=== PATIENT | female | born 1940 | race Caucasian/White ===

== ENCOUNTER → 2017-08-06 11:53 | Outpatient (CLI) | payer MEDICARE, SELFPAY ==
[2017-08-06 14:28] LABS: Anion Gap 7 (5-15); BUN 13 mg/dL (7-18); BUN/Creat Ratio 15.3 RATIO (10-20); Calcium,Total 9.4 mg/dL (8.5-10.1); Chloride 105 mmol/L (98-107); Creatinine, Serum 0.85 mg/dL (0.55-1.02); EST Glomerular Filtration Rate 69 mL/min (>60); Est Glom Filt Rate - Afr Amer 84 mL/min (>60); Glucose 119 mg/dL (74-106); Potassium 3.9 mmol/L (3.5-5.1); Sodium Level 137 mmol/L (136-145)
== END ==
PROVIDERS: Family Provider Family Medicine; PCP Family Medicine; Visit Provider Family Medicine
DX: E11.9 Type 2 diabetes mellitus without complications (principal)
CPT/HCPCS: 36415; 80048

== ENCOUNTER → 2018-01-27 14:46 | Outpatient (CLI) | payer MEDICARE, SELFPAY ==
--- NOTE | 2018-01-27 14:49 | BI_ITS ---
MAMMOGRAPHY - BILATERAL SCREENING REASON FOR EXAM: Female, 77 years old. Routine annual screening examination. PERTINENT HISTORY: Non-contributory. TECHNIQUE: Digital bilateral breast anju (3D mammographic acquisition) in the CC and MLO projections. 2-D mediolateral oblique (MLO) and craniocaudad (CC) views of both breasts were obtained. CAD: Full Field Digital Mammography with Computer Added Detection was performed. COMPARISON: Comparison is made with prior examination dated January 02, 2017 and May 29, 2015. FINDINGS: Breast Composition: There are scattered areas of fibroglandular density. There are no dominant masses or suspicious calcifications. Stable appearance of the rounded dense calcific nodules seen in both breasts worse along the inferior medial anterior portion of the left breast. No other significant abnormalities are identified. There has been no significant change since the prior study. BI/SCREENING MAMM (CAD), BILAT IMPRESSION: Stable bilateral screening mammogram. Yearly follow-up mammogram recommended. (A) ASSESSMENT CATEGORY: BIRADS Category 2: Benign. A letter regarding these results will be sent to the patient by the facility within 30 days. Approximately 10% of breast cancers are not detected by mammography. A normal mammogram should not delay biopsy of a clinically suspicious abnormality. [id number] Electronically Signed: Andry Matos MD at 15:50 EST Tel [phone], Service support ,
== END ==
PROVIDERS: Family Provider Family Medicine; PCP Family Medicine; Visit Provider Family Medicine
DX: Z12.31 Encounter for screening mammogram for malignant neoplasm of breast (principal)
CPT/HCPCS: 77063; 77067

== ENCOUNTER → 2018-05-08 11:06 | Outpatient (CLI) | payer MEDICARE, SELFPAY ==
[2017-07-09 13:06] VITALS: BMI 37.2
[2018-05-08 13:48] LABS: Anion Gap 9 (5-15); BUN 14 mg/dL (7-18); BUN/Creat Ratio 16.4 RATIO (10-20); Calcium,Total 9.4 mg/dL (8.5-10.1); Chloride 107 mmol/L (98-107); Cholesterol 241 mg/dL (200); Creatinine, Serum 0.86 mg/dL (0.55-1.02); EST Glomerular Filtration Rate 69 mL/min (>60); Est Glom Filt Rate - Afr Amer 83 mL/min (>60); Glucose 169 mg/dL (74-106); High Density Lipoprotein 53 mg/dL; Sodium Level 142 mmol/L (136-145); Triglycerides 181 mg/dL; Very Low Density Lipoprotein 36 mg/dL (5-40)
== END ==
PROVIDERS: Family Provider Family Medicine; PCP Family Medicine; Referring Provider Family Medicine; Visit Provider Family Medicine
DX: I10 Essential (primary) hypertension (principal)
CPT/HCPCS: 36415; 80048; 80061

== ENCOUNTER → 2018-10-22 | Outpatient (CLI) | payer MEDICARE, SELFPAY ==
[2018-07-22 15:29] VITALS: BMI 36.2
[2018-10-22 12:42] LABS: AST(SGOT) 15 U/L (15-37); Alanine Aminotransfer ALT/SGPT 23 U/L (13-56); Albumin, Serum 3.7 g/dL (3.2-5.0); Alkaline Phosphatase 108 U/L (45-117); Bilirubin, Direct 0.06 mg/dL (0.00-0.30); Cholesterol 251 mg/dL (200); Globulin 4.2 g/dL (2.2-4.2); High Density Lipoprotein 56 mg/dL; Protein, Total 7.9 g/dL (6.4-8.2); Triglycerides 210 mg/dL; Very Low Density Lipoprotein 42 mg/dL (5-40)
== END | disposition home or self-care (01) ==
LOC: MTLAB 09:49
PROVIDERS: Family Provider Family Medicine; PCP Family Medicine; Referring Provider Internal Medicine Cardiovascular Disease; Visit Provider Internal Medicine Cardiovascular Disease
DX: E78.00 Pure hypercholesterolemia, unspecified (principal)
CPT/HCPCS: 36415; 80061; 80076

== ENCOUNTER → 2018-11-25 12:21 | Outpatient (CLI) | payer MEDICARE, SELFPAY ==
[2018-07-22 15:29] VITALS: BMI 36.2
== END ==
PROVIDERS: Family Provider Family Medicine; PCP Family Medicine; Referring Provider Nurse Practitioner Family; Visit Provider Nurse Practitioner Family
DX: R30.0 Dysuria (principal)
CPT/HCPCS: 87077; 87086; 87088; 87186

== ENCOUNTER → 2019-01-15 14:32 | Outpatient (CLI) | payer MEDICARE, SELFPAY ==
[2019-01-08 15:28] VITALS: BMI 37.4
--- NOTE | 2019-01-15 14:34 | RAD_ITS ---
STUDY: X-RAY - CERVICAL SPINE REASON FOR EXAM: Female, 78 years old. Neck pain. TECHNIQUE: 5 view(s) of the cervical spine were obtained. COMPARISON: None FINDINGS: There are degenerative changes of the anterior atlantoaxial articulation. Normal odontoid process. Normal cervical lordosis. There is multi-level endplate spondylosis. There is diffuse osteopenia. There is mild, multi-level degenerative disc disease with multilevel disc space narrowing. There is multilevel bilateral apophyseal hypertrophy, more severe on the left compared to the right. The soft tissue structures are unremarkable. There is no demonstrated fracture of the cervical spine. RAD/Cerv Spine 4 or 5 Views IMPRESSION: Multilevel spondylosis/degenerative disease with no acute fracture or subluxation. Electronically Signed: Kelsi Davila MD at 7:10 EST , Service support ,
== END ==
PROVIDERS: Family Provider Family Medicine; PCP Family Medicine; Referring Provider Family Medicine; Visit Provider Family Medicine
DX: M54.2 Cervicalgia (principal)
CPT/HCPCS: 72050

== ENCOUNTER 2019-03-12 18:43 | Inpatient (IN) | payer MEDICARE, SELFPAY ==
[2019-01-08 15:28] VITALS: BMI 37.4
[2019-03-12] VITALS (8 sets, daily range): BP systolic 120–176; BP diastolic 62–74; PULSE 55–67; RESP 16–19; TEMP 36.4; O2SAT 95–98; BMI 39.9; BMI 40.0; BMI 37.0; BMI 37.1
--- NOTE | 2019-03-12 19:03 | EKG12_ITS ---
Test Reason : CP Blood Pressure : / mmHG Vent. Rate : 057 BPM Atrial Rate : 057 BPM P-R Int : 154 ms QRS Dur : 088 ms QT Int : 478 ms P-R-T Axes : 058 -38 090 degrees QTc Int : 465 ms Sinus bradycardia with occasional Premature ventricular complexes Possible Left atrial enlargement Left axis deviation Nonspecific ST and T wave abnormality Abnormal ECG Confirmed by JULIEN BRIGGS, GABY ([id number]), assignment editor WARREN CHEN ([id number]) on 03/16/2019 9:07:33 AM Referred By: KIM Confirmed By:GABY VICTORIA MD
--- NOTE | 2019-03-12 19:15 | RAD_ITS ---
STUDY: X-RAY CHEST REASON FOR EXAM: Female, 78 years old. Chest pain TECHNIQUE: Frontal view of the chest COMPARISON: X-ray chest September 02, 2016 FINDINGS: Post-CABG changes are present. The lungs are clear. There are no pleural effusions. There is no pneumothorax. The heart is enlarged. The visualized osseous structures are within normal limits. RAD/Chest 1 View (Portable) IMPRESSION: No acute thoracic pathology. Cardiomegaly. Electronically Signed: Antonio Lugo, at 19:39 EST Tel , Service support ,
[2019-03-12 19:27] LABS: Absolute Lymphocyte Count 1.68 X10^3/uL (0.83-4.51); Absolute Neutrophil Count 5.7 X10^3/uL (2.0-7.7); Basophil# 0.03 X10^3/uL; Basophil% 0.4 % (0-1); Eosinophil# 0.16 X10^3/uL; Hematocrit 48.1 % (37-47); Hemoglobin 15.4 g/dL (12.0-15.0); Lymphocyte # 1.68 X10^3/ul (4.0); Lymphocyte % 20.8 % (19-41); Mean Corpuscular Hgb 28.3 pg (27.0-32.0); Mean Corpuscular Volume 88.3 fL (81-99); Monocyte# 0.46 X10^3/uL; Monocyte% 5.7 % (0-10); NRBC Flagged by Analyzer 0 % (0-5); Neutrophil # 5.68 X10^3/uL (2.7-7.7); Neutrophil % 70.5 % (47-70); Platelet Count 225 K/mm3 (150-450); RBC Distribution Width CV 13.6 % (11.6-14.6); RBC Distribution Width SD 43.9 fl (35.1-43.9); Red Blood Count 5.45 M/mm3 (4.2-5.4); White Blood Count 8.1 K/mm3 (4.4-11.0)
[2019-03-12] MEDS: 0.9% Normal Saline 1,000 ML 150 ML IV (19:28)
[2019-03-12] MEDS: Nitroglycerin Oint 1 INCH PACKET TRANSDERM. (19:28)
[2019-03-12 19:44] LABS: Anion Gap 7 (5-15); BUN 14 mg/dL (7-18); BUN/Creat Ratio 13.6 RATIO (10-20); Calcium,Total 9.7 mg/dL (8.5-10.1); Chloride 106 mmol/L (98-107); Creatinine, Serum 1.03 mg/dL (0.55-1.02); EST Glomerular Filtration Rate 55 mL/min (>60); Est Glom Filt Rate - Afr Amer 67 mL/min (>60); Estimated Creatinine Clearance 35.06 ml/min; Glucose 155 mg/dL (74-106); Potassium 3.9 mmol/L (3.5-5.1); Sodium Level 139 mmol/L (136-145)
--- NOTE | 2019-03-12 19:57 | ED.VISSUMM ---
- ER Visit Summary Date of Service: 03/12/19 Chief Complaint: [Chest pain] History of Present Illness: The patient is a 78 F [presents to the emergency department complaint of chest pain that started around 5:30 PM. Patient describes a tightness and pressure like having an elephant sitting on her chest. Patient states that she just finished eating. Patient took 1 nitroglycerin at home and it did help her pain a little bit. EMS was called and they gave her aspirin and a second nitroglycerin tablet and on arrival to the ER she rates her pain as minimal may be a 1 out of 10. Patient did feel short of breath with it. Patient did get a little bit sweaty and diaphoretic. Patient states that lately she has been having a little more exertional dyspnea. Patient does have history of coronary artery disease with three-vessel CABG in 2012. Patient has history of diabetes, hypertension, high cholesterol. Recent travel or surgery. No fevers or cough.] Physical Examination: [HEENT-PERRLA, EOMI. Cranial nerves II through XII grossly intact. TMs clear. Mucous membranes moist. No adenopathy. Cardiovascular-regular rate and rhythm without murmur or ectopy Lungs-clear to auscultation, chest wall stable without crepitus or subcu emphysema Abdomen-normoactive bowel sounds, soft, nontender, no rebound or rigidity, no peritoneal signs. Extremities-intact ?4, normal range of motion, normal pulses, atraumatic] Test Results: [EKG obtained arrival shows sinus rhythm with a ventricular rate of 57 bpm with occasional PVCs. Patient had some nonspecific ST changes. Compared with prior EKG from 2012 no significant changes noted. CBC with differential obtained showed a white of 8.1, hemoglobin 15, hematocrit 48, platelets 228. Chemistries unremarkable. Troponin was slightly elevated at 0.103. Chest x-ray showed nothing acute.] Emergency Department Course and Treatment: [She had an inch of paste placed to the anterior chest wall. Patient was placed on a monitoring tech.] Treatment Plan: [Patient case will be discussed with hospitalist to admit patient] Disposition: [Admit] Impression: [Chest pain Non-ST elevation NE] This note was generated with [employer] dictation software. It may contain incorrect words, spelling, and punctuation that were not noted in review of the chart prior to signing ED Disposition - Plan for ED Patient: Referrals: Rodríguez Lema MD [Primary Care Provider] -
--- NOTE | 2019-03-12 20:15 | HP.PCM_ITS ---
Problem List (1) Non-STEMI (non-ST elevated myocardial infarction) Status: Acute (2) Chest pain Status: Acute Qualifiers: Ischemic chest pain type: unspecified angina pectoris type (3) Presence of stent in coronary artery Status: Chronic Comment: PTCA/stent of First Obtuse Marginal branch of left Cx; PTCA/stent to SVG to PDA in both proximal & distal segments 11/24/09 (4) Pure hypercholesterolemia Status: Chronic (5) Essential hypertension Status: Chronic (6) Sinus bradycardia Status: Chronic (7) Diabetes mellitus Status: Chronic Qualifiers: Diabetes mellitus type: type 2 Diabetes mellitus detention insulin use: without detention use Diabetes mellitus complication status: with other specified complication Qualified Code(s): E11.69 - Type 2 diabetes mellitus with other specified complication (8) Presence of aortocoronary bypass graft Status: Chronic Comment: Sep 1993, median sternotomy, OHS , constructionof left internal thoracic artery graft to LAD and a segment ov RSV bypass graft to PDCA, redo CABG SVG to PDA, SVG to Diag 1, SVG to OM2 01/02/12 (9) Atherosclerotic heart disease of [place] coronary artery without angina pectoris Status: Chronic Qualifiers: [place] vs. transplanted heart: unspecified whether [place] or transplanted heart Qualified Code(s): I25.10 - Atherosclerotic heart disease of [place] coronary artery without angina pectoris History of Present Illness Date of Admission: 03/12/19 Chief Complaint: Chest pain The patient is a 78 y/o F w/ PMHx: CAD status post CABG x 2 initially 1993 and follow-up CABG x 3 2011 with SVG to diagonal, SVG to OM and SVG to right PDA as well as PCI first obtuse marginal branch left CX, SVG to PDA proximal and distal segments last 2009, Diabetes mellitus type II, HTN, HLD, Hx sinus bradycardia who presents to the [facility] on 03[facility]12[facility]2019 with history of onset chest discomfort following meal at ~5:30 pm, description of an elephant sitting on her chest with dyspnea and diaphoresis noted across the entire chest, promptly taking 2 sublingual nitroglycerin decreasing her pain from an 8 out of 10 to 4 out of 10 in severity and eventually transitioning to 2 out of 10 upon ED presentation. In the ED upon evaluation of patient she notes the chest discomfort previously all across her chest is now primarily in the left chest and shoulder, rated 1 out of 10 and continues to improve. Patient also notes taking a full-strength 324 mg aspirin p.o. x1. Work-up in the ED included T 97.5, heart rate 55, BP 165/69, respiratory rate 16, 96% room air, CBC with WC 8.1, hemoglobin 15.4, platelet 225 without market shift, BMP with BUN/creatinine 14/1.03, glucose 155, troponin 0.103, chest x-ray with no acute cardiopulmonary findings aside cardiomegaly, EKG with sinus rhythm with nonspecific ST-T changes similar to prior. In the ED patient administered lovenox 100 SC x 1, ASA 324 mg ASA, 1 inch NG paste as well as NS. Discussed case upon admission with financial business analyst and decision for Brilinta load in addition to continuation of therapeutic Lovenox as well as aspirin therapy, statin, beta-danny and lisinopril in addition to increasing her nitroglycerin paste to 2 inches every 6 hours. Past Medical History Past Medical History (Chronic Problems): Chronic Problems (Last Reviewed 12/17/18 @ 09:35 by Deepika Fleming) Presence of stent in coronary artery (Chronic ~11/24/09) PTCA/stent of First Obtuse Marginal branch of left Cx; PTCA/stent to SVG to PDA in both proximal & distal segments 11/24/09 Pure hypercholesterolemia (Chronic) Essential hypertension (Chronic) Atrioventricular block (Chronic) Sinus bradycardia (Chronic) Other specified cardiac dysrhythmias (Chronic) Chronic cardiac arrhythmia (Chronic) Undiagnosed cardiac murmurs (Chronic) Nonspecific abnormal unspecified cardiovascular function study (Chronic) Abnormal electrocardiogram (Chronic) Encounter for long-term current use of high risk medication (Chronic) Diabetes mellitus (Chronic) Presence of aortocoronary bypass graft (Chronic ~01/02/12) Sep 1993, median sternotomy, OHS , constructionof left internal thoracic artery graft to LAD and a segment ov RSV bypass graft to PDCA, redo CABG SVG to PDA, SVG to Diag 1, SVG to OM2 01/02/12 Atherosclerotic heart disease of [place] coronary artery without angina pectoris (Chronic) Medical History: Medical History (Last Reviewed 12/17/18 @ 09:35 by Deepika Fleming) Lipoma of back (Acute) D17.1 Presence of stent in coronary artery (Chronic) Onset Date: ~11/24/09 Z95.5 PTCA/stent of First Obtuse Marginal branch of left Cx; PTCA/stent to SVG to PDA in both proximal & distal segments 11/24/09 Pure hypercholesterolemia (Chronic) E78.00 Essential hypertension (Chronic) I10 Atrioventricular block (Chronic) I44.30 Sinus bradycardia (Chronic) R00.1 Diabetes mellitus (Chronic) E11.9 Atherosclerotic heart disease of [place] coronary artery without angina pectoris (Chronic) I25.10 CAD (coronary artery disease) (Inactive) I25.10 11/24/09 PTCA/stent of First Obtuse Marginal branch of left Cx; PTCA/stent to SVG to PDA in both proximal & distal segments; HLD (hyperlipidemia) (Inactive) E78.5 Hypertension (Inactive) I10 Percutaneous transluminal coronary angioplasty (PTCA) within last 14 to 24 months (Inactive) Z98.61 11/24/09 PTCA/stent of First Obtuse Marginal branch of left Cx; PTCA/stent to SVG to PDA in both proximal & distal segments; Allergies clopidogrel [From Plavix] Allergy (Verified 03/12/19 18:48) Rash Sulfa (Sulfonamide Antibiotics) Allergy (Verified 03/12/19 18:48) Rash [id number] Reductase Inhibitor Adverse Reaction (Severe, Verified 03/12/19 18:48) Intolerance, mylagias prasugrel [From Effient] Adverse Reaction (Intermediate, Verified 03/12/19 18:48) Tongue blisters Home Medications: Ambulatory Orders Medication Instructions Recorded Aspirin [Aspirin, Baby] 81 mg PO DAILY@0800 09/02/16 nitroglycerin 0.4 mg sublingual 0.4 mg SUBLINGUAL Q5M PRN #25 tab 07/22/18 tablet amlodipine 10 mg tablet 10 mg PO DAILY tab 12/17/18 Lisinopril 20 mg PO DAILY 03/12/19 Metformin HCl [Metformin HCl ER] 500 mg PO DAILY 03/12/19 Metoprolol Succinate 12.5 mg PO DAILY 03/12/19 Multivitamins,Therapeutic 1 tab PO DAILY 03/12/19 [Multivitamin] Pravastatin Sodium 20 mg PO QODAY 03/12/19 Surgical History: Surgical History (Last Reviewed 12/17/18 @ 09:35 by Deepika Fleming) Presence of aortocoronary bypass graft (Chronic) Onset Date: ~01/02/12 Z95.24 Sep 1993, median sternotomy, OHS , constructionof left internal thoracic artery graft to LAD and a segment ov RSV bypass graft to PDCA, redo CABG SVG to PDA, SVG to Diag 1, SVG to OM2 01/02/12 Presence of coronary angioplasty implant and graft Onset Date: ~11/24/09 Z95.5 11/24/09 PTCA/stent of First Obtuse Marginal branch of left Cx; PTCA/stent to SVG to PDA in both proximal & distal segments; Surgical History: - - 1993 CABG x2, 2012 CABG x3, PCI x3 most recently 2009, tonsillectomy, cholecystectomy, appendectomy, hysterectomy. 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 Lives: Spouse/ Significant Other Smoking Status: Never smoker Tobacco Use: Non-smoker Alcohol: None Drugs: None - *Family History Maternal Family History: Family History (Last Reviewed 12/17/18 @ 09:35 by Deepika Fleming) Father CAD (coronary artery disease) Myocardial infarction Brother Myocardial infarction CAD (coronary artery disease) Brother Myocardial infarction Sister CAD (coronary artery disease) Diabetes Myocardial infarction Mother Cancer History Items: Cancer Paternal Family History: Family History (Last Reviewed 12/17/18 @ 09:35 by Deepika Fleming) Father CAD (coronary artery disease) Myocardial infarction Brother Myocardial infarction CAD (coronary artery disease) Brother Myocardial infarction Sister CAD (coronary artery disease) Diabetes Myocardial infarction Mother Cancer History Items: High Cholesterol, Heart Disease, Hypertension Review of Systems Constitutional: Reports: Malaise, Weakness, Fatigue. Denies: Chills, Fever, Weight Change HEENT: Denies: Head Aches, Sinus Congestion, Sinus Drainage Cardiovascular: Reports: Chest Pain, Chest Pressure, Heaviness. Denies: Light Headedness, Orthopnea, Palpitations, Syncope Respiratory: Reports: Shortness of Breath. Denies: Cough, Shortness of breath at rest, Shortness of breath upon exertion, Sputum production, Wheezing Gastrointestinal: Reports: Nausea. Denies: Abdominal Pain, Vomiting Genitourinary: Denies: Dysuria Musculoskeletal: Reports: Arm Pain, Joint Pain, Shoulder Pain. Denies: Joint Tenderness Skin: Denies: Rash, Wounds Neurological: Denies: Numbness, Tingling, Focal weakness Psychiatric: Denies: Anxiety, Depression, Homicidal Ideations, Suicidal Ideations Hematologic/ Lymphatic: Denies: Easy Bruising, Easy Bleeding VTE Information - Inpt Only VTE Present on Admission: No VTE Mechan Device Prophylaxis: SCD's VTE Pharm Prophylaxis ordered?: Yes Patient Problems: Active and Suspected Problems (Last Reviewed 12/17/18 @ 09:35 by Deepika Fleming) Non-STEMI (non-ST elevated myocardial infarction) (Acute) Chest pain (Acute) Subjective: Seated upright in ED bed, fatigued appearance, notes chest discomfort has decreased and is currently only on the left side, rated 1 out of 10 in severity, continues to improve. Objective: Physical Examination: General: awake, alert, oriented x 3 and cooperative, seated upright in the ED bed, fatigued appearance, notes chest discomfort improving. Skin: normal color, turgor, no icterus, cyanosis. HEENT: AT/NC, EOMI, PERRLA, MMM, no carotid bruits or JVD noted. Lungs: CTA bilaterally, moderate effort, mild decrease BL bases, no rales, ronchi or wheezing. Heart: Mildly bradycardic with regular rhythm; no gallop, rub audible, no reproducible discomfort palpation of left lateral chest. Abdomen: soft, morbidly obese, NTTP, ND, normal BS, no HSM. Extremities: no cyanosis, clubbing, or edema. Neurological: patient awake, alert, oriented x 3; cognitive function intact; pupils equally reactive to light and accomodation; cranial nerves II-XII grossly normal, moving all 4 extremities, no focal deficits, strength moderately globa lly Moni secondary to acute presentation. Psychiatric: affect appears mildly fatigued, no acute evidence of depressive or anxiety feelings. - Physical Exam Vitals/I&O's: Vital Signs Temp Pulse Resp BP Pulse Ox 97.5 F L 64 17 158/72 H 96 03/12/19 18:44 03/12/19 19:47 03/12/19 19:47 03/12/19 19:47 03/12/19 19:47 Oxygen Delivery Method Room Air Weight: 211 lb 10.3 oz Body Mass Index (BMI) 39.9 Laboratory Results 03/12/19 19:17: WBC 8.1, RBC 5.45 H, Hgb 15.4 H, Hct 48.1 H, MCV 88.3, MCH 28.3, MCHC 32.0, RDW Std Deviation 43.9, RDW Coeff of [place] 13.6, Plt Count 225, MPV 10.0, Immature Gran % (Auto) 0.600, Neut % (Auto) 70.5 H, Lymph % (Auto) 20.8, [place] % (Auto) 5.7, Eos % (Auto) 2.0, Baso % (Auto) 0.4, Absolute Neuts (auto) 5.7, Absolute Lymphs (auto) 1.68, Nucleated RBC % 0 03/12/19 19:17: Sodium 139, Potassium 3.9, Chloride 106, Carbon Dioxide 26.0, Anion Gap 7, BUN 14, Creatinine 1.03 H, Estim Creat Clear Calc 35.06, Est GFR (MDRD) Af Amer 67, Est GFR (MDRD) Non-Af 55 L, BUN/Creatinine Ratio 13.6, Glucose 155 H, Calcium 9.7, Troponin I 0.103 H Current Medications Sodium Chloride () 1,000 mls @ 150 mls/hr IV .Q6H40M KIARRA Last Admin: 03/12/19 19:28 Dose: 150 mls/hr Documented by: Assessment/Plan All Active Problems (Last Reviewed 12/17/18 @ 09:35 by Deepika Fleming) Non-STEMI (non-ST elevated myocardial infarction) (Acute) Chest pain (Acute) Lipoma of back (Acute) The patient is a 78 y/o F w/ PMHx: CAD status post CABG and PCI, Diabetes mellitus type II, HTN, HLD, Hx sinus bradycardia who presents to the [facility] on 03/12/2019 with history of onset chest discomfort following meal at ~5:30 pm, description of an elephant sitting on her chest with dyspnea and diaphoresis noted across the entire chest, promptly taking 2 sublingual nitroglycerin decreasing her pain from an 8 out of 10 to 4 out of 10 in severity and eventually transitioning to 2 out of 10 upon ED presentation. 1. Chest Pain w/ Acute NSTEMI: EKG in ED w/ sinus rhythm with nonspecific ST-T wave changes similar to prior, CXR w/ cardiomegaly with no acute cardiopulmonary findings. Trop elevated, 0.103. Will admit to PCU, maintain on a monitored bed, continue serial cardiac enzymes and EKGs. Obtain magnesium level upon admission. We will continue therapeutic lovenox with first dose initiated in the ED upon presentation. Continue medical management w/ asa, BB, lisinopril, statin w/ AM FLP. Cardiology consulted, pending evaluation but discussion with plan for continued NG scheduled, Brilinta load, continue therapeutic Lovenox as well as aspirin with possible cardiac catheterization Friday if remains clinically appropriate otherwise will maintain n.p.o. status following midnight in case catheterization needed in a.m. ECHO requested. ASA, NG, morphine. 2. CAD: s/p CABG x2 initially in 1993 and CABG x 3 05/14/2011 and PCI x3 as noted, follows w/ Dr. Encarnacion. Will continue home regimen asa, statin, BB, lisinopril with noted allergy to Plavix. As noted given Brilinta load with continuation twice daily regimen following. 3. Hypertension: Continue home regimen including metoprolol, lisinopril, Norvasc, PRN hydralazine. 4. Hyperlipidemia: Continue home statin regimen. AM FLP. 5. Diabetes mellitus type II: Hold oral home regimen, ADA diet, accu checks w/ ISS. 6. Morbid Obesity: Weight loss and lifestyle changes encouraged, nutrition consulted. 7. DVT prophylaxis: SCDs, continue therapeutic Lovenox as noted above. 8. CODE status: Patient's daughter is her healthcare power of district attorney and she does have a living will in place. Given current cardiac presentation with an STEMI, discussed CODE status at length including difference between FULL code, DNR-CCA and DNR-CC status. Following discussions about the differences in these status, requested full code status. Advanced Care Planning Face to Face Time: 16 minutes. Code Visit Inpatient E&M: 07222 Init Hosp L3 Procedures: 01653 Advncd Care Plan 30 Min
[2019-03-12] MEDS: Enoxaparin 100 MG/ML Syringe SC (20:25)
--- NOTE | 2019-03-12 23:01 | ECHOD_ITS ---
Reason For Study: Chest Pain Procedure This was a 2D Doppler, Color Flow transthoracic echocardiogram. Exam performed portable in patient room. Left Ventricle Normal left ventricle. Concentric left ventricular hypertrophy. Left ventricular systolic function is normal. The estimated ejection fraction is 55-60 %. Mid-Inferior: Mildly hypokinetic. Right Ventricle Normal right ventricle. Normal systolic function. Atria The left atrium is mildly enlarged. The right atrium is mildly enlarged. Mitral Valve The mitral valve is structurally normal. No prolapse or stenosis seen. Mild (1+) mitral valve insufficiency. Tricuspid Valve Normal tricuspid valve. Trivial tricuspid valve insufficiency. Aortic Valve Normal aortic valve. No aortic valve insufficiency. Pulmonic Valve Normal pulmonic valve. No pulmonic valve insufficiency. MMode/2D Measurements & Calculations LVIDd: 5.8 cm IVSd: 1.1 cm Ao root diam: 3.2 cm LVIDs: 3.5 cm LVPWd: 1.1 cm RVDd: 3.4 cm FS: 39.1 % LAV(MOD-bp): 61.9 ml SV(MOD-sp4): 35.3 ml LVAd ap4: 23.4 cm2 LAV(MOD-bp) Indexed: 32.1 ml/m2 EDV(MOD-sp4): 62.4 ml LAV(MOD-sp2): 57.5 ml EDV(sp4-el): 62.6 ml LAV(MOD-sp4): 66.2 ml LVAs ap4: 14.2 cm2 ESV(MOD-sp4): 27.0 ml ESV(sp4-el): 27.3 ml EF(MOD-sp4): 56.7 % EF(sp4-el): 56.3 % SV(sp4-el): 35.2 ml LA dimension(2D): 5.0 cm LA A4 area: 21.6 cm2 RA A4 area: 14.8 cm2 Doppler Measurements & Calculations MV E max chuy: 71.3 cm/sec Lat Peak E' Chuy: 7.2 cm/sec Med Peak E' Chuy: 4.6 cm/sec MV A max chuy: 79.3 cm/sec E/E' lat: 9.9 E/E' med: 15.6 MV E/A: 0.90 Ao V2 max: 154.0 cm/sec LV V1 max: 96.6 cm/sec PA V2 max: 78.9 cm/sec Ao max P.5 mmHg LV V1 max P.7 mmHg Ao V2 mean: 100.2 cm/sec Ao mean P.5 mmHg Ao V2 VTI: 36.9 cm TR max chuy: 262.5 cm/sec TR max P.6 mmHg Interpretation Summary Technically good quality study Patient is in sinus bradycardia during acquisition of this study. Normal left ventricle. Left ventricular systolic function is normal. The estimated ejection fraction is 55-60 %. The left atrium is mildly enlarged. Mild (1+) mitral valve insufficiency. Trivial tricuspid valve insufficiency. No aortic valve insufficiency. No pulmonic valve insufficiency. . Ordering Physician: Brittney Melendez Referring Physician: Rodríguez Lema Performed By: Allie Vargas, WALKER, RVT
--- NOTE | 2019-03-12 23:01 | EKG12_ITS ---
Test Reason : CP ADMIT Blood Pressure : / mmHG Vent. Rate : 063 BPM Atrial Rate : 052 BPM P-R Int : 150 ms QRS Dur : 098 ms QT Int : 462 ms P-R-T Axes : 039 -22 111 degrees QTc Int : 472 ms Sinus bradycardia with occasional Premature ventricular complexes Otherwise normal ECG Leftward [place] Poor R-wave progression Nonspecific ST/T wave abnormality Confirmed by YAMILA BRIGGS, DENG ([id number]), order editor WARREN CHEN ([id number]) on 03/17/2019 11:11:15 AM Referred By: DR PATEL Confirmed By:DENG DRISCOLL MD
[2019-03-12 23:16] LABS: Magnesium 2.2 mg/dL (1.6-2.6)
[2019-03-12] MEDS: Famotidine 20 MG Tablet PO (23:42)
[2019-03-12] MEDS: 0.9% Normal Saline 1,000 ML 100 ML IV (23:42)
[2019-03-12] MEDS: Nitroglycerin Oint 1 INCH PACKET 2 INCH TRANSDERM. (23:51)
[2019-03-12] MEDS: TICAGRELOR 90 MG TABLET 180 MG PO (23:52)
[2019-03-13] VITALS (14 sets, daily range): BP systolic 106–167; BP diastolic 47–76; PULSE 50–64; RESP 14–20; TEMP 36.6–36.7; O2SAT 95–98
[2019-03-13 00:05] LABS: Bedside Glucose 105 mg/dL (70-110)
[2019-03-13 02:21] LABS: Absolute Lymphocyte Count 2.49 X10^3/uL (0.83-4.51); Absolute Neutrophil Count 5.4 X10^3/uL (2.0-7.7); Basophil# 0.04 X10^3/uL; Basophil% 0.5 % (0-1); Eosinophil# 0.16 X10^3/uL; Eosinophils% 1.8 % (0-5); Hemoglobin 14.9 g/dL (12.0-15.0); Lymphocyte # 2.49 X10^3/ul (4.0); Lymphocyte % 28.8 % (19-41); Mean Corp Hgb Conc 33.1 g/dL (32-36); Mean Corpuscular Volume 87.5 fL (81-99); Mean Platelet Vol. 10.2 fl (6.2-12.0); Monocyte# 0.52 X10^3/uL; NRBC Flagged by Analyzer 0 % (0-5); Neutrophil # 5.41 X10^3/uL (2.7-7.7); Neutrophil % 62.4 % (47-70); Platelet Count 235 K/mm3 (150-450); RBC Distribution Width CV 13.5 % (11.6-14.6); RBC Distribution Width SD 43.5 fl (35.1-43.9); Red Blood Count 5.14 M/mm3 (4.2-5.4); White Blood Count 8.7 K/mm3 (4.4-11.0)
[2019-03-13 02:41] LABS: Prothrombin Time (Protime)PT. 13.3 SECONDS (11.7-14.9)
[2019-03-13 02:53] LABS: Anion Gap 7 (5-15); BUN 13 mg/dL (7-18); BUN/Creat Ratio 15.5 RATIO (10-20); Calcium,Total 9.3 mg/dL (8.5-10.1); Chloride 110 mmol/L (98-107); Cholesterol 273 mg/dL (200); Creatinine, Serum 0.84 mg/dL (0.55-1.02); EST Glomerular Filtration Rate 70 mL/min (>60); Est Glom Filt Rate - Afr Amer 85 mL/min (>60); Estimated Creatinine Clearance 42.99 ml/min; Glucose 114 mg/dL (74-106); High Density Lipoprotein 49 mg/dL; Potassium 3.6 mmol/L (3.5-5.1); Sodium Level 141 mmol/L (136-145); Triglycerides 253 mg/dL; Very Low Density Lipoprotein 51 mg/dL (5-40)
[2019-03-13] MEDS: Nitroglycerin Oint 1 INCH PACKET 2 INCH TRANSDERM. (06:47)
[2019-03-13 07:00] LABS: Bedside Glucose 134 mg/dL (70-110)
[2019-03-13] MEDS: Acetaminophen 325 MG Tablet 650 MG PO (08:18)
[2019-03-13] MEDS: Aspirin 81 MG TAB.CHEW PO (08:19)
[2019-03-13] MEDS: amLODIPine 10 MG Tablet PO (08:19)
--- NOTE | 2019-03-13 10:30 | CON.PCM_ITS ---
Problem List (1) Chest pain Status: Acute Qualifiers: Chest pain type: chest pain due to myocardial ischemia Ischemic chest pain type: unstable angina pectoris Reason for Consult Date of Consultation: 03/13/19 History of Present Illness: T patient is a pleasant 78-year-old man with medical history significant for history of known coronary artery disease status post coronary artery bypass surgery x2 the recent bypass history was done at [facility] in 2011 where she had 2nd CABGx3 with saphenous vein graft to the first diagonal branch and saphenous vein graft to the obtuse marginal branch and a vein graft to the PDA right coronary artery symptoms of chest discomfort shortly after eating chili last evening. She informs me that she took once of the nitroglycerin for symptoms of chest discomfort 8 or 10 in severity. 4 minutes after the pain stated and before taking second nitroglycerin she did inform her to call 911. Patient was given 4 baby aspirin by EMS and additional nitroglycerin sublingual on the way to our hospital. Enroute to our hospital her symptoms of chest discomfort got better to 4 out of 10 in severity and by the time she came to the emergency room she was feeling much better with chest pain 1/10. Patient was seen by hospitalist and was initiated on Nitropaste 2 inches every 6 hours. This caused her symptoms of headache as expected and she informs me that she cannot go to sleep all night and she was insisting initially that she wants to be discharged home as she cannot rest in the hospital. Symptoms of chest pain completely resolved and she was conversing with her son at the bedside she usually follows with Dr. Encarnacion and believes that she did had stress test since 2011 but nothing recently. Past Medical History Allergies/Adverse Reactions: Allergies clopidogrel [From Plavix] Allergy (Verified 03/12/19 18:48) Rash Sulfa (Sulfonamide Antibiotics) Allergy (Verified 03/12/19 18:48) Rash Hewrxjh-Poa-Guw Reductase Inhibitor Adverse Reaction (Severe, Verified 03/12/19 18:48) Intolerance, mylagias prasugrel [From Effient] Adverse Reaction (Intermediate, Verified 03/12/19 18:48) Tongue blisters Home Medications: Ambulatory Orders Medication Instructions Recorded Aspirin [Aspirin, Baby] 81 mg PO DAILY@0800 09/02/16 nitroglycerin 0.4 mg sublingual 0.4 mg SUBLINGUAL Q5M PRN #25 tab 07/22/18 tablet amlodipine 10 mg tablet 10 mg PO DAILY tab 12/17/18 Lisinopril 20 mg PO DAILY 03/12/19 Metformin HCl [Metformin HCl ER] 500 mg PO DAILY 03/12/19 Metoprolol Succinate 12.5 mg PO DAILY 03/12/19 Multivitamins,Therapeutic 1 tab PO DAILY 03/12/19 [Multivitamin] Pravastatin Sodium 20 mg PO QODAY 03/12/19 Past Medical History (Chronic Problems): Chronic Problems (Last Reviewed 12/17/18 @ 09:35 by Deepika Fleming) Presence of stent in coronary artery (Chronic ~11/24/09) PTCA/stent of First Obtuse Marginal branch of left Cx; PTCA/stent to SVG to PDA in both proximal & distal segments 11/24/09 Pure hypercholesterolemia (Chronic) Essential hypertension (Chronic) Atrioventricular block (Chronic) Sinus bradycardia (Chronic) Other specified cardiac dysrhythmias (Chronic) Chronic cardiac arrhythmia (Chronic) Undiagnosed cardiac murmurs (Chronic) Nonspecific abnormal unspecified cardiovascular function study (Chronic) Abnormal electrocardiogram (Chronic) Encounter for long-term current use of high risk medication (Chronic) Diabetes mellitus (Chronic) Presence of aortocoronary bypass graft (Chronic ~01/02/12) Sep 1993, median sternotomy, OHS , constructionof left internal thoracic artery graft to LAD and a segment ov RSV bypass graft to PDCA, redo CABG SVG to PDA, SVG to Diag 1, SVG to OM2 01/02/12 Atherosclerotic heart disease of [place] coronary artery without angina pectoris (Chronic) Surgical History: - - 1993 CABG x2, 2011 CABG x3, PCI x3 most recently 2009, tonsillectomy, cholecystectomy, appendectomy, hysterectomy. Psychiatric History: No pertinent psych hx [employer] History: No pertinent [employer] history - *Family History Maternal Family History: Family History (Last Reviewed 12/17/18 @ 09:35 by Deepika Fleming) Father CAD (coronary artery disease) Myocardial infarction Brother Myocardial infarction CAD (coronary artery disease) Brother Myocardial infarction Sister CAD (coronary artery disease) Diabetes Myocardial infarction Mother Cancer History Items: Cancer Paternal Family History: Family History (Last Reviewed 12/17/18 @ 09:35 by Deepika Fleming) Father CAD (coronary artery disease) Myocardial infarction Brother Myocardial infarction CAD (coronary artery disease) Brother Myocardial infarction Sister CAD (coronary artery disease) Diabetes Myocardial infarction Mother Cancer History Items: High Cholesterol, Heart Disease, Hypertension Lives: Spouse/ Significant Other Smoking Status: Never smoker Tobacco Use: Non-smoker Alcohol: None Drugs: None Review of Systems - Review of Systems General: Denies: Fever, Night Sweats, Fatigue Cardiovascular: Denies: Chest Discomfort, Shortness of Breath, Orthopnea, PND, Peripheral Edema, Palpitations, Lightheadedness, Dizziness, Near Syncope, Syncope Respiratory: Denies: Cough, Sputum Production, Hemoptysis Gastrointestinal: Denies: Hematemesis, Hematochezia, Melena Genitourinary: Denies: Dysuria, Hematuria Skin: Denies: Rash Objective: Vital Signs Temp Pulse Resp BP Pulse Ox 98.1 F 50 L 14 145/64 H 95 03/13/19 08:09 03/13/19 08:09 03/13/19 08:09 03/13/19 08:09 03/13/19 08:35 Oxygen Delivery Method Room Air Weight: 196 lb 6.4 oz Body Mass Index (BMI) 37.0 Intake and Output for Last 24 Hours 03/11/19 03/12/19 03/13/19 23:59 23:59 23:59 Intake Total 330 / 330 998.33 / 998.33 Balance 330 / 330 998.33 / 998.33 General: Awake, Alert, Oriented x 3 HEENT: PERRL, EOMI, Sclera Non Icteric Neck: Supple, Good ROM, No Lymph Node Enlargement Lungs: Clear to auscultation Cardiovascular: Regular Rhythm, Normal S1, Normal S2, No Murmurs, No Rubs, No Gallops Vascular: No Carotid Bruits, Normal Femoral Pulses, Normal Radial Pulses, Normal Dorsalis Pedal Pulse, Normal Posterior Tibial Pulses Abdomen: Bowel Sounds Present, Soft, Non Tender, No HSM, No Organomegaly Extremities: No Cyanosis, No Clubbing, No edema Neurological: No Focal Motor or Sensory Deficit 03/12/19 19:17: WBC 8.1, RBC 5.45 H, Hgb 15.4 H, Hct 48.1 H, MCV 88.3, MCH 28.3, MCHC 32.0, Plt Count 225, MPV 10.0, Immature Gran % (Auto) 0.600, Neut % (Auto) 70.5 H, Lymph % (Auto) 20.8, Crawford % (Auto) 5.7, Eos % (Auto) 2.0, Baso % (Auto) 0.4, Absolute Neuts (auto) 5.7, Nucleated RBC % 0 03/12/19 19:17: Sodium 139, Potassium 3.9, Chloride 106, Carbon Dioxide 26.0, Anion Gap 7, BUN 14, Creatinine 1.03 H, Est GFR (MDRD) Af Amer 67, Est GFR (MDRD) Non-Af 55 L, BUN/Creatinine Ratio 13.6, Glucose 155 H, Calcium 9.7, Troponin I 0.103 H 03/12/19 22:44: Troponin I 0.558 H 03/12/19 22:44: Magnesium 2.2 03/13/19 01:45: Troponin I 0.994 H* 03/13/19 01:45: WBC 8.7, RBC 5.14, Hgb 14.9, Hct 45.0, MCV 87.5, MCH 29.0, MCHC 33.1, Plt Count 235, MPV 10.2, Immature Gran % (Auto) 0.500, Neut % (Auto) 62.4, Lymph % (Auto) 28.8, Crawford % (Auto) 6.0, Eos % (Auto) 1.8, Baso % (Auto) 0.5, Absolute Neuts (auto) 5.4, Nucleated RBC % 0 03/13/19 01:45: Sodium 141, Potassium 3.6, Chloride 110 H, Carbon Dioxide 24.0, Anion Gap 7, BUN 13, Creatinine 0.84, Est GFR (MDRD) Af Amer 85, Est GFR (MDRD) Non-Af 70, BUN/Creatinine Ratio 15.5, Glucose 114 H, Calcium 9.3, Triglycerides 253 H, Cholesterol 273 H, LDL Cholesterol 173 H, VLDL Cholesterol 51 H, HDL Cholesterol 49 03/13/19 01:45: PT 13.3, INR 1.0, APTT 40.0 H Rhythm: EKG: ECHO: Stress Test: Cardiac Cath: PCI: CT Surgery: Holter monitor: EPS: PPM: CXR: Chest CT Scan: Assessment/Plan #1 non-ST elevation myocardial infarction. I do agree with hospital services to continue the patient on low monitor weight Heparin subcutaneously every 12 hours based on her weight at least until Friday evening and will discontinue thereafter. We will keep her n.p.o. post midnight on Friday and consideration for a left heart catheterization possible ad hoc angioplasty to be done on Friday by Dr. Encarnacion. As patient was complaining of severe headaches I would scan his Nitropaste now that she is chest pain-free I would not initiate nitrates in any other form for now. 2. Hypertension currently well controlled 3. Dyslipidemia for which she remains on statin therapy 4. Abnormal EKG showing evidence of sinus bradycardia with occasional PVCs and nonspecific changes involving the anterior precordial leads which are new compared to the old EKG in 2011 sinus bradycardia is possibly secondary to patient being on a small dose of long-acting beta blockers and to some comment of underlying sick sinus syndrome given her advanced age 5. We will continue patient on Brilinta and she did receive a loading dose of Brilinta last evening at 180 mg p.o. in the emergency room and she is allergic to clopidogrel and Prasugrel 6. Diabetes mellitus type 2 be addressed with hospital services 7. Insomnia will give her a small dose of Restoril 15 to 30 mg nightly as needed Discussed with hospitalist services Thank you for asking us to evaluate this pleasant patient
--- NOTE | 2019-03-13 11:02 | PN_ITS ---
<Patricia Ellis - Last Filed: 03/13/19 11:13> Patient Problems: Active and Suspected Problems (Last Reviewed 12/17/18 @ 09:35 by Deepika Fleming) Non-STEMI (non-ST elevated myocardial infarction) (Acute) Chest pain (Acute) Subjective: Patient seen and examined. Denies further chest pain. Initially patient did not want to stay until Friday to have heart cath and requested to leave AGAINST MEDICAL ADVICE however following further discussion with cardiology, patient agreeable to stay over the weekend to have heart cath on Friday. - Physical Exam Vitals/I&O's: Vital Signs Temp Pulse Resp BP Pulse Ox 98.1 F 50 L 14 145/64 H 95 03/13/19 08:09 03/13/19 08:09 03/13/19 08:09 03/13/19 08:09 03/13/19 08:35 Oxygen Delivery Method Room Air Weight: 196 lb 6.4 oz Body Mass Index (BMI) 37.0 Intake and Output for Last 24 Hours 03/11/19 03/12/19 03/13/19 23:59 23:59 23:59 Intake Total 330 / 330 998.33 / 998.33 Balance 330 / 330 998.33 / 998.33 General: Alert, Oriented x3, Cooperative HEENT: Atraumatic, PERRLA, EOMI, Normocephalic Neck: Supple, No JVD, Negative Carotid Bruits Lungs: Clear to auscultation, Normal air movement Cardiovascular: Regular rate, Regular Rhythm, Normal S1, Normal S2, No murmurs Abdomen: Bowel Sounds Present, Soft, Non Tender, Non-Distended Extremities: No clubbing, No cyanosis, No edema, Capillary Refill Less than 3 Seconds Skin: No rashes, No breakdown Musculoskeletal: No Tenderness to Palpation of Joints or Extremities Neurological: Cranial nerves II-XII grossly intact, Neuro grossly intact Psych/Mental Status: Normal Affect, Appropriate Laboratory Results 03/12/19 19:17: WBC 8.1, RBC 5.45 H, Hgb 15.4 H, Hct 48.1 H, MCV 88.3, MCH 28.3, MCHC 32.0, RDW Std Deviation 43.9, RDW Coeff of Amara 13.6, Plt Count 225, MPV 10.0, Immature Gran % (Auto) 0.600, Neut % (Auto) 70.5 H, Lymph % (Auto) 20.8, Long % (Auto) 5.7, Eos % (Auto) 2.0, Baso % (Auto) 0.4, Absolute Neuts (auto) 5.7, Absolute Lymphs (auto) 1.68, Nucleated RBC % 0 03/12/19 19:17: Sodium 139, Potassium 3.9, Chloride 106, Carbon Dioxide 26.0, Anion Gap 7, BUN 14, Creatinine 1.03 H, Estim Creat Clear Calc 35.06, Est GFR (MDRD) Af Amer 67, Est GFR (MDRD) Non-Af 55 L, BUN/Creatinine Ratio 13.6, Glucose 155 H, Calcium 9.7, Troponin I 0.103 H 03/12/19 22:44: Troponin I 0.558 H 03/12/19 22:44: Magnesium 2.2 03/12/19 23:53: POC Glucose 105 03/13/19 01:45: Troponin I 0.994 H* 03/13/19 01:45: WBC 8.7, RBC 5.14, Hgb 14.9, Hct 45.0, MCV 87.5, MCH 29.0, MCHC 33.1, RDW Std Deviation 43.5, RDW Coeff of Amara 13.5, Plt Count 235, MPV 10.2, Immature Gran % (Auto) 0.500, Neut % (Auto) 62.4, Lymph % (Auto) 28.8, Long % (Auto) 6.0, Eos % (Auto) 1.8, Baso % (Auto) 0.5, Absolute Neuts (auto) 5.4, Absolute Lymphs (auto) 2.49, Nucleated RBC % 0 03/13/19 01:45: Sodium 141, Potassium 3.6, Chloride 110 H, Carbon Dioxide 24.0, Anion Gap 7, BUN 13, Creatinine 0.84, Estim Creat Clear Calc 42.99, Est GFR (MDRD) Af Amer 85, Est GFR (MDRD) Non-Af 70, BUN/Creatinine Ratio 15.5, Glucose 114 H, Calcium 9.3, Triglycerides 253 H, Cholesterol 273 H, LDL Cholesterol 173 H, VLDL Cholesterol 51 H, HDL Cholesterol 49 03/13/19 01:45: PT 13.3, INR 1.0, APTT 40.0 H 03/13/19 06:47: POC Glucose 134 H Current Medications Acetaminophen (Tylenol) 650 mg PO Q6H PRN PRN PRN Reason: Pain Score 1-3/Temp > 100.7 F Last Admin: 03/13/19 08:18 Dose: 650 mg Documented by: Al Hydroxide/Mg Hydroxide (Mylanta Ii) 30 ml PO Q6H PRN PRN PRN Reason: Gastric Burning Albuterol Sulfate (Ventolin Aerosols) 2.5 mg INHALATION Q2H PRN PRN PRN Reason: SOB/Wheezing Amlodipine Besylate (Norvasc) 10 mg PO DAILY [facility] Last Admin: 03/13/19 08:19 Dose: 10 mg Documented by: Aspirin (Aspirin, Baby) 81 mg PO DAILY@0800 [facility] Last Admin: 03/13/19 08:19 Dose: 81 mg Documented by: Enoxaparin Sodium (Lovenox) 100 mg 1 mg/kg (100 mg) SC Q12 [facility] Famotidine (Pepcid) 20 mg PO BID [facility] Last Admin: 03/12/19 23:42 Dose: 20 mg Documented by: Glucagon () 1 mg IM .X1 PRN PRN Reason: Hypoglycemia Guaifenesin (Robitussin) 20 ml PO Q4H PRN PRN PRN Reason: COUGH Hydralazine HCl (Apresoline Iv) 10 mg IV Q4H PRN PRN PRN Reason: SBP > 160 Dextrose (Dextrose 10%-Water) 250 mls @ 999 mls/hr IV .Q16M PRN; Protocol PRN Reason: HYPOGLYCEMIA Insulin Human Lispro (Humalog Kwikpen (Bkc)) 0 unit SC ACHS [facility]; Protocol Last Admin: 03/13/19 06:49 Dose: Not Given Documented by: Lisinopril (Zestril) 20 mg PO DAILY [facility] Magnesium Hydroxide (Milk Of Magnesia) 30 ml PO DAILY PRN PRN PRN Reason: Constipation Melatonin (Melatonin) 3 mg PO QHS PRN PRN PRN Reason: INSOMNIA Metoprolol Succinate (Toprol Xl (Beta Edda)) 12.5 mg PO DAILY [facility] Morphine Sulfate () 2 mg IV Q3H PRN PRN PRN Reason: Pain Score 6-10/10 Ondansetron HCl (Zofran) 4 mg IV Q8H PRN PRN PRN Reason: NAUSEA/VOMITING Oxycodone HCl (Oxyir) 5 mg PO Q4H PRN PRN PRN Reason: Pain Score 4-5/10 Pravastatin Sodium (Pravachol) 20 mg PO QODAY@2200 [facility] Prochlorperazine Edisylate (Compazine Iv) 5 mg IV Q4H PRN PRN PRN Reason: Breakthrough Nausea/Vomiting Sodium Chloride () 10 - 40 ml IV UD PRN PRN Reason: SALINE FLUSH Temazepam (Restoril) 15 mg PO QHS [facility] Throat Lozenges (Cepacol Sore Throat Lozenge) 1 lozenge MUCOUS MEM Q2H PRN PRN PRN Reason: Sore Throat/Cough Ticagrelor (Brilinta) 90 mg PO BID [facility] Medical Necessity - Tobacco Use Smoking Status: Never smoker Tobacco Use: Non-smoker Assessment/Plan All Active Problems (Last Reviewed 12/17/18 @ 09:35 by Deepika Fleming) Non-STEMI (non-ST elevated myocardial infarction) (Acute) Chest pain (Acute) Lipoma of back (Acute) 1. NSTEMI-EKG without ST-T changes. Cardiology consulted. Echocardiogram pending. Plan for cath on Friday morning. Continue aspirin, beta-deda, statin, therapeutic Lovenox. 2. CAD status post CABG and PCI- follows with Dr. Encarnacion. 3. Hypertension-continue metoprolol, lisinopril, Norvasc. 4. Hyperlipidemia-lipid panel elevated. Currently taking statin every other da y. Increase statin regimen if patient is able to tolerate. 5. Type 2 diabetes mellitus-hold oral regimen. Accu-Cheks ACHS with SSI. 6. Morbid obesity- encouraged diet and lifestyle modifications. DVT prophylaxis-Lovenox This patient was seen by STANLEY Springer under the supervision of Dr. Hernandez. <Med Hernandez - Last Filed: 03/13/19 13:36> - Physical Exam Vitals/I&O's: Vital Signs Temp Pulse Resp BP Pulse Ox 97.9 F 58 L 15 136/64 H 96 03/13/19 11:18 03/13/19 11:42 03/13/19 11:18 03/13/19 11:23 03/13/19 11:18 Oxygen Delivery Method Room Air Weight: 89.086 kg Body Mass Index (BMI) 37.0 Intake and Output for Last 24 Hours 03/11/19 03/12/19 03/13/19 23:59 23:59 23:59 Intake Total 330 / 330 1718.33 / 1718.33 Balance 330 / 330 1718.33 / 1718.33 Laboratory Results 03/12/19 19:17: WBC 8.1, RBC 5.45 H, Hgb 15.4 H, Hct 48.1 H, MCV 88.3, MCH 28.3, MCHC 32.0, RDW Std Deviation 43.9, RDW Coeff of Amara 13.6, Plt Count 225, MPV 10.0, Immature Gran % (Auto) 0.600, Neut % (Auto) 70.5 H, Lymph % (Auto) 20.8, Long % (Auto) 5.7, Eos % (Auto) 2.0, Baso % (Auto) 0.4, Absolute Neuts (auto) 5.7, Absolute Lymphs (auto) 1.68, Nucleated RBC % 0 03/12/19 19:17: Sodium 139, Potassium 3.9, Chloride 106, Carbon Dioxide 26.0, Anion Gap 7, BUN 14, Creatinine 1.03 H, Estim Creat Clear Calc 35.06, Est GFR (MDRD) Af Amer 67, Est GFR (MDRD) Non-Af 55 L, BUN/Creatinine Ratio 13.6, Glucose 155 H, Calcium 9.7, Troponin I 0.103 H 03/12/19 22:44: Troponin I 0.558 H 03/12/19 22:44: Magnesium 2.2 03/12/19 23:53: POC Glucose 105 03/13/19 01:45: Troponin I 0.994 H* 03/13/19 01:45: WBC 8.7, RBC 5.14, Hgb 14.9, Hct 45.0, MCV 87.5, MCH 29.0, MCHC 33.1, RDW Std Deviation 43.5, RDW Coeff of Amara 13.5, Plt Count 235, MPV 10.2, Immature Gran % (Auto) 0.500, Neut % (Auto) 62.4, Lymph % (Auto) 28.8, Long % (Auto) 6.0, Eos % (Auto) 1.8, Baso % (Auto) 0.5, Absolute Neuts (auto) 5.4, Absolute Lymphs (auto) 2.49, Nucleated RBC % 0 03/13/19 01:45: Sodium 141, Potassium 3.6, Chloride 110 H, Carbon Dioxide 24.0, Anion Gap 7, BUN 13, Creatinine 0.84, Estim Creat Clear Calc 42.99, Est GFR (MDRD) Af Amer 85, Est GFR (MDRD) Non-Af 70, BUN/Creatinine Ratio 15.5, Glucose 114 H, Calcium 9.3, Triglycerides 253 H, Cholesterol 273 H, LDL Cholesterol 173 H, VLDL Cholesterol 51 H, HDL Cholesterol 49 03/13/19 01:45: PT 13.3, INR 1.0, APTT 40.0 H 03/13/19 06:47: POC Glucose 134 H 03/13/19 11:14: POC Glucose 112 H Current Medications Acetaminophen (Tylenol) 650 mg PO Q6H PRN PRN PRN Reason: Pain Score 1-3/Temp > 100.7 F Last Admin: 03/13/19 08:18 Dose: 650 mg Documented by: Al Hydroxide/Mg Hydroxide (Mylanta Ii) 30 ml PO Q6H PRN PRN PRN Reason: Gastric Burning Albuterol Sulfate (Ventolin Aerosols) 2.5 mg INHALATION Q2H PRN PRN PRN Reason: SOB/Wheezing Amlodipine Besylate (Norvasc) 10 mg PO DAILY [facility] Last Admin: 03/13/19 08:19 Dose: 10 mg Documented by: Aspirin (Aspirin, Baby) 81 mg PO DAILY@0800 [facility] Last Admin: 03/13/19 08:19 Dose: 81 mg Documented by: Enoxaparin Sodium (Lovenox) 100 mg 1 mg/kg (100 mg) SC Q12 [facility] Last Admin: 03/13/19 11:26 Dose: 100 mg Documented by: Famotidine (Pepcid) 20 mg PO BID [facility] Last Admin: 03/13/19 11:22 Dose: 20 mg Documented by: Glucagon () 1 mg IM .X1 PRN PRN Reason: Hypoglycemia Guaifenesin (Robitussin) 20 ml PO Q4H PRN PRN PRN Reason: COUGH Hydralazine HCl (Apresoline Iv) 10 mg IV Q4H PRN PRN PRN Reason: SBP > 160 Dextrose (Dextrose 10%-Water) 250 mls @ 999 mls/hr IV .Q16M PRN; Protocol PRN Reason: HYPOGLYCEMIA Insulin Human Lispro (Humalog Kwikpen (Bkc)) 0 unit SC ACHS [facility]; Protocol Last Admin: 03/13/19 11:23 Dose: Not Given Documented by: Lisinopril (Zestril) 20 mg PO DAILY [facility] Last Admin: 03/13/19 11:23 Dose: 20 mg Documented by: Magnesium Hydroxide (Milk Of Magnesia) 30 ml PO DAILY PRN PRN PRN Reason: Constipation Melatonin (Melatonin) 3 mg PO QHS PRN PRN PRN Reason: INSOMNIA Metoprolol Succinate (Toprol Xl (Beta Edda)) 12.5 mg PO DAILY [facility] Last Admin: 03/13/19 11:23 Dose: 12.5 mg Documented by: Morphine Sulfate () 2 mg IV Q3H PRN PRN PRN Reason: Pain Score 6-10/10 Ondansetron HCl (Zofran) 4 mg IV Q8H PRN PRN PRN Reason: NAUSEA/VOMITING Oxycodone HCl (Oxyir) 5 mg PO Q4H PRN PRN PRN Reason: Pain Score 4-5/10 Pravastatin Sodium (Pravachol) 40 mg PO QHS [facility] Prochlorperazine Edisylate (Compazine Iv) 5 mg IV Q4H PRN PRN PRN Reason: Breakthrough Nausea/Vomiting Sodium Chloride () 10 - 40 ml IV UD PRN PRN Reason: SALINE FLUSH Temazepam (Restoril) 15 mg PO QHS [facility] Throat Lozenges (Cepacol Sore Throat Lozenge) 1 lozenge MUCOUS MEM Q2H PRN PRN PRN Reason: Sore Throat/Cough Ticagrelor (Brilinta) 90 mg PO BID [facility] Last Admin: 03/13/19 11:25 Dose: 90 mg Documented by: Assessment/Plan This patient was seen in conjunction with STANLEY Springer . I have independently interviewed and examined the patient and reviewed pertinent historical, laboratory, and other data. Please refer to STANLEY Springer note for details of this patient's presentation, findings, and recommendations. I have reviewed STANLEY Springer note and concur with documented findings. In brief, patient is a 78-year-old with significant past cardiac history including coronary artery disease with subsequent PCI who presented with chest discomfort patient was found to have elevated troponin consistent with acute non-STEMI admitted to a monitored bed for subsequent management Physical Examination: GENERAL: cooperative HEENT: Atraumatic; EYES; Anicteric, Normal Conjunctiva NECK; supple, normal thyroid, RESPIRATORY: Diminished to auscultation CARDIOVASCULAR: Regular S1 S2, GI: soft, normoactive bowel sounds, : No Renal angle tenderness; EXTREMITIES: No edema, no clubbing, MUSCULOSKELETAL: no muscle waisting NEURO: Awake; no lateralizing signs. SKIN: No Rash PSYCH; Flat affect Assessment: 1. Acute non-STEMI 2. Coronary artery disease with previous CABG and subsequent stent 3. Essential potential 4. Obesity with BMI of 37.1 5. Diabetes mellitus type II 6. Dyslipidemia 7. DVT prophylaxis-Lovenox Recommendations: 1. I have discussed the results of my overview and impressions with the patient 2. Options for management were reviewed Code Visit Inpatient E&M: 73205 Subs Hosp L3
[2019-03-13] MEDS: Famotidine 20 MG Tablet PO ×2 (11:22→20:47)
[2019-03-13] MEDS: Metoprolol(XL)Succ 25 MG Tablet 12.5 MG PO (11:23)
[2019-03-13] MEDS: Lisinopril 20 MG Tablet PO (11:23)
[2019-03-13] MEDS: TICAGRELOR 90 MG TABLET PO ×2 (11:25→20:48)
[2019-03-13] MEDS: Enoxaparin 100 MG/ML Syringe SC ×2 (11:26→20:46)
[2019-03-13 11:41] LABS: Bedside Glucose 112 mg/dL (70-110)
--- NOTE | 2019-03-13 15:24 | CM.UR ---
Met face to face with patient. introduced myself and CM role. at bedside. Dr. Encarnacion is her credit administration officer and Dr. Lema is PCP. Lives in a 1 story home with . States independent with all ADLs and drives herself. States daughter Is her HCPOA but she couldn't remember if we had it on file. I looked after meeting with her. We have a living will given to us in 2007 and dated 1991. It has listed first and daughter, Missy Infante as alternate however the living will scanned is not dated, nor is it witnessed by 2 people nor has a notary signed/stamped. States if needs transferred to further cardiac intervention--she prefers to go to [place]. Paul Vaughan RN, CCM.
[2019-03-13 17:25] LABS: Bedside Glucose 142 mg/dL (70-110)
[2019-03-13] MEDS: Temazepam 15 MG Capsule PO (20:55)
[2019-03-13] MEDS: hydrALAZINE 20 MG/ML Vial 10 MG IV (21:09)
[2019-03-13] MEDS: 0.9% Saline Lock 10 ML Syringe IV (21:10)
[2019-03-13 21:11] LABS: Bedside Glucose 132 mg/dL (70-110)
[2019-03-14] VITALS (12 sets, daily range): BP systolic 141–160; BP diastolic 59–76; PULSE 55–83; RESP 16–20; TEMP 36.3–36.7; O2SAT 95–97
[2019-03-14 07:11] LABS: Bedside Glucose 123 mg/dL (70-110)
[2019-03-14] MEDS: TICAGRELOR 90 MG TABLET PO ×2 (08:44→21:45)
[2019-03-14] MEDS: amLODIPine 10 MG Tablet PO (08:44)
[2019-03-14] MEDS: Enoxaparin 100 MG/ML Syringe SC ×2 (08:44→21:46)
[2019-03-14] MEDS: Famotidine 20 MG Tablet PO ×2 (08:44→21:46)
[2019-03-14] MEDS: Aspirin 81 MG TAB.CHEW PO (08:44)
[2019-03-14] MEDS: Metoprolol(XL)Succ 25 MG Tablet 12.5 MG PO (08:45)
[2019-03-14] MEDS: Lisinopril 20 MG Tablet PO (08:45)
--- NOTE | 2019-03-14 09:36 | PCM.PROGNOTE ---
<Patricia Ellis - Last Filed: 03/14/19 09:49> Patient Problems: Active and Suspected Problems (Last Reviewed 12/17/18 @ 09:35 by Deepika Fleming) Non-STEMI (non-ST elevated myocardial infarction) (Acute) Chest pain (Acute) Subjective: Patient seen and examined. Denies chest pain overnight. Plan for cath in a.m. Patient in agreement. - Physical Exam Vitals/I&O's: Vital Signs Temp Pulse Resp BP Pulse Ox 98.0 F 57 L 16 143/70 H 97 03/14/19 08:34 03/14/19 08:45 03/14/19 08:34 03/14/19 08:45 03/14/19 08:34 Oxygen Delivery Method Room Air Weight: 196 lb 6.4 oz Body Mass Index (BMI) 37.0 Intake and Output for Last 24 Hours 03/12/19 03/13/19 03/14/19 23:59 23:59 23:59 Intake Total 330 / 330 1967. / 1967. 100 / 100 Balance 330 / 330 100 / 100 General: Alert, Oriented x3, Cooperative HEENT: Atraumatic, PERRLA, EOMI, Normocephalic Neck: Supple, No JVD, Negative Carotid Bruits Lungs: Clear to auscultation, Normal air movement Cardiovascular: Regular rate, Regular Rhythm, Normal S1, Normal S2, No murmurs Abdomen: Bowel Sounds Present, Soft, Non Tender, Non-Distended Extremities: No clubbing, No cyanosis, No edema, Capillary Refill Less than 3 Seconds Skin: No rashes, No breakdown Musculoskeletal: No Tenderness to Palpation of Joints or Extremities Neurological: Cranial nerves II-XII grossly intact, Neuro grossly intact Psych/Mental Status: Normal Affect, Appropriate Laboratory Results 03/13/19 11:14: POC Glucose 112 H 03/13/19 17:19: POC Glucose 142 H 03/13/19 20:44: POC Glucose 132 H 03/14/19 07:00: POC Glucose 123 H Current Medications Acetaminophen (Tylenol) 650 mg PO Q6H PRN PRN PRN Reason: Pain Score 1-3/Temp > 100.7 F Last Admin: 03/13/19 08:18 Dose: 650 mg Documented by: Al Hydroxide/Mg Hydroxide (Mylanta Ii) 30 ml PO Q6H PRN PRN PRN Reason: Gastric Burning Albuterol Sulfate (Ventolin Aerosols) 2.5 mg INHALATION Q2H PRN PRN PRN Reason: SOB/Wheezing Amlodipine Besylate (Norvasc) 10 mg PO DAILY [facility] Last Admin: 03/14/19 08:44 Dose: 10 mg Documented by: Aspirin (Aspirin, Baby) 81 mg PO DAILY@0800 [facility] Last Admin: 03/14/19 08:44 Dose: 81 mg Documented by: Enoxaparin Sodium (Lovenox) 100 mg 1 mg/kg (100 mg) SC Q12 [facility] Last Admin: 03/14/19 08:44 Dose: 100 mg Documented by: Famotidine (Pepcid) 20 mg PO BID [facility] Last Admin: 03/14/19 08:44 Dose: 20 mg Documented by: Glucagon () 1 mg IM .X1 PRN PRN Reason: Hypoglycemia Guaifenesin (Robitussin) 20 ml PO Q4H PRN PRN PRN Reason: COUGH Hydralazine HCl (Apresoline Iv) 10 mg IV Q4H PRN PRN PRN Reason: SBP > 160 Last Admin: 03/13/19 21:09 Dose: 10 mg Documented by: Dextrose (Dextrose 10%-Water) 250 mls @ 999 mls/hr IV .Q16M PRN; Protocol PRN Reason: HYPOGLYCEMIA Insulin Human Lispro (Humalog Kwikpen (Bkc)) 0 unit SC ACHS [facility]; Protocol Last Admin: 03/14/19 07:27 Dose: Not Given Documented by: Lisinopril (Zestril) 20 mg PO DAILY [facility] Last Admin: 03/14/19 08:45 Dose: 20 mg Documented by: Magnesium Hydroxide (Milk Of Magnesia) 30 ml PO DAILY PRN PRN PRN Reason: Constipation Melatonin (Melatonin) 3 mg PO QHS PRN PRN PRN Reason: INSOMNIA Metoprolol Succinate (Toprol Xl (Beta Edda)) 12.5 mg PO DAILY [facility] Last Admin: 03/14/19 08:45 Dose: 12.5 mg Documented by: Morphine Sulfate () 2 mg IV Q3H PRN PRN PRN Reason: Pain Score 6-10/10 Ondansetron HCl (Zofran) 4 mg IV Q8H PRN PRN PRN Reason: NAUSEA/VOMITING Oxycodone HCl (Oxyir) 5 mg PO Q4H PRN PRN PRN Reason: Pain Score 4-5/10 Pravastatin Sodium (Pravachol) 40 mg PO QHS [facility] Last Admin: 03/13/19 20:58 Dose: Not Given Documented by: Prochlorperazine Edisylate (Compazine Iv) 5 mg IV Q4H PRN PRN PRN Reason: Breakthrough Nausea/Vomiting Sodium Chloride () 10 - 40 ml IV UD PRN PRN Reason: SALINE FLUSH Last Admin: 03/13/19 21:10 Dose: 10 ml Documented by: Temazepam (Restoril) 15 mg PO QHS [facility] Last Admin: 03/13/19 20:55 Dose: 15 mg Documented by: Throat Lozenges (Cepacol Sore Throat Lozenge) 1 lozenge MUCOUS MEM Q2H PRN PRN PRN Reason: Sore Throat/Cough Ticagrelor (Brilinta) 90 mg PO BID [facility] Last Admin: 03/14/19 08:44 Dose: 90 mg Documented by: Medical Necessity - Tobacco Use Smoking Status: Never smoker Tobacco Use: Non-smoker Assessment/Plan All Active Problems (Last Reviewed 12/17/18 @ 09:35 by Deepika Fleming) Non-STEMI (non-ST elevated myocardial infarction) (Acute) Chest pain (Acute) Lipoma of back (Acute) 1. NSTEMI-EKG without ST-T changes. Cardiology consulted. Echocardiogram demonstrates an EF of 55 to 60%, mild mitral valve insufficiency. Plan for cath on Friday morning. Continue aspirin, beta-edda, statin, therapeutic Lovenox. 2. CAD status post CABG and PCI- follows with Dr. Encarnacion. 3. Hypertension-continue metoprolol, lisinopril, Norvasc. 4. Hyperlipidemia-lipid panel elevated. Currently taking statin every other day. Increase statin regimen if patient is able to tolerate. 5. Type 2 diabetes mellitus-hold oral regimen. Accu-Cheks ACHS with SSI. 6. Morbid obesity- encouraged diet and lifestyle modifications. DVT prophylaxis-Lovenox This patient was seen by STANLEY Springer under the supervision of Dr. Hernandez. <Med Hernandez - Last Filed: 03/14/19 09:58> - Physical Exam Vitals/I&O's: Vital Signs Temp Pulse Resp BP Pulse Ox 98.0 F 57 L 16 143/70 H 97 03/14/19 08:34 03/14/19 08:45 03/14/19 08:34 03/14/19 08:45 03/14/19 08:34 Oxygen Delivery Method Room Air Weight: 89.086 kg Body Mass Index (BMI) 37.0 Intake and Output for Last 24 Hours 03/12/19 03/13/19 03/14/19 23:59 23:59 23:59 Intake Total 330 / 330 100 / 100 Balance 330 / 330 100 / 100 Laboratory Results 03/13/19 11:14: POC Glucose 112 H 03/13/19 17:19: POC Glucose 142 H 03/13/19 20:44: POC Glucose 132 H 03/14/19 07:00: POC Glucose 123 H Current Medications Acetaminophen (Tylenol) 650 mg PO Q6H PRN PRN PRN Reason: Pain Score 1-3/Temp > 100.7 F Last Admin: 03/13/19 08:18 Dose: 650 mg Documented by: Al Hydroxide/Mg Hydroxide (Mylanta Ii) 30 ml PO Q6H PRN PRN PRN Reason: Gastric Burning Albuterol Sulfate (Ventolin Aerosols) 2.5 mg INHALATION Q2H PRN PRN PRN Reason: SOB/Wheezing Amlodipine Besylate (Norvasc) 10 mg PO DAILY [facility] Last Admin: 03/14/19 08:44 Dose: 10 mg Documented by: Aspirin (Aspirin, Baby) 81 mg PO DAILY@0800 [facility] Last Admin: 03/14/19 08:44 Dose: 81 mg Documented by: Enoxaparin Sodium (Lovenox) 100 mg 1 mg/kg (100 mg) SC Q12 [facility] Last Admin: 03/14/19 08:44 Dose: 100 mg Documented by: Famotidine (Pepcid) 20 mg PO BID [facility] Last Admin: 03/14/19 08:44 Dose: 20 mg Documented by: Glucagon () 1 mg IM .X1 PRN PRN Reason: Hypoglycemia Guaifenesin (Robitussin) 20 ml PO Q4H PRN PRN PRN Reason: COUGH Hydralazine HCl (Apresoline Iv) 10 mg IV Q4H PRN PRN PRN Reason: SBP > 160 Last Admin: 03/13/19 21:09 Dose: 10 mg Documented by: Dextrose (Dextrose 10%-Water) 250 mls @ 999 mls/hr IV .Q16M PRN; Protocol PRN Reason: HYPOGLYCEMIA Insulin Human Lispro (Humalog Kwikpen (Bkc)) 0 unit SC ACHS [facility]; Protocol Last Admin: 03/14/19 07:27 Dose: Not Given Documented by: Lisinopril (Zestril) 20 mg PO DAILY [facility] Last Admin: 03/14/19 08:45 Dose: 20 mg Documented by: Magnesium Hydroxide (Milk Of Magnesia) 30 ml PO DAILY PRN PRN PRN Reason: Constipation Melatonin (Melatonin) 3 mg PO QHS PRN PRN PRN Reason: INSOMNIA Metoprolol Succinate (Toprol Xl (Beta Edda)) 12.5 mg PO DAILY [facility] Last Admin: 03/14/19 08:45 Dose: 12.5 mg Documented by: Morphine Sulfate () 2 mg IV Q3H PRN PRN PRN Reason: Pain Score 6-10/10 Ondansetron HCl (Zofran) 4 mg IV Q8H PRN PRN PRN Reason: NAUSEA/VOMITING Oxycodone HCl (Oxyir) 5 mg PO Q4H PRN PRN PRN Reason: Pain Score 4-5/10 Pravastatin Sodium (Pravachol) 40 mg PO QHS [facility] Last Admin: 03/13/19 20:58 Dose: Not Given Documented by: Prochlorperazine Edisylate (Compazine Iv) 5 mg IV Q4H PRN PRN PRN Reason: Breakthrough Nausea/Vomiting Sodium Chloride () 10 - 40 ml IV UD PRN PRN Reason: SALINE FLUSH Last Admin: 03/13/19 21:10 Dose: 10 ml Documented by: Temazepam (Restoril) 15 mg PO QHS [facility] Last Admin: 03/13/19 20:55 Dose: 15 mg Documented by: Throat Lozenges (Cepacol Sore Throat Lozenge) 1 lozenge MUCOUS MEM Q2H PRN PRN PRN Reason: Sore Throat/Cough Ticagrelor (Brilinta) 90 mg PO BID [facility] Last Admin: 03/14/19 08:44 Dose: 90 mg Documented by: Assessment/Plan This patient was seen in conjunction with STANLEY Springer . I have independently interviewed and examined the patient and reviewed pertinent historical, laboratory, and other data. Please refer to STANLEY Springer note for details of this patient's presentation, findings, and recommendations. I have reviewed STANLEY Springer note and concur with documented findings. In brief, patient is a 78-year-old with significant past cardiac history including coronary artery disease with subsequent PCI who presented with chest discomfort patient was found to have elevated troponin consistent with acute non-STEMI admitted to a monitored bed for subsequent management ?03/14/2025; patient rescinded her decision to sign out AGAINST MEDICAL ADVICE following discussion with cardiology. Patient will undergo left heart catheterization on 03/15/2019 with intervention if needed Physical Examination: GENERAL: cooperative HEENT: Atraumatic; EYES; Anicteric, Normal Conjunctiva NECK; supple, normal thyroid, RESPIRATORY: Diminished to auscultation CARDIOVASCULAR: Regular S1 S2, GI: soft, normoactive bowel sounds, : No Renal angle tenderness; EXTREMITIES: No edema, no clubbing, MUSCULOSKELETAL: no muscle waisting NEURO: Awake; no lateralizing signs. SKIN: No Rash PSYCH; Flat affect Assessment: 1. Acute non-STEMI 2. Coronary artery disease with previous CABG and subsequent stent 3. Essential potential 4. Obesity with BMI of 37.1 5. Diabetes mellitus type II 6. Dyslipidemia 7. DVT prophylaxis-Lovenox Recommendations: 1. I have discussed the results of my overview and impressions with the patient 2. Options for management were reviewed Code Visit Inpatient E&M: 80026 Subs Hosp L2
[2019-03-14] MEDS: 0.9% Saline Lock 10 ML Syringe IV (11:46)
[2019-03-14 12:10] LABS: Bedside Glucose 154 mg/dL (70-110)
[2019-03-14 16:36] LABS: Bedside Glucose 103 mg/dL (70-110)
[2019-03-14] MEDS: Temazepam 15 MG Capsule PO (21:46)
[2019-03-14 22:20] LABS: Bedside Glucose 139 mg/dL (70-110)
[2019-03-15] VITALS (33 sets, daily range): BP systolic 93–183; BP diastolic 32–98; PULSE 54–74; RESP 12–24; TEMP 36.5–36.8; O2SAT 95–100; BMI 37.0
[2019-03-15 05:34] LABS: Hematocrit 47.8 % (37-47); Hemoglobin 15.5 g/dL (12.0-15.0); Mean Corp Hgb Conc 32.4 g/dL (32-36); Mean Corpuscular Hgb 28.5 pg (27.0-32.0); Mean Platelet Vol. 10.4 fl (6.2-12.0); Platelet Count 230 K/mm3 (150-450); RBC Distribution Width CV 13.7 % (11.6-14.6); RBC Distribution Width SD 43.9 fl (35.1-43.9); Red Blood Count 5.43 M/mm3 (4.2-5.4); White Blood Count 10.7 K/mm3 (4.4-11.0)
[2019-03-15 05:51] LABS: Prothrombin Time (Protime)PT. 13.2 SECONDS (11.7-14.9)
[2019-03-15 05:58] LABS: Anion Gap 7 (5-15); BUN 18 mg/dL (7-18); BUN/Creat Ratio 20.4 RATIO (10-20); Calcium,Total 9.3 mg/dL (8.5-10.1); Chloride 108 mmol/L (98-107); Creatinine, Serum 0.88 mg/dL (0.55-1.02); EST Glomerular Filtration Rate 66 mL/min (>60); Est Glom Filt Rate - Afr Amer 80 mL/min (>60); Estimated Creatinine Clearance 41.04 ml/min; Glucose 135 mg/dL (74-106); Potassium 3.7 mmol/L (3.5-5.1); Sodium Level 138 mmol/L (136-145)
[2019-03-15] MEDS: Lisinopril 20 MG Tablet PO (06:18)
[2019-03-15] MEDS: Metoprolol(XL)Succ 25 MG Tablet 12.5 MG PO (06:18)
[2019-03-15] MEDS: 0.9% Saline Lock 10 ML Syringe IV ×2 (06:18→12:01)
[2019-03-15] MEDS: Aspirin 81 MG TAB.CHEW PO (06:20)
[2019-03-15] MEDS: TICAGRELOR 90 MG TABLET PO ×2 (06:20→21:13)
[2019-03-15] MEDS: amLODIPine 10 MG Tablet PO (06:20)
[2019-03-15] MEDS: Famotidine 20 MG Tablet PO ×2 (06:21→21:13)
[2019-03-15] MEDS: 0.9% Normal Saline 1,000 ML 15 ML IV (06:22)
[2019-03-15 07:05] LABS: Bedside Glucose 143 mg/dL (70-110)
--- NOTE | 2019-03-15 09:39 | CL.D_ITS ---
Patient Name: JOSSE HORN Study Date: 03/15/2019 Performing: Rodríguez Encarnacion MD Ht: 61.02 inches 155 cm : 1940 Wt: 196.21 lbs 89 kg Age: 78 Gender: female BSA: 1.87 PROCEDURE(S) PERFORMED JD67-BZB/COR/LV/CABG ST35-IEP W OR WO PTCA, SINGLE CORONARY ARTERY CLINICAL PROFILE AND INDICATIONS Indications: Worsening Angina, Suspected CAD Heart Failure: None Stress/Imaging Stress/Image Study Performed: No Angina Classification Anginal Classification w/in 2 Weeks: CCS III CAD Presentations: Non-STEMI. CONCLUSIONS Elevated Left Ventricular End Diastolic Pressure Segmented LV systolic dysfunction- Mild LVEF: by LV gram 55 % [place] Multivessel CAD SANTANA to LAD: patent SVG to DX1: patent SVG Y graft from the SVG to DX1 going to OM1: occluded SVG to RPDA: patent RECOMMENDATIONS Risk factor modification Medical therapy Referred for immediate PCI DESCRIPTION OF PROCEDURE The patient arrived to the procedure lab. The risks and benefits of the procedure as well as a full d escription of our services here and current unavailability of surgical backup were fully explained to the patient and/or their significant other prior to the catheterization. The Timeout was completed, verifying the correct patient and procedure. The patient's procedural site was prepped and draped in the usual fashion. Local anesthetic was given subcutaneously to right groin region with Lidocaine 2%. Using a modified Seldinger technique, arterial access was obtained via the right femoral artery, a 4 Fr sheath was inserted Left Coronary Artery selective angiography was performed in multiple views us ing a 4 Fr. JL5 catheter. Right Coronary Artery selective angiography was then performed in multiple views using a 4 Fr. 3DRC catheter. Saphenous Vein graft to the DIAG 1 selective angiography was perfo rmed in multiple views using a 4 Fr. 3DRC catheter. Saphenous Vein graft to the OM 1 selective angiography was performed in multiple views using a 4 Fr. 3DRC catheter. Saphenous Vein gra ft to the RPDA selective angiography was performed in multiple views using a 4 Fr. 3DRC catheter. Lef t internal mammary artery graft to the LAD selective angiography was performed in multiple views usin g a 4 Fr. IM catheter. Left Ventriculography was performed in PERLA projection using a 4 Fr. Pigtail ca theter. LV to AO pullback pressures were then recorded.The arterial sheath was sutured in place and c apped CORONARY ANGIOGRAPHY DOMINANCE: Right Dominant LEFT HEART ASSESSMENT Left Ventricular Ejection Fraction: by LV Gram 55 % Inferior Basal Hypokinesis. Inferior Mid Hypokinesis Elevated Left Ventricular End Diastolic Pressure LVEDP: 17 mmHg LEFT ANTERIOR DESCENDING ARTERY: PROX LAD: is occluded MID LAD: filling from the SANTANA graft with subsequent mild luminal irregularities DIAGONAL 1: Proximal - filling from the SVG graft with subsequent mild luminal irregularities CIRCUMFLEX ARTERY: PROX CIRC: Mild luminal irregularities, Previously placed stent is patent DISTAL CIRC: mild luminal irregularities % Stenosis, 25 - 50 % Stenosis OM 1: Proximal - Previously placed stent is patent, Mid - irregular: 90 % Stenosis RIGHT CORONARY ARTERY: PROX RCA: is occluded RT PDA: Proximal - filling from the SVG graft with subsequent mild luminal irregularities GRAFTS: SANTANA graft to the Mid LAD is patent Saphenous Vein graft to the 1st Diagonal is patent Y graft to the 1st OM is totally occluded Saphenous Vein graft to the RPDA is patent AORTIC ROOT: Angiographically normal COMPLICATIONS No Complications PROCEDURE MEDICATIONS Versed 1 mg IV Oxygen: 2 L/min via nasal cannula Heparin 7000 unit(s) IV 03/15/2019 09:11:16 SUMMARY OF HEMODYNAMIC DATA Time AIR REST ECG 08:17:21 AO 171/74 (110) SA 08:32:09 LV 174/0, 25 08:50:46 LV 180/-12, 17 08:50:53 LV 167/-7, 21 08:51:47 LVp 175/-8, 28 08:51:52 AOp 174/61 (98) 08:51:57 AO 179/65 (96) 08:54:14 AO 166/79 (113) 09:21:21 Signed By Rodríguez Encarnacion MD On 03/15/2019 9:38:33 AM Rodríguez Encarnacion MD
--- NOTE | 2019-03-15 09:47 | NURSING ---
belongings taken to icu report given
--- NOTE | 2019-03-15 10:15 | EKG12_ITS ---
Test Reason : Blood Pressure : / mmHG Vent. Rate : 053 BPM Atrial Rate : 053 BPM P-R Int : 152 ms QRS Dur : 092 ms QT Int : 478 ms P-R-T Axes : 046 -28 189 degrees QTc Int : 448 ms Sinus bradycardia Anterior infarct , age undetermined ST & T wave abnormality, consider inferolateral ischemia Abnormal ECG When compared with ECG of 12-MAR-2019 21:24, MANUAL COMPARISON REQUIRED, DATA IS UNCONFIRMED Confirmed by JULIEN BRIGGS, GABY ([id number]), newspaper photo editor WRAREN CHEN ([id number]) on 03/23/2019 12:26:06 PM Referred By: Confirmed By:GABY VICTORIA MD
--- NOTE | 2019-03-15 10:20 | CASEMGMT ---
RN CM Assessment Presentation: NSTEMI, Intro role of CM and purpose of RN CM assessment to patient and her family in room. Demographics, PCP and Pharmacy verified. Lengthy conversation as pt is very concerned re: medications on discharge. Brilinta savings card given to patient and explained importance of continuous administration of medication as ordered. 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 Pt does say she cannot take Plavix as it gave her sores on her tongue. PCP: Dr. Rodríguez Lema Specialists: Dr. Encarnacion Preferred Pharmacy: [facility] Insurance: [employer] Prescription Benefit: yes LNOK: , Messi Duran Living Arrangements: Lives independently with her . Denies care needs, or use of DME. Transportation: Drives DME: none HHC/SNF: no Referral: no Patient DC goals: Home on dc DC PLAN: Home on discharge. More PATTON RN ACM
--- NOTE | 2019-03-15 10:45 | CL.I_ITS ---
Patient Name: JOSSE HORN Study Date: 03/15/2019 Performing: Tommy Barton MD Ht: 61 inches 155 cm : 1940 Wt: 196.5 lbs 89 kg Age: 78 Gender: female BSA: 1.87 PROCEDURE(S) PERFORMED [id number] W OR WO PTCA, SINGLE CORONARY ARTERY CLINICAL PROFILE AND CO-MORBIDITIES Indications: Worsening Angina, Suspected CAD Heart Failure: None Stress/Imaging Stress/Image Study Performed: No Angina Classification Anginal Classification w/in 2 Weeks: CCS III CAD Presentations: Non-STEMI. CONCLUSIONS Successful PTCA/PACO to mid OM1 RECOMMENDATIONS ASA Marquisefgulshan Linda for at least 12 months Follow up with Dr. Encarnacion DESCRIPTION OF PROCEDURE The patient arrived to the procedure lab. The risks and benefits of the procedure as well as a full d escription of our services here and current unavailability of surgical backup were fully explained to the patient and/or their significant other prior to the catheterization. The Timeout was completed, verifying the correct patient and procedure. The patient's procedural site was prepped and draped in the usual fashion. Local anesthetic was given subcutaneously to right groin region with Lidocaine 2% Using a modified Seldinger technique,arterial access was obtained via the right femoral artery, a 4Fr sheath was inserted Left Coronary Artery selective angiography was performed in multiple views using a 4 Fr. JL5 catheter. Right Coronary Artery selective angiography was then performed in multiple vie ws using a 4 Fr. 3DRC catheter. Saphenous Vein graft to the DIAG 1 selective angiography was performe d in multiple views using a 4 Fr. 3DRC catheter. Saphenous Vein graft to the OM 1 selective angiography was performed in multiple views using a 4 Fr. 3DRC catheter. Saphenous Vein gra ft to the RPDA selective angiography was performed in multiple views using a 4 Fr. 3DRC catheter. Lef t internal mammary artery graft to the LAD selective angiography was performed in multiple views usin g a 4 Fr. IM catheter. Left Ventriculography was performed in PERLA projection using a 4 Fr. Pigtail ca theter. LV to AO pullback pressures were then recorded.The images were reviewed and options discussed . A decision was then made to proceed with an Intervention, IVUS or other adjunct procedure. Arterial sheath was exchanged for a 6 Fr Sheath. XB 3.0 Cordis Guide catheter was inserted and en gaged into the LCA. BMW Guide wire was advanced to the 1st OM. 2.0 x 12 Emerge Balloon catheter was a dvanced across lesion in the first obtuse marginal, mid. Angiogram performed pre balloon dilatation. PTCA balloon inflated at 8 atms for 15 secs. PTCA balloon inflated at 8 atms for 8 secs. PTCA balloon inflated at 10 atms for 11 secs. PTCA balloon inflated at 8 atms for 7 secs. 2.75 x 16 Synergy Drug Eluting stent was advanced across the lesion in the first obtuse marginal, mid. Angiogram performed p ost stent deployment. The arterial sheath was sutured in place and capped INTERVENTION INFORMATION LESION SITE: 1st OM (Mid) Lesion Complexity: High/C, chronic total occlusion: No, lesion at bifurcation: No, thrombus present: No, lesion length: 14 mm, culprit lesion: Yes, Previously treated lesion: No Pre Stenosis: 95 % Pre intervention ADAMS flow: 3 PROCEDURE: Drug Eluting Stent with pre dilatation. Post Stenosis: 0 % Post intervention ADAMS flow: 3 Lesion Devices: Cardinal 6 Fr XB3.0 100cm Guide Catheter Tapia .014 BMW [place] Straight 190cm Bello Sci EMERGE MR 2.00x12 BALLOON Bello Sci Synergy MR PACO 2.75x16 COMPLICATIONS No Complications PROCEDURE MEDICATIONS Versed 1 mg IV Oxygen: 2 L/min via nasal cannula Heparin 7000 unit(s) IV 03/15/2019 09:11:16 SUMMARY OF HEMODYNAMIC DATA Time AIR REST ECG 08:17:21 AO 171/74 (110) SA 08:32:09 LV 174/0, 25 08:50:46 LV 180/-12, 17 08:50:53 LV 167/-7, 21 08:51:47 LVp 175/-8, 28 08:51:52 AOp 174/61 (98) 08:51:57 AO 179/65 (96) 08:54:14 AO 166/79 (113) 09:21:21 Signed By Tommy Barton MD On 03/15/2019 10:44:20 Tommy Barton MD
[2019-03-15] MEDS: oxyCODONE 5 MG Tablet PO (11:07)
[2019-03-15 11:10] LABS: ACT Activated Clotting Time 202 sec (74-137)
--- NOTE | 2019-03-15 11:52 | CRPHASE1 ---
Patient Communication Former Patient:: Phase II PHII Cardiac Rehab Discussed with Patient:: Yes Guide to Cardiac Rehab Given to Patient:: Yes Cardiac Rehab Facility Choice List Given to Patient:: Yes - [facility] Choice Program [facility] CR PHII:: Communication Given to CR, Refer to [facility] Director Supplier Quality:: Jabari Barton PCP:: Martín Medina Sessions:: 36 sessions - 3 days/wk, 12 weeks Risk Factors/Lifestyle Smoking Status: Never smoker Hx Dyslipidemia: Yes Hx Obesity: Yes Height: 1.55 m Weight:: 89 kg BMI: 37.0 Post-Menopausal: Yes ETOH: No Caffeine: Yes Substance Abuse: No Family History: Family History (Last Reviewed 12/17/18 @ 09:35 by Deepika Fleming) Father CAD (coronary artery disease) Myocardial infarction Brother Myocardial infarction CAD (coronary artery disease) Brother Myocardial infarction Sister CAD (coronary artery disease) Diabetes Myocardial infarction Mother Cancer Family History: Cancer, Diabetes, High Cholesterol, Heart Disease, Hypertension Past Cardiac Illness: Coronary Artery Disease, Previous PCI w/Stent, Coronary Artery Bypass Graft - DOUBLE 1994 TRIPLE 2012 STENTS 2009 Laboratory Values: Cardiac Rehab Phase I Labs Triglycerides 253 mg/dL (-199) H 03/13/19 01:45 Cholesterol 273 mg/dL (200) H 03/13/19 01:45 LDL Cholesterol 173 mg/dL (0-130) H 03/13/19 01:45 HDL Cholesterol 49 mg/dL (40-) 03/13/19 01:45 Phase I Education Given On:: Nutrition Issues Affecting Care:: None Knowledge of Condition:: Yes Hospital Course Pain Description: Sharp, Pressure Pain Intensity: 10 Cardiac Cath Date:: 03/15/19 Medical/Surgical History MS:: Yes Angina:: Yes CAD:: Yes CABG: Yes PTCA:: Yes Discharge/Home/Social Eval Discharge Disposition: Home Marital Status: - Cardiac Rehabilitation Info Cardiac Rehabilitation Program Information: Cardiac Rehabilitation is important for patients like you who are recovering from a heart problem. Cardiac rehabilitation programs are recognized as integral to the continued care of the patient with coronary heart disease. The cardiac rehabilitation program is designed to optimize a patient's physical, psychological, and social functioning. Health rn wound care work in cardiac rehabilitation programs and assist you with getting the treatments you need to get stronger and healthier - like exercise, healthy eating habits, and medications. Cardiac rehabilitation has been show to help people with heart problems live longer and have better life enjoyment than people who do not go to cardiac rehabilitation. Please contact the Cardiac Rehabilitation Program at [facility] at in two weeks if you have not heard from them.
--- NOTE | 2019-03-15 11:57 | CRPH1.INSTRU ---
General Education CAD and cardiac anatomy and function:: Patient communicates acknowledgment Explanation of diagnoses and procedures:: Patient communicates acknowledgment Sign/Symptoms of CO:: Patient communicates acknowledgment Antiplatelet therapy: Not instructed Proper use of NTG-SL: Not instructed Emergency procedures and activation of EMS: Patient communicates acknowledgment Compliance of all prescribed medications: Not instructed Smoking Patient Nicotine/Smoking Risk Factors Are:: Non-smoker Dyslipidemia Recommendations Include:: Lipid profile not available Overweight/Obesity Patient Overweight/Obesity Risk Factors Are:: Overweight = 26-29 Overweight/Obesity:: Patient communicates acknowledgment Heart Disease Patient Heart Disease Risk Factors Are:: Family history of heart disease < 65 years old, Previous cardiac event Recommendations Include:: Educated family members of their risk Heart Disease Response Code:: Patient communicates acknowledgment Diabetes Patient Diabetes Risk Factors Are:: No documented hx of diabetes Metabolic Syndrome Patient Metabolic Syndrome Risk Factors Are [3 of 5]:: Waist circumference > 35 [female] or 40 [male], Hypertension Sedentary Sedentary Response Code:: Patient communicates acknowledgment Stress Patient Stress Risk Factors Are:: Patient denies stress as a risk factor
[2019-03-15 12:01] LABS: ACT Activated Clotting Time 169 sec (74-137)
[2019-03-15] MEDS: hydrALAZINE 20 MG/ML Vial 10 MG IV (12:01)
--- NOTE | 2019-03-15 12:12 | PCM.PROGNOTE ---
<Patricia Ellis - Last Filed: 03/15/19 12:17> Patient Problems: Active and Suspected Problems (Last Reviewed 12/17/18 @ 09:35 by Deepika Fleming) Non-STEMI (non-ST elevated myocardial infarction) (Acute) Chest pain (Acute) Subjective: Patient seen and examined. Underwent heart cath this morning with PTCA/PACO to mid OM1. Denies chest pain. Denies current complaints. - Physical Exam Vitals/I&O's: Vital Signs Temp Pulse Resp BP Pulse Ox 98.2 F 64 16 179/65 H 99 03/15/19 10:00 03/15/19 12:01 03/15/19 11:30 03/15/19 12:01 03/15/19 11:30 Oxygen Delivery Method Room Air Weight: 196 lb 3.382 oz Body Mass Index (BMI) 37.0 Intake and Output for Last 24 Hours 03/13/19 03/14/19 03/15/19 23:59 23:59 23:59 Intake Total 2099 100 / 100 Output Total Balance 2095 100 / 100 General: Alert, Oriented x3, Cooperative HEENT: Atraumatic, PERRLA, EOMI, Normocephalic Neck: Supple, No JVD, Negative Carotid Bruits Lungs: Clear to auscultation, Normal air movement Cardiovascular: Regular rate, Regular Rhythm, Normal S1, Normal S2, No murmurs Abdomen: Bowel Sounds Present, Soft, Non Tender, Non-Distended Extremities: No clubbing, No cyanosis, No edema, Capillary Refill Less than 3 Seconds Skin: No rashes, No breakdown Musculoskeletal: No Tenderness to Palpation of Joints or Extremities Neurological: Cranial nerves II-XII grossly intact Psych/Mental Status: Normal Affect, Appropriate Laboratory Results 03/14/19 16:23: POC Glucose 103 03/14/19 21:43: POC Glucose 139 H 03/15/19 04:54: WBC 10.7, RBC 5.43 H, Hgb 15.5 H, Hct 47.8 H, MCV 88.0, MCH 28.5, MCHC 32.4, RDW Std Deviation 43.9, RDW Coeff of Amara 13.7, Plt Count 230, MPV 10.4 03/15/19 04:54: Sodium 138, Potassium 3.7, Chloride 108 H, Carbon Dioxide 23.0, Anion Gap 7, BUN 18, Creatinine 0.88, Estim Creat Clear Calc 41.04, Est GFR (MDRD) Af Amer 80, Est GFR (MDRD) Non-Af 66, BUN/Creatinine Ratio 20.4 H, Glucose 135 H, Calcium 9.3 03/15/19 04:54: PT 13.2, INR 1.0, APTT 39.0 H 03/15/19 06:17: POC Glucose 143 H 03/15/19 10:57: Activated Clotting Time 202 H 03/15/19 11:50: Activated Clotting Time 169 H Current Medications Acetaminophen (Tylenol) 650 mg PO Q6H PRN PRN PRN Reason: Pain Score 1-3/Temp > 100.7 F Last Admin: 03/13/19 08:18 Dose: 650 mg Documented by: Al Hydroxide/Mg Hydroxide (Mylanta Ii) 30 ml PO Q6H PRN PRN PRN Reason: Gastric Burning Albuterol Sulfate (Ventolin Aerosols) 2.5 mg INHALATION Q2H PRN PRN PRN Reason: SOB/Wheezing Amlodipine Besylate (Norvasc) 10 mg PO DAILY [facility] Last Admin: 03/15/19 06:20 Dose: 10 mg Documented by: Aspirin (Aspirin, Baby) 81 mg PO DAILY@0800 [facility] Last Admin: 03/15/19 06:20 Dose: 81 mg Documented by: Atropine Sulfate () 0.5 mg IV UD PRN PRN Reason: HR <50 bpm Famotidine (Pepcid) 20 mg PO BID [facility] Last Admin: 03/15/19 06:21 Dose: 20 mg Documented by: Fluticasone Propionate (Flonase Nasal Mobile) 1 spray NASAL BID [facility] Last Admin: 03/15/19 11:08 Dose: Not Given Documented by: Glucagon () 1 mg IM .X1 PRN PRN Reason: Hypoglycemia Guaifenesin (Robitussin) 20 ml PO Q4H PRN PRN PRN Reason: COUGH Heparin Sodium (Beef Lung) (Heparin 500 Unit/5 Ml (100/Ml)) 500 unit IV UD PRN PRN Reason: HEPARIN FLUSH Hydralazine HCl (Apresoline Iv) 10 mg IV Q4H PRN PRN PRN Reason: SBP > 160 Last Admin: 03/15/19 12:01 Dose: 10 mg Documented by: Dextrose (Dextrose 10%-Water) 250 mls @ 999 mls/hr IV .Q16M PRN; Protocol PRN Reason: HYPOGLYCEMIA Sodium Chloride () 1,000 mls @ 0 mls/hr IV .Q0M [facility] Last Admin: 03/15/19 06:22 Dose: 15 mls/hr Documented by: Insulin Human Lispro (Humalog Kwikpen (Bkc)) 0 unit SC ACHS [facility]; Protocol Last Admin: 03/15/19 11:08 Dose: Not Given Documented by: Labetalol HCl (Trandate) 5 mg IV X1 PRN PRN Reason: SBP > 160 when pulling sheath Stop: 03/17/19 10:19 Lisinopril (Zestril) 20 mg PO DAILY [facility] Last Admin: 03/15/19 06:18 Dose: 20 mg Documented by: Magnesium Hydroxide (Milk Of Magnesia) 30 ml PO DAILY PRN PRN PRN Reason: Constipation Melatonin (Melatonin) 3 mg PO QHS PRN PRN PRN Reason: INSOMNIA Metoprolol Succinate (Toprol Xl (Beta Edda)) 12.5 mg PO DAILY [facility] Last Admin: 03/15/19 06:18 Dose: 12.5 mg Documented by: Morphine Sulfate () 2 mg IV Q3H PRN PRN PRN Reason: Pain Score 6-10/10 Ondansetron HCl (Zofran) 4 mg IV Q8H PRN PRN PRN Reason: NAUSEA/VOMITING Oxycodone HCl (Oxyir) 5 mg PO Q4H PRN PRN PRN Reason: Pain Score 4-5/10 Last Admin: 03/15/19 11:07 Dose: 5 mg Documented by: Pravastatin Sodium (Pravachol) 40 mg PO QHS [facility] Last Admin: 03/14/19 21:46 Dose: Not Given Documented by: Prochlorperazine Edisylate (Compazine Iv) 5 mg IV Q4H PRN PRN PRN Reason: Breakthrough Nausea/Vomiting Sodium Chloride () 10 - 40 ml IV UD PRN PRN Reason: SALINE FLUSH Last Admin: 03/15/19 12:01 Dose: 10 ml Documented by: Sodium Chloride () 500 ml IV BOLUS PRN PRN Reason: VASO-VAGAL PROTOCOL Temazepam (Restoril) 15 mg PO QHS [facility] Last Admin: 03/14/19 21:46 Dose: 15 mg Documented by: Throat Lozenges (Cepacol Sore Throat Lozenge) 1 lozenge MUCOUS MEM Q2H PRN PRN PRN Reason: Sore Throat/Cough Ticagrelor (Brilinta) 90 mg PO BID [facility] Last Admin: 03/15/19 06:20 Dose: 90 mg Documented by: Medical Necessity - Tobacco Use Smoking Status: Never smoker Tobacco Use: Non-smoker Assessment/Plan All Active Problems (Last Reviewed 12/17/18 @ 09:35 by Deepika Fleming) Status post left heart catheterization (LHC) (Resolved ~03/15/19) Non-STEMI (non-ST elevated myocardial infarction) (Acute) Chest pain (Acute) Lipoma of back (Acute) 1. NSTEMI-EKG without ST-T changes. Cardiology consulted. Echocardiogram demonstrates an EF of 55 to 60%, mild mitral valve insufficiency. Patient underwent cardiac catheterization this morning with successful PTCA/PACO to mid OM1. Continue aspirin, Brilinta, metoprolol, lisinopril. 2. CAD status post CABG and PCI- follows with Dr. Encarnacion. Heart cath with PCI as noted above. 3. Hypertension-continue metoprolol, lisinopril, Norvasc. PRN hydralazine for systolic blood pressure greater than 160. 4. Hyperlipidemia-lipid panel elevated. Currently taking statin every other day. Increase statin regimen if patient is able to tolerate. 5. Type 2 diabetes mellitus-hold oral regimen. Accu-Cheks ACHS with SSI. 6. Morbid obesity- encouraged diet and lifestyle modifications. DVT prophylaxis-Lovenox This patient was seen by STANLEY Springer under the supervision of Dr. Perez. <[employer],[place] - Last Filed: 03/15/19 13:36> - Physical Exam Vitals/I&O's: Vital Signs Temp Pulse Resp BP Pulse Ox 98.3 F 61 12 119/51 L 99 03/15/19 12:00 03/15/19 13:00 03/15/19 13:00 03/15/19 13:00 03/15/19 13:00 Oxygen Delivery Method Room Air Weight: 89 kg Body Mass Index (BMI) 37.0 Intake and Output for Last 24 Hours 03/13/19 03/14/19 03/15/19 23:59 23:59 23:59 Intake Total 2099 100 / 100 Output Total 400 / 400 Balance 2095 -300 / -300 Laboratory Results 03/14/19 16:23: POC Glucose 103 03/14/19 21:43: POC Glucose 139 H 03/15/19 04:54: WBC 10.7, RBC 5.43 H, Hgb 15.5 H, Hct 47.8 H, MCV 88.0, MCH 28.5, MCHC 32.4, RDW Std Deviation 43.9, RDW Coeff of Amara 13.7, Plt Count 230, MPV 10.4 03/15/19 04:54: Sodium 138, Potassium 3.7, Chloride 108 H, Carbon Dioxide 23.0, Anion Gap 7, BUN 18, Creatinine 0.88, Estim Creat Clear Calc 41.04, Est GFR (MDRD) Af Amer 80, Est GFR (MDRD) Non-Af 66, BUN/Creatinine Ratio 20.4 H, Glucose 135 H, Calcium 9.3 03/15/19 04:54: PT 13.2, INR 1.0, APTT 39.0 H 03/15/19 06:17: POC Glucose 143 H 03/15/19 10:57: Activated Clotting Time 202 H 03/15/19 11:50: Activated Clotting Time 169 H Current Medications Acetaminophen (Tylenol) 650 mg PO Q6H PRN PRN PRN Reason: Pain Score 1-3/Temp > 100.7 F Last Admin: 03/13/19 08:18 Dose: 650 mg Documented by: Al Hydroxide/Mg Hydroxide (Mylanta Ii) 30 ml PO Q6H PRN PRN PRN Reason: Gastric Burning Albuterol Sulfate (Ventolin Aerosols) 2.5 mg INHALATION Q2H PRN PRN PRN Reason: SOB/Wheezing Amlodipine Besylate (Norvasc) 10 mg PO DAILY [facility] Last Admin: 03/15/19 06:20 Dose: 10 mg Documented by: Aspirin (Aspirin, Baby) 81 mg PO DAILY@0800 [facility] Last Admin: 03/15/19 06:20 Dose: 81 mg Documented by: Atropine Sulfate () 0.5 mg IV UD PRN PRN Reason: HR <50 bpm Famotidine (Pepcid) 20 mg PO BID [facility] Last Admin: 03/15/19 06:21 Dose: 20 mg Documented by: Fluticasone Propionate (Flonase Nasal Mobile) 1 spray NASAL BID [facility] Last Admin: 03/15/19 11:08 Dose: Not Given Documented by: Glucagon () 1 mg IM .X1 PRN PRN Reason: Hypoglycemia Guaifenesin (Robitussin) 20 ml PO Q4H PRN PRN PRN Reason: COUGH Heparin Sodium (Beef Lung) (Heparin 500 Unit/5 Ml (100/Ml)) 500 unit IV UD PRN PRN Reason: HEPARIN FLUSH Hydralazine HCl (Apresoline Iv) 10 mg IV Q4H PRN PRN PRN Reason: SBP > 160 Last Admin: 03/15/19 12:01 Dose: 10 mg Documented by: Dextrose (Dextrose 10%-Water) 250 mls @ 999 mls/hr IV .Q16M PRN; Protocol PRN Reason: HYPOGLYCEMIA Sodium Chloride () 1,000 mls @ 0 mls/hr IV .Q0M [facility] Last Admin: 03/15/19 06:22 Dose: 15 mls/hr Documented by: Insulin Human Lispro (Humalog Kwikpen (Bkc)) 0 unit SC ACHS [facility]; Protocol Last Admin: 03/15/19 11:08 Dose: Not Given Documented by: Labetalol HCl (Trandate) 5 mg IV X1 PRN PRN Reason: SBP > 160 when pulling sheath Stop: 03/17/19 10:19 Lisinopril (Zestril) 20 mg PO DAILY [facility] Last Admin: 03/15/19 06:18 Dose: 20 mg Documented by: Magnesium Hydroxide (Milk Of Magnesia) 30 ml PO DAILY PRN PRN PRN Reason: Constipation Melatonin (Melatonin) 3 mg PO QHS PRN PRN PRN Reason: INSOMNIA Metoprolol Succinate (Toprol Xl (Beta Edda)) 12.5 mg PO DAILY [facility] Last Admin: 03/15/19 06:18 Dose: 12.5 mg Documented by: Morphine Sulfate () 2 mg IV Q3H PRN PRN PRN Reason: Pain Score 6-10/10 Ondansetron HCl (Zofran) 4 mg IV Q8H PRN PRN PRN Reason: NAUSEA/VOMITING Oxycodone HCl (Oxyir) 5 mg PO Q4H PRN PRN PRN Reason: Pain Score 4-5/10 Last Admin: 03/15/19 11:07 Dose: 5 mg Documented by: Pravastatin Sodium (Pravachol) 40 mg PO QHS [facility] Last Admin: 03/14/19 21:46 Dose: Not Given Documented by: Prochlorperazine Edisylate (Compazine Iv) 5 mg IV Q4H PRN PRN PRN Reason: Breakthrough Nausea/Vomiting Sodium Chloride () 10 - 40 ml IV UD PRN PRN Reason: SALINE FLUSH Last Admin: 03/15/19 12:01 Dose: 10 ml Documented by: Sodium Chloride () 500 ml IV BOLUS PRN PRN Reason: VASO-VAGAL PROTOCOL Temazepam (Restoril) 15 mg PO QHS [facility] Last Admin: 03/14/19 21:46 Dose: 15 mg Documented by: Throat Lozenges (Cepacol Sore Throat Lozenge) 1 lozenge MUCOUS MEM Q2H PRN PRN PRN Reason: Sore Throat/Cough Ticagrelor (Brilinta) 90 mg PO BID [facility] Last Admin: 03/15/19 06:20 Dose: 90 mg Documented by: Assessment/Plan This patient was seen in conjunction with Patricia Ellis [employer]. I have independently interviewed and examined the patient and reviewed pertinent historical, laboratory, and other data. Please refer to her note for patient's presentation, findings, and recommendations. Patient was seen and examined. She underwent cardiac cath with successful PTCA/PACO to mid OM1 this morning. She denies chest pain, dizziness or palpitations. No acute events overnight. Vitals were reviewed -BP initially high, better controlled at time of exam. Physical Exam: Gen: Comfortable, not pale, not jaundiced, alert oriented x3 CVS:HS I +II, regular, no murmurs RESP:CTA GI: BS present and normal, nontender, no palpable organs EXT:Right groin - sandbag in place, groin precautions, no edema Labs reviewed: ASSESSMENT: 1. NSTEMI 2. CAD s/p CABG/PCI 3. Hypertension 4. Hyperlipidemia 5. Type 2 DM 6. Morbid Obesity Meds reviewed Plan: Continue on aspirin, Brilinta, pravastatin, metoprolol Follow-up on cardiology recommendations Code Visit Inpatient E&M: 30664 Subs Hosp L2
[2019-03-15 13:21] LABS: ACT Activated Clotting Time 263 sec (74-137)
[2019-03-15] MEDS: Insulin Lispro 100 UNIT/ML INSULN.PEN SC ×2 (16:17→21:15)
[2019-03-15 16:30] LABS: Bedside Glucose 170 mg/dL (70-110)
--- NOTE | 2019-03-15 18:14 | PCM.PN.CARD ---
Subjectve: The patient is awake and alert. She denies any ongoing issues of acute chest discomfort or difficulty breathing. Objective: Vital Signs Temp Pulse Resp BP Pulse Ox 98.0 F 61 24 H 141/47 H 98 03/15/19 16:00 03/15/19 17:00 03/15/19 17:00 03/15/19 17:00 03/15/19 17:00 Oxygen Delivery Method Room Air Weight: 196 lb 3.382 oz Body Mass Index (BMI) 37.0 Intake and Output for Last 24 Hours 03/13/19 03/14/19 03/15/19 23:59 23:59 23:59 Intake Total 2099 / 2099 100 / 100 Output Total 400 / 400 Balance 2095 / 2095 -300 / -300 General: Awake, Alert, Oriented x 3, Cooperative, No Acute Distress HEENT: Atraumatic, Normocephalic, PERRL, EOMI, Sclera Non Icteric Oral: Moist Mucosa Neck: Supple, Good ROM, No JVD Lungs: Clear to auscultation Cardiovascular: Regular Rhythm, Normal S1, Normal S2 Vascular: Normal Femoral Pulses Abdomen: Bowel Sounds Present, Soft, Non Tender Extremities: No edema, - - Right inguinal area: Mild ecchymoses; no hematoma; femoral pulse 2+/4+; no obvious bruits Psych/Mental Status: Appropriate 03/15/19 04:54: WBC 10.7, RBC 5.43 H, Hgb 15.5 H, Hct 47.8 H, MCV 88.0, MCH 28.5, MCHC 32.4, Plt Count 230, MPV 10.4 03/15/19 04:54: Sodium 138, Potassium 3.7, Chloride 108 H, Carbon Dioxide 23.0, Anion Gap 7, BUN 18, Creatinine 0.88, Est GFR (MDRD) Af Amer 80, Est GFR (MDRD) Non-Af 66, BUN/Creatinine Ratio 20.4 H, Glucose 135 H, Calcium 9.3 03/15/19 04:54: PT 13.2, INR 1.0, APTT 39.0 H Rhythm: Sinus rhythm Cardiac Cath: CORONARY ANGIOGRAPHY DOMINANCE: Right Dominant LEFT HEART ASSESSMENT Left Ventricular Ejection Fraction: by LV Gram 55 % Inferior Basal Hypokinesis. Inferior Mid Hypokinesis Elevated Left Ventricular End Diastolic Pressure LVEDP: 17 mmHg LEFT ANTERIOR DESCENDING ARTERY: PROX LAD: is occluded MID LAD: filling from the SANTANA graft with subsequent mild luminal irregularities DIAGONAL 1: Proximal - filling from the SVG graft with subsequent mild luminal irregularities CIRCUMFLEX ARTERY: PROX CIRC: Mild luminal irregularities, Previously placed stent is patent DISTAL CIRC: mild luminal irregularities % Stenosis, 25 - 50 % Stenosis OM 1: Proximal - Previously placed stent is patent, Mid - irregular: 90 % Stenosis RIGHT CORONARY ARTERY: PROX RCA: is occluded RT PDA: Proximal - filling from the SVG graft with subsequent mild luminal irregularities GRAFTS: SANTANA graft to the Mid LAD is patent Saphenous Vein graft to the 1st Diagonal is patent Y graft to the 1st OM is totally occluded Saphenous Vein graft to the RPDA is patent AORTIC ROOT: Angiographically normal PCI: CONCLUSIONS Successful PTCA/PACO to mid OM1 Medical Necessity - Tobacco Use Smoking Status: Never smoker Tobacco Use: Non-smoker Assessment/Plan 1. Non-ST segment elevation [place] The patient has undergone evaluation. She is now status post diagnostic cardiac catheterization. She received PCI to the LCx/OM system. She appears to be recuperating at this time with no acute symptoms. She will continue to be followed. Her medications will be adjusted as needed. 2. CAD status post CABG status post PCI status post repeat CABG now status post additional PCI Again at the present time the patient has had multiple revascularization procedures. At the present time the concern was the culprit vessel is the LCx/OM system. She subsequently received PCI. She appears to be recuperating without any acute adverse events. She will continue medical management and follow-up. 3. Hyperlipidemia She will need to continue medical management. 4. Hypertension Her blood pressure will be followed. Her medications will be adjusted as needed. This note was generated using a voice recognition system and there may be incorrect words, spelling or punctuation that were not noted when reviewing the office note prior to saving.
[2019-03-15] MEDS: Pravastatin 40 MG Tablet PO (21:13)
[2019-03-15] MEDS: Temazepam 15 MG Capsule PO (21:19)
[2019-03-15 21:20] LABS: Bedside Glucose 209 mg/dL (70-110)
[2019-03-16] VITALS (12 sets, daily range): BP systolic 104–177; BP diastolic 35–87; PULSE 52–73; RESP 15–24; TEMP 36.6–37.1; O2SAT 96–99
[2019-03-16] MEDS: 0.9% Saline Lock 10 ML Syringe IV (04:15)
[2019-03-16 04:22] LABS: Hematocrit 42.9 % (37-47); Hemoglobin 14.2 g/dL (12.0-15.0); Mean Corp Hgb Conc 33.1 g/dL (32-36); Mean Corpuscular Hgb 29.1 pg (27.0-32.0); Mean Corpuscular Volume 87.9 fL (81-99); Platelet Count 211 K/mm3 (150-450); RBC Distribution Width CV 13.9 % (11.6-14.6); RBC Distribution Width SD 45.1 fl (35.1-43.9); Red Blood Count 4.88 M/mm3 (4.2-5.4); White Blood Count 10.8 K/mm3 (4.4-11.0)
[2019-03-16 04:43] LABS: ALB/GLOB Ratio 0.8 RATIO (0.9-2.4); AST(SGOT) 73 U/L (15-37); Alanine Aminotransfer ALT/SGPT 83 U/L (13-56); Albumin, Serum 3.1 g/dL (3.2-5.0); Alkaline Phosphatase 121 U/L (45-117); Anion Gap 8 (5-15); BUN 18 mg/dL (7-18); BUN/Creat Ratio 18.7 RATIO (10-20); Calcium,Total 9.4 mg/dL (8.5-10.1); Chloride 106 mmol/L (98-107); Creatinine, Serum 0.96 mg/dL (0.55-1.02); EST Glomerular Filtration Rate 60 mL/min (>60); Est Glom Filt Rate - Afr Amer 72 mL/min (>60); Estimated Creatinine Clearance 37.62 ml/min; Globulin 3.9 g/dL (2.2-4.2); Glucose 149 mg/dL (74-106); Potassium 3.8 mmol/L (3.5-5.1); Sodium Level 138 mmol/L (136-145)
[2019-03-16 06:46] LABS: Bedside Glucose 125 mg/dL (70-110)
--- NOTE | 2019-03-16 08:27 | PCM.DC ---
- Discharge Diagnoses Current Active Problems: Current Active and Chronic Problems (Last Updated 03/15/19 @ 17:08 by Marleni Dsouza) Non-STEMI (non-ST elevated myocardial infarction) (Acute) Chest pain (Acute) Reason(s) for Visit for Discharge Instructions: Chest pain You will use the following diet at home:: Regular Your food should be the consistency of: Regular Your liquids should be the consistency of: Regular/Thin Discharge Activity: Return to Normal Activity Additional Instructions: Continue to follow-up with your primary care doctor and manager supply chain as scheduled within 2 weeks. Take all your medications as prescribed. Follow-up with cardiac rehab as scheduled. Hold on to metformin as you recently had a cardiac cath. You may resume metformin on 03/17/19. Continue to remain active and follow a heart healthy diet Allergies/Adverse Reactions: Allergies clopidogrel [From Plavix] Allergy (Verified 03/12/19 18:48) Rash Sulfa (Sulfonamide Antibiotics) Allergy (Verified 03/12/19 18:48) Rash Ewezgor-Tjo-Yrp Reductase Inhibitor Adverse Reaction (Severe, Verified 03/12/19 18:48) Intolerance, mylagias prasugrel [From Effient] Adverse Reaction (Intermediate, Verified 03/12/19 18:48) Tongue blisters Medications to take at Discharge Aspirin [Aspirin, Baby] 81 mg PO DAILY@0800 09/02/16 nitroglycerin 0.4 mg sublingual tablet 0.4 mg SUBLINGUAL Q5M PRN #25 tab 07/22/18 amlodipine 10 mg tablet 10 mg PO DAILY tab 12/17/18 Lisinopril 20 mg PO DAILY 03/12/19 Metformin HCl [Metformin HCl ER] 500 mg PO DAILY 03/12/19 Metoprolol Succinate 12.5 mg PO DAILY 03/12/19 Multivitamins,Therapeutic [Multivitamin] 1 tab PO DAILY 03/12/19 Famotidine [Pepcid] 20 mg PO BID #60 tab 03/16/19 Pravastatin [Pravachol] 40 mg PO QHS #30 tab 03/16/19 Ticagrelor [Brilinta] 90 mg PO BID #60 tab 03/16/19 The following prescriptions were given: Ticagrelor [Brilinta] 90 mg PO BID #60 tab Transmission Status: Pending to [facility]/pharmacy #[id number] Famotidine [Pepcid] 20 mg PO BID #60 tab Transmission Status: Pending to [facility]/pharmacy #[id number] Pravastatin [Pravachol] 40 mg PO QHS #30 tab Transmission Status: Pending to [facility]/pharmacy #[id number] Orders to be completed after discharge: Phase II, Outpatient Cardiac Rehab Location: None Selected Primary Care Physician: Rodríguez Lema MD [Primary Care Provider] - Please follow up with your Primary Care Physician in: within 1-2 weeks Test Results: Test results from this visit will be discussed in further detail at your follow-up appointment, if applicable. Please Follow Up With: Rodríguez Encarnacion MD When: as scheduled Proposed Discharge Date: 03/16/19
--- NOTE | 2019-03-16 08:58 | PCM.PN.CARD ---
Subjectve: The patient is awake and alert and has no new complaints. She states she is feeling better. Objective: Vital Signs Temp Pulse Resp BP Pulse Ox 98.7 F 52 L 15 132/59 H 96 03/16/19 08:00 03/16/19 08:00 03/16/19 08:00 03/16/19 08:00 03/16/19 08:00 Oxygen Delivery Method Room Air Weight: 196 lb 3.382 oz Body Mass Index (BMI) 37.0 Intake and Output for Last 24 Hours 03/14/19 03/15/19 03/16/19 23:59 23:59 23:59 Intake Total 2099 / 2099 1249.5 / 1249.5 240 / 240 Output Total 1950 / 1949 Balance 2095 / 2095 -700.5 / -700.5 240 / 240 General: Awake, Alert, Oriented x 3, Cooperative, No Acute Distress HEENT: Atraumatic, Normocephalic, PERRL, EOMI, Sclera Non Icteric Oral: Moist Mucosa Neck: Supple, Good ROM, No JVD Lungs: Clear to auscultation Cardiovascular: Regular Rhythm, Normal S1, Normal S2 Vascular: Normal Femoral Pulses Abdomen: Bowel Sounds Present, Soft, Non Tender Extremities: No edema, - - Right inguinal area: + ecchymoses; no hematoma; no bruits; femoral pulse 2/4 Neurological: No Focal Motor or Sensory Deficit Psych/Mental Status: Appropriate Rhythm: sinus rhythm ECG: sinus rhythm; leftward axis; poor R wave progression; T wave abnormality - consider myocardial ischemia Medical Necessity - Tobacco Use Smoking Status: Never smoker Tobacco Use: Non-smoker Assessment/Plan 1. Non-ST segment elevation [place] The patient has undergone evaluation. She is now status post diagnostic cardiac catheterization. She received PCI to the LCx/OM system. She appears to be recuperating at this time with no acute symptoms. She will continue to be followed. Her medications will be adjusted as needed. 2. CAD status post CABG status post PCI status post repeat CABG now status post additional PCI Again at the present time the patient has had multiple revascularization procedures. At the present time the concern was the culprit vessel is the LCx/OM system. She subsequently received PCI. She appears to be recuperating without any acute adverse events. She will continue medical management and follow-up. 3. Hyperlipidemia She will need to continue medical management. 4. Hypertension Her blood pressure will be followed. Her medications will be adjusted as needed. Overall, the patient appears without symptoms. She will continue medical therapy. She will be asked to have outpatient cardiology follow up. This note was generated using a voice recognition system and there may be incorrect words, spelling or punctuation that were not noted when reviewing the office note prior to saving.
[2019-03-16] MEDS: amLODIPine 10 MG Tablet PO (09:26)
[2019-03-16] MEDS: Famotidine 20 MG Tablet PO (09:26)
[2019-03-16] MEDS: Lisinopril 20 MG Tablet PO (09:26)
[2019-03-16] MEDS: Metoprolol(XL)Succ 25 MG Tablet 12.5 MG PO (09:26)
[2019-03-16] MEDS: Aspirin 81 MG TAB.CHEW PO (09:29)
[2019-03-16] MEDS: TICAGRELOR 90 MG TABLET PO (09:29)
--- NOTE | 2019-03-16 09:49 | PCM.DC.SUM ---
<Patricia Ellis - Last Filed: 03/16/19 10:00> Discharge Date and Diagnosis Date of Admission: 03/12/19 Date of Discharge: 03/16/19 - Primary Discharge Diagnosis Active and Suspected Problems (Last Updated 03/15/19 @ 17:08 by Marleni Dsouza) 1. NSTEMI S/P PTCA/PACO to mid OM1 2. CAD status post CABG and PCI 3. Hypertension 4. Hyperlipidemia 5. Type 2 diabetes mellitus 6. Morbid obesity - Secondary Discharge Diagnosis Chronic Problems (Last Updated 03/15/19 @ 17:08 by Marleni Dsouza) Presence of stent in coronary artery (Chronic ~03/15/19) PTCA/stent of First Obtuse Marginal branch of left Cx; PTCA/stent to SVG to PDA in both proximal & distal segments 11/24/09; PCI/PACO to mid OM1 03/15/19 Pure hypercholesterolemia (Chronic) Essential hypertension (Chronic) Atrioventricular block (Chronic) Sinus bradycardia (Chronic) Other specified cardiac dysrhythmias (Chronic) Chronic cardiac arrhythmia (Chronic) Undiagnosed cardiac murmurs (Chronic) Nonspecific abnormal unspecified cardiovascular function study (Chronic) Abnormal electrocardiogram (Chronic) Encounter for long-term current use of high risk medication (Chronic) Diabetes mellitus (Chronic) Presence of aortocoronary bypass graft (Chronic ~01/02/12) Sep 1993, median sternotomy, OHS , constructionof left internal thoracic artery graft to LAD and a segment ov RSV bypass graft to PDCA, redo CABG SVG to PDA, SVG to Diag 1, SVG to OM2 01/02/12 Atherosclerotic heart disease of [place] coronary artery without angina pectoris (Chronic) Hospital Course and Treatment Imaging Results: Diagnostic Data Chest X-Ray 03/12/19 19:15 IMPRESSION: No acute thoracic pathology. Cardiomegaly. Electronically Signed: Antonio Lugo, at 19:39 EST Tel , Service support , Dr. Saravia- Cardiology Operations: None Procedures: 2-D Echocardiogram, Cardiac catheterization Summary of Care Provided: The patient is a 78 year old F admitted 03/12/2019 due to chest pain. 1. NSTEMI-EKG without ST-T changes. Cardiology consulted. Echocardiogram demonstrates an EF of 55 to 60%, mild mitral valve insufficiency. Patient underwent cardiac catheterization 03/15/2019 with successful PTCA/PACO to mid OM1. Continue aspirin, Brilinta, metoprolol, lisinopril. Follow-up with cardiology in 1 to 2 weeks. 2. CAD status post CABG and PCI- follows with Dr. Encarnacion. Heart cath with PCI as noted above. 3. Hypertension-continue metoprolol, lisinopril, Norvasc. 4. Hyperlipidemia-lipid panel elevated. Currently taking statin every other day. Increase statin regimen to 40 mg nightly. Patient currently tolerating well. 5. Type 2 diabetes mellitus-continue home oral regimen. 6. Morbid obesity- encouraged diet and lifestyle modifications. General: Alert, Oriented x3, Cooperative HEENT: Atraumatic, PERRLA, EOMI, Normocephalic Neck: Supple, No JVD, Negative Carotid Bruits Lungs: Clear to auscultation, Normal air movement Cardiovascular: Regular rate, Regular Rhythm, Normal S1, Normal S2, No murmurs Abdomen: Bowel Sounds Present, Soft, Non Tender, Non-Distended Extremities: No clubbing, No cyanosis, No edema, Capillary Refill Less than 3 Seconds Skin: No rashes, No breakdown Musculoskeletal: No Tenderness to Palpation of Joints or Extremities Neurological: Cranial nerves II-XII grossly intact Psych/Mental Status: Normal Affect, Appropriate Patient seen and examined prior to discharge. Physical assessment as noted above. Patient is stable for discharge with follow up recommendations as noted above. This patient was seen by STANLEY Springer under the supervision of Dr. Sterling. - Physical Exam Vitals/I&O's: Vital Signs Temp Pulse Resp BP Pulse Ox 98.7 F 70 15 149/69 H 96 03/16/19 08:00 03/16/19 09:26 03/16/19 08:00 03/16/19 09:26 03/16/19 08:00 Oxygen Delivery Method Room Air Weight: 196 lb 3.382 oz Body Mass Index (BMI) 37.0 Intake and Output for Last 24 Hours 03/14/19 03/15/19 03/16/19 23:59 23:59 23:59 Intake Total 2099 / 2099 1249.5 / 1249.5 240 / 240 Output Total 1950 / 1950 Balance 2095 / 6 -700.5 / -700.5 240 / 240 Laboratory Results 03/15/19 09:29: Activated Clotting Time 263 H 03/15/19 10:57: Activated Clotting Time 202 H 03/15/19 11:50: Activated Clotting Time 169 H 03/15/19 16:16: POC Glucose 170 H 03/15/19 21:15: POC Glucose 209 H 03/16/19 04:10: WBC 10.8, RBC 4.88, Hgb 14.2, Hct 42.9, MCV 87.9, MCH 29.1, MCHC 33.1, RDW Std Deviation 45.1 H, RDW Coeff of Amara 13.9, Plt Count 211, MPV 10.0 03/16/19 04:10: Sodium 138, Potassium 3.8, Chloride 106, Carbon Dioxide 24.0, Anion Gap 8, BUN 18, Creatinine 0.96, Estim Creat Clear Calc 37.62, Est GFR (MDRD) Af Amer 72, Est GFR (MDRD) Non-Af 60, BUN/Creatinine Ratio 18.7, Glucose 149 H, Calcium 9.4, Total Bilirubin 0.60, AST 73 H, ALT 83 H, Alkaline Phosphatase 121 H, Total Protein 7.0, Albumin 3.1 L, Globulin 3.9, Albumin/Globulin Ratio 0.8 L 03/16/19 06:40: POC Glucose 125 H Current Medications Acetaminophen (Tylenol) 650 mg PO Q6H PRN PRN PRN Reason: Pain Score 1-3/Temp > 100.7 F Last Admin: 03/13/19 08:18 Dose: 650 mg Documented by: Al Hydroxide/Mg Hydroxide (Mylanta Ii) 30 ml PO Q6H PRN PRN PRN Reason: Gastric Burning Albuterol Sulfate (Ventolin Aerosols) 2.5 mg INHALATION Q2H PRN PRN PRN Reason: SOB/Wheezing Amlodipine Besylate (Norvasc) 10 mg PO DAILY [facility] Last Admin: 03/16/19 09:26 Dose: 10 mg Documented by: Aspirin (Aspirin, Baby) 81 mg PO DAILY@0800 [facility] Last Admin: 03/16/19 09:29 Dose: 81 mg Documented by: Atropine Sulfate () 0.5 mg IV UD PRN PRN Reason: HR <50 bpm Famotidine (Pepcid) 20 mg PO BID [facility] Last Admin: 03/16/19 09:26 Dose: 20 mg Documented by: Fluticasone Propionate (Flonase Nasal [place]) 1 spray NASAL BID [facility] Last Admin: 03/16/19 09:29 Dose: Not Given Documented by: Glucagon () 1 mg IM .X1 PRN PRN Reason: Hypoglycemia Guaifenesin (Robitussin) 20 ml PO Q4H PRN PRN PRN Reason: COUGH Heparin Sodium (Beef Lung) (Heparin 500 Unit/5 Ml (100/Ml)) 500 unit IV UD PRN PRN Reason: HEPARIN FLUSH Hydralazine HCl (Apresoline Iv) 10 mg IV Q4H PRN PRN PRN Reason: SBP > 160 Last Admin: 03/15/19 12:01 Dose: 10 mg Documented by: Dextrose (Dextrose 10%-Water) 250 mls @ 999 mls/hr IV .Q16M PRN; Protocol PRN Reason: HYPOGLYCEMIA Sodium Chloride () 1,000 mls @ 0 mls/hr IV .Q0M [facility] Last Infusion: 03/15/19 19:00 Dose: 0 mls/hr Documented by: Insulin Human Lispro (Humalog Kwikpen (Bkc)) 0 unit SC ACHS [facility]; Protocol Last Admin: 03/16/19 06:52 Dose: Not Given Documented by: Labetalol HCl (Trandate) 5 mg IV X1 PRN PRN Reason: SBP > 160 when pulling sheath Stop: 03/17/19 10:19 Lisinopril (Zestril) 20 mg PO DAILY [facility] Last Admin: 03/16/19 09:26 Dose: 20 mg Documented by: Magnesium Hydroxide (Milk Of Magnesia) 30 ml PO DAILY PRN PRN PRN Reason: Constipation Melatonin (Melatonin) 3 mg PO QHS PRN PRN PRN Reason: INSOMNIA Metoprolol Succinate (Toprol Xl (Beta Edda)) 12.5 mg PO DAILY [facility] Last Admin: 03/16/19 09:26 Dose: 12.5 mg Documented by: Morphine Sulfate () 2 mg IV Q3H PRN PRN PRN Reason: Pain Score 6-10/10 Ondansetron HCl (Zofran) 4 mg IV Q8H PRN PRN PRN Reason: NAUSEA/VOMITING Oxycodone HCl (Oxyir) 5 mg PO Q4H PRN PRN PRN Reason: Pain Score 4-5/10 Last Admin: 03/15/19 11:07 Dose: 5 mg Documented by: Pravastatin Sodium (Pravachol) 40 mg PO QHS [facility] Last Admin: 03/15/19 21:13 Dose: 40 mg Documented by: Prochlorperazine Edisylate (Compazine Iv) 5 mg IV Q4H PRN PRN PRN Reason: Breakthrough Nausea/Vomiting Sodium Chloride () 10 - 40 ml IV UD PRN PRN Reason: SALINE FLUSH Last Admin: 03/16/19 04:15 Dose: 20 ml Documented by: Sodium Chloride () 500 ml IV BOLUS PRN PRN Reason: VASO-VAGAL PROTOCOL Temazepam (Restoril) 15 mg PO QHS [facility] Last Admin: 03/15/19 21:19 Dose: 15 mg Documented by: Throat Lozenges (Cepacol Sore Throat Lozenge) 1 lozenge MUCOUS MEM Q2H PRN PRN PRN Reason: Sore Throat/Cough Ticagrelor (Brilinta) 90 mg PO BID [facility] Last Admin: 03/16/19 09:29 Dose: 90 mg Documented by: Discharge Diet: Low fat/ Low Cholesterol Discharge Activity: Return to Normal Activity Home Medications: Medications to take at Discharge Aspirin [Aspirin, Baby] 81 mg PO DAILY@0800 09/02/16 nitroglycerin 0.4 mg sublingual tablet 0.4 mg SUBLINGUAL Q5M PRN #25 tab 07/22/18 amlodipine 10 mg tablet 10 mg PO DAILY tab 12/17/18 Lisinopril 20 mg PO DAILY 03/12/19 Metformin HCl [Metformin HCl ER] 500 mg PO DAILY 03/12/19 Metoprolol Succinate 12.5 mg PO DAILY 03/12/19 Multivitamins,Therapeutic [Multivitamin] 1 tab PO DAILY 03/12/19 Famotidine [Pepcid] 20 mg PO BID #60 tab 03/16/19 Pravastatin [Pravachol] 40 mg PO QHS #30 tab 03/16/19 Ticagrelor [Brilinta] 90 mg PO BID #60 tab 03/16/19 Following Prescrptions Were Given to Patient: Ticagrelor [Brilinta] 90 mg PO BID #60 tab Transmission Status: Received by [facility] #[id number] Famotidine [Pepcid] 20 mg PO BID #60 tab Transmission Status: Received by [facility]/pharmacy #[id number] Pravastatin [Pravachol] 40 mg PO QHS #30 tab Transmission Status: Received by [facility]/pharmacy #[id number] Other Amb Orders: Phase II, Outpatient Cardiac Rehab Location: None Selected Primary Care Physician: Rodríguez Lema MD [Primary Care Provider] - Please follow up with your Primary Care Physician in: within 1-2 weeks Please Follow Up With: Rodríguez Encarnacion MD When: as scheduled Disposition: Home Minutes spent on discharge:: 35 Patient Condition:: Stable Medical Necessity - Tobacco Use Smoking Status: Never smoker Tobacco Use: Non-smoker Meaningful Use Info Meaningful Use Diagnoses (Choose all that apply): AMI - AMI/Post PCI/Angioplasty Aspirin given w/in 24hrs of arrival?: Yes ASA at discharge?: Yes Antiplatelet Therapy at Discharge:: Yes Statins at discharge?: Yes Terry/ARB at discharge?: Yes Beta Edda at discharge?: Yes Done w/ Acute [place] measure.: Yes <Mariel Sterling - Last Filed: 03/16/19 16:04> Discharge Date and Diagnosis - Secondary Discharge Diagnosis Chronic Problems (Last Updated 03/15/19 @ 17:08 by Marleni Dsouza) Presence of stent in coronary artery (Chronic ~03/15/19) PTCA/stent of First Obtuse Marginal branch of left Cx; PTCA/stent to SVG to PDA in both proximal & distal segments 11/24/09; PCI/PACO to mid OM1 03/15/19 Pure hypercholesterolemia (Chronic) Essential hypertension (Chronic) Atrioventricular block (Chronic) Sinus bradycardia (Chronic) Other specified cardiac dysrhythmias (Chronic) Chronic cardiac arrhythmia (Chronic) Undiagnosed cardiac murmurs (Chronic) Nonspecific abnormal unspecified cardiovascular function study (Chronic) Abnormal electrocardiogram (Chronic) Encounter for long-term current use of high risk medication (Chronic) Diabetes mellitus (Chronic) Presence of aortocoronary bypass graft (Chronic ~01/02/12) Sep 1993, median sternotomy, OHS , constructionof left internal thoracic artery graft to LAD and a segment ov RSV bypass graft to PDCA, redo CABG SVG to PDA, SVG to Diag 1, SVG to OM2 01/02/12 Atherosclerotic heart disease of [place] coronary artery without angina pectoris (Chronic) Hospital Course and Treatment Summary of Care Provided: This patient was seen in conjunction with Patricia Ellis NP. I have independently interviewed and examined the patient and reviewed pertinent historical, laboratory, and other data. Please refer to her note for patient's presentation, findings, and recommendations. 78-year-old female with past medical history of CAD status post CABG/PCI, hypertension hyperlipidemia, type II DM, morbid obesity who comes in with complaints of chest pain. Patient's troponins were elevated. She underwent a cardiac cath with PCI/PACO to the obtuse marginal 1 vessel. Post-cath patient was managed in the ICU with no complaints. Her blood pressure well controlled at discharge. No new complaints. Follow-up with cardiology, cardiac rehab and a primary care doctor in the outpatient. Physical Exam: Gen: Comfortable, not pale, not jaundiced, alert oriented x3 CVS:HS I +II, regular, no murmurs RESP:CTA GI: BS present and normal, nontender, no palpable organs EXT: Right groin bruise present, unchanged, soft, no vascular compromise. - Physical Exam Vitals/I&O's: Vital Signs Temp Pulse Resp BP Pulse Ox 98.7 F 69 16 149/69 H 99 03/16/19 08:00 03/16/19 09:46 03/16/19 09:46 03/16/19 09:46 03/16/19 09:46 Oxygen Delivery Method Room Air Weight: 89 kg Body Mass Index (BMI) 37.0 Intake and Output for Last 24 Hours 03/14/19 03/15/19 03/16/19 23:59 23:59 23:59 Intake Total 2099 / 2099 1249.5 / 1249.5 240 / 240 Output Total / 1950 / 1950 Balance 2095 / 2095 -700.5 / -700.5 240 / 240 Laboratory Results 03/15/19 16:16: POC Glucose 170 H 03/15/19 21:15: POC Glucose 209 H 03/16/19 04:10: WBC 10.8, RBC 4.88, Hgb 14.2, Hct 42.9, MCV 87.9, MCH 29.1, MCHC 33.1, RDW Std Deviation 45.1 H, RDW Coeff of Amara 13.9, Plt Count 211, MPV 10.0 03/16/19 04:10: Sodium 138, Potassium 3.8, Chloride 106, Carbon Dioxide 24.0, Anion Gap 8, BUN 18, Creatinine 0.96, Estim Creat Clear Calc 37.62, Est GFR (MDRD) Af Amer 72, Est GFR (MDRD) Non-Af 60, BUN/Creatinine Ratio 18.7, Glucose 149 H, Calcium 9.4, Total Bilirubin 0.60, AST 73 H, ALT 83 H, Alkaline Phosphatase 121 H, Total Protein 7.0, Albumin 3.1 L, Globulin 3.9, Albumin/Globulin Ratio 0.8 L 03/16/19 06:40: POC Glucose 125 H Code Visit Inpatient E&M: [id number] Disch Hosp
--- NOTE | 2019-03-16 10:00 | EKG12_ITS ---
Test Reason : AM EKG Blood Pressure : / mmHG Vent. Rate : 068 BPM Atrial Rate : 068 BPM P-R Int : 150 ms QRS Dur : 098 ms QT Int : 466 ms P-R-T Axes : 052 -22 169 degrees QTc Int : 495 ms Sinus rhythm Anterior infarct , age undetermined ST & T wave abnormality, consider inferolateral ischemia Abnormal ECG When compared with ECG of 15-MAR-2019 09:58, MANUAL COMPARISON REQUIRED, DATA IS UNCONFIRMED Confirmed by ALIZE BRIGGS, RADHA ([id number]), news editor WARREN CHEN ([id number]) on 03/19/2019 2:58:08 PM Referred By: SANG Confirmed By:AMANDA HERRMANN MD
--- NOTE | 2019-03-17 16:36 | CASEMGMT ---
RN CM Discharge Follow-Up Phone Call. Lace: 10 Strata: 3 Discharge Date: 03/16/19 Adm Dx: NSTEMI, CP Call placed to Mrs Duran for discharge follow-up. She answered the phone and states, I'm doing fine, but my just had a spell and I'm working on him and asked if she could hang up the call. MEGGAN UGALDE asked Mrs Duran if this RN CM could assist her with anything re: her . Mrs Duran stated no and that if she needed to, she would call the squad. Bridger FABIANN RN CM
== END 2019-03-16 10:30 | disposition home or self-care (01) | DRG 247 ==
LOC: ED 19:10 → PCU 20:36 → ICU 03-15 09:10
PROVIDERS: Internal Medicine; Nurse Practitioner Family; Specialist; Admitting Provider Family Medicine; Emergency Provider Emergency Medicine; PCP Family Medicine; Visit Provider Internal Medicine
DX: I21.4 Non-ST elevation (NSTEMI) myocardial infarction (principal); I25.10 Atherosclerotic heart disease of native coronary artery without angina pectoris; E78.5 Hyperlipidemia, unspecified; E66.01 Morbid (severe) obesity due to excess calories; I10 Essential (primary) hypertension; E11.9 Type 2 diabetes mellitus without complications; Z95.1 Presence of aortocoronary bypass graft; Z79.84 Long term (current) use of oral hypoglycemic drugs; Z68.37 Body mass index [BMI] 37.0-37.9, adult; Z95.5 Presence of coronary angioplasty implant and graft
CPT/HCPCS: 36415; 71045; 80048; 80053; 80061; 82962; 83735; 84484; 85025; 85027; 85347; 85610; 85730; 92928; 93005; 93306; 93459; 99152; 99153; 99285; J7030; Q9957; A4216; C1725; C1769; C1874; C1887; C1894; C9600; Q9967

== ENCOUNTER → 2019-12-16 09:32 | Outpatient (CLI) | payer MEDICARE, SELFPAY ==
[2019-03-15 11:56] VITALS: BMI 37.0
[2019-09-29 15:32] VITALS: BMI 36.2
[2019-12-16 12:36] LABS: Anion Gap 6 (5-15); BUN 17 mg/dL (7-18); BUN/Creat Ratio 17.9 RATIO (10-20); Calcium,Total 9.6 mg/dL (8.5-10.1); Chloride 107 mmol/L (98-107); Cholesterol 296 mg/dL (200); Creatinine, Serum 0.95 mg/dL (0.55-1.02); EST Glomerular Filtration Rate 61 mL/min (>60); Est Glom Filt Rate - Afr Amer 74 mL/min (>60); Glucose 126 mg/dL (74-106); High Density Lipoprotein 58 mg/dL; Potassium 3.8 mmol/L (3.5-5.1); Sodium Level 139 mmol/L (136-145); Triglycerides 211 mg/dL; Very Low Density Lipoprotein 42 mg/dL (5-40)
== END ==
PROVIDERS: PCP Family Medicine; Referring Provider Family Medicine; Visit Provider Family Medicine
DX: I10 Essential (primary) hypertension (principal)
CPT/HCPCS: 36415; 80048; 80061

== ENCOUNTER → 2019-12-24 13:02 | Outpatient (CLI) | payer MEDICARE, SELFPAY ==
[2019-03-15 11:56] VITALS: BMI 37.0
[2019-09-29 15:32] VITALS: BMI 36.2
--- NOTE | 2019-12-24 13:05 | BI_ITS ---
MAMMOGRAPHY - BILATERAL SCREENING REASON FOR EXAM: Female, 79 years old. Routine annual screening examination. PERTINENT HISTORY: Non-contributory. Remote bilateral breast biopsies. TECHNIQUE: Digital bilateral breast tarik (3D mammographic acquisition) in the CC and MLO projections. 2-D mediolateral oblique (MLO) and craniocaudad (CC) views of both breasts were obtained. CAD: Full Field Digital Mammography with Computer Added Detection was performed. COMPARISON: Comparison is made with prior study 01/27/2018 and 01/02/2017. FINDINGS: Breast Composition: There are scattered areas of fibroglandular density. There are no dominant masses or suspicious calcifications. Stable appearance of the rounded dense calcific nodules in both breasts more prominent in the left breast. No other significant abnormalities are identified. There has been no significant change since the prior study. BI/SCREEN MAMM (CAD) W/TARIK BILAT IMPRESSION: Stable bilateral screening mammogram. Yearly follow-up mammogram recommended. (A) ASSESSMENT CATEGORY: BIRADS Category 2: Benign. A letter regarding these results will be sent to the patient by the facility within 30 days. Approximately 10% of breast cancers are not detected by mammography. A normal mammogram should not delay biopsy of a clinically suspicious abnormality. [id number] Electronically Signed: Andry Matos, at 14:38 EDT , Service support ,
== END ==
PROVIDERS: PCP Family Medicine; Referring Provider Family Medicine; Visit Provider Family Medicine
DX: Z12.31 Encounter for screening mammogram for malignant neoplasm of breast (principal)
CPT/HCPCS: 77063; 77067

== ENCOUNTER → 2020-02-23 12:11 | Outpatient (CLI) | payer MEDICARE, SELFPAY ==
[2019-03-15 11:56] VITALS: BMI 37.0
[2019-09-29 15:32] VITALS: BMI 36.2
[2020-02-23 15:42] LABS: Erythrocyte Sedimentation Rate 14 mm/hr (0-30)
[2020-02-23 15:47] LABS: Absolute Lymphocyte Count 1.87 X10^3/uL (0.83-4.51); Basophil# 0.05 X10^3/uL; Basophil% 0.5 % (0-1); Eosinophil# 0.18 X10^3/uL; Eosinophils% 1.6 % (0-5); Hematocrit 49.6 % (37-47); Hemoglobin 15.5 g/dL (12.0-15.0); Lymphocyte # 1.87 X10^3/ul (4.0); Lymphocyte % 17.1 % (19-41); Mean Corp Hgb Conc 31.3 g/dL (32-36); Mean Corpuscular Hgb 28.4 pg (27.0-32.0); Mean Platelet Vol. 10.8 fl (6.2-12.0); Monocyte# 0.71 X10^3/uL; Monocyte% 6.5 % (0-10); NRBC Flagged by Analyzer 0 % (0-5); Neutrophil # 8.03 X10^3/uL (2.7-7.7); Neutrophil % 73.7 % (47-70); Platelet Count 330 K/mm3 (150-450); RBC Distribution Width CV 14.6 % (11.6-14.6); RBC Distribution Width SD 48.2 fl (35.1-43.9); Red Blood Count 5.45 M/mm3 (4.2-5.4); White Blood Count 10.9 K/mm3 (4.4-11.0)
[2020-02-23 16:03] LABS: Anion Gap 5 (5-15); BUN 22 mg/dL (7-18); BUN/Creat Ratio 22.4 RATIO (10-20); Chloride 105 mmol/L (98-107); Creatinine, Serum 0.98 mg/dL (0.55-1.02); EST Glomerular Filtration Rate 58 mL/min (>60); Est Glom Filt Rate - Afr Amer 70 mL/min (>60); Glucose 99 mg/dL (74-106); Potassium 4.1 mmol/L (3.5-5.1); Sodium Level 139 mmol/L (136-145)
== END ==
PROVIDERS: PCP Family Medicine; Referring Provider Family Medicine; Visit Provider Family Medicine
DX: M19.90 Unspecified osteoarthritis, unspecified site (principal)
CPT/HCPCS: 36415; 80048; 85025; 85652; 86141

== ENCOUNTER → 2020-04-14 14:02 | Outpatient (CLI) | payer MEDICARE, SELFPAY ==
[2019-03-15 11:56] VITALS: BMI 37.0
[2019-09-29 15:32] VITALS: BMI 36.2
[2020-04-14 15:14] LABS: Absolute Lymphocyte Count 1.69 X10^3/uL (0.83-4.51); Absolute Neutrophil Count 6.4 X10^3/uL (2.0-7.7); Basophil# 0.04 X10^3/uL; Basophil% 0.5 % (0-1); Eosinophil# 0.12 X10^3/uL; Eosinophils% 1.4 % (0-5); Hematocrit 47.5 % (37-47); Hemoglobin 15.4 g/dL (12.0-15.0); Lymphocyte # 1.69 X10^3/ul (4.0); Lymphocyte % 19.2 % (19-41); Mean Corp Hgb Conc 32.4 g/dL (32-36); Mean Corpuscular Hgb 28.2 pg (27.0-32.0); Monocyte# 0.53 X10^3/uL; NRBC Flagged by Analyzer 0 % (0-5); Neutrophil # 6.37 X10^3/uL (2.7-7.7); Neutrophil % 72.6 % (47-70); Platelet Count 332 K/mm3 (150-450); RBC Distribution Width CV 14.3 % (11.6-14.6); RBC Distribution Width SD 45.6 fl (35.1-43.9); Red Blood Count 5.46 M/mm3 (4.2-5.4); White Blood Count 8.8 K/mm3 (4.4-11.0)
[2020-04-14 15:25] LABS: Erythrocyte Sedimentation Rate 53 mm/hr (0-30)
[2020-04-14 15:43] LABS: ALB/GLOB Ratio 0.8 RATIO (0.9-2.4); AST(SGOT) 12 U/L (15-37); Alanine Aminotransfer ALT/SGPT 16 U/L (13-56); Albumin, Serum 3.7 g/dL (3.2-5.0); Alkaline Phosphatase 98 U/L (45-117); Anion Gap 7 (5-15); BUN 15 mg/dL (7-18); BUN/Creat Ratio 17.9 RATIO (10-20); Calcium,Total 10.2 mg/dL (8.5-10.1); Chloride 103 mmol/L (98-107); Creatinine, Serum 0.84 mg/dL (0.55-1.02); EST Glomerular Filtration Rate 70 mL/min (>60); Est Glom Filt Rate - Afr Amer 84 mL/min (>60); Globulin 4.9 g/dL (2.2-4.2); Glucose 108 mg/dL (74-106); Potassium 3.9 mmol/L (3.5-5.1); Protein, Total 8.6 g/dL (6.4-8.2); Rheumatoid Factor < 10.0 IU/mL (<15); Sodium Level 136 mmol/L (136-145)
[2020-04-17 11:55] LABS: Hepatitis B Surface Antibody Non-Reactive; Hepatitis B Surface Antigen Non-Reactive (Nonreactive)
[2020-04-17 13:50] LABS: Hepatitis C Antibody REACTIVE (Nonreactive)
[2020-04-17 18:03] LABS: ANTINUCLEAR ANTIBODIES DIRECT Negative (Negative)
[2020-04-19 12:17] LABS: CCP IgG Antibodies 7 units (0-19)
== END ==
PROVIDERS: PCP Family Medicine; Referring Provider Internal Medicine Rheumatology; Visit Provider Internal Medicine Rheumatology
DX: M06.4 Inflammatory polyarthropathy (principal); M21.41 Flat foot [pes planus] (acquired), right foot; K21.9 Gastro-esophageal reflux disease without esophagitis; I25.10 Atherosclerotic heart disease of native coronary artery without angina pectoris; E11.9 Type 2 diabetes mellitus without complications; I10 Essential (primary) hypertension; E78.5 Hyperlipidemia, unspecified; Z79.899 Other long term (current) drug therapy
CPT/HCPCS: 36415; 80053; 85025; 85652; 86038; 86140; 86200; 86431; 86706; 86803; 87340

== ENCOUNTER → 2020-04-28 16:13 | Outpatient (CLI) | payer MEDICARE, SELFPAY ==
[2019-03-15 11:56] VITALS: BMI 37.0
[2020-04-25 14:04] VITALS: BMI 35.4
== END ==
PROVIDERS: PCP Family Medicine; Referring Provider Internal Medicine Rheumatology; Visit Provider Internal Medicine Rheumatology
DX: M06.4 Inflammatory polyarthropathy (principal); M21.41 Flat foot [pes planus] (acquired), right foot; K21.9 Gastro-esophageal reflux disease without esophagitis; I25.10 Atherosclerotic heart disease of native coronary artery without angina pectoris; E11.9 Type 2 diabetes mellitus without complications; I10 Essential (primary) hypertension; E78.5 Hyperlipidemia, unspecified; Z79.899 Other long term (current) drug therapy

== ENCOUNTER → 2020-05-08 12:15 | Outpatient (CLI) | payer MEDICARE, SELFPAY ==
[2019-03-15 11:56] VITALS: BMI 37.0
[2020-04-25 14:04] VITALS: BMI 35.4
[2020-05-10 20:08] LABS: HCV Quant. RNA PCR HCV Not Detected IU/mL (.)
== END ==
PROVIDERS: PCP Family Medicine; Referring Provider Internal Medicine Rheumatology; Visit Provider Internal Medicine Rheumatology
DX: B17.10 Acute hepatitis C without hepatic coma (principal); M06.4 Inflammatory polyarthropathy; M21.41 Flat foot [pes planus] (acquired), right foot; I25.10 Atherosclerotic heart disease of native coronary artery without angina pectoris; E11.9 Type 2 diabetes mellitus without complications; I10 Essential (primary) hypertension; E78.5 Hyperlipidemia, unspecified; K21.9 Gastro-esophageal reflux disease without esophagitis; Z79.899 Other long term (current) drug therapy
CPT/HCPCS: 36415; 87522

== ENCOUNTER 2020-05-20 08:33 | Emergency (ER) | payer MEDICARE, SELFPAY ==
[2019-03-15 11:56] VITALS: BMI 37.0
[2020-04-25 14:04] VITALS: BMI 35.4
[2020-05-20 08:35] VITALS: BP 231/72; PULSE 48; RESP 16; TEMP 35.7; O2SAT 96; BMI 37.0
--- NOTE | 2020-05-20 08:37 | ED.RN ---
pt states her heart normally runs 44 - 54.
--- NOTE | 2020-05-20 08:45 | EKG12_ITS ---
Test Reason : Blood Pressure : / mmHG Vent. Rate : 048 BPM Atrial Rate : 048 BPM P-R Int : 136 ms QRS Dur : 092 ms QT Int : 504 ms P-R-T Axes : 043 -34 093 degrees QTc Int : 450 ms Sinus bradycardia Left axis deviation Left ventricular hypertrophy with repolarization abnormality Abnormal ECG Confirmed by JULIEN BRIGGS, GABY ([id number]), associate editor JENNIFER GAY ([id number]) on 05/22/2020 1:40:55 PM Referred By: JUAN CARLOS Confirmed By:GABY VICTORIA MD
--- NOTE | 2020-05-20 08:46 | ED.DCSUM_ITS ---
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 She tells me that since February she has been on prednisone for arthritis. She states she is had pain in the back of her neck going down towards her pelvis and hips. She states that that has been a constant pain. She saw cardiology at the beginning of this month. She was not having any cardiac symptoms. She had previously underwent a CABG in 2011 and heart catheterization with stent placement in 2019. She tells me that this morning she got up was having the pain in her posterior neck. She sat down to urinate and moved her neck to help alleviate the discomfort when she got lightheaded and near syncopal. She states that she then developed a pressure in her chest. She went to the living room and took an nitroglycerin which helped. She states now she is pain-free. She has a history of sinus bradycardia as well as hypertension. She has not taken her blood pressure medications yet this morning. EMS notes the patient was significantly hypertensive with systolic readings greater than 200. She also notes that in recent weeks when she lays down at night she has developed a cough feels like there is something in her throat. - Past Medical History (1) Non-STEMI (non-ST elevated myocardial infarction) Status: Chronic (2) Atherosclerotic heart disease of [place] coronary artery without angina pectoris Status: Chronic (3) Atrioventricular block Status: Chronic (4) Diabetes mellitus Status: Chronic (5) Essential hypertension Status: Chronic (6) Pure hypercholesterolemia Status: Chronic Past Medical History - Allergies and Home Meds Allergies/Adverse Reactions: Allergies clopidogrel [From Plavix] Allergy (Verified 05/20/20 08:35) Rash Sulfa (Sulfonamide Antibiotics) Allergy (Verified 05/20/20 08:35) Rash Ohlssjy-Mbp-Dud Reductase Inhibitor Adverse Reaction (Severe, Verified 05/20/20 08:35) Intolerance, mylagias prasugrel [From Effient] Adverse Reaction (Intermediate, Verified 05/20/20 08: 35) Tongue blisters Primary Care Physician: Rodríguez Lema MD [Primary Care Provider] - 1-2 Weeks Surgical History: - - 1993 CABG x2, 2012 CABG x3, PCI x3 most recently 2009, tonsillectomy, cholecystectomy, appendectomy, hysterectomy. Smoking Status: Never smoker Alcohol: None Drugs: None - Family History Maternal Family History: Family History (Last Reviewed 09/29/19 @ 15:34 by Marleni Dsouza) Father CAD (coronary artery disease) Myocardial infarction Brother Myocardial infarction CAD (coronary artery disease) Brother Myocardial infarction Sister CAD (coronary artery disease) Diabetes Myocardial infarction Mother Cancer Family History: Reports: Cancer Paternal Family History: Family History (Last Reviewed 09/29/19 @ 15:34 by Marleni Dsouza) Father CAD (coronary artery disease) Myocardial infarction Brother Myocardial infarction CAD (coronary artery disease) Brother Myocardial infarction Sister CAD (coronary artery disease) Diabetes Myocardial infarction Mother Cancer Family History: Reports: High Cholesterol, Heart Disease, Hypertension Review of Systems General: Denies: Chills, Fever, Sweats Eyes: Denies: Visual changes - bilaterally, Diplopia ENT: Denies: Rhinorrhea, Sore throat Cardiovascular: Reports: Chest pain. Denies: Palpitations Respiratory: Reports: Cough. Denies: Dyspnea, Dyspnea on exertion Gastrointestinal: Denies: Abdominal pain, Nausea, Vomiting, Diarrhea, Melena, Hematochezia Genitourinary: Denies: Dysuria, Hematuria, Frequency Musculoskeletal: Reports: Arthralgias, Neck pain, Back pain. Denies: Extremity Pain Skin: Denies: Rash, Wounds Neurological: Denies: Headache, Weakness, Numbness Physical Exam Vital Signs/Narrative: Vital Signs Temp Pulse Resp BP Pulse Ox 05/20/20 08:35 96.2 F L 48 L 16 231/72 H 96 Inital Vital Signs reviewed: Yes General: Well nourished, Well developed, Obese, No Acute Distress Head: Normocephalic, Atraumatic Eyes: Perrl, EOMI ENT: Moist mucous membranes, No rhinorrhea Neck: Supple, Nontender Cardiovascular: Regular rate, No murmurs, Bradycardia Respiratory: No distress, CTA bilaterally, Chest nontender Abdomen: Soft, Nontender, Nondistended, Normal bowel sounds Back: Nontender, Normal Inspection Extremities: Nontender, No edema Skin: Normal color, No rash Neurological: Alert, Oriented x3, Cranial nerves II-XII grossly intact, Normal Strength, Normal Sensation Psychological: Normal affect, Normal Mood Diagnostic/Tx/Re-eval Clinical Impression(s) from Imaging Studies Chest X-Ray 05/20/20 08:55 IMPRESSION: Cardiomegaly. Status post sternotomy. No visualized acute focal infiltrate or significant change since prior study. Electronically Signed: Sandi Sanchez MD at 9:37 EDT Tel , Service support , Chest CTA 05/20/20 09:31 IMPRESSION: No focal infiltrate. No pulmonary embolism. Cardiomegaly coronary disease status post sternotomy. Minimal left lower focus of pleural thickening could consider follow-up CT scan of the chest without contrast in 6 months to ensure stability. Status post cholecystectomy Kyphosis degenerative change. Bony hemangiomas T9 and T11. Electronically Signed: Sandi Sanchez MD at 10:56 EDT Tel , Service support , Laboratory Last Values WBC 8.8 K/mm3 (4.4-11.0) 05/20/20 08:16 RBC 5.59 M/mm3 (4.2-5.4) H 05/20/20 08:16 Hgb 15.6 g/dL (12.0-15.0) H 05/20/20 08:16 Hct 49.1 % (37-47) H 05/20/20 08:16 MCV 87.8 fL (81-99) 05/20/20 08:16 MCH 27.9 pg (27.0-32.0) 05/20/20 08:16 MCHC 31.8 g/dL (32-36) L 05/20/20 08:16 RDW Std Deviation 48.7 fl (35.1-43.9) H 05/20/20 08:16 RDW Coeff of Amara 14.9 % (11.6-14.6) H 05/20/20 08:16 Plt Count 294 K/mm3 (150-450) 05/20/20 08:16 MPV 10.2 fl (6.2-12.0) 05/20/20 08:16 Immature Gran % (Auto) 0.500 % (0.0-0.9) 05/20/20 08:16 Neut % (Auto) 67.8 % (47-70) 05/20/20 08:16 Lymph % (Auto) 23.4 % (19-41) 05/20/20 08:16 [place] % (Auto) 6.6 % (0-10) 05/20/20 08:16 Eos % (Auto) 1.4 % (0-5) 05/20/20 08:16 Baso % (Auto) 0.3 % (0-1) 05/20/20 08:16 Absolute Neuts (auto) 6.0 X10^3/uL (2.0-7.7) 05/20/20 08:16 Absolute Lymphs (auto) 2.06 X10^3/uL (0.83-4.51) 05/20/20 08:16 Nucleated RBC % 0 % (0-5) 05/20/20 08:16 PT 12.4 SECONDS (11.7-14.9) 05/20/20 08:16 INR 1.0 05/20/20 08:16 APTT 26.5 Seconds (24.1-36.2) 05/20/20 08:16 D-Dimer Quant (PE/DVT) 0.82 FEU/ug/m (0.27-0.49) H* 05/20/20 08:16 Sodium 138 mmol/L (136-145) 05/20/20 08:16 Potassium 3.8 mmol/L (3.5-5.1) 05/20/20 08:16 Chloride 105 mmol/L (98-107) 05/20/20 08:16 Carbon Dioxide 29.0 mmol/L (21.0-32.0) 05/20/20 08:16 Anion Gap 4 (5-15) L 05/20/20 08:16 BUN 15 mg/dL (7-18) 05/20/20 08:16 Creatinine 0.92 mg/dL (0.55-1.02) 05/20/20 08:16 Estim Creat Clear Calc 40.50 ml/min 05/20/20 08:16 Est GFR (MDRD) Af Amer 76 mL/min (>60) 05/20/20 08:16 Est GFR (MDRD) Non-Af 63 mL/min (>60) 05/20/20 08:16 BUN/Creatinine Ratio 16.4 RATIO (10-20) 05/20/20 08:16 Glucose 144 mg/dL (74-106) H 05/20/20 08:16 Calcium 9.9 mg/dL (8.5-10.1) 05/20/20 08:16 Troponin I < 0.015 ng/mL (<0.045) 05/20/20 08:16 - EKG Initial EKG Interpretation: Sinus Bradycardia - EKG demonstrates a sinus bradycardia at a rate of 48. No ectopy noted. - Medical Decision Making Patient has remained chest pain-free here. She has had no events on the monitor. D-dimer was elevated even after age adjustment. CTA was negative for dissection or embolism. I spoke with cardiology who recommends a delta troponin. If this is negative patient be discharged home. Patient does have famotidine at home. She unfortunately has not been taking it regularly. I advised her that as long as she is on prednisone I would go ahead and take it regularly as she already has nighttime symptoms that sound very much like reflux. Patient is comfortable with this plan ED Disposition - Plan for ED Patient: Disposition: Home or Assisted Living Diagnosis: Chest pain, GERD (gastroesophageal reflux disease) Instructions: ED Chest Pain, Uncertain Cause, ED GERD (Adult) Referrals: Rodríguez Lema MD [Primary Care Provider] - 1-2 Weeks Additional Instructions: Please take your famotidine daily as directed as long as you are on prednisone.
[2020-05-20 08:49] VITALS: BP 218/71
--- NOTE | 2020-05-20 08:55 | RAD_ITS ---
STUDY: X-RAY CHEST REASON FOR EXAM: Female, 79 years old. Chest pain TECHNIQUE: Single AP portable view of the chest. COMPARISON: March 12, 2019 chest x-ray FINDINGS: The lungs are clear and expanded. There is no demonstrated pleural abnormality. Sternal cerclage wires are present from a prior sternotomy. There is mild cardiomegaly. Normal mediastinum and gio. Normal visualized pulmonary arteries. There is atherosclerotic calcification of the aortic arch with tortuosity. Normal visualized thoracic spine. Postoperative changes in the right humerus. There are old right-sided rib fractures. There is no demonstrated abnormality of the visualized soft tissue structures of the upper abdomen. RAD/Chest 1 View (Portable) IMPRESSION: Cardiomegaly. Status post sternotomy. No visualized acute focal infiltrate or significant change since prior study. Electronically Signed: Sandi Sanchez MD at 9:37 EDT Tel , Service support ,
[2020-05-20 08:59] LABS: Absolute Lymphocyte Count 2.06 X10^3/uL (0.83-4.51); Basophil# 0.03 X10^3/uL; Basophil% 0.3 % (0-1); Eosinophil# 0.12 X10^3/uL; Eosinophils% 1.4 % (0-5); Hematocrit 49.1 % (37-47); Hemoglobin 15.6 g/dL (12.0-15.0); Lymphocyte # 2.06 X10^3/ul (4.0); Lymphocyte % 23.4 % (19-41); Mean Corp Hgb Conc 31.8 g/dL (32-36); Mean Corpuscular Hgb 27.9 pg (27.0-32.0); Mean Corpuscular Volume 87.8 fL (81-99); Mean Platelet Vol. 10.2 fl (6.2-12.0); Monocyte# 0.58 X10^3/uL; Monocyte% 6.6 % (0-10); NRBC Flagged by Analyzer 0 % (0-5); Neutrophil # 5.98 X10^3/uL (2.7-7.7); Neutrophil % 67.8 % (47-70); Platelet Count 294 K/mm3 (150-450); RBC Distribution Width CV 14.9 % (11.6-14.6); RBC Distribution Width SD 48.7 fl (35.1-43.9); Red Blood Count 5.59 M/mm3 (4.2-5.4); White Blood Count 8.8 K/mm3 (4.4-11.0)
[2020-05-20 09:06] LABS: Partial Thromboplast Time 26.5 Seconds (24.1-36.2); Prothrombin Time (Protime)PT. 12.4 SECONDS (11.7-14.9)
[2020-05-20] MEDS: Lisinopril 20 MG Tablet PO (09:06)
[2020-05-20] MEDS: amLODIPine 10 MG Tablet PO (09:06)
[2020-05-20 09:11] LABS: D-Dimer Quantitative (DVT/PE) 0.82 FEU/ug/m (0.27-0.49)
[2020-05-20 09:16] LABS: Anion Gap 4 (5-15); BUN 15 mg/dL (7-18); BUN/Creat Ratio 16.4 RATIO (10-20); Calcium,Total 9.9 mg/dL (8.5-10.1); Chloride 105 mmol/L (98-107); Creatinine, Serum 0.92 mg/dL (0.55-1.02); EST Glomerular Filtration Rate 63 mL/min (>60); Est Glom Filt Rate - Afr Amer 76 mL/min (>60); Glucose 144 mg/dL (74-106); Potassium 3.8 mmol/L (3.5-5.1); Sodium Level 138 mmol/L (136-145)
--- NOTE | 2020-05-20 09:31 | CT_ITS ---
STUDY: CTA CHEST REASON FOR EXAM: Female, 79 years old. Chest pain RADIATION DOSAGE (If Supplied By Facility): CTDIvol = ( 12.65 ) mGy, DLP = ( 512.72 ) mGycm TECHNIQUE: The examination was performed with the intravenous administration of IV 100mL Isovue-370. Post-processing of the angiographic images was performed, with multiplanar reformation and 3D reconstruction. Individualized dose optimization techniques were used for this CT. COMPARISON: May 20, 2020 chest x-ray FINDINGS: Normal enhancement of the main pulmonary artery and right and left pulmonary arteries. Normal enhancement of the bilateral peripheral pulmonary arteries. There is no demonstrated pulmonary embolism. This limited contrast of the aorta the time of this study. There is partial calcification. There is no demonstrated aortic dissection. There is mild to moderate cardiac enlargement there are coronary calcifications. Sternotomy wires are present. There are nonspecific subcentimeter mediastinal lymph nodes. Normal hilar regions. Normal visualized trachea and bronchi. There is minimal lower lobe atelectasis. There is no focal consolidation or pleural effusion. In the lingular pleura there is a small focus of minimal pleural thickening and/or scarring measuring 8 mm. Normal chest wall structures. There is kyphosis. There is a bony hemangioma the level of T11 and T9. There is multilevel disc space narrowing. There is postoperative change in the right humerus. Sternotomy wires are seen midline. Postoperative changes status post cholecystectomy. CT/CTA Chest W/WO Contrast IMPRESSION: No focal infiltrate. No pulmonary embolism. Cardiomegaly coronary disease status post sternotomy. Minimal left lower focus of pleural thickening could consider follow-up CT scan of the chest without contrast in 6 months to ensure stability. Status post cholecystectomy Kyphosis degenerative change. Bony hemangiomas T9 and T11. Electronically Signed: Sandi Sanchez MD at 10:56 EDT Tel , Service support ,
[2020-05-20 10:40] VITALS: BP 192/68; PULSE 44; RESP 18; O2SAT 95
[2020-05-20 12:26] VITALS: BP 186/71; PULSE 44; RESP 15; O2SAT 97
== END 2020-05-20 12:52 | disposition home or self-care (01) ==
PROVIDERS: Emergency Provider Emergency Medicine; PCP Family Medicine
DX: R07.89 Other chest pain (principal); I25.10 Atherosclerotic heart disease of native coronary artery without angina pectoris; E11.9 Type 2 diabetes mellitus without complications; I10 Essential (primary) hypertension; E78.00 Pure hypercholesterolemia, unspecified; M19.90 Unspecified osteoarthritis, unspecified site; M25.551 Pain in right hip; M25.552 Pain in left hip; R10.2 Pelvic and perineal pain; M54.2 Cervicalgia; K21.9 Gastro-esophageal reflux disease without esophagitis; M54.9 Dorsalgia, unspecified; E66.9 Obesity, unspecified; I25.2 Old myocardial infarction; Z95.1 Presence of aortocoronary bypass graft; Z95.5 Presence of coronary angioplasty implant and graft
CPT/HCPCS: 36415; 71045; 71275; 80048; 84484; 85025; 85379; 85610; 85730; 93005; 99285; Q9967; A4216

== ENCOUNTER → 2020-06-23 15:03 | Outpatient (CLI) | payer MEDICARE, SELFPAY ==
[2019-03-15 11:56] VITALS: BMI 37.0
[2020-06-23 17:57] LABS: Absolute Lymphocyte Count 1.58 X10^3/uL (0.83-4.51); Absolute Neutrophil Count 5.4 X10^3/uL (2.0-7.7); Basophil# 0.05 X10^3/uL; Basophil% 0.6 % (0-1); Eosinophil# 0.17 X10^3/uL; Eosinophils% 2.2 % (0-5); Hematocrit 46.7 % (37-47); Hemoglobin 14.6 g/dL (12.0-15.0); Lymphocyte # 1.58 X10^3/ul (0.83-4.51); Lymphocyte % 20.3 % (19-41); Mean Corp Hgb Conc 31.3 g/dL (32-36); Mean Corpuscular Hgb 27.3 pg (27.0-32.0); Mean Corpuscular Volume 87.5 fL (81-99); Mean Platelet Vol. 10.7 fl (6.2-12.0); Monocyte# 0.54 X10^3/uL; Monocyte% 6.9 % (0-10); NRBC Flagged by Analyzer 0 % (0-5); Neutrophil # 5.43 X10^3/uL (2.7-7.7); Neutrophil % 69.6 % (47-70); Platelet Count 276 K/mm3 (150-450); RBC Distribution Width CV 14.5 % (11.6-14.6); RBC Distribution Width SD 46.5 fl (35.1-43.9); Red Blood Count 5.34 M/mm3 (4.2-5.4); White Blood Count 7.8 K/mm3 (4.4-11.0)
[2020-06-23 18:10] LABS: ALB/GLOB Ratio 0.9 RATIO (0.9-2.4); AST(SGOT) 17 U/L (15-37); Alanine Aminotransfer ALT/SGPT 18 U/L (13-56); Albumin, Serum 3.6 g/dL (3.2-5.0); Alkaline Phosphatase 96 U/L (45-117); Anion Gap 6 (5-15); BUN 14 mg/dL (7-18); BUN/Creat Ratio 16.1 RATIO (10-20); Calcium,Total 9.6 mg/dL (8.5-10.1); Chloride 105 mmol/L (98-107); Creatinine, Serum 0.87 mg/dL (0.55-1.02); EST Glomerular Filtration Rate 67 mL/min (>60); Est Glom Filt Rate - Afr Amer 81 mL/min (>60); Globulin 4.2 g/dL (2.2-4.2); Glucose 112 mg/dL (74-106); Potassium 3.6 mmol/L (3.5-5.1); Protein, Total 7.8 g/dL (6.4-8.2); Sodium Level 138 mmol/L (136-145)
== END ==
PROVIDERS: PCP Family Medicine; Referring Provider Internal Medicine Rheumatology; Visit Provider Internal Medicine Rheumatology
DX: M06.4 Inflammatory polyarthropathy (principal); M21.41 Flat foot [pes planus] (acquired), right foot; I25.10 Atherosclerotic heart disease of native coronary artery without angina pectoris; E11.9 Type 2 diabetes mellitus without complications; I10 Essential (primary) hypertension; E78.5 Hyperlipidemia, unspecified; R76.8 Other specified abnormal immunological findings in serum; K21.9 Gastro-esophageal reflux disease without esophagitis; Z79.899 Other long term (current) drug therapy
CPT/HCPCS: 36415; 80053; 85025

== ENCOUNTER → 2020-08-14 10:12 | Outpatient (CLI) | payer MEDICARE, SELFPAY ==
[2019-03-15 11:56] VITALS: BMI 37.0
[2020-08-14 12:22] LABS: Absolute Lymphocyte Count 1.07 X10^3/uL (0.83-4.51); Absolute Neutrophil Count 5.9 X10^3/uL (2.0-7.7); Basophil# 0.03 X10^3/uL; Basophil% 0.4 % (0-1); Eosinophil# 0.11 X10^3/uL; Eosinophils% 1.4 % (0-5); Hematocrit 46.2 % (37-47); Lymphocyte # 1.07 X10^3/ul (0.83-4.51); Lymphocyte % 14.1 % (19-41); Mean Corp Hgb Conc 32.5 g/dL (32-36); Mean Corpuscular Hgb 29.4 pg (27.0-32.0); Mean Corpuscular Volume 90.4 fL (81-99); Mean Platelet Vol. 10.5 fl (6.2-12.0); Monocyte# 0.44 X10^3/uL; Monocyte% 5.8 % (0-10); NRBC Flagged by Analyzer 0 % (0-5); Neutrophil # 5.93 X10^3/uL (2.7-7.7); Neutrophil % 77.9 % (47-70); Platelet Count 248 K/mm3 (150-450); RBC Distribution Width CV 16.3 % (11.6-14.6); RBC Distribution Width SD 53.5 fl (35.1-43.9); Red Blood Count 5.11 M/mm3 (4.2-5.4); White Blood Count 7.6 K/mm3 (4.4-11.0)
[2020-08-14 13:07] LABS: ALB/GLOB Ratio 0.9 RATIO (0.9-2.4); AST(SGOT) 13 U/L (15-37); Alanine Aminotransfer ALT/SGPT 21 U/L (13-56); Albumin, Serum 3.4 g/dL (3.2-5.0); Alkaline Phosphatase 87 U/L (45-117); Anion Gap 8 (5-15); BUN 20 mg/dL (7-18); BUN/Creat Ratio 18.2 RATIO (10-20); Calcium,Total 9.5 mg/dL (8.5-10.1); Chloride 105 mmol/L (98-107); EST Glomerular Filtration Rate 51 mL/min (>60); Est Glom Filt Rate - Afr Amer 62 mL/min (>60); Globulin 3.9 g/dL (2.2-4.2); Glucose 151 mg/dL (74-106); Potassium 3.7 mmol/L (3.5-5.1); Protein, Total 7.3 g/dL (6.4-8.2); Sodium Level 138 mmol/L (136-145)
== END ==
PROVIDERS: PCP Family Medicine; Referring Provider Internal Medicine Rheumatology; Visit Provider Internal Medicine Rheumatology
DX: M06.4 Inflammatory polyarthropathy (principal); M21.41 Flat foot [pes planus] (acquired), right foot; R76.8 Other specified abnormal immunological findings in serum; I25.10 Atherosclerotic heart disease of native coronary artery without angina pectoris; E11.9 Type 2 diabetes mellitus without complications; I10 Essential (primary) hypertension; E78.5 Hyperlipidemia, unspecified; K21.9 Gastro-esophageal reflux disease without esophagitis; Z79.899 Other long term (current) drug therapy
CPT/HCPCS: 36415; 80053; 85025

== ENCOUNTER → 2020-10-11 09:36 | Outpatient (CLI) | payer MEDICARE, SELFPAY ==
[2019-03-15 11:56] VITALS: BMI 37.0
[2020-10-11 12:39] LABS: Absolute Lymphocyte Count 1.63 X10^3/uL (0.83-4.51); Absolute Neutrophil Count 4.9 X10^3/uL (2.0-7.7); Basophil# 0.03 X10^3/uL; Basophil% 0.4 % (0-1); Eosinophil# 0.12 X10^3/uL; Eosinophils% 1.7 % (0-5); Hematocrit 45.1 % (37-47); Hemoglobin 14.6 g/dL (12.0-15.0); Lymphocyte # 1.63 X10^3/ul (0.83-4.51); Lymphocyte % 22.7 % (19-41); Mean Corp Hgb Conc 32.4 g/dL (32-36); Mean Corpuscular Hgb 30.4 pg (27.0-32.0); Mean Corpuscular Volume 93.8 fL (81-99); Mean Platelet Vol. 11.1 fl (6.2-12.0); Monocyte# 0.45 X10^3/uL; Monocyte% 6.3 % (0-10); NRBC Flagged by Analyzer 0 % (0-5); Neutrophil # 4.91 X10^3/uL (2.7-7.7); Neutrophil % 68.5 % (47-70); Platelet Count 216 K/mm3 (150-450); RBC Distribution Width CV 15.8 % (11.6-14.6); RBC Distribution Width SD 53.9 fl (35.1-43.9); Red Blood Count 4.81 M/mm3 (4.2-5.4); White Blood Count 7.2 K/mm3 (4.4-11.0)
[2020-10-11 12:48] LABS: ALB/GLOB Ratio 0.9 RATIO (0.9-2.4); AST(SGOT) 13 U/L (15-37); Alanine Aminotransfer ALT/SGPT 24 U/L (13-56); Albumin, Serum 3.6 g/dL (3.2-5.0); Alkaline Phosphatase 89 U/L (45-117); Anion Gap 5 (5-15); BUN 14 mg/dL (7-18); BUN/Creat Ratio 13.6 RATIO (10-20); Calcium,Total 9.4 mg/dL (8.5-10.1); Chloride 104 mmol/L (98-107); Creatinine, Serum 1.03 mg/dL (0.55-1.02); EST Glomerular Filtration Rate 55 mL/min (>60); Est Glom Filt Rate - Afr Amer 67 mL/min (>60); Globulin 3.8 g/dL (2.2-4.2); Glucose 144 mg/dL (74-106); Potassium 3.7 mmol/L (3.5-5.1); Protein, Total 7.4 g/dL (6.4-8.2); Sodium Level 139 mmol/L (136-145)
== END ==
PROVIDERS: PCP Family Medicine; Referring Provider Internal Medicine Rheumatology; Visit Provider Internal Medicine Rheumatology
DX: M06.4 Inflammatory polyarthropathy (principal); M21.41 Flat foot [pes planus] (acquired), right foot; K21.9 Gastro-esophageal reflux disease without esophagitis; I25.10 Atherosclerotic heart disease of native coronary artery without angina pectoris; E11.9 Type 2 diabetes mellitus without complications; I10 Essential (primary) hypertension; E78.5 Hyperlipidemia, unspecified; R76.8 Other specified abnormal immunological findings in serum; Z79.899 Other long term (current) drug therapy
CPT/HCPCS: 36415; 80053; 85025

== ENCOUNTER → 2021-01-01 09:03 | Outpatient (CLI) | payer MEDICARE, SELFPAY ==
[2019-03-15 11:56] VITALS: BMI 37.0
[2021-01-01 09:58] LABS: Absolute Lymphocyte Count 0.94 X10^3/uL (0.83-4.51); Absolute Neutrophil Count 4.9 X10^3/uL (2.0-7.7); Basophil# 0.05 X10^3/uL; Basophil% 0.8 % (0-1); Eosinophil# 0.15 X10^3/uL; Eosinophils% 2.3 % (0-5); Hematocrit 43.5 % (37-47); Hemoglobin 14.4 g/dL (12.0-15.0); Lymphocyte # 0.94 X10^3/ul (0.83-4.51); Lymphocyte % 14.3 % (19-41); Mean Corp Hgb Conc 33.1 g/dL (32-36); Mean Corpuscular Hgb 31.4 pg (27.0-32.0); Monocyte# 0.49 X10^3/uL; Monocyte% 7.4 % (0-10); NRBC Flagged by Analyzer 0 % (0-5); Neutrophil # 4.93 X10^3/uL (2.7-7.7); Neutrophil % 74.7 % (47-70); Platelet Count 245 K/mm3 (150-450); RBC Distribution Width CV 13.8 % (11.6-14.6); RBC Distribution Width SD 47.7 fl (35.1-43.9); Red Blood Count 4.58 M/mm3 (4.2-5.4); White Blood Count 6.6 K/mm3 (4.4-11.0)
[2021-01-01 10:48] LABS: ALB/GLOB Ratio 0.9 RATIO (0.9-2.4); AST(SGOT) 20 U/L (15-37); Alanine Aminotransfer ALT/SGPT 21 U/L (13-56); Albumin, Serum 3.6 g/dL (3.2-5.0); Alkaline Phosphatase 100 U/L (45-117); Anion Gap 7 (5-15); BUN 20 mg/dL (7-18); BUN/Creat Ratio 16.9 RATIO (10-20); Calcium,Total 9.9 mg/dL (8.5-10.1); Chloride 102 mmol/L (98-107); Creatinine, Serum 1.18 mg/dL (0.55-1.02); EST Glomerular Filtration Rate 47 mL/min (>60); Est Glom Filt Rate - Afr Amer 57 mL/min (>60); Globulin 4.1 g/dL (2.2-4.2); Glucose 161 mg/dL (74-106); Potassium 3.8 mmol/L (3.5-5.1); Protein, Total 7.7 g/dL (6.4-8.2); Sodium Level 136 mmol/L (136-145)
== END ==
PROVIDERS: PCP Family Medicine; Referring Provider Internal Medicine Rheumatology; Visit Provider Internal Medicine Rheumatology
DX: M06.4 Inflammatory polyarthropathy (principal); M21.41 Flat foot [pes planus] (acquired), right foot; I25.10 Atherosclerotic heart disease of native coronary artery without angina pectoris; E11.9 Type 2 diabetes mellitus without complications; I10 Essential (primary) hypertension; E78.5 Hyperlipidemia, unspecified; R76.8 Other specified abnormal immunological findings in serum; K21.9 Gastro-esophageal reflux disease without esophagitis; Z79.899 Other long term (current) drug therapy
CPT/HCPCS: 36415; 80053; 85025

== ENCOUNTER → 2021-02-07 11:06 | Outpatient (CLI) | payer MEDICARE, SELFPAY ==
[2019-03-15 11:56] VITALS: BMI 37.0
[2021-02-07 12:23] LABS: Absolute Lymphocyte Count 1.52 X10^3/uL (0.83-4.51); Absolute Neutrophil Count 5.3 X10^3/uL (2.0-7.7); Basophil# 0.06 X10^3/uL; Basophil% 0.8 % (0-1); Eosinophils% 2.6 % (0-5); Hematocrit 44.8 % (37-47); Hemoglobin 14.9 g/dL (12.0-15.0); Lymphocyte # 1.52 X10^3/ul (0.83-4.51); Lymphocyte % 19.9 % (19-41); Mean Corp Hgb Conc 33.3 g/dL (32-36); Mean Corpuscular Volume 93.3 fL (81-99); Mean Platelet Vol. 10.4 fl (6.2-12.0); Monocyte# 0.54 X10^3/uL; Monocyte% 7.1 % (0-10); NRBC Flagged by Analyzer 0 % (0-5); Neutrophil # 5.29 X10^3/uL (2.7-7.7); Neutrophil % 69.3 % (47-70); Platelet Count 253 K/mm3 (150-450); RBC Distribution Width CV 13.1 % (11.6-14.6); RBC Distribution Width SD 44.8 fl (35.1-43.9); White Blood Count 7.6 K/mm3 (4.4-11.0)
[2021-02-07 13:03] LABS: ALB/GLOB Ratio 0.8 RATIO (0.9-2.4); AST(SGOT) 18 U/L (15-37); Alanine Aminotransfer ALT/SGPT 20 U/L (13-56); Albumin, Serum 3.5 g/dL (3.2-5.0); Alkaline Phosphatase 85 U/L (45-117); Anion Gap 6 (5-15); BUN 22 mg/dL (7-18); BUN/Creat Ratio 21.4 RATIO (10-20); Chloride 105 mmol/L (98-107); Creatinine, Serum 1.03 mg/dL (0.55-1.02); EST Glomerular Filtration Rate 55 mL/min (>60); Est Glom Filt Rate - Afr Amer 67 mL/min (>60); Globulin 4.5 g/dL (2.2-4.2); Glucose 113 mg/dL (74-106); Sodium Level 138 mmol/L (136-145)
== END ==
PROVIDERS: PCP Family Medicine; Referring Provider Internal Medicine Rheumatology; Visit Provider Internal Medicine Rheumatology
DX: M06.4 Inflammatory polyarthropathy (principal); M21.41 Flat foot [pes planus] (acquired), right foot; I25.10 Atherosclerotic heart disease of native coronary artery without angina pectoris; E11.9 Type 2 diabetes mellitus without complications; I10 Essential (primary) hypertension; E78.5 Hyperlipidemia, unspecified; K21.9 Gastro-esophageal reflux disease without esophagitis; R76.8 Other specified abnormal immunological findings in serum; Z79.899 Other long term (current) drug therapy
CPT/HCPCS: 36415; 80053; 85025

== ENCOUNTER 2021-05-24 09:27 | Outpatient (CLI) | payer MEDICARE, SELFPAY ==
[2019-03-15 11:56] VITALS: BMI 37.0
[2021-05-24 12:51] LABS: AST(SGOT) 18 U/L (15-37); Alanine Aminotransfer ALT/SGPT 21 U/L (13-56); Albumin, Serum 3.7 g/dL (3.2-5.0); Alkaline Phosphatase 92 U/L (45-117); Bilirubin, Direct 0.12 mg/dL (0.00-0.30); Cholesterol 324 mg/dL (200); Globulin 3.9 g/dL (2.2-4.2); High Density Lipoprotein 55 mg/dL; Protein, Total 7.6 g/dL (6.4-8.2); Triglycerides 198 mg/dL; Very Low Density Lipoprotein 40 mg/dL (5-40)
== END 2021-05-24 23:59 | disposition home or self-care (01) ==
LOC: MTLAB 09:29
PROVIDERS: PCP Family Medicine; Referring Provider Nurse Practitioner Family; Visit Provider Nurse Practitioner Family
DX: I10 Essential (primary) hypertension (principal); E78.00 Pure hypercholesterolemia, unspecified; I25.10 Atherosclerotic heart disease of native coronary artery without angina pectoris; Z95.5 Presence of coronary angioplasty implant and graft; Z95.1 Presence of aortocoronary bypass graft
CPT/HCPCS: 36415; 80061; 80076

== ENCOUNTER 2021-06-07 06:39 | Outpatient (CLI) | payer MEDICARE, SELFPAY ==
[2019-03-15 11:56] VITALS: BMI 37.0
--- NOTE | 2021-06-07 09:28 | STRESSREP ---
Stress Test Report Date: 06-07-2021 Procedure: Pharmacologic stress nuclear imaging study Indications: Shortness of breath/dyspnea on exertion; chest discomfort; CAD; PCI; CABG Consent: Per the patient Procedure: The patient underwent pharmacologic (Regadenoson 0.4mg ) evaluation with a peak heart rate of 64 beats per minute (45%predicted maximal heart rate) and a peak blood pressure of 138/70 mmHg. The baseline ECG demonstrated sinus bradycardia; poor R wave progression; nonspecific ST/T wave abnormality. The peak pharmacologic ECG demonstrated no obvious ECG changes. There were no cardiac dysrhythmias pretest, during pharmacologic infusion, or recovery. There was no complaint of chest discomfort during pharmacologic infusion or recovery. The examination was discontinued secondary to completion of protocol. Impression: 1. Pharmacologic (Regadenoson) evaluation 2. Peak pharmacologic ECG with continued sinus rhythm with poor R wave progression with nonspecific ST/T wave abnormality with no obvious ECG changes. 3. There were no cardiac dysrhythmias pretest, during pharmacologic infusion, or recovery. 4. Nuclear images pending Myocardial perfusion imaging study: Technique: The patient was injected with 14.3 millicuries of technetium 99m Cardiolite and subsequently rest SPECT Cardiolite nuclear imaging was obtained in the horizontal long, vertical long, and short axis views. The patient underwent pharmacologic (Regadenoson) evaluation with a peak heart rate of 64 beats per minute (45% percent predicted maximal heart rate) and a peak blood pressure of 138/70 mmHg. The patient was injected with 44.4 millicuries of technetium 99m Cardiolite and subsequently stress SPECT Cardiolite nuclear imaging was obtained in the horizontal long, vertical long, and short axis views. A gated Cardiolite study at peak stress was obtained. Interpretation: Rest and stress SPECT Cardiolite nuclear imaging status post realignment, normalization, and attenuation correction demonstrate at rest the appearance of relative uniform tracer uptake and myocardial perfusion appearing within normal limits. Status post stress there is notation of diminished myocardial perfusion/tracer uptake in portions of the mid to distal inferolateral/lateral apical segments. There is diminished end-systolic thickening and brightening in the aforementioned areas. The gated Cardiolite study demonstrates myocardial thickening and inward wall motion. The reported LVEF is 67%. Impression: 1. Rest and stress SPECT Cardiolite nuclear imaging demonstrate myocardial perfusion changes concerning for an area of stress-induced myocardial ischemia in portions of the mid to distal inferolateral/lateral apical segments. 2. The gated Cardiolite study reports an LVEF of 67%. This note was generated with [employer] dictation software. It may contain incorrect words, spelling, and punctuation that were not noted in checking the note before signing.
== END 2021-06-07 23:59 | disposition home or self-care (01) ==
LOC: CVS 06:40
PROVIDERS: PCP Family Medicine; Referring Provider Nurse Practitioner Family; Visit Provider Nurse Practitioner Family
DX: R07.9 Chest pain, unspecified (principal); I25.10 Atherosclerotic heart disease of native coronary artery without angina pectoris; I10 Essential (primary) hypertension; E78.00 Pure hypercholesterolemia, unspecified; R06.00 Dyspnea, unspecified; Z95.1 Presence of aortocoronary bypass graft
CPT/HCPCS: 78452; 93017; A9500; A4216; J2785

== ENCOUNTER 2021-06-12 13:37 | Outpatient (CLI) | payer MEDICARE, SELFPAY ==
[2019-03-15 11:56] VITALS: BMI 37.0
--- NOTE | 2021-06-12 13:45 | RAD_ITS ---
INDICATION: SOB w/exertion EXAMINATION/TECHNIQUE: X-RAY - XR Chest 2 Views COMPARISON: None. FINDINGS: LINES/DEVICES: Sternal wires seen in position. Left heart border is visualized. LUNGS: Peribronchial cuffing and bilateral hilar prominence is seen, no evidence of focal lung infiltrate or consolidation. No evidence of pneumothorax or pleural effusion. MEDIASTINUM AND CARDIOVASCULAR STRUCTURES: Cardiac silhouette not enlarged. Central airways and mediastinal contour are unremarkable. BONES AND SOFT TISSUES: Unremarkable. RAD/Chest PA and Lateral IMPRESSION: No radiographic evidence of acute cardiopulmonary disease. Electronically Signed: Justyn Argueta MD at 15:16 EDT ,
[2021-06-12 15:11] LABS: Hematocrit 45.6 % (37-47); Hemoglobin 15.2 g/dL (12.0-15.0); Mean Corp Hgb Conc 33.3 g/dL (32-36); Mean Corpuscular Hgb 29.1 pg (27.0-32.0); Mean Corpuscular Volume 87.2 fL (81-99); Mean Platelet Vol. 10.9 fl (6.2-12.0); Platelet Count 242 K/mm3 (150-450); RBC Distribution Width CV 13.9 % (11.6-14.6); RBC Distribution Width SD 44.4 fl (35.1-43.9); Red Blood Count 5.23 M/mm3 (4.2-5.4)
[2021-06-12 15:14] LABS: International Normalized Ratio 0.9; Prothrombin Time (Protime)PT. 12.1 SECONDS (11.7-14.9)
[2021-06-12 15:47] LABS: Anion Gap 9 (5-15); BUN 20 mg/dL (7-18); BUN/Creat Ratio 17.5 RATIO (10-20); Calcium,Total 9.7 mg/dL (8.5-10.1); Chloride 105 mmol/L (98-107); Creatinine, Serum 1.14 mg/dL (0.55-1.02); EST Glomerular Filtration Rate 49 mL/min (>60); Est Glom Filt Rate - Afr Amer 59 mL/min (>60); Glucose 113 mg/dL (74-106); Potassium 3.9 mmol/L (3.5-5.1); Sodium Level 138 mmol/L (136-145)
== END 2021-06-12 23:59 | disposition home or self-care (01) ==
LOC: MTLAB 13:38
PROVIDERS: PCP Family Medicine; Referring Provider Internal Medicine Cardiovascular Disease; Visit Provider Internal Medicine Cardiovascular Disease
DX: I25.10 Atherosclerotic heart disease of native coronary artery without angina pectoris (principal); R07.9 Chest pain, unspecified; R06.02 Shortness of breath; E78.00 Pure hypercholesterolemia, unspecified; I10 Essential (primary) hypertension; Z95.1 Presence of aortocoronary bypass graft; Z95.5 Presence of coronary angioplasty implant and graft
CPT/HCPCS: 36415; 71046; 80048; 85027; 85610; 85730

== ENCOUNTER 2021-06-20 06:42 | Day surgery (SDC) | payer MEDICARE, SELFPAY ==
[2019-03-15 11:56] VITALS: BMI 37.0
--- NOTE | 2021-06-15 17:52 | PCM.HP.BLA ---
History and Physical Date of Admission: 06/20/21 [facility] [address] [place] [address] [phone] OFFICE VISITDate of Service: 04/26/21 MR#:[id number]: [facility][id number]:[id number] Provider: STANLEY VargasAge/Sex: 80/F [facility] with Addenda ADDENDUM by STANLEY Vargas on 05/25/21 at 0837 Addendum Addendum Details:: Patient was contacted. She states that she continues to have exertional chest pain and shortness of breath when walking to her mailbox. Her blood pressure is better controlled with systolics 130s?140s. Given her ongoing symptoms, cardiac history, and worsening cholesterol, she was asked to undergo a nontreadmill stress test to assess further. She does not that she cannot walk on a treadmill on account of her leg strength. In respect to blood pressure, we will consider hydrochlorothiazide therapy. In respect to cholesterol, will consider Zetia therapy. She wishes to address these after her stress test. 05/25/21 0837<Electronically signed by David ANGEL>Date David Vargas NP cc: ~*Signed HPI HPI History of Present Illness Details: JOSSE HORN, is a 80 year old white female who presents to the office today for a cardiovascular followup with a history of coronary artery disease with an inferior myocardial infarction with bypass surgery in 2011. She had been SVG to the diagonal, SVG to OM and SVG to the right PDA. She also has a history of sinus bradycardia, hypertension, hyperlipidemia, and diabetes mellitus. She does not chest discomfort when she is in a hurry. This is located in the upper chest and does not radiate. There are no secondary symptoms such as diaphoresis, nausea, or SOB. She rates this a 7/10. This lasts for about 3 minutes and improves with rest. This is not worsening since last office visit. She acknowledges palpitations when sitting after in a hurry. This is described as pounding. She denies bilateral lower extreme edema, shortness of breath with activity, shortness of breath at rest, orthopnea, cough, or PND. She denies lightheadedness, dizziness, near-syncope, or syncope. She acknowledges ongoing fatigue. 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 Chemist Required: No Accompanied by: Is patient in pain?: No Allergies clopidogrel [From Plavix] Allergy (Verified 04/26/21 15:01) Rash Sulfa (Sulfonamide Antibiotics) Allergy (Verified 04/26/21 15:01) Rash Tmmqldh-SUZ-UjP Reductase Inhibitor [Gynpish-Iqv-Ybu Reductase Inhibitor] Adverse Reaction (Severe, Verified 04/26/21 15:01) Intolerance, mylagias prasugrel [From Effient] Adverse Reaction (Intermediate, Verified 04/26/21 15:01) Tongue blisters Medications nitroglycerin 0.4 mg sublingual tablet 0.4 mg SUBLINGUAL Q5M PRN #25 tab 07/22/18 [Rx Confirmed 04/26/21] metformin 500 mg PO DAILY 03/12/19 [History Confirmed 04/26/21] amlodipine 10 mg tablet 10 mg PO DAILY #90 tab 04/16/19 [Rx Confirmed 04/26/21] aspirin 81 mg tablet,delayed release 81 mg PO QDAY #90 tab 04/26/21 [Rx Confirmed 04/26/21] metoprolol succinate 25 mg tablet,extended release 24 hr See Rx Instructions .ROUTE .COMPLEX #45 tablet 04/26/21 [Rx Confirmed 04/26/21] prednisone 10 mg tablet 10 mg PO DAILY PRN tab 04/26/21 [History Confirmed 04/26/21] lisinopril 20 mg tablet 20 mg PO BID tab 04/27/21 [History] Ejection fraction %: 55 to 59 PFSH Medical History Atherosclerotic heart disease of [place] coronary artery without angina pectoris Atrioventricular block CAD (coronary artery disease) Diabetes mellitus Essential hypertension HLD (hyperlipidemia) Hypertension Lipoma of back Percutaneous transluminal coronary angioplasty (PTCA) within last 14 to 24 months Presence of stent in coronary artery (~03/15/19) Pure hypercholesterolemia Sinus bradycardia Surgical History Presence of aortocoronary bypass graft (~01/02/12) Presence of coronary angioplasty implant and graft (~11/24/09) Family History Father CAD (coronary artery disease) Myocardial infarction Brother Myocardial infarction CAD (coronary artery disease) Brother Myocardial infarction Sister CAD (coronary artery disease) Diabetes Myocardial infarction Mother Cancer Social History Smoking Status: Never smoker alcohol intake: never substance use type: does not use caffeine: Yes Type: coffee Number of servings: 1 what type of physical activity do you participate in: none ROS Const Const: Positive for fatigue (Tires easily); Negative for weakness, headache(s), frequent falls, difficulty sleeping or excessive sweating Eyes Eyes: Negative for loss of peripheral vision, transient loss of vision, blurry vision, double vision or tunnel vision ENT ENT: Positive for balance problems (Feels unsteady at times); Negative for headache(s), dizziness or Nosebleed/epistaxis Cardio Chest Pain: Yes (Discomfort when rushing around) Palpitations: Yes (Occasionally when sitting down after rushing around. ) feels like its: pounding Edema: None Muscle aches with walking: None Resp Respiratory: Negative for SOB with activity, SOB at rest, SOB orthopnea\SOB lying down, Cough or paroxysmal nocturnal dyspnea GI GI: Negative nausea, vomiting, heartburn or black,tarry stools : Negative for hematuria Musc Musc: Positive for joint pain and balance problems (Feels unsteady at times); Negative for muscle aches/ myalgia or muscle weakness Skin Skin: Negative non-healing lesions, rash or unusual bruising Neuro Neuro: Negative for dizziness, lightheadedness, near syncope, syncope, frequent falls, headache(s), weakness, blurry vision, double vision or lack of coordination John Hematologic/Lymphatic: Negative for easy bleeding or easy bruising Endo Endo: Positive for fatigue (Tires easily); Negative for excessive sweating or increased thirst/drinking Psych Psych: Negative for anxiety or depression Allergy Allergy/Immunology: Negative for hives and Negative for rash Cardiology Exam Const Appearance: cooperative, healthy appearing, comfortable and no acute distress Nutritional Appearance: well nourished and obese Orientation: alert, awake and oriented x3 Head Head: normal to inspection Ears: hearing grossly normal bilaterally Nose: external nose normal Face and Sinus: face symmetric Mouth: oral mucosae normal Eyes General: appearance normal, both eyes and all related structures Eyelids: eyelids normal EOM: EOM intact bilaterally Neck Neck: normal visual inspection and no JVD Carotids: normal carotid upstroke Chest Chest inspection: normal inspection of the chest, symmetric chest movement and normal respiratory effort; Negative cough Auscultation: Bilateral: Clear to Auscultation Cardio Rate: regular rate Rhythm: regular rhythm Heart sounds: S1 normal and S2 normal; Negative rub, gallop or murmur GI GI: normal to inspection and obese Neuro General: patient alert, patient awake, patient oriented x3 and CN's II-XI intact bilaterally Skin Skin: no rashes or lesions noted Extremities Pulses: Normal: Right Posterior Tibial Pulse, Left Posterior Tibial Pulse, Right Radial Pulse and Left Radial Pulse Lower Extremity Edema: None: Bilateral Psych Psychological: normal affect Supplemental Info Supplemental Information Echocardiogram: 03/12/2019 Interpretation Summary Technically good quality study Patient is in sinus bradycardia during acquisition of this study. Normal left ventricle. Left ventricular systolic function is normal. The estimated ejection fraction is 55-60 %. The left atrium is mildly enlarged. Mild (1+) mitral valve insufficiency. Trivial tricuspid valve insufficiency. No aortic valve insufficiency. No pulmonic valve insufficiency. DATE OF STUDY: June 23, 2015 EXERCISE TOLERANCE TEST: The patient underwent pharmacologic (regadenoson) evaluation with a peak heart rate of 76 beats per minute (51% predicted maximum heart rate) and a peak blood pressure of 162/70 mmHg. The baseline ECG demonstrated sinus bradycardia. The peak pharmacologic ECG demonstrated no obvious ECG changes. There was rare PVC during pharmacologic infusion. There was no report of chest discomfort during pharmacologic infusion or recovery. The examination was discontinued secondary to completion of protocol. IMPRESSION: 1. Pharmacologic (regadenoson) evaluation. 2. Peak pharmacologic ECG with no obvious ECG changes. 3. Rare PVC during pharmacologic infusion. 4. Nuclear images pending. MYOCARDIAL PERFUSION IMAGING STUDY: TECHNIQUE: The patient was injected with 14.5 mCi of Tc99m Cardiolite and subsequently rest SPECT Cardiolite nuclear imaging was obtained in the horizontal long, vertical long and short axes views. The patient underwent pharmacologic (regadenoson) evaluation with a peak heart rate of 76 beats per minute (51% predicted maximum heart rate) and a peak blood pressure of 162/70 mmHg. The patient was injected with 44.8 mCi of Tc99m Cardiolite and subsequently stress SPECT Cardiolite nuclear imaging was obtained in the horizontal long, vertical long and short axes views. A gated Cardiolite study at peak stress was obtained. INTERPRETATION: Rest and stress SPECT Cardiolite nuclear imaging, status post realignment and normalization, demonstrate areas of extracardiac/hepatic and gastrointestinal tracer uptake near the inferior segments, which appears to be more prominent on the resting views as opposed to the resting views. There is notation at rest of an area of diminished to absence of tracer uptake in portions of the basal inferoseptal/basal inferior segments, which appears to be less prominent and/or improved status post stress. Also, at rest, there is notation of a small area of diminished tracer uptake in the mid to distal anterior segments, which appears to be less prominent following stress. There are similar type findings on the resting and stress polar map images. There is end systolic thickening and brightening. The gated Cardiolite study demonstrates myocardial thickening and inward wall motion. The reported LVEF is 63%. The aforementioned findings appear compatible with the effects of shifting soft tissue attenuation/artifact being more prominent at rest as opposed to stress with no post-stress myocardial perfusion changes considered diagnostic for stress-induced myocardial ischemia or previous myocardial injury/infarction. IMPRESSION: 1. Rest and stress SPECT Cardiolite nuclear imaging demonstrate myocardial perfusion changes at rest, which appear to improve and/or normalize post-stress appearing compatible with shifting soft tissue attenuation/artifact with no post-stress myocardial perfusion changes considered diagnostic for stress-induced myocardial ischemia or previous myocardial injury/infarction. 2. The gated Cardiolite study reports an LVEF of 63%. Cardiac cath: 03/15/2019 CONCLUSIONS Elevated Left Ventricular End Diastolic Pressure Segmented LV systolic dysfunction- Mild LVEF: by LV gram 55 % [place] Multivessel CAD SANTANA to LAD: patent SVG to DX1: patent SVG Y graft from the SVG to DX1 going to OM1: occluded SVG to RPDA: patent RECOMMENDATIONS Risk factor modification Medical therapy Referred for immediate PCI CORONARY ANGIOGRAPHY DOMINANCE: Right Dominant LEFT HEART ASSESSMENT Left Ventricular Ejection Fraction: by LV Gram 55 % Inferior Basal Hypokinesis. Inferior Mid Hypokinesis Elevated Left Ventricular End Diastolic Pressure LVEDP: 17 mmHg LEFT ANTERIOR DESCENDING ARTERY: PROX LAD: is occluded MID LAD: filling from the SANTANA graft with subsequent mild luminal irregularities DIAGONAL 1: Proximal - filling from the SVG graft with subsequent mild luminal irregularities CIRCUMFLEX ARTERY: PROX CIRC: Mild luminal irregularities, Previously placed stent is patent DISTAL CIRC: mild luminal irregularities % Stenosis, 25 - 50 % Stenosis OM 1: Proximal - Previously placed stent is patent, Mid - irregular: 90 % Stenosis RIGHT CORONARY ARTERY: PROX RCA: is occluded RT PDA: Proximal - filling from the SVG graft with subsequent mild luminal irregularities GRAFTS: SANTANA graft to the Mid LAD is patent Saphenous Vein graft to the 1st Diagonal is patent Y graft to the 1st OM is totally occluded Saphenous Vein graft to the RPDA is patent AORTIC ROOT: Angiographically normal PCI: 03/15/2019 CONCLUSIONS Successful PTCA/PACO to mid OM1 Labs: LDL Cholesterol 196 mg/dL (0-130) H HDL Cholesterol 58 mg/dL (40-) Triglycerides 211 mg/dL (-199) H VLDL Cholesterol 42 mg/dL (5-40) H Diagnostics: Electrocardiogram Chest X-Ray Pulmonary: No Data to Display Assessment and Plan Assessment and Plan (1) Atherosclerotic heart disease of [place] coronary artery without angina pectoris: Status: Chronic Qualifiers: [place] vs. transplanted heart: unspecified whether [place] or transplanted heart Qualified Code(s): I25.10 - Atherosclerotic heart disease of [place] coronary artery without angina pectoris Orders: Orders: Lipid Profile 1 Day Liver Profile 1 Day Plan - David Vargas FURNITURE DETAILER, FURNITURE DETAILER-C: At this time, the exact etiology of her chest discomfort is unclear. It was decided to continue to optimize blood pressure to see if this improves her discomfort. If her discomfort continues despite better control blood pressure, will consider repeat stress test given her cardiac history. She was asked to contact her office with an update in approximately 2 weeks. (2) Presence of aortocoronary bypass graft: Status: Chronic Comment: Sep 1993, median sternotomy, OHS , constructionof left internal thoracic artery graft to LAD and a segment ov RSV bypass graft to PDCA, redo CABG SVG to PDA, SVG to Diag 1, SVG to OM2 01/02/12 Orders: Orders: Lipid Profile 1 Day Liver Profile 1 Day Plan - David Vargas FURNITURE DETAILER, FURNITURE DETAILER-C: She will continue current medical therapy. (3) Presence of stent in coronary artery: Status: Chronic Comment: PTCA/stent of First Obtuse Marginal branch of left Cx; PTCA/stent to SVG to PDA in both proximal & distal segments 11/24/09; PCI/PACO to mid OM1 03/15/19 Orders: Orders: Lipid Profile 1 Day Liver Profile 1 Day Plan - David Vargas FURNITURE DETAILER, FURNITURE DETAILER-C: She will continue risk factor and lifestyle modification. (4) Essential hypertension: Status: Chronic Orders: Orders: Lipid Profile 1 Day Liver Profile 1 Day Plan - David Vargas FURNITURE DETAILER, FURNITURE DETAILER-C: She was asked to increase lisinopril therapy. She will continue to monitor blood pressure. She will contact her office in approximate 2 weeks with an update on blood pressure and symptoms to discern if further work-up is required. (5) Pure hypercholesterolemia: Status: Chronic Orders: Orders: Lipid Profile 1 Day Liver Profile 1 Day Plan - David Vargas FURNITURE DETAILER, FURNITURE DETAILER-C: She will continue risk factor and lifestyle modification. She has been intolerant to statin medications previously. We will continue to monitor. Plan Details Other Medications: New: aspirin (Adult Aspirin Regimen) 81 mg PO QDAY 90 tabs 3RF Refilled: lisinopril 20 mg PO DAILY 90 tabs 3RF bp metoprolol succinate ER TAKE 1/2 (ONE-HALF) TABLET BY MOUTH ONCE DAILY FOR THE HEART 45 tabs 3RF Additional Comments: Thank you for allowing us to participate in the patients plan of care, if you have any questions please do not hesitate to call. This note was generated using a voice recognition system and there may be incorrect words, spelling or punctuation that were not noted when reviewing the office note prior to saving. Portions of this documentation were copied and pasted from previous office visit notes to provide a cohesive continuity of the history. The note has been reviewed, edited, and updated, as necessary. Follow Up: 12-14 Months (PFM) 6 Months (FURNITURE DETAILER/PA) Coding Level of Care Code Off vis,est,level 3 Diagnoses Atherosclerotic heart disease of [place] coronary artery without angina pectoris I25.10 [place] vs. transplanted heart: unspecified whether [place] or transplanted heart Presence of aortocoronary bypass graft Z95.1 Presence of stent in coronary artery Z95.5 Essential hypertension I10 Pure hypercholesterolemia E78.00 Coding Level of Care Code Off vis,est,level 3 Diagnoses Atherosclerotic heart disease of [place] coronary artery without angina pectoris I25.10 [place] vs. transplanted heart: unspecified whether [place] or transplanted heart Presence of aortocoronary bypass graft Z95.1 Presence of stent in coronary artery Z95.5 Essential hypertension I10 Pure hypercholesterolemia E78.00 04/27/21 1611<Electronically signed by David ANGEL>Date David ANGEL Cosigner Signature:Date (if applicable) CC: ~ Assessment & Plan Addt'l Comments The patient underwent subsequent pharmacologic stress nuclear imaging study on 06-07-2021. The results are noted below. Stress Test Report Date: 06-07-2021 Procedure: Pharmacologic stress nuclear imaging study Indications: Shortness of breath/dyspnea on exertion; chest discomfort; CAD; PCI; CABG Consent: Per the patient Procedure: The patient underwent pharmacologic (Regadenoson 0.4mg ) evaluation with a peak heart rate of 64 beats per minute (45%predicted maximal heart rate) and a peak blood pressure of 138/70 mmHg. The baseline ECG demonstrated sinus bradycardia; poor R wave progression; nonspecific ST/T wave abnormality. The peak pharmacologic ECG demonstrated no obvious ECG changes. There were no cardiac dysrhythmias pretest, during pharmacologic infusion, or recovery. There was no complaint of chest discomfort during pharmacologic infusion or recovery. The examination was discontinued secondary to completion of protocol. Impression: 1. Pharmacologic (Regadenoson) evaluation 2. Peak pharmacologic ECG with continued sinus rhythm with poor R wave progression with nonspecific ST/T wave abnormality with no obvious ECG changes. 3. There were no cardiac dysrhythmias pretest, during pharmacologic infusion, or recovery. 4. Nuclear images pending Myocardial perfusion imaging study: Technique: The patient was injected with 14.3 millicuries of technetium 99m Cardiolite and subsequently rest SPECT Cardiolite nuclear imaging was obtained in the horizontal long, vertical long, and short axis views. The patient underwent pharmacologic (Regadenoson) evaluation with a peak heart rate of 64 beats per minute (45% percent predicted maximal heart rate) and a peak blood pressure of 138/70 mmHg. The patient was injected with 44.4 millicuries of technetium 99m Cardiolite and subsequently stress SPECT Cardiolite nuclear imaging was obtained in the horizontal long, vertical long, and short axis views. A gated Cardiolite study at peak stress was obtained. Interpretation: Rest and stress SPECT Cardiolite nuclear imaging status post realignment, normalization, and attenuation correction demonstrate at rest the appearance of relative uniform tracer uptake and myocardial perfusion appearing within normal limits. Status post stress there is notation of diminished myocardial perfusion/tracer uptake in portions of the mid to distal inferolateral/lateral apical segments. There is diminished end-systolic thickening and brightening in the aforementioned areas. The gated Cardiolite study demonstrates myocardial thickening and inward wall motion. The reported LVEF is 67%. Impression: 1. Rest and stress SPECT Cardiolite nuclear imaging demonstrate myocardial perfusion changes concerning for an area of stress-induced myocardial ischemia in portions of the mid to distal inferolateral/lateral apical segments. 2. The gated Cardiolite study reports an LVEF of 67%. Based upon review of the patient's case and her pharmacologic stress nuclear imaging study the recommendation was made for the patient to proceed with further evaluation with diagnostic cardiac catheterization. The procedure and risk were discussed with the patient. She was agreeable to this approach. Addendum: 06-20-2021 I have re-examined the patient. There are no clinical changes since date of exam
[2021-06-19 08:04] VITALS: BMI 36.0
--- NOTE | 2021-06-20 09:55 | CL.D_ITS ---
Patient Name: JOSSE HORN Study Date: 06/20/2021 Performing: Rodríguez Encarnacion MD Ht: 61.81 inches 157 cm : 1940 Wt: 196.21 lbs 89 kg Age: 80 Gender: female BSA: 1.89 PROCEDURE(S) PERFORMED [id number])LHC/COR/LV/CABG CLINICAL PROFILE AND INDICATIONS Indications: Worsening Angina, Suspected CAD Heart Failure: None Stress/Imaging Date: 06/07/2021tress Test with SPECT MPI: Positive Intermediate Risk Angina Classification Anginal Classification w/in 2 Weeks: CCS III CAD Presentations: Other: worsening angina CONCLUSIONS Elevated Left Ventricular End Diastolic Pressure Segmented LV systolic dysfunction- Mild LVEF: by LV gram 55 % [place] Multivessel CAD OM1: stent: patent SANTANA to LAD: patent SVG to DX1: patent Y graft to OM1: occluded: chronic SVG to RPDA: patent Mitral Valve Insufficiency Mild RECOMMENDATIONS Risk factor modification Medical therapy Case discussed / reviewed with Dr. Gilliam of Interventional Cardiology: Plan: attempt to optimize medi moses therapy as best as possible taking into consideration the patients history of medication intolera nce / allergies and if the patient continues with concerning symtpoms and if the patient can tolerate medical therapy with Ticagrelor/Brilinta then consider PCI of the LCX distal system. DESCRIPTION OF PROCEDURE The patient arrived to the procedure lab. The risks and benefits of the procedure as well as a full d escription of our services here and current unavailability of surgical backup were fully explained to the patient and/or their significant other prior to the catheterization. The Timeout was completed, verifying the correct patient and procedure. The patient's procedural site was prepped and draped in the usual fashion. Local anesthetic was given subcutaneously to right groin region with Lidocaine 2%. Using a modified Seldinger technique, arterial access was obtained via the right femoral artery, a 4 Fr sheath was inserted Left Coronary Artery selective angiography was performed in multiple views us ing a 4 Fr. JL5 catheter. Right Coronary Artery selective angiography was then performed in multiple views using a 4 Fr. 3DRC catheter. Saphenous Vein graft to the DIAG 1 selective angiography was perfo rmed in multiple views using a 4 Fr. 3DRC catheter. Saphenous Vein graft to the OM 2 selective angiography was performed in multiple views using a 4 Fr. 3DRC catheter. Saphenous Vein gra ft to the RPDA selective angiography was performed in multiple views using a 4 Fr. 3DRC catheter. Lef t internal mammary artery graft to the LAD selective angiography was performed in multiple views usin g a 4 Fr. JR4 catheter. Left Ventriculography was performed in PERLA projection using a 4 Fr. Pigtail c atheter. LV to AO pullback pressures were then recorded.The arterial sheath was pulled and manual com pression applied until hemostasis is achieved. CORONARY ANGIOGRAPHY DOMINANCE: Right Dominant LEFT HEART ASSESSMENT Left Ventricular Ejection Fraction: by LV Gram 55 % Inferior Basal Akinesis. Inferior Mid Hypokinesis Elevated Left Ventricular End Diastolic Pressure LVEDP: 37 mmHg LEFT MAIN: Angiographically normal LEFT ANTERIOR DESCENDING ARTERY: PROX LAD: is occluded MID LAD: filling from the SANTANA graft with subsequent mild luminal irregularities DIAGONAL 1: Proximal - small caliber vessel filling from the SVG graft with 85% stenosis s/p the smiley t attachment CIRCUMFLEX ARTERY: PROX CIRC: Mild luminal irregularities, Previously placed stent is patent DISTAL CIRC: Mild luminal irregularities, 75 % Stenosis OM 1: Proximal - Previously placed stent is patent RIGHT CORONARY ARTERY: PROX RCA: is occluded RT PDA: Proximal - filing from the SVG graft with subsquent mild luminal irregularities GRAFTS: SANTANA graft to the Mid LAD is patent Saphenous Vein graft to the 1st Diagonal is patent Y graft to the 1st OM is totally occluded (chronic) Saphenous Vein graft to the RPDA is patent VALVE FINDINGS: Mitral Valve Insufficiency - Grade 1 AORTIC ROOT: Angiographically normal COMPLICATIONS No Complications PROCEDURE MEDICATIONS Versed 1 mg IV Fentanyl 50 mcg IV Oxygen: 2 L/min via nasal cannula Nitro Tab 0.4 mg PO 06/20/2021 08:57:05 SUMMARY OF HEMODYNAMIC DATA Time AIR REST ECG 07:09:32 AO 188/71 (113) SA 08:22:17 LV 209/8, 35 08:46:34 LV 212/7, 32 08:46:42 LV 204/11, 37 08:47:46 LV 215/7, 39 08:47:54 LVp 216/6, 33 08:48:03 AOp 213/77 (123) 08:48:11 AO 222/81 (129) 08:50:40 Signed By Rodríguez Encarnacion MD On 06/20/2021 9:54:30 AM Rodríguez Encarnacion MD
== END 2021-06-20 13:35 | disposition home or self-care (01) ==
LOC: CLSP 06:43
PROVIDERS: PCP Family Medicine; Referring Provider Internal Medicine Cardiovascular Disease; Visit Provider Internal Medicine Cardiovascular Disease
DX: I25.119 Atherosclerotic heart disease of native coronary artery with unspecified angina pectoris (principal); E11.9 Type 2 diabetes mellitus without complications; E78.00 Pure hypercholesterolemia, unspecified; I10 Essential (primary) hypertension; E78.5 Hyperlipidemia, unspecified; I34.0 Nonrheumatic mitral (valve) insufficiency; Z79.84 Long term (current) use of oral hypoglycemic drugs; Z79.82 Long term (current) use of aspirin; Z79.52 Long term (current) use of systemic steroids; Z79.899 Other long term (current) drug therapy; I25.2 Old myocardial infarction; Z95.1 Presence of aortocoronary bypass graft; Z95.5 Presence of coronary angioplasty implant and graft
CPT/HCPCS: 93459; 99152; 99153; J7040; C1769; C1894; Q9967

== ENCOUNTER → 2021-06-22 | Outpatient (CLI) | payer MEDICARE, SELFPAY ==
[2019-03-15 11:56] VITALS: BMI 37.0
[2021-06-22 12:21] LABS: Anion Gap 4 (5-15); BUN 18 mg/dL (7-18); Calcium,Total 9.3 mg/dL (8.5-10.1); Chloride 103 mmol/L (98-107); EST Glomerular Filtration Rate 46 mL/min (>60); Est Glom Filt Rate - Afr Amer 56 mL/min (>60); Glucose 121 mg/dL (74-106); Potassium 3.9 mmol/L (3.5-5.1); Sodium Level 137 mmol/L (136-145)
== END | disposition home or self-care (01) ==
LOC: MTLAB 09:52
PROVIDERS: PCP Family Medicine; Referring Provider Internal Medicine Cardiovascular Disease; Visit Provider Internal Medicine Cardiovascular Disease
DX: I25.10 Atherosclerotic heart disease of native coronary artery without angina pectoris (principal); Z95.1 Presence of aortocoronary bypass graft; Z95.5 Presence of coronary angioplasty implant and graft
CPT/HCPCS: 36415; 80048

== ENCOUNTER 2021-07-17 10:40 | Emergency (ER) | payer MEDICARE, SELFPAY ==
[2019-03-15 11:56] VITALS: BMI 37.0
[2021-07-17 10:42] VITALS: BP 222/87; PULSE 53; RESP 16; TEMP 35.4; O2SAT 94; BMI 36.8
--- NOTE | 2021-07-17 10:47 | CT_ITS ---
STUDY: CT ABDOMEN AND PELVIS WITHOUT CONTRAST REASON FOR EXAM: Female, 80 years old. Flank Pain RADIATION DOSAGE (If Supplied By Facility): CTDIvol = ( 19.27 ) mGy, DLP = ( 895.58 ) mGycm TECHNIQUE: Transaxial images were obtained from the dome of the diaphragm to the symphysis pubis without oral contrast, and without intravenous contrast. Sagittal and coronal images were reconstructed. Individualized dose optimization techniques were used for this CT. COMPARISON: 09/02/2016 FINDINGS: The visualized lung bases are unremarkable. The visualized portions of the heart are within normal limits. Normal liver. There are surgical clips in the gallbladder fossa consistent with a prior cholecystectomy. Normal spleen. Normal pancreas. Normal bilateral adrenal glands. Normal right kidney. Tiny (1 to 2 mm) nonobstructing stone lower pole the left kidney. There is another tiny (1 to 2 mm) calcific density mentioned in the dependent portion of the bladder near the left ureteral vesicle junction which may represent a recently passed stone with mild ureteral dilatation and hydronephrosis. Normal visualized stomach. Normal small intestine. Normal colon. There is non-visualization of the appendix. There is diffuse atherosclerotic calcification of the abdominal aorta, without a demonstrated aneurysm. Normal inferior vena cava. Normal retroperitoneum. Normal urinary bladder. Normal abdominal wall. Normal osseous structures. CT/Abdomen/Pelvis without Cont IMPRESSION: Suspect recently passed tiny (1 to 2 mm) stone from the left in the base of the bladder near the left ureterovesical junction. Electronically Signed: Kwame Rodriguez MD at 11:51 EDT ,
--- NOTE | 2021-07-17 10:48 | ED.VIS.GI ---
HPI HPI - GI History of Present Illness Chief Complaint: Abd Pain Narrative Narrative: Patient with past medical history of diabetes, coronary artery disease, previous UTIs, presents with left flank pain that began early this morning after midnight. It woke her from sleep and kept her up all night. She describes sharp stabbing pain radiating from her vagina to her left flank and back. She felt somewhat feverish and warm but denies any chills or cough. She has pain with urination/dysuria but denies any gross hematuria. She is nauseated and vomited once on the way to the emergency department, but she had received fentanyl per squad. No exacerbating or alleviating factors. [facility] Medical History Atherosclerotic heart disease of [place] coronary artery without angina pectoris Atrioventricular block CAD (coronary artery disease) Diabetes mellitus Essential hypertension History of left heart catheterization (LHC) (~06/20/21) HLD (hyperlipidemia) Hypertension Lipoma of back Percutaneous transluminal coronary angioplasty (PTCA) within last 14 to 24 months Presence of stent in coronary artery (~03/15/19) Pure hypercholesterolemia Sinus bradycardia SOB (shortness of breath) on exertion Status post left heart catheterization (LHC) (~03/15/19) Home Medications metformin 500 mg PO DAILY 03/12/19 [History Last Taken 06/19/21] amlodipine 10 mg tablet 10 mg PO DAILY #90 tab 04/16/19 [Rx Last Taken 06/20/21] aspirin 81 mg tablet,delayed release 81 mg PO QDAY #90 tab 04/26/21 [Rx Last Taken 06/20/21] metoprolol succinate 25 mg tablet,extended release 24 hr See Rx Instructions .ROUTE .COMPLEX #45 tablet 04/26/21 [Rx Last Taken 06/20/21] prednisone 10 mg tablet 10 mg PO DAILY PRN tab 04/26/21 [History Last Taken Unknown] lisinopril 20 mg tablet 20 mg PO BID tab 04/27/21 [History Last Taken 06/20/21] ezetimibe 10 mg tablet 10 mg PO DAILY #30 tab 06/20/21 [Rx Last Taken Unknown] isosorbide mononitrate 30 mg tablet,extended release 24 hr 30 mg PO DAILY #30 tab 06/20/21 [Rx Last Taken Unknown] nitroglycerin 0.4 mg sublingual tablet 0.4 mg SUBLINGUAL Q5M PRN #25 tab 06/20/21 [Rx Last Taken Unknown] hydrocodone-acetaminophen 1 tab PO Q6H PRN 3 Days #12 tab 07/17/21 [Rx Last Taken Unknown] Allergy/AdvReac Type Severity Reaction Status Date / Time clopidogrel [From Plavix] Allergy Rash Verified 04/26/21 15:01 Sulfa (Sulfonamide Allergy Rash Verified 04/26/21 15:01 Antibiotics) [id number] Reductase AdvReac Severe Intolerance, Verified 04/26/21 15:01 Inhibitor mylagias [Hkphygf-Byx-Myy Reductase Inhibitor] prasugrel [From Effient] AdvReac Intermediate Tongue Verified 04/26/21 15:01 blisters Family History Father CAD (coronary artery disease) Myocardial infarction Brother Myocardial infarction CAD (coronary artery disease) Brother Myocardial infarction Sister CAD (coronary artery disease) Diabetes Myocardial infarction Mother Cancer Surgical History Presence of aortocoronary bypass graft (~01/02/12) Presence of coronary angioplasty implant and graft (~11/24/09) Social History Smoking Status: Never smoker alcohol intake: never substance use type: does not use caffeine: Yes Type: coffee Number of servings: 1 what type of physical activity do you participate in: none ROS ROS ED ROS Narrative Constitutional: Subjective fever, no chills. HEENT: No sore throat. No neck pain. No loss of vision. No rhinorrhea. Cardiovascular: No chest pain. No palpitations. No pedal edema. Respiratory: No cough, no shortness of breath. Abdominal: Positive left flank/abdominal pain. Positive nausea. 1 episode of nonbloody vomiting. No problems with diarrhea or any problems with bowel movements. Genitourinary: Positive dysuria. No hematuria. Musculoskeletal: No myalgias. No arthralgias. Neurologic: No headaches. No dizziness. No lightheadedness. Skin: No rash. No change in color. Psychiatric: No depression. No anxiety. EXAM Physical Exam Narrative Exam Narrative: Afebrile. Vital signs noted. HEENT: Normocephalic. Atraumatic. PERRL, EOMI. Neck soft and supple. No point tenderness or step off. Cardiovascular: Regular rate and rhythm. No murmurs, rubs, or gallops appreciated. Respiratory: No tachypnea. Lungs clear to auscultation bilaterally. Gastrointestinal: Abdomen soft, nontender, with normoactive bowel sounds. No rebound or guarding. Neurological: Awake. Alert. Nonfocal, nonlateralizing. Skin: No rash. Normal color. No pallor. Musculoskeletal: No pedal edema. Full range of motion extremities. Const Vital Signs: 07/17/21 10:42 07/17/21 12:08 Temperature 95.7 F L Temperature Source Temporal Pulse Rate 53 L 48 L Respiratory Rate 16 16 Blood Pressure 222/87 H 198/68 H Blood Pressure Mean 132 111 Pulse Ox 94 96 Oxygen Delivery Method Room Air Room Air MDM MDM MDM Narrative Medical decision making narrative: Comprehensive work-up was pursued. Concern is for ureterolithiasis. She did experience nausea and vomiting here in the emergency department. She was administered Zofran 4 mg intravenously. CBC shows normal white count of 10.3, with hemoglobin slightly hemoconcentrated and elevated at 17.0. Platelet count normal at 249. Sodium slightly low at 133 with a normal potassium of 4.7, chloride normal at 102 with a BUN elevated at 20 and a creatinine of 1.14. She does appear to have a chronic kidney injury with slight elevation. Glucose appropriately elevated at 165 with normal anion gap of 7. Urinalysis shows no evidence of infection. There are 0-5 WBCs but 10-[address] of the abdomen and pelvis does show a 1 to 2 mm stone in the left kidney, but there is a 1 to 2 mm stone in the dependent bladder with hydronephrosis which is very suspicious for recently passed stone as it is near the ureterovesicular junction. At this point in time, upon repeat examination, patient states she feels improved. I will write her prescription for 12 [place] tablets to take for pain as needed. She will follow-up with urology and was referred to Dr. Coker as needed. I feel she be discharged safely home with follow-up. Return instructions to the emergency department were reviewed. Disposition is discharged home in stable condition. Lab Data Attestation: I reviewed the patient's lab results. Labs: Laboratory Results - last 24 hr 07/17/21 07/17/21 07/17/21 11:00 11:05 11:05 WBC 10.3 RBC 5.81 H Hgb 17.0 H Hct 51.5 H MCV 88.6 MCH 29.3 MCHC 33.0 RDW Std Deviation 43.3 RDW Coeff of Amara 13.5 Plt Count 249 MPV 10.2 Immature Gran % (Auto) 0.900 Neut % (Auto) 73.3 H Lymph % (Auto) 19.2 Jerome % (Auto) 4.8 Eos % (Auto) 1.4 Baso % (Auto) 0.4 Absolute Neuts (auto) 7.5 Absolute Lymphs (auto) 1.97 Nucleated RBC % 0 Sodium 133 L Potassium 4.7 Chloride 102 Carbon Dioxide 24.0 Anion Gap 7 BUN 20 H Creatinine 1.14 H Estim Creat Clear Calc 30.69 Est GFR (MDRD) Af Amer 59 L Est GFR (MDRD) Non-Af 49 L BUN/Creatinine Ratio 17.5 Glucose 165 H Calcium 9.8 Total Bilirubin 0.60 AST 38 H ALT 28 Alkaline Phosphatase 108 Total Protein 9.0 H Albumin 4.2 Globulin 4.8 H Albumin/Globulin Ratio 0.9 Urine Color Yellow Urine Clarity Clear Urine pH 7.0 Ur Specific [place] 1.015 Urine Protein 100 H Urine Glucose (UA) Normal Urine Ketones 5 H Urine Occult Blood 250 H Urine Nitrite Negative Urine Bilirubin Negative Urine Urobilinogen Normal Ur Leukocyte Esterase 25 H Urine RBC 10-25 SEEN Urine WBC 0-5 SEEN Ur Squamous Epith Cells 0-5 SEEN Urine Bacteria 0 SEEN Urine Mucus 0 SEEN Radiography Diagnostic Testing: Clinical Impression(s) from Imaging Studies Abdomen/Pelvis CT 07/17/21 10:47 IMPRESSION: Suspect recently passed tiny (1 to 2 mm) stone from the left in the base of the bladder near the left ureterovesical junction. Electronically Signed: Kwame Rodriguez MD at 11:51 EDT , Discharge Plan Triage Chief Complaint: Abd Pain ED Provider: Bakari Paul Dx/Rx/DC Orders Clinical Impression: Ureteral stone with hydronephrosis, Nausea & vomiting, Flank pain Instructions: ED Kidney Stone, Passed, ED Kidney Stone w/ Colic Prescriptions: New hydrocodone-acetaminophen 5-325 mg tablet 1 tab PO Q6H PRN (Reason: pain) 3 Days Qty: 12 RF: 0 No Action amlodipine 10 mg tablet 10 mg PO DAILY Qty: 90 RF: 3 prednisone 10 mg tablet 10 mg PO DAILY PRN (Reason: Inflammation) RF: 0 aspirin [Adult Aspirin Regimen] 81 mg tablet,delayed release (DR/EC) 81 mg PO QDAY Qty: 90 RF: 3 metoprolol succinate 25 mg tablet extended release 24 hr See Rx Instructions .ROUTE .COMPLEX Qty: 45 RF: 3 lisinopril 20 mg tablet 20 mg PO BID RF: 0 metformin 500 MG tablet extended release 24 hr 500 mg PO DAILY RF: 0 ezetimibe [Zetia] 10 mg tablet 10 mg PO DAILY Qty: 30 RF: 12 isosorbide mononitrate 30 mg tablet extended release 24 hr 30 mg PO DAILY Qty: 30 RF: 12 nitroglycerin [Nitrostat] 0.4 mg tablet, sublingual 0.4 mg SUBLINGUAL Q5M PRN (Reason: chest pain) Qty: 25 RF: 3 Primary Care Provider: Rodríguez Lema Referrals: Camryn Coker MD [STAFF PHYSICIAN] - 3-5 Days if not improving Rodríguez Lema MD [Primary Care Provider] - As Needed Disposition Disposition: Home, Self Care
[2021-07-17 11:02] LABS: Bacteria 0 SEEN /hpf (None Seen); Mucous, Urine 0 SEEN /hpf (<or=2+)
[2021-07-17 11:03] LABS: Color, Urine Yellow (Yellow); Glucose, Dipstick Normal (Normal); Ketone-Dipstick 5 mg/dl (Negative); Leukocyte Esterase-Dipstick 25 /ul (Negative); Nitrite-Dipstick Negative (Negative); Occult Blood-Urine 250 /ul (Negative); Protein-Dipstick 100 mg/dl (Negative); Specific Gravity, Urine 1.015 (1.002-1.030); Urine Bilirubin Dipstick Negative (Negative); Urine Clarity Clear (Clear); Urine Urobilinogen Normal (Normal)
[2021-07-17] MEDS: 0.9% Normal Saline 1,000 ML 1000 ML IV (11:04)
[2021-07-17] MEDS: Ondansetron 4 MG/2 ML Vial IV ×2 (11:04→11:37)
[2021-07-17 11:09] LABS: Red Blood Cells-Urine 10-25 SEEN /hpf (0-5); White Blood Cells 0-5 SEEN /hpf (0-5)
[2021-07-17 11:10] LABS: Squamous Epithelial Cells - UA 0-5 SEEN /hpf (5-10)
[2021-07-17 11:14] LABS: Absolute Lymphocyte Count 1.97 X10^3/uL (0.83-4.51); Absolute Neutrophil Count 7.5 X10^3/uL (2.0-7.7); Basophil# 0.04 X10^3/uL; Basophil% 0.4 % (0-1); Eosinophil# 0.14 X10^3/uL; Eosinophils% 1.4 % (0-5); Hematocrit 51.5 % (37-47); Lymphocyte # 1.97 X10^3/ul (0.83-4.51); Lymphocyte % 19.2 % (19-41); Mean Corpuscular Hgb 29.3 pg (27.0-32.0); Mean Corpuscular Volume 88.6 fL (81-99); Mean Platelet Vol. 10.2 fl (6.2-12.0); Monocyte# 0.49 X10^3/uL; Monocyte% 4.8 % (0-10); NRBC Flagged by Analyzer 0 % (0-5); Neutrophil # 7.53 X10^3/uL (2.7-7.7); Neutrophil % 73.3 % (47-70); Platelet Count 249 K/mm3 (150-450); RBC Distribution Width CV 13.5 % (11.6-14.6); RBC Distribution Width SD 43.3 fl (35.1-43.9); Red Blood Count 5.81 M/mm3 (4.2-5.4); White Blood Count 10.3 K/mm3 (4.4-11.0)
[2021-07-17 11:30] LABS: ALB/GLOB Ratio 0.9 RATIO (0.9-2.4); AST(SGOT) 38 U/L (15-37); Alanine Aminotransfer ALT/SGPT 28 U/L (13-56); Albumin, Serum 4.2 g/dL (3.2-5.0); Alkaline Phosphatase 108 U/L (45-117); Anion Gap 7 (5-15); BUN 20 mg/dL (7-18); BUN/Creat Ratio 17.5 RATIO (10-20); Calcium,Total 9.8 mg/dL (8.5-10.1); Chloride 102 mmol/L (98-107); Creatinine, Serum 1.14 mg/dL (0.55-1.02); EST Glomerular Filtration Rate 49 mL/min (>60); Est Glom Filt Rate - Afr Amer 59 mL/min (>60); Estimated Creatinine Clearance 30.69 ml/min; Globulin 4.8 g/dL (2.2-4.2); Glucose 165 mg/dL (74-106); Potassium 4.7 mmol/L (3.5-5.1); Sodium Level 133 mmol/L (136-145)
[2021-07-17 12:08] VITALS: BP 198/68; PULSE 48; RESP 16; O2SAT 96
== END 2021-07-17 12:42 | disposition home or self-care (01) ==
PROVIDERS: Emergency Provider Emergency Medicine; PCP Family Medicine; Visit Provider Emergency Medicine
DX: N13.2 Hydronephrosis with renal and ureteral calculous obstruction (principal); E11.9 Type 2 diabetes mellitus without complications; R11.2 Nausea with vomiting, unspecified; I10 Essential (primary) hypertension; E78.5 Hyperlipidemia, unspecified; I25.10 Atherosclerotic heart disease of native coronary artery without angina pectoris; Z79.52 Long term (current) use of systemic steroids; Z95.5 Presence of coronary angioplasty implant and graft
CPT/HCPCS: 74176; 80053; 81001; 85025; 96361; 96374; 96376; 99285; J7030; A4216; J2405

== ENCOUNTER → 2021-08-16 | Outpatient (CLI) | payer MEDICARE, SELFPAY ==
[2019-03-15 11:56] VITALS: BMI 37.0
--- NOTE | 2021-08-16 13:50 | VDLE_ITS ---
Reason For Study: Edema RIGHT LEFT GSV is normal. CFV is compressible, spontaneous, phasic, CFV is compressible, spontaneous, phasic, competent, and demonstrates normal competent and demonstrates normal augmentation. augmentation. FV is compressible, spontaneous, phasic, FV is compressible, spontaneous, phasic, competent and demonstrates normal competent and demonstrates normal augmentation. augmentation. POP V is compressible, spontaneous, phasic, POP V is compressible, spontaneous, phasic, competent and demonstrates normal competent and demonstrates normal augmentation. augmentation. T/P Trunk is compressible. T/P Trunk is compressible. PTV is compressible. PTV is compressible. LT PerV is compressible. RT PerV is compressible. GSV previously harvested. Procedure Exam performed in department. This is a venous duplex using B-mode, color flow and spectral Doppler. A preliminary report was called and/or faxed to [facility]. VL/Venous Duplex US - Bert Extrem Interpretation Summary Deep veins of the lower extremities are bilaterally patent and compressible seg mentally. There is no evidence of deep vein thrombosis on either side. Valvular competence appears in tact within the proximal deep venous systems bilaterally. The right great saphenous vein appear s patent and compressible segmentally. The left great saphenous vein is absent, having been previously harvested. Ordering Physician: David Bass Referring Physician: Rodríguez Lema Performed By: Romy Ceja RVT
== END | disposition home or self-care (01) ==
LOC: CVS 13:21
PROVIDERS: PCP Family Medicine; Referring Provider Family Medicine; Visit Provider Family Medicine
DX: R60.0 Localized edema (principal)
CPT/HCPCS: 93970

== ENCOUNTER → 2021-09-17 | Outpatient (CLI) | payer MEDICARE, SELFPAY ==
[2019-03-15 11:56] VITALS: BMI 37.0
[2021-09-17 10:39] LABS: Anion Gap 8 (5-15); BUN 19 mg/dL (7-18); BUN/Creat Ratio 16.5 RATIO (10-20); Calcium,Total 9.9 mg/dL (8.5-10.1); Chloride 103 mmol/L (98-107); Cholesterol 261 mg/dL (200); Creatinine, Serum 1.15 mg/dL (0.55-1.02); EST Glomerular Filtration Rate 48 mL/min (>60); Est Glom Filt Rate - Afr Amer 59 mL/min (>60); Glucose 144 mg/dL (74-106); High Density Lipoprotein 54 mg/dL; Potassium 4.1 mmol/L (3.5-5.1); Sodium Level 138 mmol/L (136-145); Triglycerides 199 mg/dL; Very Low Density Lipoprotein 40 mg/dL (5-40)
== END | disposition home or self-care (01) ==
LOC: MTLAB 08:22
PROVIDERS: PCP Family Medicine; Referring Provider Family Medicine; Visit Provider Family Medicine
DX: I10 Essential (primary) hypertension (principal)
CPT/HCPCS: 36415; 80048; 80061

== ENCOUNTER → 2021-12-06 | Outpatient (CLI) | payer MEDICARE, SELFPAY ==
[2019-03-15 11:56] VITALS: BMI 37.0
[2021-12-06 13:00] LABS: Mucous, Urine 0 SEEN /hpf (<or=2+); Squamous Epithelial Cells - UA 0 SEEN /hpf (5-10)
[2021-12-06 13:21] LABS: Color, Urine Straw (Yellow); Glucose, Dipstick Normal (Normal); Ketone-Dipstick Negative (Negative); Leukocyte Esterase-Dipstick 500 /ul (Negative); Nitrite-Dipstick Negative (Negative); Occult Blood-Urine 25 /ul (Negative); Protein-Dipstick 15 mg/dl (Negative); Specific Gravity, Urine 1.005 (1.002-1.030); Urine Bilirubin Dipstick Negative (Negative); Urine Clarity Clear (Clear); Urine Urobilinogen Normal (Normal)
[2021-12-06 13:30] LABS: Bacteria 1+ /hpf (None Seen); Red Blood Cells-Urine 0-5 SEEN /hpf (0-5); White Blood Cells 25-50 SEEN /hpf (0-5)
== END | disposition home or self-care (01) ==
LOC: LABSPEC 12:32
PROVIDERS: PCP Family Medicine; Visit Provider Physician Assistant
DX: N39.0 Urinary tract infection, site not specified (principal); R30.9 Painful micturition, unspecified
CPT/HCPCS: 81001; 87077; 87086; 87088; 87186

== ENCOUNTER → 2021-12-07 | Outpatient (CLI) | payer MEDICARE, SELFPAY ==
[2019-03-15 11:56] VITALS: BMI 37.0
[2021-12-07 13:07] LABS: Anion Gap 6 (5-15); BUN 19 mg/dL (7-18); BUN/Creat Ratio 16.4 RATIO (10-20); Calcium,Total 9.9 mg/dL (8.5-10.1); Chloride 105 mmol/L (98-107); Creatinine, Serum 1.16 mg/dL (0.55-1.02); EST Glomerular Filtration Rate 48 mL/min (>60); Est Glom Filt Rate - Afr Amer 58 mL/min (>60); Glucose 145 mg/dL (74-106); Sodium Level 139 mmol/L (136-145)
[2021-12-07 14:39] LABS: AST(SGOT) 17 U/L (15-37); Alanine Aminotransfer ALT/SGPT 23 U/L (13-56); Albumin, Serum 3.6 g/dL (3.2-5.0); Alkaline Phosphatase 95 U/L (45-117); Bilirubin, Direct 0.13 mg/dL (0.00-0.30); Cholesterol 309 mg/dL (200); Globulin 4.3 g/dL (2.2-4.2); High Density Lipoprotein 56 mg/dL; Protein, Total 7.9 g/dL (6.4-8.2); Triglycerides 175 mg/dL; Very Low Density Lipoprotein 35 mg/dL (5-40)
[2021-12-07 14:40] LABS: Hemoglobin A1c 6.6 % (3.8-5.6)
== END | disposition home or self-care (01) ==
LOC: MTLAB 09:50
PROVIDERS: Internal Medicine Cardiovascular Disease; PCP Family Medicine; Referring Provider Family Medicine; Visit Provider Family Medicine
DX: R42 Dizziness and giddiness (principal); E11.9 Type 2 diabetes mellitus without complications
CPT/HCPCS: 36415; 80048; 80061; 80076; 83036

== ENCOUNTER → 2021-12-24 | Outpatient (CLI) | payer MEDICARE, SELFPAY ==
[2019-03-15 11:56] VITALS: BMI 37.0
--- NOTE | 2021-12-24 10:32 | BI_ITS ---
MAMMOGRAPHY - BILATERAL SCREENING REASON FOR EXAM: Female, 81 years old. Routine annual screening examination. PERTINENT HISTORY: Non-contributory. History of prior bilateral stereotactic breast biopsy. TECHNIQUE: Digital bilateral breast tarik (3D mammographic acquisition) in the CC and MLO projections. 2-D mediolateral oblique (MLO) and craniocaudad (CC) views of both breasts were obtained. CAD: Full Field Digital Mammography with Computer Added Detection was performed. COMPARISON: Comparison is made with prior study 12/24/2019 and 01/27/2018 FINDINGS: Breast Composition: The breasts are almost entirely fatty. There are no dominant masses or suspicious calcifications. Stable densely calcified nodules in the inferior medial anterior aspect of the left breast. Scattered bilateral calcified nodules in both breasts. No other significant abnormalities are identified. There has been no significant change since the prior study. BI/SCRN MAMM (CAD)W/TARIK BILAT IMPRESSION: Stable bilateral screening mammogram. Yearly follow-up mammogram recommended. (A) ASSESSMENT CATEGORY: BIRADS Category 2: Benign. A letter regarding these results will be sent to the patient by the facility within 30 days. Approximately 10% of breast cancers are not detected by mammography. A normal mammogram should not delay biopsy of a clinically suspicious abnormality. [id number] Electronically Signed: Andry Matos MD at 12:09 EDT ,
== END | disposition home or self-care (01) ==
LOC: OPBI 10:31
PROVIDERS: PCP Family Medicine; Visit Provider Family Medicine
DX: Z12.31 Encounter for screening mammogram for malignant neoplasm of breast (principal)
CPT/HCPCS: 77063; 77067

== ENCOUNTER 2022-04-25 16:16 | Emergency (ER) | payer MEDICARE, SELFPAY ==
[2019-03-15 11:56] VITALS: BMI 37.0
[2022-04-25 16:17] VITALS: BP 195/80; PULSE 55; RESP 16; TEMP 36.8; O2SAT 97; BMI 35.6
[2022-04-25 16:38] LABS: Bacteria 0 SEEN /hpf (None Seen); Mucous, Urine 0 SEEN /hpf (<or=2+); White Blood Cells 0 SEEN /hpf (0-5)
[2022-04-25 16:47] LABS: Color, Urine Yellow (Yellow); Glucose, Dipstick Normal (Normal); Ketone-Dipstick 5 mg/dl (Negative); Leukocyte Esterase-Dipstick 25 /ul (Negative); Nitrite-Dipstick Negative (Negative); Occult Blood-Urine 250 /ul (Negative); Protein-Dipstick 100 mg/dl (Negative); Specific Gravity, Urine 1.015 (1.002-1.030); Urine Bilirubin Dipstick Negative (Negative); Urine Clarity Clear (Clear); Urine Urobilinogen Normal (Normal); Urine pH 6.5 (5.0 - 8.0)
[2022-04-25 16:53] LABS: Red Blood Cells-Urine 25-50 SEEN /hpf (0-5); Squamous Epithelial Cells - UA 0-5 SEEN /hpf (5-10)
--- NOTE | 2022-04-25 18:18 | CT_ITS ---
INDICATION: Left flank pain, dysuria EXAMINATION: CT ABDOMEN AND PELVIS WITHOUT CONTRAST - CT Abdomen And Pelvis W/O Contrast Injection TECHNIQUE: Helically acquired images were obtained of the abdomen and pelvis without oral or IV contrast. A radiation dose optimization technique was used for this scan. IV Contrast dosage and agent: None. Oral contrast: None. COMPARISON: None. FINDINGS: LOWER CHEST: Lung bases are clear. No cardiomegaly or pericardial effusion. LIVER: Homogeneous. No focal mass. GALLBLADDER AND BILIARY TREE: Prior cholecystectomy. No intra- or extrahepatic biliary ductal dilation. PANCREAS: No focal cystic or solid mass. SPLEEN: Normal size without focal cystic or solid mass. ADRENAL GLANDS: No nodules. KIDNEYS AND URETERS: Normal renal size and position. Punctate calculi in the left renal pelvis. No hydronephrosis. PERITONEUM: No ascites or free air. No other fluid collection. BOWEL: Prior appendectomy. No stomach or bowel distension. No focal inflammatory change. LYMPH NODES: No enlarged mesenteric or retroperitoneal lymph nodes. VESSELS: Aorta is non-dilated. URINARY BLADDER: Unremarkable. REPRODUCTIVE ORGANS: Prior hysterectomy. ABDOMINAL WALL: No discrete abdominal or pelvic wall hernia. BONES: Mild lumbar spine degenerative change. CT/Abdomen/Pelvis without Cont IMPRESSION: Punctate nonobstructive left renal pelvis calculi. No hydronephrosis. No acute abnormal finding the abdomen or pelvis. Electronically Signed: Rodríguez Poe MD at 19:25 EST ,
--- NOTE | 2022-04-25 18:20 | EX.ED.DYSGE1 ---
HPI <STANLEY Paiz - Last Filed: 04/25/22 19:49> History of Present Illness Chief Complaint: Complaint Narrative Narrative: Patient is a 81-year-old female with history of CAD, hypertension, hyperlipidemia, history of kidney stones who presents to the emergency department with a sudden onset of left-sided flank pain that occurred at 7 AM this morning. Patient states that the pain came on all of a sudden that was started in her back radiates to her left flank. She did have some difficulty urinating and she thought she might have a urinary tract infection. She denies any fever or chills. Patient dates the pain also brings along nausea. She states the pain is less than what it was earlier today. She has not followed up with urologist recently. [facility] <STANLEY Paiz - Last Filed: 04/25/22 19:49> [facility] Medical History (Updated 04/25/22 @ 19:49 by STANLEY Paiz) Atherosclerotic heart disease of [place] coronary artery without angina pectoris Atrioventricular block CAD (coronary artery disease) Diabetes mellitus Essential hypertension History of left heart catheterization (LHC) (~06/20/21) HLD (hyperlipidemia) Hypertension Lipoma of back Percutaneous transluminal coronary angioplasty (PTCA) within last 14 to 24 months Presence of stent in coronary artery (~03/15/19) Pure hypercholesterolemia Sinus bradycardia SOB (shortness of breath) on exertion Status post left heart catheterization (LHC) (~03/15/19) Urinary tract infection with hematuria Home Medications metformin 500 mg tablet,extended release 24 hr 500 mg PO DAILY dm 03/12/19 [History Last Taken 06/19/21] amlodipine 10 mg tablet 10 mg PO DAILY bp #90 tabs 04/16/19 [Rx Last Taken 06/20/21] aspirin 81 mg tablet,delayed release (Adult Aspirin Regimen) 81 mg PO QDAY #90 tabs 04/26/21 [Rx Last Taken 06/20/21] metoprolol succinate 25 mg tablet,extended release 24 hr See Rx Instructions .Route .COMPLEX #45 tabs 04/26/21 [Rx Last Taken 06/20/21] ezetimibe 10 mg tablet (Zetia) 10 mg PO DAILY #30 tabs 06/20/21 [Rx Last Taken Unknown] isosorbide mononitrate 30 mg tablet,extended release 24 hr 30 mg PO DAILY #30 tabs 06/20/21 [Rx Last Taken Unknown] nitroglycerin 0.4 mg sublingual tablet (Nitrostat) 0.4 mg sublingual Q5M PRN chest pain #25 tabs 06/20/21 [Rx Last Taken Unknown] coenzyme Q10 100 mg tablet 100 mg PO DAILY 11/07/21 [History Last Taken Unknown] famotidine 20 mg tablet 20 mg PO BID PRN 11/07/21 [History Last Taken Unknown] lisinopril 20 mg tablet 20 mg PO DAILY bp 11/07/21 [History Last Taken Unknown] cephalexin 500 mg capsule 500 mg PO TID #21 caps 12/06/21 [Rx Last Taken Unknown] Allergy/AdvReac Type Severity Reaction Status Date / Time clopidogrel [From Plavix] Allergy Rash Verified 04/25/22 16:17 Sulfa (Sulfonamide Allergy Rash Verified 04/25/22 16:17 Antibiotics) [id number] Reductase AdvReac Severe Intolerance, Verified 04/25/22 16:17 Inhibitor mylagias [Ixhdmas-Ecv-Ruf Reductase Inhibitor] prasugrel [From Effient] AdvReac Intermediate Tongue Verified 04/25/22 16:17 blisters Family History Father CAD (coronary artery disease) Myocardial infarction Brother Myocardial infarction CAD (coronary artery disease) Brother Myocardial infarction Sister CAD (coronary artery disease) Diabetes Myocardial infarction Mother Cancer Surgical History Presence of aortocoronary bypass graft (~01/02/12) Presence of coronary angioplasty implant and graft (~11/24/09) Social History Smoking Status: Never smoker alcohol intake: never substance use type: does not use caffeine: Yes Type: coffee Number of servings: 1 what type of physical activity do you participate in: none ROS <STANLEY Paiz - Last Filed: 04/25/22 19:49> ROS ED ROS Narrative Constitutional: Negative for fever, chills, weight loss, weakness Eyes: Negative for vision loss, vision change, double vision ENT: Negative for any sore throat, ear pain, congestion Cardiovascular: Negative for any chest pain, tightness, palpitations Respiratory: Negative for any cough, sputum production, hemoptysis, dyspnea, dyspnea on exertion, orthopnea Gastrointestinal: Negative for any abdominal pain, vomiting, diarrhea, constipation, blood in stool, blood in vomit. Positive for nausea, left-sided flank pain : Negative for any urinary frequency, retention, blood in urine. Positive for dysuria Muscle skeletal: Negative for any muscle joint pain, stiffness, myalgias, arthralgias, neck pain. Positive for pain to the left flank Neurological: Negative for any headache, syncope, numbness or tingling, dizziness Skin: Negative for any rashes, lumps, itching, abrasions, lacerations Psychiatric: Negative for any depression, anxiety, stress, suicidal ideation, homicidal ideation Hematologic: Negative for any easy bruising, excessive bruising, easy bleeding Allergies: Negative for any eczema, hives, rash EXAM <STANLEY Paiz - Last Filed: 04/25/22 19:49> Physical Exam Narrative Exam Narrative: Vital signs reviewed. Patient appears to be mildly uncomfortable secondary to pain to the left flank HEET: Head normocephalic atraumatic, TMs clear bilaterally. Posterior pharynx is clear, moist mucous membranes. Nares clear bilaterally. Neck: Supple with no lymphadenopathy or tenderness. No signs of meningismus, negative jolt sign. Cardiac: Regular rate and rhythm no murmurs gallops or rubs, equal peripheral pulses bilaterally. Respiratory: Lungs clear to auscultation bilaterally. No chest tenderness. Abdomen: Soft, nontender, nondistended. No abdominal bruit or pulsatile masses. No hepatosplenomegaly Extremities: No peripheral edema, no signs of gross trauma or deformity. Active full range of motion of all extremities. Neuro: Cranial nerves II through XII intact, no focal neurological deficits. Skin: Clean dry and intact with no rash, purpura, petechiae, vesicles or pustules. Backs/flank: Positive CVA tenderness to the left side, no midline spinal tenderness, no deformity. Psych: Normal mood and affect. No SI, HI or acute psychosis. Const Vital Signs: 04/25/22 16:17 04/25/22 18:33 Temperature 98.2 F 98 F Temperature Source Temporal Oral Pulse Rate 55 L 55 L Respiratory Rate 16 18 Blood Pressure 195/80 H 181/61 H Blood Pressure Mean 118 101 Pulse Ox 97 95 Oxygen Delivery Method Room Air Room Air Positive well nourished and well developed General Appearance ED: well developed <Dr. Darion Reyes DO - Last Filed: 04/25/22 23:46> Physical Exam Const Vital Signs: 04/25/22 16:17 04/25/22 18:33 Temperature 98.2 F 98 F Temperature Source Temporal Oral Pulse Rate 55 L 55 L Respiratory Rate 16 18 Blood Pressure 195/80 H 181/61 H Blood Pressure Mean 118 101 Pulse Ox 97 95 Oxygen Delivery Method Room Air Room Air MDM <STANLEY Paiz - Last Filed: 04/25/22 19:49> MDM Lab Data Labs: Laboratory Results - last 24 hr 04/25/22 04/25/22 04/25/22 16:31 18:30 18:30 WBC 8.2 RBC 5.53 H Hgb 16.4 H Hct 48.9 H MCV 88.4 MCH 29.7 MCHC 33.5 RDW Std Deviation 43.8 RDW Coeff of Amara 13.5 Plt Count 232 MPV 10.1 Immature Gran % (Auto) 0.400 Neut % (Auto) 79.7 H Lymph % (Auto) 14.2 L [facility] % (Auto) 4.4 Eos % (Auto) 0.9 Baso % (Auto) 0.4 Absolute Neuts (auto) 6.6 Absolute Lymphs (auto) 1.17 Nucleated RBC % 0 Sodium 137 Potassium 4.0 Chloride 103 Carbon Dioxide 26.0 Anion Gap 8 BUN 22 H Creatinine 1.12 H Estim Creat Clear Calc 32.21 Est GFR (MDRD) Af Amer 60 Est GFR (MDRD) Non-Af 50 L BUN/Creatinine Ratio 19.6 Glucose 157 H Calcium 10.4 H Urine Color Yellow Urine Clarity Clear Urine pH 6.5 Ur Specific [place] 1.015 Urine Protein 100 H Urine Glucose (UA) Normal Urine Ketones 5 H Urine Occult Blood 250 H Urine Nitrite Negative Urine Bilirubin Negative Urine Urobilinogen Normal Ur Leukocyte Esterase 25 H Urine RBC 25-50 SEEN Urine WBC 0 SEEN Ur Squamous Epith Cells 0-5 SEEN Urine Bacteria 0 SEEN Urine Mucus 0 SEEN Radiography Diagnostic Testing: Clinical Impression(s) from Imaging Studies Abdomen/Pelvis CT 04/25/22 18:18 IMPRESSION: Punctate nonobstructive left renal pelvis calculi. No hydronephrosis. No acute abnormal finding the abdomen or pelvis. Electronically Signed: Rodríguez Poe MD at 19:25 EST , Differential Diagnosis Abdominal Pain: Appendicitis and UTI Treatment and Re-Evaluation :: All radiologic examinations were read, reviewed by the emergency department attending. From these reads, a plan of care will be put in place. Patient appears to be in mild discomfort secondary to left-sided flank pain. Patient presents the [facility] for sudden onset of left-sided flank pain that started at 7 AM this morning.Patient's urinalysis which was completed in triage shows positive for blood, negative for any bacteria or nitrites, leukocyte Estrace. This is concerning for more of a kidney stone. Patient will receive a work-up for kidney stone. Received IV fluids, IV morphine, Zofran, basic labs as well as a CT scan of the abdomen pelvis without contrast. Patient reassessment was pain-free.Patient's laboratory values so she was slightly hemoconcentrated with a hemoglobin of 16.4 and a hematocrit of 49.8. This is consistent with her laboratory values in June 2021. Patient's chemistries showed slight renal insufficiency with a creatinine of 1.2, this is baseline for the patient over the last 2 years looking back at her prior laboratory values. Patient did receive a CT scan of the abdomen pelvis concerning for obstructing renal calculus, this showed a punctate nonobstructive left renal pelvis calculi, no hydronephrosis. No acute abnormal finding of the abdomen pelvis. Patient states that while she was urinating in the waiting room, she did feel a release of pressure. I believe that the patient did pass her kidney stone here in the emergency department. Her symptoms are all consistent, including the blood in her urine. Patient at this time is pain-free. She will follow-up with a urologist secondary to this being her second kidney stone. At this time there is no indication of any pyelonephritis, hydronephrosis, infected kidney stone. She will take Tylenol at home for pain. She is happy with the plan of care and given return precaution <Dr. Darion Reyes, DO - Last Filed: 04/25/22 23:46> [facility] MDM Narrative Medical decision making narrative: All radiologic examinations were read, reviewed by the emergency department attending. From these reads, a plan of care will be put in place. Patient appears to be in mild discomfort secondary to left-sided flank pain. Patient presents the [facility] for sudden onset of left-sided flank pain that started at 7 AM this morning.Patient's urinalysis which was completed in triage shows positive for blood, negative for any bacteria or nitrites, leukocyte Estrace. This is concerning for more of a kidney stone. Patient will receive a work-up for kidney stone. Received IV fluids, IV morphine, Zofran, basic labs as well as a CT scan of the abdomen pelvis without contrast. Patient reassessment was pain-free.Patient's laboratory values so she was slightly hemoconcentrated with a hemoglobin of 16.4 and a hematocrit of 49.8. This is consistent with her laboratory values in June 2021. Patient's chemistries showed slight renal insufficiency with a creatinine of 1.2, this is baseline for the patient over the last 2 years looking back at her prior laboratory values. Patient did receive a CT scan of the abdomen pelvis concerning for obstructing renal calculus, this showed a punctate nonobstructive left renal pelvis calculi, no hydronephrosis. No acute abnormal finding of the abdomen pelvis. Patient states that while she was urinating in the waiting room, she did feel a release of pressure. I believe that the patient did pass her kidney stone here in the emergency department. Her symptoms are all consistent, including the blood in her urine. Patient at this time is pain-free. She will follow-up with a urologist secondary to this being her second kidney stone. At this time there is no indication of any pyelonephritis, hydronephrosis, infected kidney stone. She will take Tylenol at home for pain. She is happy with the plan of care and given return precaution This patient was seen with a PA/METAL BUILDING ASSEMBLER Individually assessed they patient including history and physical. I have reviewed everything on the chart that is available and agree with the documentation provided by the PA/METAL BUILDING ASSEMBLER including discussion about the assessment, treatment plan, discussion, and return precautions. Patient presenting with left flank pain. Ultimately it is thought she passed the stone. She felt as if when she was in the waiting room the obstruction, relieves itself and the pressure resolved. Blood work ultimately normal. Urinalysis positive for occult blood without infection. Initially medicated with morphine and Zofran. We will give her follow-up with urology. Lab Data Attestation: I reviewed the patient's lab results. Labs: Laboratory Results - last 24 hr 04/25/22 04/25/22 04/25/22 16:31 18:30 18:30 WBC 8.2 RBC 5.53 H Hgb 16.4 H Hct 48.9 H MCV 88.4 MCH 29.7 MCHC 33.5 RDW Std Deviation 43.8 RDW Coeff of Amara 13.5 Plt Count 232 MPV 10.1 Immature Gran % (Auto) 0.400 Neut % (Auto) 79.7 H Lymph % (Auto) 14.2 L [facility] % (Auto) 4.4 Eos % (Auto) 0.9 Baso % (Auto) 0.4 Absolute Neuts (auto) 6.6 Absolute Lymphs (auto) 1.17 Nucleated RBC % 0 Sodium 137 Potassium 4.0 Chloride 103 Carbon Dioxide 26.0 Anion Gap 8 BUN 22 H Creatinine 1.12 H Estim Creat Clear Calc 32.21 Est GFR (MDRD) Af Amer 60 Est GFR (MDRD) Non-Af 50 L BUN/Creatinine Ratio 19.6 Glucose 157 H Calcium 10.4 H Urine Color Yellow Urine Clarity Clear Urine pH 6.5 Ur Specific [place] 1.015 Urine Protein 100 H Urine Glucose (UA) Normal Urine Ketones 5 H Urine Occult Blood 250 H Urine Nitrite Negative Urine Bilirubin Negative Urine Urobilinogen Normal Ur Leukocyte Esterase 25 H Urine RBC 25-50 SEEN Urine WBC 0 SEEN Ur Squamous Epith Cells 0-5 SEEN Urine Bacteria 0 SEEN Urine Mucus 0 SEEN Radiography Diagnostic Testing: Clinical Impression(s) from Imaging Studies Abdomen/Pelvis CT 04/25/22 18:18 IMPRESSION: Punctate nonobstructive left renal pelvis calculi. No hydronephrosis. No acute abnormal finding the abdomen or pelvis. Electronically Signed: Rodríguez Peo MD at 19:25 EST , Discharge Plan Triage Chief Complaint: Complaint ED Midlevel Provider: Rodríguez Thompson ED Provider: Darion Reyes Dx/Rx/DC Orders Clinical Impression: Acute flank pain, Hematuria, Kidney calculi Instructions: What is Hematuria?, ED Kidney Stone, Passed Prescriptions: No Action amlodipine 10 mg tablet 10 mg PO DAILY Qty: 90 3RF aspirin [Adult Aspirin Regimen] 81 mg tablet,delayed release (DR/EC) 81 mg PO QDAY Qty: 90 3RF metoprolol succinate 25 mg tablet extended release 24 hr See Rx Instructions .ROUTE .COMPLEX Qty: 45 3RF Dose Instruction: TAKE 1/2 (ONE-HALF) TABLET BY MOUTH ONCE DAILY FOR THE HEART Rx Instructions: TAKE 1/2 (ONE-HALF) TABLET BY MOUTH ONCE DAILY FOR THE HEART lisinopril 20 mg tablet 20 mg PO DAILY famotidine 20 mg tablet 20 mg PO BID PRN coenzyme Q10 100 mg tablet 100 mg PO DAILY cephalexin 500 mg capsule 500 mg PO TID Qty: 21 0RF metformin 500 MG tablet extended release 24 hr 500 mg PO DAILY Label Comments: TAKE 1 TABLET BY MOUTH EVERY DAY ezetimibe [Zetia] 10 mg tablet 10 mg PO DAILY Qty: 30 12RF isosorbide mononitrate 30 mg tablet extended release 24 hr 30 mg PO DAILY Qty: 30 12RF nitroglycerin [Nitrostat] 0.4 mg tablet, sublingual 0.4 mg SUBLINGUAL Q5M PRN (Reason: chest pain) Qty: 25 3RF Primary Care Provider: Rodríguez Lema Referrals: Blayne Neely MD [Med Staff - Active Staff] - Rodríguez Lema MD [Primary Care Provider] - Disposition Disposition: Home, Self Care Discharge Date/Time: 04/25/22 19:53
[2022-04-25] MEDS: Ondansetron 4 MG/2 ML Vial IV (18:30)
[2022-04-25] MEDS: 0.9% Normal Saline 1,000 ML 1000 ML IV (18:30)
[2022-04-25] MEDS: Morphine 4 MG/ML Syringe IV (18:32)
[2022-04-25 18:33] VITALS: BP 181/61; PULSE 55; RESP 18; TEMP 36.6; O2SAT 95
[2022-04-25 18:58] LABS: Absolute Lymphocyte Count 1.17 X10^3/uL (0.83-4.51); Absolute Neutrophil Count 6.6 X10^3/uL (2.0-7.7); Basophil# 0.03 X10^3/uL; Basophil% 0.4 % (0-1); Eosinophil# 0.07 X10^3/uL; Eosinophils% 0.9 % (0-5); Hematocrit 48.9 % (37-47); Hemoglobin 16.4 g/dL (12.0-15.0); Lymphocyte # 1.17 X10^3/ul (0.83-4.51); Lymphocyte % 14.2 % (19-41); Mean Corp Hgb Conc 33.5 g/dL (32-36); Mean Corpuscular Hgb 29.7 pg (27.0-32.0); Mean Corpuscular Volume 88.4 fL (81-99); Mean Platelet Vol. 10.1 fl (6.2-12.0); Monocyte# 0.36 X10^3/uL; Monocyte% 4.4 % (0-10); NRBC Flagged by Analyzer 0 % (0-5); Neutrophil # 6.57 X10^3/uL (2.7-7.7); Neutrophil % 79.7 % (47-70); Platelet Count 232 K/mm3 (150-450); RBC Distribution Width CV 13.5 % (11.6-14.6); RBC Distribution Width SD 43.8 fl (35.1-43.9); Red Blood Count 5.53 M/mm3 (4.2-5.4); White Blood Count 8.2 K/mm3 (4.4-11.0)
[2022-04-25 19:10] LABS: Anion Gap 8 (5-15); BUN 22 mg/dL (7-18); BUN/Creat Ratio 19.6 RATIO (10-20); Calcium,Total 10.4 mg/dL (8.5-10.1); Chloride 103 mmol/L (98-107); Creatinine, Serum 1.12 mg/dL (0.55-1.02); EST Glomerular Filtration Rate 50 mL/min (>60); Est Glom Filt Rate - Afr Amer 60 mL/min (>60); Estimated Creatinine Clearance 32.21 ml/min; Glucose 157 mg/dL (74-106); Sodium Level 137 mmol/L (136-145)
== END 2022-04-25 19:53 | disposition home or self-care (01) ==
PROVIDERS: Nurse Practitioner; Emergency Provider Student in an Organized Health Care Education/Training Program; PCP Family Medicine; Visit Provider Student in an Organized Health Care Education/Training Program
DX: N20.0 Calculus of kidney (principal); E11.9 Type 2 diabetes mellitus without complications; E78.00 Pure hypercholesterolemia, unspecified; I25.10 Atherosclerotic heart disease of native coronary artery without angina pectoris; I10 Essential (primary) hypertension; Z87.442 Personal history of urinary calculi; R31.9 Hematuria, unspecified
CPT/HCPCS: 74176; 80048; 81001; 85025; 96361; 96374; 96375; 99283; J7030; J2405

== ENCOUNTER → 2022-04-29 | Outpatient (CLI) | payer MEDICARE, SELFPAY ==
[2019-03-15 11:56] VITALS: BMI 37.0
[2022-04-29 10:29] LABS: Anion Gap 8 (5-15); BUN 20 mg/dL (7-18); BUN/Creat Ratio 16.4 RATIO (10-20); Chloride 102 mmol/L (98-107); Cholesterol 293 mg/dL (200); Creatinine, Serum 1.22 mg/dL (0.55-1.02); EST Glomerular Filtration Rate 45 mL/min (>60); Est Glom Filt Rate - Afr Amer 55 mL/min (>60); Glucose 150 mg/dL (74-106); High Density Lipoprotein 61 mg/dL; Potassium 4.2 mmol/L (3.5-5.1); Sodium Level 136 mmol/L (136-145); Triglycerides 221 mg/dL; Very Low Density Lipoprotein 44 mg/dL (5-40)
== END | disposition home or self-care (01) ==
PROVIDERS: PCP Family Medicine; Referring Provider Family Medicine; Visit Provider Family Medicine
DX: E11.9 Type 2 diabetes mellitus without complications (principal)
CPT/HCPCS: 36415; 80048; 80061

== ENCOUNTER → 2022-05-01 | Outpatient (CLI) | payer MEDICARE, SELFPAY ==
[2019-03-15 11:56] VITALS: BMI 37.0
--- NOTE | 2022-05-01 16:33 | RAD_ITS ---
STUDY: X-RAY - LEFT SHOULDER REASON FOR EXAM: Female, 81 years old. Pain, decreased range of motion TECHNIQUE: 4 view(s) of the shoulder. COMPARISON: None. FINDINGS: There is moderate degenerative arthrosis of the glenohumeral articulation. There is degenerative arthrosis of the acromioclavicular joint without inferior osseous spur formation. Normal acromion. Normal humeral head and visualized proximal humerus. The soft tissue structures are unremarkable. Normal visualized pulmonary apex. RAD/Shoulder min 2 Views IMPRESSION: Degenerative arthrosis Electronically Signed: Pa Reaves MD at 9:27 EST ,
== END | disposition home or self-care (01) ==
LOC: MTRAD 16:32
PROVIDERS: PCP Family Medicine; Referring Provider Family Medicine; Visit Provider Family Medicine
DX: M25.512 Pain in left shoulder (principal)
CPT/HCPCS: 73030

== ENCOUNTER → 2022-06-24 | Outpatient (CLI) | payer MEDICARE, SELFPAY ==
[2019-03-15 11:56] VITALS: BMI 37.0
[2022-06-24 10:44] LABS: Anion Gap 7 (5-15); BUN 17 mg/dL (7-18); BUN/Creat Ratio 14.8 RATIO (10-20); Chloride 105 mmol/L (98-107); Creatinine, Serum 1.15 mg/dL (0.55-1.02); EST Glomerular Filtration Rate 48 mL/min (>60); Est Glom Filt Rate - Afr Amer 58 mL/min (>60); Glucose 131 mg/dL (74-106); Potassium 4.4 mmol/L (3.5-5.1); Sodium Level 140 mmol/L (136-145)
== END | disposition home or self-care (01) ==
PROVIDERS: PCP Family Medicine; Referring Provider Nurse Practitioner Family; Visit Provider Nurse Practitioner Family
DX: I10 Essential (primary) hypertension (principal); E78.00 Pure hypercholesterolemia, unspecified; I25.10 Atherosclerotic heart disease of native coronary artery without angina pectoris
CPT/HCPCS: 36415; 80048

== ENCOUNTER → 2022-10-25 | Outpatient (CLI) | payer MEDICARE, SELFPAY ==
[2019-03-15 11:56] VITALS: BMI 37.0
[2022-10-25 18:05] LABS: Anion Gap 8 (5-15); BUN 23 mg/dL (7-18); BUN/Creat Ratio 19.7 RATIO (10-20); Calcium,Total 10.3 mg/dL (8.5-10.1); Chloride 102 mmol/L (98-107); Cholesterol 316 mg/dL (200); Creatinine, Serum 1.17 mg/dL (0.55-1.02); EST Glomerular Filtration Rate 47 mL/min (>60); Est Glom Filt Rate - Afr Amer 57 mL/min (>60); Glucose 102 mg/dL (74-106); High Density Lipoprotein 62 mg/dL; Potassium 4.3 mmol/L (3.5-5.1); Sodium Level 138 mmol/L (136-145); Triglycerides 249 mg/dL; Very Low Density Lipoprotein 50 mg/dL (5-40)
== END | disposition home or self-care (01) ==
LOC: MFPLAB 14:16
PROVIDERS: PCP Family Medicine; Visit Provider Family Medicine
DX: E11.9 Type 2 diabetes mellitus without complications (principal)
CPT/HCPCS: 36415; 80048; 80061

== ENCOUNTER → 2022-11-17 | Outpatient (CLI) | payer MEDICARE, SELFPAY ==
[2019-03-15 11:56] VITALS: BMI 37.0
[2022-11-17 15:31] LABS: Mucous, Urine 0 SEEN /hpf (<or=2+)
[2022-11-17 16:01] LABS: Color, Urine Yellow (Yellow); Glucose, Dipstick Normal (Normal); Ketone-Dipstick Negative (Negative); Leukocyte Esterase-Dipstick 500 /ul (Negative); Nitrite-Dipstick Negative (Negative); Occult Blood-Urine 150 /ul (Negative); Protein-Dipstick 30 mg/dl (Negative); Urine Bilirubin Dipstick Negative (Negative); Urine Clarity Cloudy (Clear); Urine Urobilinogen Normal (Normal)
[2022-11-17 16:40] LABS: Amorphous Sediment 1+ URATE; Bacteria RARE /hpf (None Seen); Red Blood Cells-Urine 25-50 SEEN /hpf (0-5); Squamous Epithelial Cells - UA 0-5 SEEN /hpf (5-10); White Blood Cells >100 SEEN /hpf (0-5)
== END | disposition home or self-care (01) ==
PROVIDERS: PCP Family Medicine; Visit Provider Nurse Practitioner Family
DX: N39.0 Urinary tract infection, site not specified (principal)
CPT/HCPCS: 81001; 87077; 87086; 87088; 87186

== ENCOUNTER → 2022-12-25 | Outpatient (CLI) | payer MEDICARE, SELFPAY ==
[2019-03-15 11:56] VITALS: BMI 37.0
[2022-12-25 13:24] LABS: Anion Gap 5 (5-15); BUN 19 mg/dL (7-18); BUN/Creat Ratio 16.1 RATIO (10-20); Calcium,Total 10.1 mg/dL (8.5-10.1); Chloride 104 mmol/L (98-107); Creatinine, Serum 1.18 mg/dL (0.55-1.02); EST Glomerular Filtration Rate 47 mL/min (>60); Est Glom Filt Rate - Afr Amer 57 mL/min (>60); Glucose 135 mg/dL (74-106); Potassium 3.9 mmol/L (3.5-5.1); Sodium Level 140 mmol/L (136-145)
== END | disposition home or self-care (01) ==
LOC: MTLAB 10:56
PROVIDERS: PCP Family Medicine; Referring Provider Nurse Practitioner Family; Visit Provider Nurse Practitioner Family
DX: E78.00 Pure hypercholesterolemia, unspecified (principal); I10 Essential (primary) hypertension; I25.10 Atherosclerotic heart disease of native coronary artery without angina pectoris
CPT/HCPCS: 36415; 80048

== ENCOUNTER → 2023-01-10 | Outpatient (CLI) | payer MEDICARE, SELFPAY ==
[2019-03-15 11:56] VITALS: BMI 37.0
--- NOTE | 2023-01-10 13:48 | BI_ITS ---
MAMMOGRAPHY - BILATERAL SCREENING REASON FOR EXAM: Female, 82 years old. Routine annual screening examination. PERTINENT HISTORY: Non-contributory. Prior bilateral stereotactic breast biopsies. History of calcified nodules. TECHNIQUE: Digital bilateral breast tarik (3D mammographic acquisition) in the CC and MLO projections. 2-D mediolateral oblique (MLO) and craniocaudad (CC) views of both breasts were obtained. CAD: Full Field Digital Mammography with Computer Added Detection was performed. COMPARISON: Comparison is made with prior study dated December 24, 2021 and December 24, 2019. FINDINGS: Breast Composition: The breasts are almost entirely fatty. There are no dominant masses or suspicious calcifications. Once again, densely calcified nodules are seen in both breasts more prominent in the inferior anterior medial aspect of the left breast. No other significant abnormalities are identified. There has been no significant change since the prior study. BI/SCRN MAMM (CAD)W/TARIK BILAT IMPRESSION: Stable bilateral screening mammogram. Yearly follow-up mammogram recommended. (A) ASSESSMENT CATEGORY: BIRADS Category 2: Benign. A letter regarding these results will be sent to the patient by the facility within 30 days. Approximately 10% of breast cancers are not detected by mammography. A normal mammogram should not delay biopsy of a clinically suspicious abnormality. [id number] Electronically Signed: Andry Matos MD at 14:59 EST ,
== END | disposition home or self-care (01) ==
LOC: OPBI 13:47
PROVIDERS: PCP Family Medicine; Referring Provider Family Medicine; Visit Provider Family Medicine
DX: Z12.31 Encounter for screening mammogram for malignant neoplasm of breast (principal)
CPT/HCPCS: 77063; 77067

== ENCOUNTER 2023-02-12 17:41 | Observation (INO) | payer MEDICARE, SELFPAY ==
[2019-03-15 11:56] VITALS: BMI 37.0
[2023-02-12 17:43] VITALS: BP 174/54; PULSE 52; RESP 16; TEMP 36.3; O2SAT 96; BMI 36.8
--- NOTE | 2023-02-12 17:51 | EDS_ITS ---
HPI History of Present Illness HPI Narrative: Patient presents with pain in her left knee and leg that has been getting worse over the past week. Patient states she fell 1 week ago and landed on her tailbone. Patient states her pain has been getting progressively worse. Patient states that today she is unable to bear any weight due to the pain. Patient describes her pain as sharp. Patient admits to some numbness and tingling in her left leg. Patient denies any swelling. Patient denies any fevers or chills. 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 CAD (coronary artery disease) Diabetes mellitus Essential hypertension History of left heart catheterization (LHC) (~06/20/21) HLD (hyperlipidemia) Hypertension Lipoma of back Percutaneous transluminal coronary angioplasty (PTCA) within last 14 to 24 months Presence of stent in coronary artery (~03/15/19) Pure hypercholesterolemia Sinus bradycardia SOB (shortness of breath) on exertion Status post left heart catheterization (LHC) (~03/15/19) Urinary tract infection with hematuria Home Medications metformin 500 mg tablet,extended release 24 hr 500 mg PO DAILY dm 03/12/19 [History Last Taken 06/19/21] aspirin 81 mg tablet,delayed release (Adult Aspirin Regimen) 81 mg PO QDAY #90 tabs 04/26/21 [Rx Last Taken 06/20/21] metoprolol succinate 25 mg tablet,extended release 24 hr See Rx Instructions .Route .COMPLEX #45 tabs 04/26/21 [Rx Last Taken 06/20/21] nitroglycerin 0.4 mg sublingual tablet (Nitrostat) 0.4 mg sublingual Q5M PRN chest pain #25 tabs 06/20/21 [Rx Last Taken Unknown] famotidine 20 mg tablet 20 mg PO BID PRN gerd 11/07/21 [History Last Taken Unknown] isosorbide mononitrate 30 mg tablet,extended release 24 hr 30 mg PO DAILY #30 tabs 07/29/22 [Rx Last Taken Unknown] lisinopril 20 mg tablet 40 mg PO DAILY bp 12/03/22 [History Last Taken Unknown] ezetimibe 10 mg tablet (Zetia) 10 mg PO DAILY #90 tabs 12/16/22 [Rx Last Taken Unknown] Allergy/AdvReac Type Severity Reaction Status Date / Time clopidogrel [From Plavix] Allergy Rash Verified 12/03/22 14:23 Sulfa (Sulfonamide Allergy Rash Verified 12/03/22 14:23 Antibiotics) [id number] Reductase AdvReac Severe Intolerance, Verified 12/03/22 14:23 Inhibitor mylagias [Wbkfuoc-Qyb-Eeh Reductase Inhibitor] prasugrel [From Effient] AdvReac Intermediate Tongue Verified 12/03/22 14:23 blisters Family History Father CAD (coronary artery disease) Myocardial infarction Brother Myocardial infarction CAD (coronary artery disease) Brother Myocardial infarction Sister CAD (coronary artery disease) Diabetes Myocardial infarction Mother Cancer Surgical History Presence of aortocoronary bypass graft (~01/02/12) Presence of coronary angioplasty implant and graft (~11/24/09) Social History Smoking Status: Never smoker alcohol intake: never substance use type: does not use caffeine: Yes Type: coffee Number of servings: 1 what type of physical activity do you participate in: none ROS ROS ED Constitutional Constitutional ED: Denies chills or fever(s) Eyes Eyes: Denies blurry vision or change in vision ENT ENT ED: Reports rhinorrhea; Denies sore throat Cardiovascular Cardiovascular: Denies chest pain or palpitations Respiratory/Chest Respiratory/Chest: Reports cough; Denies dyspnea Gastrointestinal Gastrointestinal: Denies nausea or vomiting Genitourinary Genitourinary ED: Denies dysuria or hematuria Musculoskeletal Musculoskeletal: Reports neck pain; Denies back pain Integumentary Denies abscess or rash Neurologic Neurologic: Denies headache(s) or weakness Allergic/Immunologic Allergic/Immunologic ED: Denies mouth swelling or urticaria EXAM Physical Exam Const Vital Signs: 12/20/23 17:43 02/12/23 19:34 Temperature 97.4 F L Temperature Source Temporal Pulse Rate 52 L 63 Respiratory Rate 16 14 Blood Pressure 174/54 H 161/74 H Blood Pressure Mean 94 103 Pulse Ox 96 97 Oxygen Delivery Method Room Air Positive well nourished, well developed and obese General Appearance ED: well developed and NAD Nutritional Appearance: obese HEENT Reports moist mucous membranes Neck full ROM and supple Resp normal respiratory effort and clear to auscultation bilaterally Cardio regular rate and regular rhythm GI non-tender and non-distended Palpation: soft Extremity Extremity Narrative: Examination of the left knee reveals some mild diffuse tenderness. There is no joint effusion. Extensor mechanism is intact. Strength is 5/5 bilaterally. There is mild calf tenderness in the left calf. Sensation was intact to light touch bilaterally in the lower extremities. Range of motion was limited in all motions of the left knee secondary to pain. There is no laxity appreciated. Neuro oriented x3, CN's II-XII intact bilaterally, moves all extremities and no sensory deficits noted Sensorium / Orientation: alert Motor Exam: strength 5/5 throughout Psych mental status grossly normal MDM MDM MDM Narrative Medical decision making narrative: Differential diagnosis includes DVT, occult fracture, muscle strain, ligament strain, contusion, and radiculopathy. CBC will be obtained to assess for leukocytosis and anemia. Basic metabolic profile will be obtained to assess for electrolyte abnormality and renal function. Venous duplex of the left lower extremity will be obtained to assess for DVT. X-rays of the left knee will be obtained to assess for occult fracture. Lab Data Attestation: I reviewed the patient's lab results. Lab results narrative: CBC was reviewed and was within normal limits. Basic metabolic profile was reviewed. BUN was 19 and creatinine was 1.29. Glucose was slightly elevated at 145. Labs: Laboratory Results - last 24 hr 02/12/23 18:10 WBC 8.5 RBC 4.76 Hgb 13.8 Hct 42.8 MCV 89.9 MCH 29.0 MCHC 32.2 RDW Std Deviation 45.1 H RDW Coeff of Amara 13.6 Plt Count 233 MPV 9.6 Immature Gran % (Auto) 0.500 Neut % (Auto) 71.4 H Lymph % (Auto) 18.4 L Dent % (Auto) 6.5 Eos % (Auto) 2.6 Baso % (Auto) 0.6 Absolute Neuts (auto) 6.1 Absolute Lymphs (auto) 1.57 Nucleated RBC % 0 Sodium 139 Potassium 3.7 Chloride 107 Carbon Dioxide 27.0 Anion Gap 5 BUN 19 H Creatinine 1.29 H Estim Creat Clear Calc 27.51 Est GFR (MDRD) Af Amer 51 L Est GFR (MDRD) Non-Af 42 L BUN/Creatinine Ratio 14.7 Glucose 145 H Calcium 10.0 Radiography Diagnostic Testing: Clinical Impression(s) from Imaging Studies Knee X-Ray 02/12/23 18:14 IMPRESSION: Degenerative change. No acute fracture or dislocation. Electronically Signed: Antonio Mccurdy MD at 18:37 EST , Venous Duplex 02/12/23 18:15 IMPRESSION: No evidence of deep venous thrombosis.. Fisher''s cyst measuring 3.3 x 2.7 x 1.2 cm. Electronically Signed: Antonio Mccurdy MD at 18:54 EST , X-rays of the left knee were obtained. There are 4 views. On my independent interpretation, there is no acute fracture or dislocation. There are some degenerative changes noted. Radiologist also interpreted the x-rays and agrees. Venous duplex of the left lower extremity was obtained. There is no evidence of DVT. There is a Fisher's cyst noted. This was interpreted by the radiologist and was also independently reviewed by myself. Treatment and Re-Evaluation Narrative: Patient was given a dose of morphine here. Patient was advised of her findings. Patient was given a knee immobilizer and attempted ambulation with a walker. Patient was unable to bear any weight on her left leg. Patient does not think she was able to manage at home because of the pain and inability to ambulate. Because of this, will discuss case with the hospitalist. Discharge Plan Triage Chief Complaint: Lower Extremity Injury ED Provider: Matt Dunne Dx/Rx/DC Orders Clinical Impression: Inability to ambulate due to left knee, Acute pain of left knee Prescriptions: No Action aspirin [Adult Aspirin Regimen] 81 mg tablet,delayed release (DR/EC) 81 mg PO QDAY Qty: 90 3RF metoprolol succinate 25 mg tablet extended release 24 hr See Rx Instructions .ROUTE .COMPLEX Qty: 45 3RF Dose Instruction: TAKE 1/2 (ONE-HALF) TABLET BY MOUTH ONCE DAILY FOR THE HEART Rx Instructions: TAKE 1/2 (ONE-HALF) TABLET BY MOUTH ONCE DAILY FOR THE HEART famotidine 20 mg tablet 20 mg PO BID PRN (Reason: gerd) lisinopril 20 mg tablet 40 mg PO DAILY metformin 500 MG tablet extended release 24 hr 500 mg PO DAILY Patient Comments: TAKE 1 TABLET BY MOUTH EVERY DAY nitroglycerin [Nitrostat] 0.4 mg tablet, sublingual 0.4 mg SUBLINGUAL Q5M PRN (Reason: chest pain) Qty: 25 3RF isosorbide mononitrate 30 mg tablet extended release 24 hr 30 mg PO DAILY Qty: 30 12RF ezetimibe [Zetia] 10 mg tablet 10 mg PO DAILY Qty: 90 3RF Primary Care Provider: Rodríguez Lema Referrals: Rodríguez Lema MD [Primary Care Provider] - Disposition Disposition: Acute Care Hospital [facility]
--- OUTSIDE RECORDS SUMMARY | 2023-02-12 18:01 | XMS RPT_ITS | CCD ---
Author Name Unknown Address [address] [facility] [address] [place] [id number] Organization [facility] Care Team Providers Care Neurology Technician Name Role Phone Ro Botello Unavailable Unavailable Ro Botello Unavailable Unavailable Allergies Allergy Classification Reported Allergen(s) Allergy Type Date of Onset Reaction(s) Facility (2 sources) clopidogrel Drug Allergy 03-04-2011 tongue blisters [facility] Work Phone: [phone] (2 sources) Hmg-Coa Reductase Inhibitors (Statins) drug allergy 06-19-2010 Intolerance, Myalgias [facility] Work Phone: [phone] (2 sources) prasugrel Drug Allergy 09-09-2011 tongue blisters [facility] Work Phone: [phone] (2 sources) Sulfonamides (Antibiotic) drug allergy 06-19-2010 [facility] Work Phone: [phone] Medications Completed/Discontinued Medications Medication Drug Class(es) Dates Sig (Normalized) Sig (Original) amLODIPine 5 mg oral tablet (2 sources) Dihydropyridine Calcium Channel Edda Start: 05-19-2015 take 1 tablet by mouth once daily AMLODIPINE BESYLATE 5 MG TABS One tablet by mouth daily AMLODIPINE BESYLATE [id number] Marleni Magana PA-C aspirin 81 mg oral tablet (4 sources) Nonsteroidal Anti-inflammatory Drug Start: 06-19-2010 take 1 tablet by mouth once daily ASPIRIN 81 MG TABS One tablet by mouth daily ASPIRIN [id number] Beatriz Sorensen Problems Active Problems Problem Classification Problem Date Documented Date Episodic/Chronic Cardiac dysrhythmias (4 sources) Sinus bradycardia; Translations: [Bradycardia, unspecified] Onset: 06-19-2010 05-19-2015 Chronic Complication of device; implant or graft (2 sources) Atherosclerosis of coronary artery bypass graft(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 angina pectoris; Translations: [Atherosclerosis of coronary artery bypass graft(s) without angina pectoris] Onset: 06-19-2010 12-29-2015 Chronic Conduction disorders (6 sources) Conduction disorder of the heart; Translations: [Atrioventricular block] Onset: 06-19-2010 06-19-2010 Chronic Coronary atherosclerosis and other heart disease (4 sources) Atherosclerotic heart disease of [place] coronary artery without angina pectoris; Translations: [Coronary arteriosclerosis] Onset: 06-19-2010 06-19-2010 Chronic Diabetes mellitus without complication (2 sources) Diabetes mellitus; Translations: [Type 2 diabetes mellitus without complications] Onset: 03-04-2011 03-04-2011 Chronic Disorders of lipid metabolism (2 sources) Hyperlipidemia; Translations: [Hyperlipidemia, unspecified] Onset: 06-19-2010 06-19-2010 Chronic Essential hypertension (2 sources) Hypertensive disorder; Translations: [Essential (primary) hypertension] Onset: 08-29-2015 08-29-2015 Chronic Unclassified (8 sources) Body mass index (BMI) 36.0-36.9, adult; Translations: [Body mass index (BMI) 35.0-35.9, adult] Onset: 08-16-2013 Resolved: 10-10-2014 08-16-2013 Chronic Unclassified (2 sources) Long-term drug therapy; Translations: [Other jail (current) drug therapy] Onset: 06-19-2010 06-19-2010 Past or Other Problems Problem Classification Problem Date Documented Da te Episodic/Chronic Coronary atherosclerosis and other heart disease (4 sources) Coronary angioplasty status; Translations: [Presence of aortocoronary bypass graft] Onset: 06-19-2010 06-19-2010 Episodic Heart valve disorders (2 sources) Heart murmur; Translations: [Cardiac murmur, unspecified] Onset: 06-19-2010 06-19-2010 Episodic Nonspecific chest pain (4 sources) Chest pain on exertion; Translations: [Other chest pain] Onset: 05-19-2015 Resolved: 08-29-2015 08-29-2015 Episodic Unclassified (4 sources) Abnormal result of cardiovascular function study, unspecified; Translations: [Electrocardiogram abnormal] Onset: 06-19-2010 06-19-2010 Episodic Unclassified (4 sources) Family history of ischemic heart disease and other diseases of the circulatory system; Translations: [FH: Hypertension] 08-16-2013 Episodic Results Test Name Value Interpretation Reference Range Facil ity Vital Signs Date Time Vital Sign Value Performing Clinician Carlene cooper 01-08-2017 14:25-0500 BMI (Body Mass Index) 34.37 kg/m2 [facility] Work Phone: 01-08-2017 14:25-0500 BP Diastolic 64 mm[Hg] [facility] Work Phone: 01-08-2017 14:25-0500 BP Systolic 132 mm[Hg] [facility] Work Phone: 01-08-2017 14:25-0500 Height 158.75 cm [facility] Work Phone: 01-08-2017 14:25-0500 Pulse (Heart Rate) 52 /min [facility] Work Phone: 01-08-2017 14:25-0500 Respiratory Rate 18 /min [facility] Work Phone: 01-08-2017 14:25-0500 Weight 86.64 kg [facility] Work Phone: 01-05-2016 14:19-0500 BSA (Body Surface Area) 1.92 m2 [facility] Work Phone: Procedures Date Procedure Procedure Detail Performing Clinician Start: 01-08-2017 End: 01-08-2017 Follow Up Appt 6 months Rodríguez Encarnacion MD Start: 01-08-2017 End: 01-08-2017 CARLOS ALBERTO Encarnacion MD Start: 07-12-2016 End: 07-12-2016 Follow Up Appt 6 months Marleni garcia PA-C Work Phone: Start: 07-12-2016 End: 07-12-2016 PFM Marleni Magana PA-C Work Phone: Start: 01-05-2016 End: 01-05-2016 MMM Rodríguez Encarnacion MD Start: 08-29-2015 End: 08-29-2015 Follow Up Appt 6 months Marleni garcia PA-C Work Phone: Start: 08-29-2015 End: 08-29-2015 PFM Marleni Magana PA-C Work Phone: Start: 05-19-2015 End: 05-19-2015 Ecg routine ecg w/least 12 lds w/i&r Marleni Magana PA-C Work Phone: Start: 05-19-2015 End: 05-19-2015 Follow Up Appt 3 months Marleni garcia PA-C Work Phone: Start: 05-19-2015 End: 05-19-2015 Follow Up Appt 6 months Marleni garcia PA-C Work Phone: Start: 05-19-2015 End: 05-19-2015 MM Marleni Magana PA-C Work Phone: Start: 05-19-2015 End: 08-11-2015 Nuclear stress test [facility] Marleni Magana PA-C Work Phone: Start: 05-19-2015 End: 05-19-2015 PF Marleni Magana PA-C Work Phone: Start: 10-10-2014 End: 10-11-2014 Documentation of current medications Rodríguez Encarnacion MD Start: 10-10-2014 End: 10-10-2014 Follow Up Appt 6 months Rodríguez Encarnacion MD Start: 10-10-2014 End: 10-10-2014 CARLOS ALBERTO Encarnacion MD Start: 06-06-2014 End: 09-30-2014 *Hepatic Function Panel Rodríguez Encarnacion MD Start: 06-06-2014 End: 09-30-2014 Lipid 1996 panel - Serum or Plasma Rodríguez Encarnacion MD Start: 02-09-2014 End: 02-09-2014 Ecg routine ecg w/least 12 lds w/i&r Marleni Magana PA-C Work Phone: Start: 02-09-2014 End: 02-09-2014 Follow Up Appt 6 months Marleni garcia PA-C Work Phone: Start: 02-09-2014 End: 02-09-2014 PFM Marleni Magana PA-C Work Phone: Start: 11-24-2013 End: 12-06-2013 *Hepatic Function Panel Rodríguez Encarnacion MD Start: 11-24-2013 End: 12-06-2013 Lipid 1996 panel - Serum or Plasma Rodríguez Encarnacion MD Start: 08-24-2013 End: 08-26-2013 *Hepatic Function Panel Rodríguez Encarnacion MD Start: 08-24-2013 End: 08-26-2013 Lipid 1996 panel - Serum or Plasma Rodríguez Encarnacion MD Start: 08-16-2013 End: 08-16-2013 Follow Up Appt 6 months Rodríguez Encarnacion MD Start: 08-16-2013 End: 08-16-2013 MMM Rodríguez Encarnacion MD Start: 02-24-2013 End: 03-17-2013 *Hepatic Function Panel Rodríguez Encarnacion MD Start: 02-24-2013 End: 03-17-2013 Lipid 1996 panel - Serum or Plasma Rodríguez Encarnacion MD Start: 02-02-2013 End: 02-02-2013 Follow Up Appt 6 months Marleni garcia PA-C Work Phone: Start: 02-02-2013 End: 02-02-2013 PFM Marleni Magana PA-C Work Phone: Start: 11-30-2012 End: 12-09-2012 *Hepatic Function Panel Rodríguez Encarnacion MD Start: 11-30-2012 End: 12-09-2012 Lipid 1996 panel - Serum or Plasma Rodríguez Encarnacion MD Start: 10-24-2012 End: 12-02-2012 *Hepatic Function Panel Marleni garcia PA-C Work Phone: Start: 10-24-2012 End: 12-02-2012 Lipid 1996 panel - Serum or Plasma Marleni Magana PA-C Work Phone: Start: 08-06-2012 End: 01-26-2013 Follow Up Appt 6 months Marleni garcia PA-C Work Phone: Start: 08-06-2012 End: 01-26-2013 PFM Marleni Magana PA-C Work Phone: Start: 07-25-2012 End: 07-30-2012 *Hepatic Function Panel Rodríguez Encarnacion MD Start: 07-25-2012 End: 07-30-2012 Lipid 1996 panel - Serum or Plasma Rodríguez Encarnacion MD Start: 03-09-2012 End: 07-30-2012 *Hepatic Function Panel Rodríguez Encarnacion MD Start: 03-09-2012 End: 06-01-2012 Cardiac Rehab Rodríguez Encarnacion MD Start: 03-09-2012 End: 07-30-2012 Cardiovascular stress test using treadmill Rodríguez Encarnacion MD Start: 03-09-2012 End: 03-09-2012 Ecg routine ecg w/least 12 lds w/i&r Rodríguez Encarnacion MD Start: 03-09-2012 End: 07-30-2012 Follow Up Appt 3 months Rodríguez Encarnacion MD Start: 03-09-2012 End: 07-30-2012 Lipid 1996 panel - Serum or Plasma Rodríguez Encarnacion MD Start: 09-09-2011 End: 10-15-2011 *Hepatic Function Panel Rodríguez Encarnacion MD Start: 09-09-2011 End: 09-09-2011 Follow Up Appt 6 months Rodríguez Encarnacion MD Start: 09-09-2011 End: 10-15-2011 Lipid 1996 panel - Serum or Plasma Rodríguez Encarnacion MD Start: 03-04-2011 End: 03-04-2011 Ecg routine ecg w/least 12 lds w/i&r Rodríguez Encarnacion MD Start: 03-04-2011 End: 03-04-2011 Follow Up Appt 6 months Rodríguez Encarnacion MD Plan of Treatment Date Care Activity Detail Author Start: 07-09-2017 End: 07-09-2017 Appointment Appointment [facility] Work Phone: Start: 01-08-2017 End: 01-08-2017 Appointment Appointment [facility] Work Phone: Start: 01-08-2017 End: 01-08-2017 Follow Up Appt 6 months Follow Up Appt 6 months [facility] Work Phone: Start: 01-08-2017 End: 01-08-2017 Follow Up Appt Other Follow Up Appt Other [facility] Work Phone: Start: 01-08-2017 End: 01-08-2017 MMM MMM [facility] Work Phone: Start: 07-12-2016 End: 07-12-2016 Follow Up Appt 6 months Follow Up Appt 6 months [facility] Work Phone: Start: 07-12-2016 End: 07-12-2016 PFM PFM [facility] Work Phone: Start: 01-05-2016 End: 01-05-2016 MMM MMM [facility] Work Phone: Start: 08-29-2015 End: 08-29-2015 Follow Up Appt 6 months Follow Up Appt 6 months [facility] Work Phone: Start: 08-29-2015 End: 08-29-2015 PFM PFM [facility] Work Phone: Start: 05-19-2015 End: 05-19-2015 Ecg routine ecg w/least 12 lds w/i&r EKG (In office) [facility] Work Phone: Start: 05-19-2015 End: 05-19-2015 Follow Up Appt 3 months Follow Up Appt 3 months [facility] Work Phone: Start: 05-19-2015 End: 05-19-2015 Follow Up Appt 6 months Follow Up Appt 6 months [facility] Work Phone: Start: 05-19-2015 End: 05-19-2015 MMM MMM [facility] Work Phone: Start: 05-19-2015 End: 05-19-2015 Nuclear stress test -[facility] Nuclear stress test -[facility] Work Phone: Start: 05-19-2015 End: 05-19-2015 PFM PFM [facility] Work Phone: Start: 10-10-2014 End: 10-10-2014 Follow Up Appt 6 months Follow Up Appt 6 months [facility] Work Phone: Start: 10-10-2014 End: 10-10-2014 MMM MMM [facility] Work Phone: Start: 06-06-2014 End: 09-30-2014 *Hepatic Function Panel *Hepatic Function Panel [facility] Work Phone: Start: 06-06-2014 End: 09-30-2014 Lipid panel [AGGREGATE] *Lipid Profile CC PCP [facility] Work Phone: Start: 02-09-2014 End: 02-09-2014 Ecg routine ecg w/least 12 lds w/i&r EKG (In office) [facility] Work Phone: Start: 02-09-2014 End: 02-09-2014 Follow Up Appt 6 months Follow Up Appt 6 months [facility] Work Phone: Start: 02-09-2014 End: 02-09-2014 PFM PFM [facility] Work Phone: Start: 11-24-2013 End: 12-06-2013 *Hepatic Function Panel *Hepatic Function Panel [facility] Work Phone: Start: 11-24-2013 End: 12-06-2013 Lipid panel [AGGREGATE] *Lipid Profile CC PCP [facility] Work Phone: Start: 08-24-2013 End: 08-26-2013 *Hepatic Function Panel *Hepatic Function Panel [facility] Work Phone: Start: 08-24-2013 End: 08-26-2013 Lipid panel [AGGREGATE] *Lipid Profile CC PCP [facility] Work Phone: Start: 08-16-2013 End: 08-16-2013 Follow Up Appt 6 months Follow Up Appt 6 months [facility] Work Phone: Start: 08-16-2013 End: 08-16-2013 MMM MMM [facility] Work Phone: Start: 02-24-2013 End: 03-17-2013 *Hepatic Function Panel *Hepatic Function Panel [facility] Work Phone: Start: 02-24-2013 End: 03-17-2013 Lipid panel [AGGREGATE] *Lipid Profile CC PCP [facility] Work Phone: Start: 02-02-2013 End: 02-02-2013 Follow Up Appt 6 months Follow Up Appt 6 months [facility] Work Phone: Start: 02-02-2013 End: 02-02-2013 PFM PFM [facility] Work Phone: Start: 11-30-2012 End: 12-09-2012 *Hepatic Function Panel *Hepatic Function Panel [facility] Work Phone: Start: 11-30-2012 End: 12-09-2012 Lipid panel [AGGREGATE] *Lipid Profile CC PCP [facility] Work Phone: Start: 10-24-2012 End: 12-02-2012 *Hepatic Function Panel *Hepatic Function Panel [facility] Work Phone: Start: 10-24-2012 End: 12-02-2012 Lipid panel [AGGREGATE] *Lipid Profile CC PCP [facility] Work Phone: Start: 08-06-2012 End: 01-26-2013 Follow Up Appt 6 months Follow Up Appt 6 months [facility] Work Phone: Start: 08-06-2012 End: 01-26-2013 PFM PFM [facility] Work Phone: Start: 07-25-2012 End: 07-30-2012 *Hepatic Function Panel *Hepatic Function Panel [facility] Work Phone: Start: 07-25-2012 End: 07-30-2012 Lipid panel [AGGREGATE] *Lipid Profile [facility] Work Phone: Start: 03-09-2012 End: 07-30-2012 *Hepatic Function Panel *Hepatic Function Panel [facility] Work Phone: Start: 03-09-2012 End: 07-30-2012 Cardiac Rehab Cardiac Rehab [facility] Work Phone: Start: 03-09-2012 End: 03-09-2012 Cardiovascular stress test using treadmill Treadmill stress test (no imaging) [facility] Work Phone: Start: 03-09-2012 End: 03-09-2012 Ecg routine ecg w/least 12 lds w/i&r EKG (In office) [facility] Work Phone: Start: 03-09-2012 End: 07-30-2012 Follow Up Appt 3 months Follow Up Appt 3 months [facility] Phone: Start: 03-09-2012 End: 07-30-2012 Lipid panel [AGGREGATE] *Lipid Profile [facility] Phone: Start: 09-09-2011 End: 10-15-2011 *Hepatic Function Panel *Hepatic Function Panel [facility] Phone: Start: 09-09-2011 End: 09-09-2011 Follow Up Appt 6 months Follow Up Appt 6 months [facility] Phone: Start: 09-09-2011 End: 10-15-2011 Lipid panel [AGGREGATE] *Lipid Profile [facility] Phone: Start: 03-04-2011 End: 03-04-2011 Ecg routine ecg w/least 12 lds w/i&r EKG (In office) [facility] Phone: Start: 03-04-2011 End: 03-04-2011 Follow Up Appt 6 months Follow Up Appt 6 months [facility] Phone: Patient Education [facility]LIP[employer]EMIA [facility] Phone: Additional Source Comments FOR RECORDS PERTAINING TO PATIENTS WHO ARE OR HAVE BEEN ENROLLED IN A CHEMICAL DEPENDENCY/SUBSTANCEABUSE PROGRAM, SOME INFORMATION MAY BE OMITTED. This clinical summary was aggregated from multiple sources. Caution should be exercised in using it in the provision of clinical care. This summary normalizes information from multiple sources, and as a consequence, information in this document may materially change the coding, format and clinical context of patient data. In addition, data may be omitted in some cases. CLINICAL DECISIONS SHOULD BE BASED ON THE PRIMARY CLINICAL RECORDS. [employer] provides no warranty or guarantee of the accuracy or completeness of information in this document.
--- NOTE | 2023-02-12 18:14 | RAD_ITS ---
STUDY: X-RAY - LEFT KNEE REASON FOR EXAM: Female, 82 years old. Injury/Pain TECHNIQUE: 4 view(s) of the knee. COMPARISON: None. FINDINGS: No evidence for acute femoral fracture. Sclerotic density in the distal medial femoral shaft likely benign Normal visualized proximal tibia and fibula. Normal proximal tibiofibular articulation. Mildly narrowed medial femorotibial compartment. Normal lateral femorotibial compartment. Mildly narrowed patellofemoral articulation. Surgical clips are seen in the soft tissues of the medial calf and distal thigh RAD/Knee 4 or More Views IMPRESSION: Degenerative change. No acute fracture or dislocation. Electronically Signed: Antonio Mccurdy MD at 18:37 EST Reading Location ID and State: [facility] / ID Tel , Service support ,
--- NOTE | 2023-02-12 18:15 | US_ITS ---
STUDY: VENOUS DOPPLER ULTRASOUND - LEFT LOWER EXTREMITY REASON FOR EXAM: Female, 82 years old. LT LEG PAIN TECHNIQUE: Ultrasound evaluation of the deep vein system to include castanon-scale imaging and compression was performed. Castanon-scale imaging and Doppler sonographic evaluation, including duplex spectral analysis and qualitative color flow sonography, was performed. COMPARISON: None. FINDINGS: Common Femoral Vein: Normal compression, spontaneity and augmentation. Normal color Doppler. Common Femoral Vein/Greater Saphenous Junction: Normal compression, spontaneity and augmentation. Normal color Doppler. Deep Femoral Vein: Normal compression, spontaneity and augmentation. Normal color Doppler. Femoral Proximal: Normal compression, spontaneity and augmentation. Normal color Doppler. Femoral Middle: Normal compression, spontaneity and augmentation. Normal color Doppler. Femoral Distal: Normal compression, spontaneity and augmentation. Normal color Doppler. Popliteal Vein: Normal compression, spontaneity and augmentation. Normal color Doppler. Posterior Tibial Vein: Normal compression, spontaneity and augmentation. Normal color Doppler. Peroneal Vein: Normal compression, spontaneity and augmentation. Normal color Doppler. There is a fluid collection in the popliteal fossa measuring 3.3 x 2.7 x 1.2 cm US/Venous Duplex Imag/Limited/Uni IMPRESSION: No evidence of deep venous thrombosis.. Fisher''s cyst measuring 3.3 x 2.7 x 1.2 cm. Electronically Signed: Antonio Mccurdy MD at 18:54 EST ,
[2023-02-12 18:20] LABS: Absolute Lymphocyte Count 1.57 X10^3/uL (0.83-4.51); Absolute Neutrophil Count 6.1 X10^3/uL (2.0-7.7); Basophil# 0.05 X10^3/uL; Basophil% 0.6 % (0-1); Eosinophil# 0.22 X10^3/uL; Eosinophils% 2.6 % (0-5); Hematocrit 42.8 % (37-47); Hemoglobin 13.8 g/dL (12.0-15.0); Lymphocyte # 1.57 X10^3/ul (0.83-4.51); Lymphocyte % 18.4 % (19-41); Mean Corp Hgb Conc 32.2 g/dL (32-36); Mean Corpuscular Volume 89.9 fL (81-99); Mean Platelet Vol. 9.6 fl (6.2-12.0); Monocyte# 0.55 X10^3/uL; Monocyte% 6.5 % (0-10); NRBC Flagged by Analyzer 0 % (0-5); Neutrophil # 6.09 X10^3/uL (2.7-7.7); Neutrophil % 71.4 % (47-70); Platelet Count 233 K/mm3 (150-450); RBC Distribution Width CV 13.6 % (11.6-14.6); RBC Distribution Width SD 45.1 fl (35.1-43.9); Red Blood Count 4.76 M/mm3 (4.2-5.4); White Blood Count 8.5 K/mm3 (4.4-11.0)
[2023-02-12 18:32] LABS: Anion Gap 5 (5-15); BUN 19 mg/dL (7-18); BUN/Creat Ratio 14.7 RATIO (10-20); Chloride 107 mmol/L (98-107); Creatinine, Serum 1.29 mg/dL (0.55-1.02); EST Glomerular Filtration Rate 42 mL/min (>60); Est Glom Filt Rate - Afr Amer 51 mL/min (>60); Estimated Creatinine Clearance 27.51 ml/min; Glucose 145 mg/dL (74-106); Potassium 3.7 mmol/L (3.5-5.1); Sodium Level 139 mmol/L (136-145)
[2023-02-12] MEDS: Morphine 4 MG/ML Syringe IV (19:22)
[2023-02-12 19:34] VITALS: BP 161/74; PULSE 63; RESP 14; O2SAT 97
[2023-02-12 19:42] VITALS: PULSE 61; RESP 15; O2SAT 96
--- NOTE | 2023-02-12 20:12 | HP.PCM.HOS_ITS ---
[facility] - General General Date of Admission: 02/12/23 Date of Service: 02/12/23 Chief Complaint: Left Knee Pain x 1 week after Fall HPI Narrative JOSSE DURAN, is a 82 F with a past medical history of essential hypertension, hyperlipidemia; with intolerance to statins on ezetimibe, diabetes mellitus type 2; of unknown control, obesity with BMI of 36.8 this admission, history of coronary artery disease; status post CABG with redo (2009 & 2011) and stents (2009 & 2019), history of UTIs, history of lipoma on back, GERD, and osteoarthritis who presents to [facility] ER complaining of left knee pain after fall. Ms. Duran reports her symptoms began approximately 1 week ago after she fell and landed on her tailbone. Since that time her pain has been getting progressively worse and today she states she is unable to bear any weight due to the pain. She describes the pain as severe and sharp along with numbness and tingling in her left leg which is new with pain made worse with movement but not completely relieved by rest. She denies associated fever, chills, nausea, vomiting, diarrhea, constipation other recent illness or recent medication changes. She also denies head trauma or loss of consciousness associated with her fall. In the ER she had a left lower extremity Doppler which revealed no DVT but did show an ~3.3 cm x ~2.7 cm x ~1.2 cm Fisher's cyst behind her left knee along with clinical suspicion for lumbar radiculopathy with paresthesias affecting her left lower extremity acutely causing severe pain with generalized weakness and ambulatory dysfunction and she was then admitted to the general medical floor under observation status for ongoing care for stay that is expected to be less than 48 hours. [facility] Medical History Atherosclerotic heart disease of [place] coronary artery without angina pectoris Atrioventricular block CAD (coronary artery disease) Diabetes mellitus Essential hypertension History of left heart catheterization (LHC) (~06/20/21) HLD (hyperlipidemia) Hypertension Lipoma of back Percutaneous transluminal coronary angioplasty (PTCA) within last 14 to 24 months Presence of stent in coronary artery (~03/15/19) Pure hypercholesterolemia Sinus bradycardia SOB (shortness of breath) on exertion Status post left heart catheterization (LHC) (~03/15/19) Urinary tract infection with hematuria Home Medications metformin 500 mg tablet,extended release 24 hr 500 mg PO DAILY dm 03/12/19 [History Last Taken 02/12/23] aspirin 81 mg tablet,delayed release (Adult Aspirin Regimen) 81 mg PO QDAY decrease plt #90 tabs 04/26/21 [Rx Last Taken 02/12/23] metoprolol succinate 25 mg tablet,extended release 24 hr See Rx Instructions .Route .COMPLEX #45 tabs 04/26/21 [Rx Last Taken 02/12/23] nitroglycerin 0.4 mg sublingual tablet (Nitrostat) 0.4 mg sublingual Q5M PRN chest pain #25 tabs 06/20/21 [Rx Last Taken Unknown] famotidine 20 mg tablet 20 mg PO BID PRN gerd 11/07/21 [History Last Taken Unknown] isosorbide mononitrate 30 mg tablet,extended release 24 hr 30 mg PO DAILY heart #30 tabs 07/29/22 [Rx Last Taken 02/12/23] lisinopril 20 mg tablet 40 mg PO DAILY bp 12/03/22 [History Last Taken 02/12/23] ezetimibe 10 mg tablet (Zetia) 10 mg PO DAILY dm #90 tabs 12/16/22 [Rx Last Taken 02/12/23] Allergy/AdvReac Type Severity Reaction Status Date / Time clopidogrel [From Plavix] Allergy Rash Verified 02/12/23 22:13 Sulfa (Sulfonamide Allergy Rash Verified 02/12/23 22:13 Antibiotics) Cngotfr-OEK-WlQ Reductase AdvReac Severe Intolerance, Verified 02/12/23 22:13 Inhibitor mylagias [Jcivukn-Swf-Mks Reductase Inhibitor] prasugrel [From Effient] AdvReac Intermediate Tongue Verified 02/12/23 22:13 blisters Family History Father CAD (coronary artery disease) Myocardial infarction Brother Myocardial infarction CAD (coronary artery disease) Brother Myocardial infarction Sister CAD (coronary artery disease) Diabetes Myocardial infarction Mother Cancer Surgical History Presence of aortocoronary bypass graft (~01/02/12) Presence of coronary angioplasty implant and graft (~11/24/09) Social History Smoking Status: Never smoker alcohol intake: never substance use type: does not use caffeine: Yes Type: coffee Number of servings: 1 what type of physical activity do you participate in: none ROS ROS Narrative Review of symptoms: Constitutional: Patient admits to generalized weakness but denies fever or chills. Eyes: Patient denies visual changes. ENT: Patient admits to runny nose but denies sore throat or ear pain. Cardiovascular: Patient denies chest pain, chest pressure or palpitations. Respiratory: Patient admits to cough but denies shortness of breath. Gastrointestinal: Patient denies abdominal pain, nausea, vomiting, diarrhea or constipation. Genitourinary: Patient denies dysuria, hematuria or urinary frequency. Musculoskeletal: Patient admits to severe left knee pain and inability to ambulate. Neurologic: Patient admits to paresthesias affecting her left lower extremity especially in her thigh down to the knee. Integumentary: Patient denies abscess, abrasion or rash. Allergic: Patient denies lip swelling, tongue swelling or urticaria. Hematologic: Patient denies easy bleeding or easy bruisability. Psychiatric: Patient denies depression or anxiety. 14 point review of systems otherwise negative except for positives noted above in HPI. Vital Signs Vital Signs Vital Signs: 02/12/23 17:43 02/12/23 19:34 Temperature 97.4 F L Temperature Source Temporal Pulse Rate 52 L 63 Respiratory Rate 16 14 Blood Pressure 174/54 H 161/74 H Blood Pressure Mean 94 103 Pulse Ox 96 97 Oxygen Delivery Method Room Air Weight Weight: 201 lb 0.985 oz Body Mass Index (BMI) 36.8 Physical Exam Const alert and oriented x3 Constitutional Narrative: Patient is obese and appears to be in significant pain. General Appearance: cooperative HEENT normocephalic, head/scalp atraumatic, hearing grossly normal bilaterally and moist oral mucous membranes Eyes PERRL and EOMs intact bilaterally Resp normal respiratory effort, no retractions, no use of accessory muscles and clear to auscultation bilaterally Cardio regular rate and regular rhythm GI normal to inspection, nondistended, normoactive bowel sounds, soft to palpation, non-tender and non-distended GI Narrative: Obese. Extremity Extremity Narrative: Patient has limited range of motion of the left knee with no obvious outward swelling or erythema but she does have exquisite pain with palpation and weightbearing. Skin Skin Narrative: Patient has no evidence of rash at this time. Neuro oriented x3, CN's II-XII intact bilaterally, moves all extremities and no focal motor deficits Sensorium / Orientation: awake, alert, oriented to person, oriented to place and oriented to time Speech: speech normal Psych affect normal Results Medical Records Data Attestation: I reviewed the patient's medical records Lab / Micro Data Attestation: I reviewed the patient's lab results. 02/12/23 18:10 02/12/23 18:10 Labs: Laboratory Results - last 24 hr 02/12/23 18:10: WBC 8.5, RBC 4.76, Hgb 13.8, Hct 42.8, MCV 89.9, MCH 29.0, MCHC 32.2, RDW Std Deviation 45.1 H, RDW Coeff of Amara 13.6, Plt Count 233, MPV 9.6, Immature Gran % (Auto) 0.500, Neut % (Auto) 71.4 H, Lymph % (Auto) 18.4 L, [place] % (Auto) 6.5, Eos % (Auto) 2.6, Baso % (Auto) 0.6, Absolute Neuts (auto) 6.1, Absolute Lymphs (auto) 1.57, Nucleated RBC % 0, Sodium 139, Potassium 3.7, Chloride 107, Carbon Dioxide 27.0, Anion Gap 5, BUN 19 H, Creatinine 1.29 H, Estim Creat Clear Calc 27.51, Est GFR (MDRD) Af Amer 51 L, Est GFR (MDRD) Non-Af 42 L, BUN/Creatinine Ratio 14.7, Glucose 145 H, Calcium 10.0 Imagaing Radiology Impression Knee X-Ray 02/12/23 18:14 IMPRESSION: Degenerative change. No acute fracture or dislocation. Electronically Signed: Antonio Mccurdy MD at 18:37 EST , Venous Duplex 02/12/23 18:15 IMPRESSION: No evidence of deep venous thrombosis.. Fisher''s cyst measuring 3.3 x 2.7 x 1.2 cm. Electronically Signed: Antonio Mccurdy MD at 18:54 EST Reading Location ID and State: [facility] / [place] Tel , Service support , Assessment & Plan Assessment/Plan (1) Acute pain of left knee: (2) Inability to ambulate due to left knee: (3) Fisher's cyst, unruptured: QUALIFIERS: Laterality: left Qualified Code(s): M71.22 - Synovial cyst of popliteal space [Fisher], left knee (4) Fall: QUALIFIERS: Encounter type: initial encounter Qualified Code(s): W19.XXXA - Unspecified fall, initial encounter (5) Paresthesia and pain of left extremity: PLAN: Plan 1. Recent mechanical fall with persistent numbness and tingling in her left lower extremity - Admit to general medical floor under observation status. Check MRI of the lumbar spine to assess for possible degenerative disc disease and or nerve compression with subsequent radiculopathy. Give Tylenol as needed for mild to moderate level 1-5 out of 10 pain or fever. Give morphine IV as needed for severe level 6-10 out of 10 pain. 2. Fisher's cyst of the left knee with severe pain in the setting of known osteoarthritis with inability to ambulate complicating #1 - We will consult orthopedic surgeon on-call to see this patient on rounds in the a.m. for possible drainage of her Fisher's cyst and to help assess her MRIs to make any further recommendations to optimize her plan of care with help appreciated in advance. 3. Generalized weakness with ambulatory dysfunction attributable to #1 & #2 - PT/OT and case management consult and treat in the a.m. on rounds as this patient may require long term facility unless her clinical condition rapidly improves with help appreciated in advance. 4. Obesity with BMI of 36.8 this admission compounding #1 - #3 - Weight loss will be recommended. Check TSH. 5. Essential hypertension - Continue home medications as previous plus give as needed IV hydralazine for systolic blood pressure greater than 160 mmHg. 6. Hyperlipidemia; with intolerance to statins on ezetimibe - Resume home regimen. 7. Diabetes mellitus type 2; of unknown control -ADA diet. Fingerstick blood sugars before every meal and at bedtime plus sliding scale insulin. Check hemoglobin A1c to objectively evaluate quality of diabetic control. 8. 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 Resume aspirin as previous. Patient notably has listed allergies to clopidogrel and prasugrel. 9. History of UTIs - Noted. We will check UA this admission. 10. History of lipoma on back - Noted. 11. GERD - Resume Pepcid as previous. 12. DVT prophylaxis - Heparin 5,000 units SQ 3 times daily plus SCDs on the right lower extremity. Total time: Approximately 55 minutes. Charges/Coding Visit Charges Inpatient E&M: 46669 Init Hosp L2 OBSV E&M: 13578 Observ/hosp same date L2
--- OUTSIDE RECORDS SUMMARY | 2023-02-12 20:36 | XMS RPT_ITS | CCD ---
Author Name Unknown Address [address] [place] [id number] Organization [facility] Care Team Providers Care Crm Coordinator Name Role Phone Ro Botello Unavailable Unavailable Ro Botello Unavailable Unavailable Allergies Allergy Classification Reported Allergen(s) Allergy Type Date of Onset Reaction(s) Facility (2 sources) clopidogrel Drug Allergy 03-04-2011 tongue blisters [facility] Work Phone: [phone] (2 sources) Hmg-Coa Reductase Inhibitors (Statins) drug allergy 06-19-2010 Intolerance, Myalgias [facility] Work Phone: [phone] (2 sources) prasugrel Drug Allergy 09-09-2011 tongue blisters [facility] Work Phone: [phone] (2 sources) Sulfonamides (Antibiotic) drug allergy 06-19-2010 [facility] Work Phone: [phone] Medications Completed/Discontinued Medications Medication Drug Class(es) Dates Sig (Normalized) Sig (Original) amLODIPine 5 mg oral tablet (2 sources) Dihydropyridine Calcium Channel [facility] Start: 05-19-2015 take 1 tablet by mouth once daily AMLODIPINE BESYLATE 5 MG TABS One tablet by mouth daily AMLODIPINE BESYLATE [id number] Marleni Magana PA-C aspirin 81 mg oral tablet (4 sources) Nonsteroidal Anti-inflammatory Drug Start: 06-19-2010 take 1 tablet by mouth once daily ASPIRIN 81 MG TABS One tablet by mouth daily ASPIRIN [id number] Beatriz Sorensen Problems Active Problems Problem Classification [...] disease (4 sources) Atherosclerotic heart disease of [place] coronary artery without angina pectoris; Translations: [Coronary [...] (2 sources) Long-term drug therapy; Translations: [Other residential (current) drug therapy] Onset: 06-19-2010 06-19-2010 Past [...] Start: 05-19-2015 End: 08-11-2015 Nuclear stress test -[facility] Marleni Magana PA-C Work Phone: Start: [...] Up Appt Other Follow Up Appt Other [facility] Work Phone: Start: 01-08-2017 End: 01-08-2017 MMM MMM [facility] Work Phone: Start: 07-12-2016 End: 07-12-2016 Follow Up Appt 6 months Follow Up Appt 6 months [facility] Work Phone: Start: 07-12-2016 End: 07-12-2016 PFM PFM [facility] Work Phone: Start: 01-05-2016 End: 01-05-2016 MMM MMM [facility] Work Phone: Start: 08-29-2015 End: 08-29-2015 Follow Up Appt 6 months Follow Up Appt 6 months [facility] Work Phone: Start: 08-29-2015 End: 08-29-2015 PFM PFM [facility] Work Phone: Start: 05-19-2015 End: 05-19-2015 Ecg routine ecg w/least 12 lds w/i&r EKG (In office) [facility] Work Phone: Start: 05-19-2015 End: 05-19-2015 Follow Up Appt 3 months Follow Up Appt 3 months [facility] Work Phone: Start: 05-19-2015 End: 05-19-2015 Follow Up Appt 6 months Follow Up Appt 6 months [facility] Work Phone: Start: 05-19-2015 End: 05-19-2015 MMM MMM [facility] Work Phone: Start: 05-19-2015 End: 05-19-2015 Nuclear stress test -[facility] Nuclear stress test -[facility] Work Phone: Start: 05-19-2015 End: 05-19-2015 PFM PFM [facility] Work Phone: Start: 10-10-2014 End: 10-10-2014 Follow Up Appt 6 months Follow Up Appt 6 months [facility] Work Phone: Start: 10-10-2014 End: 10-10-2014 MMM MMM [facility] Work Phone: Start: 06-06-2014 End: 09-30-2014 *Hepatic Function Panel *Hepatic Function Panel [facility] Work Phone: Start: 06-06-2014 [...] Phone: Start: 02-09-2014 End: 02-09-2014 PFM PFM [facility] Work Phone: Start: 11-24-2013 End: 12-06-2013 *Hepatic Function Panel *Hepatic Function Panel [facility] Work Phone: Start: 11-24-2013 End: 12-06-2013 Lipid panel [AGGREGATE] *Lipid Profile CC PCP [facility] Work Phone: Start: 08-24-2013 End: 08-26-2013 *Hepatic Function Panel *Hepatic Function Panel [facility] Work Phone: Start: 08-24-2013 End: 08-26-2013 Lipid panel [AGGREGATE] *Lipid Profile CC PCP [facility] Work Phone: Start: 08-16-2013 End: 08-16-2013 Follow Up Appt 6 months Follow Up Appt 6 months [facility] Work Phone: Start: 08-16-2013 End: 08-16-2013 MMM MMM [facility] Work Phone: Start: 02-24-2013 End: 03-17-2013 *Hepatic Function Panel *Hepatic Function Panel [facility] Work Phone: Start: 02-24-2013 End: 03-17-2013 Lipid panel [AGGREGATE] *Lipid Profile CC PCP [facility] Work Phone: Start: 02-02-2013 End: 02-02-2013 Follow Up Appt 6 months Follow Up Appt 6 months [facility] Work Phone: Start: 02-02-2013 End: 02-02-2013 PFM PFM [facility] Work Phone: Start: 11-30-2012 End: 12-09-2012 *Hepatic Function Panel *Hepatic Function Panel [facility] Work Phone: Start: 11-30-2012 End: 12-09-2012 Lipid panel [AGGREGATE] *Lipid Profile CC PCP [facility] Work Phone: Start: 10-24-2012 End: 12-02-2012 *Hepatic Function Panel *Hepatic Function Panel [facility] Work Phone: Start: 10-24-2012 End: 12-02-2012 Lipid panel [AGGREGATE] *Lipid Profile CC PCP [facility] Work Phone: Start: 08-06-2012 End: 01-26-2013 Follow Up Appt 6 months Follow Up Appt 6 months [facility] Work Phone: Start: 08-06-2012 End: 01-26-2013 PFM PFM [facility] Work Phone: Start: 07-25-2012 End: 07-30-2012 *Hepatic Function Panel *Hepatic Function Panel [facility] Work Phone: Start: 07-25-2012 End: 07-30-2012 Lipid panel [AGGREGATE] *Lipid Profile [facility] Work Phone: Start: 03-09-2012 End: 07-30-2012 *Hepatic Function Panel *Hepatic Function Panel [facility] Work Phone: Start: 03-09-2012 End: 07-30-2012 Cardiac Rehab Cardiac Rehab [facility] Work Phone: Start: 03-09-2012 End: 03-09-2012 Cardiovascular stress test using treadmill Treadmill stress test (no imaging) [facility] Work Phone: Start: 03-09-2012 End: 03-09-2012 Ecg routine ecg w/least 12 lds w/i&r EKG (In office) [facility] Work Phone: Start: 03-09-2012 End: 07-30-2012 Follow Up Appt 3 months Follow Up Appt 3 months [facility] Phone: Start: 03-09-2012 End: 07-30-2012 Lipid panel [AGGREGATE] *Lipid Profile [facility] Phone: Start: 09-09-2011 End: 10-15-2011 *Hepatic Function Panel *Hepatic Function Panel [facility] Phone: Start: 09-09-2011 End: 09-09-2011 Follow Up Appt 6 months Follow Up Appt 6 months [facility] Phone: Start: 09-09-2011 End: 10-15-2011 Lipid panel [AGGREGATE] *Lipid Profile [facility] Phone: Start: 03-04-2011 End: 03-04-2011 Ecg routine ecg w/least 12 lds w/i&r EKG (In office) [facility] Phone: Start: 03-04-2011 End: 03-04-2011 Follow Up Appt 6 months Follow Up Appt 6 months [facility] Phone: Patient Education HYPERLIPIDEMIA [facility] Phone: Additional Source Comments FOR RECORDS PERTAINING [...] BE BASED ON THE PRIMARY CLINICAL RECORDS. [employer] provides no warranty or guarantee of the accuracy or completeness of information in this document.
[2023-02-12 21:00] VITALS: PULSE 58; RESP 17; O2SAT 96
--- OUTSIDE RECORDS SUMMARY | 2023-02-12 21:10 | XMS RPT_ITS | CCD ---
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 Name Role Phone Ro Botello Unavailable Unavailable Ro Botello Unavailable Unavailable Allergies Allergy Classification Reported Allergen(s) Allergy Type Date of Onset Reaction(s) Facility (2 sources) clopidogrel Drug Allergy 03-04-2011 tongue blisters [facility] Work Phone: [phone] (2 sources) Hmg-Coa Reductase Inhibitors (Statins) drug allergy 06-19-2010 Intolerance, Myalgias [facility] Work Phone: [phone] (2 sources) prasugrel Drug Allergy 09-09-2011 tongue blisters [facility] Work Phone: [phone] (2 sources) Sulfonamides (Antibiotic) drug allergy 06-19-2010 [facility] Work Phone: [phone] Medications Completed/Discontinued Medications Medication Drug Class(es) Dates Sig (Normalized) Sig (Original) amLODIPine 5 mg oral tablet (2 sources) Dihydropyridine Calcium Channel [facility]da Start: 05-19-2015 take 1 tablet by mouth once daily AMLODIPINE BESYLATE 5 MG TABS One tablet by mouth daily AMLODIPINE BESYLATE [id number] Marleni Magana PA-C aspirin 81 mg oral tablet (4 sources) Nonsteroidal Anti-inflammatory Drug Start: 06-19-2010 take 1 tablet by mouth once daily ASPIRIN 81 MG TABS One tablet by mouth daily ASPIRIN [id number] Beatriz Sorensen Problems Active Problems Problem Classification [...] disease (4 sources) Atherosclerotic heart disease of [place] coronary artery without angina pectoris; Translations: [Coronary [...] (2 sources) Long-term drug therapy; Translations: [Other long-term (current) drug therapy] Onset: 06-19-2010 06-19-2010 Past [...] Start: 05-19-2015 End: 08-11-2015 [facility] Marleni Magana PA-C Work Phone: Start: 05-19-2015 [...] Up Appt Other Follow Up Appt Other [facility] Work Phone: Start: 01-08-2017 End: 01-08-2017 MMM MMM [facility] Work Phone: Start: 07-12-2016 End: 07-12-2016 Follow Up Appt 6 months Follow Up Appt 6 months [facility] Work Phone: Start: 07-12-2016 End: 07-12-2016 PFM PFM [facility] Work Phone: Start: 01-05-2016 End: 01-05-2016 MMM MMM [facility] Work Phone: Start: 08-29-2015 End: 08-29-2015 Follow Up Appt 6 months Follow Up Appt 6 months [facility] Work Phone: Start: 08-29-2015 End: 08-29-2015 PFM PFM [facility] Work Phone: Start: 05-19-2015 End: 05-19-2015 Ecg routine ecg w/least 12 lds w/i&r EKG (In office) [facility] Work Phone: Start: 05-19-2015 End: 05-19-2015 Follow Up Appt 3 months Follow Up Appt 3 months [facility] Work Phone: Start: 05-19-2015 End: 05-19-2015 Follow Up Appt 6 months Follow Up Appt 6 months [facility] Work Phone: Start: 05-19-2015 End: 05-19-2015 MMM MMM [facility] Work Phone: Start: 05-19-2015 End: 05-19-2015 Nuclear stress test -Lexiscan Nuclear stress test -[facility] Work Phone: Start: 05-19-2015 End: 05-19-2015 PFM PFM [facility] Work Phone: Start: 10-10-2014 End: 10-10-2014 Follow Up Appt 6 months Follow Up Appt 6 months [facility] Work Phone: Start: 10-10-2014 End: 10-10-2014 MMM MMM [facility] Work Phone: Start: 06-06-2014 End: 09-30-2014 *Hepatic Function Panel *Hepatic Function Panel [facility] Work Phone: Start: 06-06-2014 [...] Phone: Start: 02-09-2014 End: 02-09-2014 PFM PFM [facility] Work Phone: Start: 11-24-2013 End: 12-06-2013 *Hepatic Function Panel *Hepatic Function Panel [facility] Work Phone: Start: 11-24-2013 End: 12-06-2013 Lipid panel [AGGREGATE] *Lipid Profile CC PCP [facility] Work Phone: Start: 08-24-2013 End: 08-26-2013 *Hepatic Function Panel *Hepatic Function Panel [facility] Work Phone: Start: 08-24-2013 End: 08-26-2013 Lipid panel [AGGREGATE] *Lipid Profile CC PCP [facility] Work Phone: Start: 08-16-2013 End: 08-16-2013 Follow Up Appt 6 months Follow Up Appt 6 months [facility] Work Phone: Start: 08-16-2013 End: 08-16-2013 MMM MMM [facility] Work Phone: Start: 02-24-2013 End: 03-17-2013 *Hepatic Function Panel *Hepatic Function Panel [facility] Work Phone: Start: 02-24-2013 End: 03-17-2013 Lipid panel [AGGREGATE] *Lipid Profile CC PCP [facility] Work Phone: Start: 02-02-2013 End: 02-02-2013 Follow Up Appt 6 months Follow Up Appt 6 months [facility] Work Phone: Start: 02-02-2013 End: 02-02-2013 PFM PFM [facility] Work Phone: Start: 11-30-2012 End: 12-09-2012 *Hepatic Function Panel *Hepatic Function Panel [facility] Work Phone: Start: 11-30-2012 End: 12-09-2012 Lipid panel [AGGREGATE] *Lipid Profile CC PCP [facility] Work Phone: Start: 10-24-2012 End: 12-02-2012 *Hepatic Function Panel *Hepatic Function Panel [facility] Work Phone: Start: 10-24-2012 End: 12-02-2012 Lipid panel [AGGREGATE] *Lipid Profile CC PCP [facility] Work Phone: Start: 08-06-2012 End: 01-26-2013 Follow Up Appt 6 months Follow Up Appt 6 months [facility] Work Phone: Start: 08-06-2012 End: 01-26-2013 PFM PFM [facility] Work Phone: Start: 07-25-2012 End: 07-30-2012 *Hepatic Function Panel *Hepatic Function Panel [facility] Work Phone: Start: 07-25-2012 End: 07-30-2012 Lipid panel [AGGREGATE] *Lipid Profile [facility] Work Phone: Start: 03-09-2012 End: 07-30-2012 *Hepatic Function Panel *Hepatic Function Panel [facility] Work Phone: Start: 03-09-2012 End: 07-30-2012 Cardiac Rehab Cardiac Rehab [facility] Work Phone: Start: 03-09-2012 End: 03-09-2012 Cardiovascular stress test using treadmill Treadmill stress test (no imaging) [facility] Work Phone: Start: 03-09-2012 End: 03-09-2012 Ecg routine ecg w/least 12 lds w/i&r EKG (In office) [facility] Work Phone: Start: 03-09-2012 End: 07-30-2012 Follow Up Appt 3 months Follow Up Appt 3 months [facility] Phone: Start: 03-09-2012 End: 07-30-2012 Lipid panel [AGGREGATE] *Lipid Profile [facility] Phone: Start: 09-09-2011 End: 10-15-2011 *Hepatic Function Panel *Hepatic Function Panel [facility] Phone: Start: 09-09-2011 End: 09-09-2011 Follow Up Appt 6 months Follow Up Appt 6 months [facility] Phone: Start: 09-09-2011 End: 10-15-2011 Lipid panel [AGGREGATE] *Lipid Profile [facility] Phone: Start: 03-04-2011 End: 03-04-2011 Ecg routine ecg w/least 12 lds w/i&r EKG (In office) [facility] Phone: Start: 03-04-2011 End: 03-04-2011 Follow Up Appt 6 months Follow Up Appt 6 months [facility] Phone: Patient Education HYPERLIPIDEMIA [facility] Phone: Additional Source Comments FOR RECORDS PERTAINING [...] BE BASED ON THE PRIMARY CLINICAL RECORDS. [employer] provides no warranty or guarantee of the accuracy or completeness of information in this document.
[2023-02-12 22:07] VITALS: BMI 35.6
[2023-02-12 22:34] VITALS: BP 172/58; PULSE 49; RESP 18; TEMP 36.6; O2SAT 97
[2023-02-12] MEDS: Lactated Ringers 1,000 ML 75 ML IV (23:09)
[2023-02-12] MEDS: Heparin Injection (Vial) 5,000 UNIT/ML VIAL 5000 UNIT SC (23:09)
[2023-02-12] MEDS: dexAMETHasone 10 MG/ML Vial 6 MG IV (23:09)
[2023-02-12] MEDS: 0.9% Saline Lock 10 ML Syringe IV (23:09)
[2023-02-12] MEDS: Acetaminophen 325 MG Tablet 650 MG PO (23:30)
[2023-02-12] MEDS: Famotidine 20 MG Tablet PO (23:30)
[2023-02-12 23:55] LABS: Bedside Glucose 151 mg/dL (74-106)
[2023-02-13 05:14] VITALS: BMI 35.6
[2023-02-13] MEDS: Acetaminophen 325 MG Tablet 650 MG PO (06:25)
[2023-02-13] MEDS: Isosorbide Mononitrate 30 MG Tablet PO (06:28)
[2023-02-13] MEDS: Lisinopril 40 MG Tablet PO (06:28)
[2023-02-13 06:37] VITALS: BP 182/61; PULSE 55; RESP 16; TEMP 36.8; O2SAT 94
[2023-02-13 06:51] LABS: Bedside Glucose 172 mg/dL (74-106)
[2023-02-13 07:51] LABS: Absolute Lymphocyte Count 0.62 X10^3/uL (0.83-4.51); Absolute Neutrophil Count 5.7 X10^3/uL (2.0-7.7); Basophil# 0.01 X10^3/uL; Basophil% 0.2 % (0-1); Hematocrit 44.3 % (37-47); Hemoglobin 14.4 g/dL (12.0-15.0); Lymphocyte # 0.62 X10^3/ul (0.83-4.51); Lymphocyte % 9.7 % (19-41); Mean Corp Hgb Conc 32.5 g/dL (32-36); Mean Corpuscular Hgb 29.3 pg (27.0-32.0); Mean Platelet Vol. 10.1 fl (6.2-12.0); Monocyte# 0.05 X10^3/uL; Monocyte% 0.8 % (0-10); NRBC Flagged by Analyzer 0 % (0-5); Neutrophil # 5.66 X10^3/uL (2.7-7.7); Neutrophil % 88.8 % (47-70); Platelet Count 244 K/mm3 (150-450); RBC Distribution Width CV 13.4 % (11.6-14.6); RBC Distribution Width SD 44.3 fl (35.1-43.9); Red Blood Count 4.92 M/mm3 (4.2-5.4); White Blood Count 6.4 K/mm3 (4.4-11.0)
[2023-02-13 08:24] LABS: ALB/GLOB Ratio 0.9 RATIO (0.9-2.4); AST(SGOT) 66 U/L (15-37); Alanine Aminotransfer ALT/SGPT 65 U/L (13-56); Albumin, Serum 3.3 g/dL (3.2-5.0); Alkaline Phosphatase 101 U/L (45-117); Anion Gap 9 (5-15); BUN 16 mg/dL (7-18); BUN/Creat Ratio 14.8 RATIO (10-20); Calcium,Total 9.5 mg/dL (8.5-10.1); Chloride 105 mmol/L (98-107); Creatinine, Serum 1.08 mg/dL (0.55-1.02); EST Glomerular Filtration Rate 52 mL/min (>60); Est Glom Filt Rate - Afr Amer 63 mL/min (>60); Estimated Creatinine Clearance 31.35 ml/min; Globulin 3.8 g/dL (2.2-4.2); Glucose 187 mg/dL (74-106); Potassium 3.9 mmol/L (3.5-5.1); Protein, Total 7.1 g/dL (6.4-8.2); Sodium Level 138 mmol/L (136-145); Thyroid Stim Hormone (TSH) 0.74 uIU/mL (0.358-3.74)
[2023-02-13 09:10] VITALS: BP 169/64; PULSE 55; RESP 18; TEMP 36.7; O2SAT 95
--- NOTE | 2023-02-13 09:30 | MRI_ITS ---
HISTORY: Back pain with left thigh paresthesias after fall. TECHNIQUE: Multiplanar and multisequence MR images of the lumbar spine were obtained without intravenous contrast. 130 images. COMPARISON: CT 04/25/2022. FINDINGS: VERTEBRAE: Vertebral body heights maintained. T11 vertebral body hemangioma again seen. Mild degenerative endplate changes. ALIGNMENT: No anterior or posterior subluxation. SPINAL CANAL: Normal morphology and position of the conus medullaris at L2. No gross epidural collection or ligamentous disruption. INTERVERTEBRAL DISCS: T12-L1: No significant posterior disc protrusion, central canal stenosis, or foraminal narrowing based on the sagittal images. L1-2: No significant posterior disc protrusion, central canal stenosis, or foraminal narrowing. Facet arthropathy. L2-3: Mild disc bulge with facet arthropathy resulting in mild central canal stenosis and bilateral foraminal narrowing. L3-4: Mild disc bulge with facet arthropathy superimposed on a developmentally narrow spinal canal resulting in mild central canal stenosis and bilateral foraminal narrowing. L4-5: Mild disc bulge with facet arthropathy resulting in minimal narrowing of the thecal sac and mild right greater than left foraminal narrowing. L5-S1: No significant posterior disc protrusion or central canal stenosis. Facet arthropathy with mild left foraminal narrowing SOFT TISSUES: Mild posterior subcutaneous cutaneous edema. MRI/Spine Lumbar (Routine) IMPRESSION: Mild multilevel degenerative disc disease of the lumbar spine as above. Electronically Signed: Nadine Mederos MD at 10:32 EST ,
--- NOTE | 2023-02-13 10:13 | CONS.ORTHO ---
HPI Consult Data Date of Consult: 02/13/23 HPI Narrative Reason for Consultation: Left knee arthritis and Fisher's cyst. HPI Narrative: JOSSE HORN, is a 82 F with PMH of essential hypertension, hyperlipidemia; with intolerance to statins on ezetimibe, diabetes mellitus type 2; of unknown control, obesity with BMI of 36.8 this admission, history of coronary artery disease; status post CABG with redo (2009 & 2011) and stents (2009 & 2019), history of UTIs, history of lipoma on back, GERD, and osteoarthritis who presents to the emergency room on 02/12/2023 with left knee pain as well as left leg and back pain. She did fall over a week ago. Pain has been Progressively worse. Patient states she is unable to ambulate due to pain. Some numbness and tingling in left lower extremity. She denies associated fever, chills, nausea, vomiting, diarrhea, constipation other recent illness or recent medication changes. She also denies head trauma or loss of consciousness associated with her fall. In the ER she had a left lower extremity Doppler which revealed no DVT but did show an ~3.3 cm x ~2.7 cm x ~1.2 cm Fisher's cyst behind her left knee X-rays of the left knee did not reveal any acute process. There is degenerative changes and known osteoarthritis throughout the knee most notably patellofemoral compartment with [id number]-[id number] osteoarthritis and osteophyte formation of medial and lateral patella. [facility] Medical History Atherosclerotic heart disease of [place] coronary artery without angina pectoris Atrioventricular block CAD (coronary artery disease) Diabetes mellitus Essential hypertension History of left heart catheterization (LHC) (~06/20/21) HLD (hyperlipidemia) Hypertension Lipoma of back Percutaneous transluminal coronary angioplasty (PTCA) within last 14 to 24 months Presence of stent in coronary artery (~03/15/19) Pure hypercholesterolemia Sinus bradycardia SOB (shortness of breath) on exertion Status post left heart catheterization (LHC) (~03/15/19) Urinary tract infection with hematuria Home Medications metformin 500 mg tablet,extended release 24 hr 500 mg PO DAILY dm 03/12/19 [History Last Taken 02/12/23] aspirin 81 mg tablet,delayed release (Adult Aspirin Regimen) 81 mg PO QDAY decrease plt #90 tabs 04/26/21 [Rx Last Taken 02/12/23] metoprolol succinate 25 mg tablet,extended release 24 hr See Rx Instructions .Route .COMPLEX #45 tabs 04/26/21 [Rx Last Taken 02/12/23] nitroglycerin 0.4 mg sublingual tablet (Nitrostat) 0.4 mg sublingual Q5M PRN chest pain #25 tabs 06/20/21 [Rx Last Taken Unknown] famotidine 20 mg tablet 20 mg PO BID PRN gerd 11/07/21 [History Last Taken Unknown] isosorbide mononitrate 30 mg tablet,extended release 24 hr 30 mg PO DAILY heart #30 tabs 07/29/22 [Rx Last Taken 02/12/23] lisinopril 20 mg tablet 40 mg PO DAILY bp 12/03/22 [History Last Taken 02/12/23] ezetimibe 10 mg tablet (Zetia) 10 mg PO DAILY dm #90 tabs 12/16/22 [Rx Last Taken 02/12/23] Allergy/AdvReac Type Severity Reaction Status Date / Time clopidogrel [From Plavix] Allergy Rash Verified 02/12/23 22:13 Sulfa (Sulfonamide Allergy Rash Verified 02/12/23 22:13 Antibiotics) Ciispys-RTJ-UzR Reductase AdvReac Severe Intolerance, Verified 02/12/23 22:13 Inhibitor mylagias [Gwbnflk-Lsf-Grg Reductase Inhibitor] prasugrel [From Effient] AdvReac Intermediate Tongue Verified 02/12/23 22:13 blisters Family History Father CAD (coronary artery disease) Myocardial infarction Brother Myocardial infarction CAD (coronary artery disease) Brother Myocardial infarction Sister CAD (coronary artery disease) Diabetes Myocardial infarction Mother Cancer Surgical History Presence of aortocoronary bypass graft (~01/02/12) Presence of coronary angioplasty implant and graft (~11/24/09) Social History Smoking Status: Never smoker alcohol intake: never substance use type: does not use caffeine: Yes Type: coffee Number of servings: 1 what type of physical activity do you participate in: none Vital Signs Vital Signs Vital Signs: 02/12/23 17:43 02/12/23 19:34 02/12/23 19:42 Temperature 97.4 F L Temperature Source Temporal Pulse Rate 52 L 63 61 Pulse Strength Respiratory Rate 16 14 15 Respiratory Effort Respiratory Depth Respiratory Pattern Blood Pressure 174/54 H 161/74 H Blood Pressure Mean 94 103 Blood Pressure Source Blood Pressure Position Blood Pressure Location Pulse Ox 96 97 96 Oxygen Delivery Method Room Air Room Air 02/12/23 21:00 02/12/23 22:34 02/13/23 06:37 Temperature 98 F 98.3 F Temperature Source Oral Temporal Pulse Rate 58 L 49 L 55 L Pulse Strength Respiratory Rate 17 18 16 Respiratory Effort Respiratory Depth Respiratory Pattern Blood Pressure 172/58 H 182/61 H Blood Pressure Mean 96 101 Blood Pressure Source Monitor Monitor Blood Pressure Position Semi-Fowlers Semi-Fowlers Blood Pressure Location Right Arm Right Arm Pulse Ox 96 97 94 Oxygen Delivery Method Room Air Room Air Room Air 02/13/23 09:10 02/13/23 09:10 02/13/23 09:18 Temperature 98.0 F Temperature Source Oral Pulse Rate 55 L Pulse Strength Normal (2+) Respiratory Rate 18 Respiratory Effort Normal Non-Labored Respiratory Depth Normal Respiratory Pattern Normal Blood Pressure 169/64 H Blood Pressure Mean 99 Blood Pressure Source Monitor Blood Pressure Position Semi-Fowlers Blood Pressure Location Right Arm Pulse Ox 95 Oxygen Delivery Method Room Air Weight Weight: 85.6 kg Body Mass Index (BMI) 35.6 Physical Exam Narrative Patient resting comfortably in bed No signs of acute distress Satting well on room air Knee immobilizer and ice No erythema or edema Nontender to palpation Limb is warm to touch, Sensation intact throughout entire lower extremity, including saphenous, sural, superficial and deep peroneal, and tibial distribution. DP/PT pulses bounding. Knee flexion extension strength 4/5. pain Limited Range of motion 0 degrees to 90 degrees Calf nontender to palpation, no erythema, no edema. Negative Homans Injection procedure: Left knee was prepped in sterile fashion. cleaned with alcohol and betadine. site over left knee was marked out and 1 mL 40 mg Kenalog and 5 mL of 0.25% Marcaine injected into left knee using a 21 gauge needle. patient tolerated procedure well. educated on the risk of infection. Lab / Micro Data 02/13/23 07:03 02/13/23 07:03 Labs: Laboratory Results - last 24 hr 02/12/23 18:10: WBC 8.5, RBC 4.76, Hgb 13.8, Hct 42.8, MCV 89.9, MCH 29.0, MCHC 32.2, RDW Std Deviation 45.1 H, RDW Coeff of Amara 13.6, Plt Count 233, MPV 9.6, Immature Gran % (Auto) 0.500, Neut % (Auto) 71.4 H, Lymph % (Auto) 18.4 L, [place] % (Auto) 6.5, Eos % (Auto) 2.6, Baso % (Auto) 0.6, Absolute Neuts (auto) 6.1, Absolute Lymphs (auto) 1.57, Nucleated RBC % 0, Sodium 139, Potassium 3.7, Chloride 107, Carbon Dioxide 27.0, Anion Gap 5, BUN 19 H, Creatinine 1.29 H, Estim Creat Clear Calc 27.51, Est GFR (MDRD) Af Amer 51 L, Est GFR (MDRD) Non-Af 42 L, BUN/Creatinine Ratio 14.7, Glucose 145 H, Calcium 10.0 02/12/23 23:18: POC Glucose 151 H 02/13/23 06:29: POC Glucose 172 H 02/13/23 07:03: WBC 6.4, RBC 4.92, Hgb 14.4, Hct 44.3, MCV 90.0, MCH 29.3, MCHC 32.5, RDW Std Deviation 44.3 H, RDW Coeff of Amara 13.4, Plt Count 244, MPV 10.1, Immature Gran % (Auto) 0.500, Neut % (Auto) 88.8 H, Lymph % (Auto) 9.7 L, [place] % (Auto) 0.8, Eos % (Auto) 0.0, Baso % (Auto) 0.2, Absolute Neuts (auto) 5.7, Absolute Lymphs (auto) 0.62 L, Nucleated RBC % 0, Sodium 138, Potassium 3.9, Chloride 105, Carbon Dioxide 24.0, Anion Gap 9, BUN 16, Creatinine 1.08 H, Estim Creat Clear Calc 31.35, Est GFR (MDRD) Af Amer 63, Est GFR (MDRD) Non-Af 52 L, BUN/Creatinine Ratio 14.8, Glucose 187 H, Calcium 9.5, Total Bilirubin 0.40, AST 66 H, ALT 65 H, Alkaline Phosphatase 101, Total Protein 7.1, Albumin 3.3, Globulin 3.8, Albumin/Globulin Ratio 0.9, TSH 0.74 Imagaing Radiology Impression Knee X-Ray 02/12/23 18:14 IMPRESSION: Degenerative change. No acute fracture or dislocation. Electronically Signed: Antonio Mccurdy MD at 18:37 EST Reading Location ID and State: [address] [place] [address] Tel [phone], Service support , Venous Duplex 02/12/23 18:15 IMPRESSION: No evidence of deep venous thrombosis.. Fisher''s cyst measuring 3.3 x 2.7 x 1.2 cm. Electronically Signed: Antonio Mccurdy MD at 18:54 EST Reading Location ID and State: [address] [place] [address] Tel , Service support , Assessment & Plan Assessment/Plan (1) Fisher's cyst, unruptured: QUALIFIERS: Laterality: left Qualified Code(s): M71.22 - Synovial cyst of popliteal space [Fisher], left knee PLAN: 1. Acute onset pain of known chronic osteoarthritis. Tzpu-oz-[id number] in the patellofemoral compartment 2. Spoke with Dr. Garcia who is on-call. No acute surgical intervention. no benefit to draining bakers cyst 3. We will offer patient cortisone injection in the hospital for acute pain relief and to regain some range of motion and able to progress to physical therapy #4 weightbearing as tolerated no restrictions following cortisone injection 5. Physical therapy inpatient and recommend setting up on an outpatient basis 6. Have patient follow-up in our office in about 6 to 8 weeks for reevaluation 7. Tylenol, NSAIDs ice rest heat as needed for pain control. 8. As soon as patient is able to be without knee immobilizer recommend discontinuing it due to it causing significant restriction of range of motion. 9. Discharge per primary (2) Acute pain of left knee: (3) Osteoarthritis of left knee:
--- NOTE | 2023-02-13 10:52 | PCM.PN.HOSP ---
Reason for Visit Reason for Visit: Diagnoses Synovial cyst of popliteal space [Fisher], left knee (02/12/23) Objective Data Objective Data Vital Signs: Vital Signs Temp Pulse Resp BP Pulse Ox O2 Del Method 98.0 F 55 L 18 169/64 H 95 Room Air 02/13/23 09:10 02/13/23 09:10 02/13/23 09:10 02/13/23 09:10 02/13/23 09:10 02/13/23 09:10 Oxygen Delivery Method Room Air Weight: 188 lb 11.451 oz Body Mass Index (BMI) 35.6 Intake & Output: Intake and Output for Last 24 Hours 02/11/23 02/12/23 02/13/23 23:59 23:59 23:59 Output Total 650 / 650 Balance -650 / -650 Lab / Micro Data 02/13/23 07:03 02/13/23 07:03 Labs: Laboratory Results - last 24 hr 02/12/23 18:10: WBC 8.5, RBC 4.76, Hgb 13.8, Hct 42.8, MCV 89.9, MCH 29.0, MCHC 32.2, RDW Std Deviation 45.1 H, RDW Coeff of Amara 13.6, Plt Count 233, MPV 9.6, Immature Gran % (Auto) 0.500, Neut % (Auto) 71.4 H, Lymph % (Auto) 18.4 L, [place] % (Auto) 6.5, Eos % (Auto) 2.6, Baso % (Auto) 0.6, Absolute Neuts (auto) 6.1, Absolute Lymphs (auto) 1.57, Nucleated RBC % 0, Sodium 139, Potassium 3.7, Chloride 107, Carbon Dioxide 27.0, Anion Gap 5, BUN 19 H, Creatinine 1.29 H, Estim Creat Clear Calc 27.51, Est GFR (MDRD) Af Amer 51 L, Est GFR (MDRD) Non-Af 42 L, BUN/Creatinine Ratio 14.7, Glucose 145 H, Calcium 10.0 02/12/23 23:18: POC Glucose 151 H 02/13/23 06:29: POC Glucose 172 H 02/13/23 07:03: WBC 6.4, RBC 4.92, Hgb 14.4, Hct 44.3, MCV 90.0, MCH 29.3, MCHC 32.5, RDW Std Deviation 44.3 H, RDW Coeff of Amara 13.4, Plt Count 244, MPV 10.1, Immature Gran % (Auto) 0.500, Neut % (Auto) 88.8 H, Lymph % (Auto) 9.7 L, [place] % (Auto) 0.8, Eos % (Auto) 0.0, Baso % (Auto) 0.2, Absolute Neuts (auto) 5.7, Absolute Lymphs (auto) 0.62 L, Nucleated RBC % 0, Sodium 138, Potassium 3.9, Chloride 105, Carbon Dioxide 24.0, Anion Gap 9, BUN 16, Creatinine 1.08 H, Estim Creat Clear Calc 31.35, Est GFR (MDRD) Af Amer 63, Est GFR (MDRD) Non-Af 52 L, BUN/Creatinine Ratio 14.8, Glucose 187 H, Calcium 9.5, Total Bilirubin 0.40, AST 66 H, ALT 65 H, Alkaline Phosphatase 101, Total Protein 7.1, Albumin 3.3, Globulin 3.8, Albumin/Globulin Ratio 0.9, TSH 0.74 Radiography Diagnostic Testing: Radiology Impression Knee X-Ray 02/12/23 18:14 IMPRESSION: Degenerative change. No acute fracture or dislocation. Electronically Signed: Antonio Mccurdy MD at 18:37 EST , Venous Duplex 02/12/23 18:15 IMPRESSION: No evidence of deep venous thrombosis.. Fisher''s cyst measuring 3.3 x 2.7 x 1.2 cm. Electronically Signed: Antonio Mccurdy MD at 18:54 EST , Lumbar Spine MRI 02/13/23 09:30 IMPRESSION: Mild multilevel degenerative disc disease of the lumbar spine as above. Electronically Signed: Nadine Mederos MD at 10:32 EST , Assessment & Plan Assessment/Plan (1) Acute pain of left knee: (2) Inability to ambulate due to left knee: (3) Fisher's cyst, unruptured: QUALIFIERS: Laterality: left Qualified Code(s): M71.22 - Synovial cyst of popliteal space [Fisher], left knee (4) Fall: QUALIFIERS: Encounter type: initial encounter Qualified Code(s): W19.XXXA - Unspecified fall, initial encounter (5) Paresthesia and pain of left extremity: PLAN: Plan 82-year-old female was admitted with pain in the left knee and leg getting worse, unable to bear weight, sharp in quality along with some numbness and tingling for past 1 week. She fell down a week ago and landed on the back/tailbone. 1. Recent mechanical fall with persistent numbness and tingling in her left lower extremity - Admit to general medical floor under observation status. Check MRI of the lumbar spine to assess for possible degenerative disc disease and or nerve compression with subsequent radiculopathy. Give Tylenol as needed for mild to moderate level 1-5 out of 10 pain or fever. Give morphine IV as needed for severe level 6-10 out of 10 pain. 2. Fisher's cyst of the left knee with severe pain in the setting of known osteoarthritis with inability to ambulate complicating #1 - We will consult orthopedic surgeon on-call to see this patient on rounds in the a.m. for possible drainage of her Fisher's cyst and to help assess her MRIs to make any further recommendations to optimize her plan of care with help appreciated in advance. 3. Generalized weakness with ambulatory dysfunction attributable to #1 & #2 - PT/OT and case management consult and treat in the a.m. on rounds as this patient may require shelter facility unless her clinical condition rapidly improves with help appreciated in advance. 4. Obesity with BMI of 36.8 this admission compounding #1 - #3 - Weight loss will be recommended. Check TSH. 5. Essential hypertension - Continue home medications as previous plus give as needed IV hydralazine for systolic blood pressure greater than 160 mmHg. 6. Hyperlipidemia; with intolerance to statins on ezetimibe - Resume home regimen. 7. Diabetes mellitus type 2; of unknown control -ADA diet. Fingerstick blood sugars before every meal and at bedtime plus sliding scale insulin. Check hemoglobin A1c to objectively evaluate quality of diabetic control. 8. 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 Resume aspirin as previous. Patient notably has listed allergies to clopidogrel and prasugrel. 9. History of UTIs - Noted. We will check UA this admission. 10. History of lipoma on back - Noted. 11. GERD - Resume Pepcid as previous. 12. DVT prophylaxis - Heparin 5,000 units SQ 3 times daily plus SCDs on the right lower extremity. Total time: Approximately 55 minutes.
[2023-02-13 11:00] VITALS: PULSE 55
[2023-02-13] MEDS: Metoprolol(XL)Succ 25 MG Tablet 12.5 MG PO (11:00)
[2023-02-13] MEDS: Ezetimibe 10 MG Tablet PO (11:00)
[2023-02-13] MEDS: Menthol/Lanolin/Calamine/Znox 113 GM Tube 1 APPLIC TOPICAL (11:00)
[2023-02-13] MEDS: Triamcinolone Acetonide 40 MG/ML Vial INTRAARTIC (12:00)
[2023-02-13] MEDS: Bupivacaine 0.25% 30 ML Vial 6 ML OPERA.SITE (12:00)
[2023-02-13 12:14] LABS: Bedside Glucose 169 mg/dL (74-106)
--- NOTE | 2023-02-13 12:35 | CASEMGMT ---
MEGGAN UGALDE Assessment: Face to Face with pt for initial transition planning/care coordination assessment. RN AFTAB introduced self and role at [facility], pt voices understanding and consents to assessment. Pt is A&O x4 and answers all questions appropriately at this time. Pt sitting up in bed in no distress. Care providers, pharmacy, and demographics verified/updated. Admitting Dx: fall with inability to ambulate with large bakers cyst PCP:[facility] Specialists:DIEGO, cardio Preferred Pharmacy: [facility] Insurance: [facility] Prescription Benefit: yes LNOK: Messi Duran, ; Gee Duran, son Living Arrangements: Pt lives with in a single story home with 3 steps to enter with a rail. Pt reports she is typically I in ADL's and denies concerns at home. Transportation: Pt drives self and denies concerns with transportation. DME:[employer] with sufficient supplies and a tub seat, no AD for ambulation HHC/SNF: Denies hx of Pt states no concerns with going home at time of dc if she does well with therapy. Pt states she is interested in HHC therapy as her has it through [facility]. She does not want a list of other options of agenices and would like the same as her . Should pt need a walker, provided pt with a verbal in network list of DME providers, pt chose [employer]. Pt states no further concerns/needs. CM to follow. Advised pt to ask CM if any further question/concerns/needs arise, voices understanding. Pt Goal: Home with HHC Plan: Home with HHC pending therapy jake, tc to therapy, pt is on list for eval today. Follow for walker.
--- NOTE | 2023-02-13 14:55 | CASEMGMT ---
Referral made to [facility] for PT via phone call. They state that if pt is DC today then they can accept the pt. MEGGAN Rocha CM. Kendy Cobb RN CM
--- NOTE | 2023-02-13 14:57 | DCINST_ITS ---
Discharge Instructions Diet Discharge Diet: Low fat / Low cholesterol, 1800 Calorie Control Diet and 2000 mg Sodium Diet Activity Discharge Activity: Return to Normal Activity Weight Bearing Status: Weight bearing as tolerated Dressing / Incision Call your doctor if you observe: Fever of 101 or Higher, Coldness, Increased Pain, Numbness or Tingling, Change in Color, Inability to urinate, Inability to have a bowel movement, Using more than 1 pad per hour, Shortness of breath, Dizziness, Fainting spells, Swelling in the ankles, Chest pain, Prolonged hiccupping, Increased palpitations (irregular heartbeat) and Calf discomfort Follow Up Care When: IN 2 WEEKS Test Results: Test results from this visit will be discussed in further detail at your follow- up appointment, if applicable. Discharge Plan Admission Admit Date/Time: 02/12/23 20:48 Primary Reason for Your Visit: Left knee severe pain due to arthritis Attending Provider: Ankur Fontanez Primary Care Provider: Rodríguez Lema Consulting Providers: Antonio Pike; Kurt Garcia; Manuel Montana; Juanpablo Cobb; Johnnie Arcos; Monster Cobb; Jen Villa; Kristie Frye; Mitchel Ernandez; Edd Waggoner; Med Ramirez Instructions Additional Instructions / Restrictions: Advised Tylenol ouug-aky-rmelokr 1 g every 8 hourly for 1 week and then as needed. Discharge Orders/Prescriptions Prescriptions: Continued aspirin [Adult Aspirin Regimen] 81 mg tablet,delayed release (DR/EC) 81 mg PO QDAY Qty: 90 3RF metoprolol succinate 25 mg tablet extended release 24 hr See Rx Instructions .ROUTE .COMPLEX Qty: 45 3RF Dose Instruction: TAKE 1/2 (ONE-HALF) TABLET BY MOUTH ONCE DAILY FOR THE HEART Rx Instructions: TAKE 1/2 (ONE-HALF) TABLET BY MOUTH ONCE DAILY FOR THE HEART famotidine 20 mg tablet 20 mg PO BID PRN (Reason: gerd) lisinopril 20 mg tablet 40 mg PO DAILY nitroglycerin [Nitrostat] 0.4 mg tablet, sublingual 0.4 mg SUBLINGUAL Q5M PRN (Reason: chest pain) Qty: 25 3RF isosorbide mononitrate 30 mg tablet extended release 24 hr 30 mg PO DAILY Qty: 30 12RF ezetimibe [Zetia] 10 mg tablet 10 mg PO DAILY Qty: 90 3RF Held metformin 500 MG tablet extended release 24 hr 500 mg PO DAILY Hold Instructions: Hold for 1 week for creatinine clearance less than 30 mill per minute. Patient Comments: TAKE 1 TABLET BY MOUTH EVERY DAY Referrals / Follow Up: Kurt Garcia DO [Med Staff - Active Staff] - Within 2 Weeks Rodríguez Lema MD [Primary Care Provider] - Within 2 Weeks Disposition Disposition (needs filled in before D/C Order can be placed): Home Health Service
--- NOTE | 2023-02-13 14:59 | CASEMGMT ---
Addendum entered by Josefina Durán 02/13/23 15:46: RN AFTAB sent referral for [facility] to [facility] via [facility] at this time. Addendum entered by Josefina Durán 02/13/23 15:05: Updated Gabby at [facility] that pt will dc today. Original Note: Pt to dc today. Therapy stated pt is appropriate for C. [facility] can accept pt if dc is today. Updated hospitalist who states pt will dc today. Pt aware that [facility] will see pt.
[2023-02-13 15:02] VITALS: O2SAT 95
--- NOTE | 2023-02-13 15:03 | DS.PCM_ITS ---
Providers Date of Admission: 02/12/23 Date of Discharge: 02/13/23 Primary Care Physician: Dr. Rodríguez Lema MD Consultations 02/12/23 21:01 Consult: Orthopedics Routine Consulting Provider: [facility] Reason for Consult: Fall with subsequent left lower extremity pain and paresthesias EMERGENT Consult: No MD Notified: Yes Date Notified: 02/13/23 Time Notified: 06:47 Method of Notification: Verbal Reason For Visit: FALL WITH INABILITY TO AMBULATE WITH LARGE FISHER'S Diagnosis Discharge Diagnosis (1) Fisher's cyst, unruptured: Status: Acute Code(s): M71.20 - Synovial cyst of popliteal space [Fisher], unspecified knee Qualifiers: Laterality: left Qualified Code(s): M71.22 - Synovial cyst of popliteal space [Fisher], left knee (2) Acute pain of left knee: Status: Acute Code(s): M25.562 - Pain in left knee (3) Osteoarthritis of left knee: Status: Acute Code(s): M17.12 - Unilateral primary osteoarthritis, left knee Plan 82-year-old female was admitted with pain in the left knee and leg getting worse, unable to bear weight, sharp in quality along with some numbness and tingling for past 1 week. She fell down a week ago and landed on the back/ ilbone. 1. Recent mechanical fall with persistent numbness and tingling in her left lower extremity -the patient was admitted on MedSur floor under observation status. Knee x-ray initially reviewed and shows degenerative arthritis. Furthermore MRI of lumbar spine was done which shows mild multilevel degenerative disc disease. Patient was evaluated by orthopedic surgeon. Had steroid, Kenalog injection. Advised weightbearing as tolerated. Follow-up with orthopedic service. Patient is being discharged home. 2. Fisher's cyst of the left knee with severe pain in the setting of known os teoarthritis with inability to ambulate: Orthopedic surgery no special treatment for Fisher's cyst. No acute surgical intervention. No benefit for draining Fisher's cyst. 3. Generalized weakness with ambulatory dysfunction -evaluated PT and OT. Prescription given for walker. Patient is discharged home with home health. 4. Obesity with BMI of 36.8 this admission compounding #1 - #3 - Weight loss will be recommended. Check TSH. 5. Essential hypertension - Continue home medications as previous plus give as needed IV hydralazine for systolic blood pressure greater than 160 mmHg. 6. Hyperlipidemia; with intolerance to statins on ezetimibe - Resume home regimen. 7. Diabetes mellitus type 2; of unknown control -ADA diet. Fingerstick blood sugars before every meal and at bedtime plus sliding scale insulin. Check hemoglobin A1c to objectively evaluate quality of diabetic control. 8. 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 Resume aspirin as previous. Patient notably has listed allergies to clopidogrel and prasugrel. 9. History of UTIs - Noted. Patient was treated with antibiotic 3 weeks ago. Currently does not have dysuria. 10. History of lipoma on back - Noted. 11. GERD - Resume Pepcid as previous. 12. DVT prophylaxis - Heparin 5,000 units SQ 3 times daily plus SCDs on the right lower extremity. Discharge medication reconciliation done. Discharge follow-up instructions completed. Discharge process discussed with the patient and all questions were answered to patient's satisfaction. Follow with PCP in 1 to 2 weeks Total time spent, exact 35 minutes on discharge meds reconciliation, examination, coordination of care with nurses and ancillary staff, review of imaging and blood test and discussion with the patient on follow-up instructions. Clinical Impression(s) from Imaging Studies Knee X-Ray 02/12/23 18:14 IMPRESSION: Degenerative change. No acute fracture or dislocation. Venous Duplex 02/12/23 18:15 IMPRESSION: No evidence of deep venous thrombosis.. Lumbar Spine MRI 02/13/23 09:30 IMPRESSION: Mild multilevel degenerative disc disease of the lumbar spine as above. Medications at Discharge Home Medications metformin 500 mg tablet,extended release 24 hr 500 mg PO DAILY dm 03/12/19 aspirin 81 mg tablet,delayed release (Adult Aspirin Regimen) 81 mg PO QDAY decrease plt #90 tabs 04/26/21 metoprolol succinate 25 mg tablet,extended release 24 hr See Rx Instructions .Route .COMPLEX #45 tabs 04/26/21 nitroglycerin 0.4 mg sublingual tablet (Nitrostat) 0.4 mg sublingual Q5M PRN chest pain #25 tabs 06/20/21 famotidine 20 mg tablet 20 mg PO BID PRN gerd 11/07/21 isosorbide mononitrate 30 mg tablet,extended release 24 hr 30 mg PO DAILY heart #30 tabs 07/29/22 lisinopril 20 mg tablet 40 mg PO DAILY bp 12/03/22 ezetimibe 10 mg tablet (Zetia) 10 mg PO DAILY dm #90 tabs 12/16/22 Physical Exam Narrative Seen and examined. Patient complains of pain over the left knee. Left knee on the immobilizer. Physical exam General: Alert, Oriented x3, Cooperative, morbid obesity BMI 35.7 kg/m?. HEENT: Atraumatic, PERRLA, EOMI, Normocephalic Oral: No Gingival or Mucosal Lesions/ Ulcerations Neck: Supple, No JVD, Negative Carotid Bruits Lungs: Air entry diminished in bilateral lung bases. No crepitation/rhonchi Cardiovascular: Regular rate, Regular Rhythm, Normal S1, Normal S2, No murmurs Abdomen: Bowel Sounds Present, Soft, Non Tender, Non-Distended : No renal angle tenderness. No suprapubic tenderness. Extremities: No edema, Capillary Refill Less than 3 Seconds Skin: No rashes, No breakdown Musculoskeletal: Left knee in immobilizer. Tenderness present over left knee and leg. ROM severely limited. Neurological: Cranial nerves II-XII grossly intact, DTR 2+/4. No acute focal neurological deficit. Psych/Mental Status: Normal Affect, Appropriate. Weight / BMI Weight Weight: 188 lb 11.451 oz Body Mass Index (BMI) 35.6 ABG / Lab / Microbiology Data 02/13/23 07:03 02/13/23 07:03 Laboratory: Laboratory Results - last 24 hr 02/12/23 18:10: WBC 8.5, RBC 4.76, Hgb 13.8, Hct 42.8, MCV 89.9, MCH 29.0, MCHC 32.2, RDW Std Deviation 45.1 H, RDW Coeff of Amara 13.6, Plt Count 233, MPV 9.6, Immature Gran % (Auto) 0.500, Neut % (Auto) 71.4 H, Lymph % (Auto) 18.4 L, [place] % (Auto) 6.5, Eos % (Auto) 2.6, Baso % (Auto) 0.6, Absolute Neuts (auto) 6.1, Absolute Lymphs (auto) 1.57, Nucleated RBC % 0, Sodium 139, Potassium 3.7, Chloride 107, Carbon Dioxide 27.0, Anion Gap 5, BUN 19 H, Creatinine 1.29 H, Estim Creat Clear Calc 27.51, Est GFR (MDRD) Af Amer 51 L, Est GFR (MDRD) Non-Af 42 L, BUN/Creatinine Ratio 14.7, Glucose 145 H, Calcium 10.0 02/12/23 23:18: POC Glucose 151 H 02/13/23 06:29: POC Glucose 172 H 02/13/23 07:03: WBC 6.4, RBC 4.92, Hgb 14.4, Hct 44.3, MCV 90.0, MCH 29.3, MCHC 32.5, RDW Std Deviation 44.3 H, RDW Coeff of Amara 13.4, Plt Count 244, MPV 10.1, Immature Gran % (Auto) 0.500, Neut % (Auto) 88.8 H, Lymph % (Auto) 9.7 L, [place] % (Auto) 0.8, Eos % (Auto) 0.0, Baso % (Auto) 0.2, Absolute Neuts (auto) 5.7, Absolute Lymphs (auto) 0.62 L, Nucleated RBC % 0, Sodium 138, Potassium 3.9, Chloride 105, Carbon Dioxide 24.0, Anion Gap 9, BUN 16, Creatinine 1.08 H, Estim Creat Clear Calc 31.35, Est GFR (MDRD) Af Amer 63, Est GFR (MDRD) Non-Af 52 L, BUN/Creatinine Ratio 14.8, Glucose 187 H, Calcium 9.5, Total Bilirubin 0.40, AST 66 H, ALT 65 H, Alkaline Phosphatase 101, Total Protein 7.1, Albumin 3.3, Globulin 3.8, Albumin/Globulin Ratio 0.9, TSH 0.74 02/13/23 11:55: POC Glucose 169 H Radiography Diagnostic Testing: Radiology Impression Knee X-Ray 02/12/23 18:14 IMPRESSION: Degenerative change. No acute fracture or dislocation. Electronically Signed: Antonio Mccurdy MD at 18:37 EST Reading Location ID and State: [facility] / [place] Tel , Service support , Venous Duplex 02/12/23 18:15 IMPRESSION: No evidence of deep venous thrombosis.. Fisher''s cyst measuring 3.3 x 2.7 x 1.2 cm. Electronically Signed: Antonio Mccurdy MD at 18:54 EST , Lumbar Spine MRI 02/13/23 09:30 IMPRESSION: Mild multilevel degenerative disc disease of the lumbar spine as above. Electronically Signed: aNdine Mederos MD at 10:32 EST , D/C Instructions Discharge Diet: Low fat / Low cholesterol, 1800 Calorie Control Diet and 2000 mg Sodium Diet Weight Bearing Status: Weight bearing as tolerated Call your doctor if you observe: Fever of 101 or Higher, Coldness, Increased Pain, Numbness or Tingling, Change in Color, Inability to urinate, Inability to have a bowel movement, Using more than 1 pad per hour, Shortness of breath, Dizziness, Fainting spells, Swelling in the ankles, Chest pain, Prolonged hiccupping, Increased palpitations (irregular heartbeat) and Calf discomfort When: IN 2 WEEKS Meaningful Use Info Meaningful Use Diagnoses (Choose all that apply): None applicable Discharge Plan Admission Admit Date/Time: 02/12/23 20:48 Primary Reason for Your Visit: Left knee severe pain due to arthritis Attending Provider: Ankur Fontanez Primary Care Provider: Rodríguez Lema Consulting Providers: Antonio Pike; Kurt Garcia; Manuel Montana; Juanpablo Cobb; Johnnie Arcos; Monster Cobb; Jen Villa; Kristie Frye; Mitchel Ernandez; Edd Waggoner; Med Ramirez Instructions Additional Instructions / Restrictions: Advised Tylenol ugyg-qor-[id number] 1 g every 8 hourly for 1 week and then as needed. Discharge Orders/Prescriptions Prescriptions: Continued aspirin [Adult Aspirin Regimen] 81 mg tablet,delayed release (DR/EC) 81 mg PO QDAY Qty: 90 3RF metoprolol succinate 25 mg tablet extended release 24 hr See Rx Instructions .ROUTE .COMPLEX Qty: 45 3RF Dose Instruction: TAKE 1/2 (ONE-HALF) TABLET BY MOUTH ONCE DAILY FOR THE HEART Rx Instructions: TAKE 1/2 (ONE-HALF) TABLET BY MOUTH ONCE DAILY FOR THE HEART famotidine 20 mg tablet 20 mg PO BID PRN (Reason: gerd) lisinopril 20 mg tablet 40 mg PO DAILY nitroglycerin [Nitrostat] 0.4 mg tablet, sublingual 0.4 mg SUBLINGUAL Q5M PRN (Reason: chest pain) Qty: 25 3RF isosorbide mononitrate 30 mg tablet extended release 24 hr 30 mg PO DAILY Qty: 30 12RF ezetimibe [Zetia] 10 mg tablet 10 mg PO DAILY Qty: 90 3RF Held metformin 500 MG tablet extended release 24 hr 500 mg PO DAILY Hold Instructions: Hold for 1 week for creatinine clearance less than 30 mill per minute. Patient Comments: TAKE 1 TABLET BY MOUTH EVERY DAY Referrals / Follow Up: Kurt Garcia DO [Med Staff - Active Staff] - Within 2 Weeks Rodríguez Lema MD [Primary Care Provider] - Within 2 Weeks Disposition Disposition (needs filled in before D/C Order can be placed): Home Health Service Charges/Coding Visit Charges Inpatient E&M: 77274 Disch Hosp >30min
[2023-02-13 15:57] VITALS: BP 185/71; PULSE 64; RESP 16; TEMP 36.5; O2SAT 94
[2023-02-13 16:09] VITALS: BP 163/58
[2023-02-13] MEDS: Heparin Injection (Vial) 5,000 UNIT/ML VIAL 5000 UNIT SC (16:13)
--- NOTE | 2023-02-13 16:46 | CASEMGMT ---
Social Work SW met with pt to discuss advance directives.? Pt confirms she has completed a living will and health care POA naming her spouse Messi Duran.? Pt notified that documents are not on file at [facility] and SW requested they be brought in for scanning into the EMR.? HENRY Vicente
== END 2023-02-13 17:39 | disposition home health service (06) ==
LOC: ED 20:15 → MS3 20:29
PROVIDERS: Admitting Provider Internal Medicine; Emergency Provider Emergency Medicine; PCP Family Medicine; Visit Provider Internal Medicine
DX: M71.22 Synovial cyst of popliteal space [Baker], left knee (principal); E11.9 Type 2 diabetes mellitus without complications; M17.12 Unilateral primary osteoarthritis, left knee; Z79.82 Long term (current) use of aspirin; Z79.84 Long term (current) use of oral hypoglycemic drugs; I10 Essential (primary) hypertension; R26.2 Difficulty in walking, not elsewhere classified; E78.00 Pure hypercholesterolemia, unspecified; K21.9 Gastro-esophageal reflux disease without esophagitis; R20.2 Paresthesia of skin; I25.10 Atherosclerotic heart disease of native coronary artery without angina pectoris; Z79.899 Other long term (current) drug therapy; E66.9 Obesity, unspecified; Z68.36 Body mass index [BMI] 36.0-36.9, adult; Z95.1 Presence of aortocoronary bypass graft; M25.562 Pain in left knee; R53.1 Weakness; M79.605 Pain in left leg
CPT/HCPCS: 20610; 36415; 72148; 73564; 80048; 80053; 82962; 84443; 85025; 93971; 94668; 96361; 96372; 96374; 96375; 97162; 97166; 99221; 99285; J7120; A4216; G0378

== ENCOUNTER → 2023-04-28 | Outpatient (CLI) | payer MEDICARE, SELFPAY ==
[2019-03-15 11:56] VITALS: BMI 37.0
== END | disposition home or self-care (01) ==
PROVIDERS: PCP Family Medicine; Visit Provider Family Medicine
DX: E11.9 Type 2 diabetes mellitus without complications (principal)

== ENCOUNTER → 2023-04-30 | Outpatient (CLI) | payer MEDICARE, SELFPAY ==
[2019-03-15 11:56] VITALS: BMI 37.0
[2023-04-30 18:00] LABS: Hemoglobin A1c 6.5 % (3.8-5.6)
[2023-04-30 18:04] LABS: Anion Gap 6 (5-15); BUN 23 mg/dL (7-18); BUN/Creat Ratio 17.4 RATIO (10-20); Chloride 107 mmol/L (98-107); Cholesterol 291 mg/dL (200); Creatinine, Serum 1.32 mg/dL (0.55-1.02); EST Glomerular Filtration Rate 41 mL/min (>60); Est Glom Filt Rate - Afr Amer 50 mL/min (>60); Glucose 107 mg/dL (74-106); High Density Lipoprotein 64 mg/dL; Potassium 3.8 mmol/L (3.5-5.1); Sodium Level 138 mmol/L (136-145); Triglycerides 247 mg/dL; Very Low Density Lipoprotein 49 mg/dL (5-40)
--- OUTSIDE RECORDS SUMMARY | 2023-04-30 20:04 | XMS RPT_ITS | CCD ---
Author Name Unknown Address [address] [place] [id number] Organization [facility] Care Team Providers Care Geology Scientist Name Role Phone Ro Botello Unavailable Unavailable Ro Botello Unavailable Unavailable Allergies Allergy Classification Reported Allergen(s) Allergy Type Date of Onset Reaction(s) Facility (2 sources) clopidogrel Drug Allergy 03-04-2011 tongue blisters [employer] Work Phone: [phone] (2 sources) Hmg-Coa Reductase Inhibitors (Statins) drug allergy 06-19-2010 Intolerance, Myalgias [employer] Work Phone: [phone] (2 sources) prasugrel Drug Allergy 09-09-2011 tongue blisters [employer] Work Phone: [phone] (2 sources) Sulfonamides (Antibiotic) drug allergy 06-19-2010 [employer] Work Phone: [phone] Medications Completed/Discontinued Medications Medication Drug Class(es) Dates Sig (Normalized) Sig (Original) amLODIPine 5 mg oral tablet (2 sources) Dihydropyridine Calcium Channel [facility] Start: 05-19-2015 take 1 tablet by mouth once daily AMLODIPINE BESYLATE 5 MG TABS One tablet by mouth daily AMLODIPINE BESYLATE [id number] Marleni Magana PA-C aspirin 81 mg oral tablet (4 sources) Nonsteroidal Anti-inflammatory Drug Start: 06-19-2010 take 1 tablet by mouth once daily ASPIRIN 81 MG TABS One tablet by mouth daily ASPIRIN [id number] Beatriz Sorensen Problems Active Problems Problem Classification [...] disease (4 sources) Atherosclerotic heart disease of [place] coronary artery without angina pectoris; Translations: [Coronary [...] (2 sources) Long-term drug therapy; Translations: [Other intermediate (current) drug therapy] Onset: 06-19-2010 06-19-2010 Past [...] 01-08-2017 14:25-0500 BP Diastolic 64 mm[Hg] [facility] Work Phone: 01-08-2017 14:25-0500 BP [...] Start: 05-19-2015 End: 08-11-2015 [facility] Marleni Magana PA-C Work Phone: Start: [...] Phone: Start: 01-08-2017 End: 01-08-2017 Appointment Appointment [facility] Work Phone: Start: 01-08-2017 End: 01-08-2017 Follow Up Appt 6 months Follow Up Appt 6 months [facility] Work Phone: Start: 01-08-2017 End: 01-08-2017 Follow Up Appt Other Follow Up Appt Other [facility] Work Phone: Start: 01-08-2017 End: 01-08-2017 MMM MMM [facility] Work Phone: Start: 07-12-2016 End: 07-12-2016 Follow Up Appt 6 months Follow Up Appt 6 months [facility] Work Phone: Start: 07-12-2016 End: 07-12-2016 PFM PFM [facility] Work Phone: Start: 01-05-2016 End: 01-05-2016 MMM MMM [facility] Work Phone: Start: 08-29-2015 End: 08-29-2015 Follow Up Appt 6 months Follow Up Appt 6 months [facility] Work Phone: Start: 08-29-2015 End: 08-29-2015 PFM PFM [facility] Work Phone: Start: 05-19-2015 End: 05-19-2015 Ecg routine ecg w/least 12 lds w/i&r EKG (In office) [facility] Work Phone: Start: 05-19-2015 End: 05-19-2015 Follow Up Appt 3 months Follow Up Appt 3 months [facility] Work Phone: Start: 05-19-2015 End: 05-19-2015 Follow Up Appt 6 months Follow Up Appt 6 months [facility] Work Phone: Start: 05-19-2015 End: 05-19-2015 MMM MMM [facility] Work Phone: Start: 05-19-2015 End: 05-19-2015 Nuclear stress test -Lexiscan Nuclear stress test -Lexiscan [facility] Work Phone: Start: 05-19-2015 End: 05-19-2015 PFM PFM [facility] Work Phone: Start: 10-10-2014 End: 10-10-2014 Follow Up Appt 6 months Follow Up Appt 6 months [facility] Work Phone: Start: 10-10-2014 End: 10-10-2014 MMM MMM [facility] Work Phone: Start: 06-06-2014 End: 09-30-2014 *Hepatic Function Panel *Hepatic Function Panel [facility] Work Phone: Start: 06-06-2014 [...] Phone: Start: 02-09-2014 End: 02-09-2014 PFM PFM [facility] Work Phone: Start: 11-24-2013 End: 12-06-2013 *Hepatic Function Panel *Hepatic Function Panel [facility] Work Phone: Start: 11-24-2013 End: 12-06-2013 Lipid panel [AGGREGATE] *Lipid Profile CC PCP [facility] Work Phone: Start: 08-24-2013 End: 08-26-2013 *Hepatic Function Panel *Hepatic Function Panel [facility] Work Phone: Start: 08-24-2013 End: 08-26-2013 Lipid panel [AGGREGATE] *Lipid Profile CC PCP [facility] Work Phone: Start: 08-16-2013 End: 08-16-2013 Follow Up Appt 6 months Follow Up Appt 6 months [facility] Work Phone: Start: 08-16-2013 End: 08-16-2013 MMM MMM [facility] Work Phone: Start: 02-24-2013 End: 03-17-2013 *Hepatic Function Panel *Hepatic Function Panel [facility] Work Phone: Start: 02-24-2013 End: 03-17-2013 Lipid panel [AGGREGATE] *Lipid Profile CC PCP [facility] Work Phone: Start: 02-02-2013 End: 02-02-2013 Follow Up Appt 6 months Follow Up Appt 6 months [facility] Work Phone: Start: 02-02-2013 End: 02-02-2013 PFM PFM [facility] Work Phone: Start: 11-30-2012 End: 12-09-2012 *Hepatic Function Panel *Hepatic Function Panel [facility] Work Phone: Start: 11-30-2012 End: 12-09-2012 Lipid panel [AGGREGATE] *Lipid Profile CC PCP [facility] Work Phone: Start: 10-24-2012 End: 12-02-2012 *Hepatic Function Panel *Hepatic Function Panel [facility] Work Phone: Start: 10-24-2012 End: 12-02-2012 Lipid panel [AGGREGATE] *Lipid Profile CC PCP [facility] Work Phone: Start: 08-06-2012 End: 01-26-2013 Follow Up Appt 6 months Follow Up Appt 6 months [facility] Work Phone: Start: 08-06-2012 End: 01-26-2013 PFM PFM el? [facility] Work Phone: Start: 07-25-2012 End: 07-30-2012 *Hepatic Function Panel *Hepatic Function Panel el? [facility] Work Phone: Start: 07-25-2012 End: 07-30-2012 Lipid panel [AGGREGATE] *Lipid Profile [facility] Work Phone: Start: 03-09-2012 End: 07-30-2012 *Hepatic Function Panel *Hepatic Function Panel [facility] Work Phone: Start: 03-09-2012 End: 07-30-2012 Cardiac Rehab Cardiac Rehab el? [facility] Work Phone: Start: 03-09-2012 End: 03-09-2012 Cardiovascular stress test using treadmill Treadmill stress test (no imaging) el? [facility] Work Phone: Start: 03-09-2012 End: 03-09-2012 Ecg routine ecg w/least 12 lds w/i&r EKG (In office) el? [facility] Work Phone: Start: 03-09-2012 End: 07-30-2012 Follow Up Appt 3 months Follow Up Appt 3 months [facility] Phone: Start: 03-09-2012 End: 07-30-2012 Lipid panel [AGGREGATE] *Lipid Profile [email or web address] Phone: Start: 09-09-2011 End: 10-15-2011 *Hepatic Function Panel *Hepatic Function Panel el? Phone: Start: 09-09-2011 End: 09-09-2011 Follow Up Appt 6 months Follow Up Appt 6 months el? Phone: Start: 09-09-2011 End: 10-15-2011 Lipid panel [AGGREGATE] *Lipid Profile [email or web address] Phone: Start: 03-04-2011 End: 03-04-2011 Ecg routine ecg w/least 12 lds w/i&r EKG (In office) [email or web address] Phone: Start: 03-04-2011 End: 03-04-2011 Follow Up Appt 6 months Follow Up Appt 6 months el? Phone: Patient Education [email or web address] Phone: Additional Source Comments FOR RECORDS PERTAINING [...] BE BASED ON THE PRIMARY CLINICAL RECORDS. [employer]. provides no warranty or guarantee of the accuracy or completeness of information in this document.
== END | disposition home or self-care (01) ==
LOC: LAB.FUTURE 15:12
PROVIDERS: PCP Family Medicine; Visit Provider Family Medicine
DX: E11.9 Type 2 diabetes mellitus without complications (principal)
CPT/HCPCS: 36415; 80048; 80061; 83036

== ENCOUNTER → 2023-05-29 | Outpatient (CLI) | payer MEDICARE, SELFPAY ==
[2019-03-15 11:56] VITALS: BMI 37.0
--- NOTE | 2023-05-29 12:02 | STRESSREP ---
Stress Test Report Pharmacologic myocardial perfusion stress test. 82-year-old lady with a history of chest pain and dyspnea status post coronary bypass surgery Resting EKG demonstrates sinus bradycardia with a rate of 49 bpm. Resting blood pressure is 148/78 mmHg. 0.4 mg of regadenoson was infused per usual protocol followed by rapid intravenous saline flush injection. Continuous EKG monitoring was performed. The maximum heart rate was 68 bpm which was 48% of max impacted heart rate the maximum workload was 1 metabolic equivalent. At rest there were no ST or T wave changes noted to suggest ischemia and at peak infusion nonspecific ST changes were noted which did not meet the criteria for ischemia. No clinical angina is noted. The final blood pressure was 120/70 mmHg. Myocardial perfusion protocol. 14 point mCi of technetium 99m sestamibi was injected at rest. 0.4 mg of regadenoson was infused per usual protocol. At peak infusion 44.1 mCi of technetium 99m sestamibi was injected stress images were obtained stress and rest images were reconstructed and compared in the short axis vertical long and horizontal long axis. Gated images were also obtained. Perfusion SPECT analysis: Review of the stress images demonstrate normal uptake of tracer noted in all areas of the myocardium except for a small portion in the mid anterior wall as well as the mid inferior wall with reduced perfusion present. The resting images demonstrate mild improvement in these 2 areas suggesting likely ischemia in these 2 areas. Gated SPECT analysis: The gated ejection fraction is 71%. Conclusion: Abnormal pharmacologic myocardial perfusion stress test. Preserved ejection fraction. Mild mid anterior and mid inferior ischemia
== END | disposition home or self-care (01) ==
PROVIDERS: PCP Family Medicine; Referring Provider Family Medicine; Visit Provider Family Medicine
DX: R06.02 Shortness of breath (principal)
CPT/HCPCS: 78452; 93017; A9500; A4216; J2785

== ENCOUNTER → 2023-11-20 | Outpatient (CLI) | payer MEDICARE, SELFPAY ==
[2019-03-15 11:56] VITALS: BMI 37.0
[2023-11-20 13:21] LABS: Microalbumin,Random Urine 50.9 mg/L (NO RANGE EST.)
[2023-11-20 15:45] LABS: Anion Gap 6 (5-15); BUN 19 mg/dL (7-18); BUN/Creat Ratio 15.4 RATIO (10-20); Calcium,Total 10.3 mg/dL (8.5-10.1); Chloride 106 mmol/L (98-107); Cholesterol 250 mg/dL (200); Creatinine, Serum 1.23 mg/dL (0.55-1.02); EST Glomerular Filtration Rate 45 mL/min (>60); Est Glom Filt Rate - Afr Amer 54 mL/min (>60); Glucose 139 mg/dL (74-106); High Density Lipoprotein 55 mg/dL; Potassium 3.9 mmol/L (3.5-5.1); Sodium Level 139 mmol/L (136-145); Triglycerides 222 mg/dL; Very Low Density Lipoprotein 44 mg/dL (5-40)
== END | disposition home or self-care (01) ==
PROVIDERS: PCP Family Medicine; Referring Provider Family Medicine; Visit Provider Family Medicine
DX: E11.9 Type 2 diabetes mellitus without complications (principal)
CPT/HCPCS: 36415; 80048; 80061; 82043

== ENCOUNTER → 2023-11-26 | Outpatient (CLI) | payer MEDICARE, SELFPAY ==
[2019-03-15 11:56] VITALS: BMI 37.0
== END | disposition home or self-care (01) ==
LOC: LABSPEC 15:11
PROVIDERS: PCP Family Medicine; Referring Provider Physician Assistant Surgical; Visit Provider Physician Assistant Surgical
DX: N39.0 Urinary tract infection, site not specified (principal)
CPT/HCPCS: 87086

== ENCOUNTER → 2024-01-12 | Outpatient (CLI) | payer MEDICARE, SELFPAY ==
[2019-03-15 11:56] VITALS: BMI 37.0
== END | disposition home or self-care (01) ==
LOC: OPBI 13:14
PROVIDERS: PCP Family Medicine; Referring Provider Family Medicine; Visit Provider Family Medicine
DX: Z12.31 Encounter for screening mammogram for malignant neoplasm of breast (principal)
CPT/HCPCS: 77063; 77067

== ENCOUNTER → 2024-04-05 | Outpatient (CLI) | payer MEDICARE, SELFPAY ==
[2019-03-15 11:56] VITALS: BMI 37.0
--- NOTE | 2024-04-05 13:47 | RAD_ITS ---
PROCEDURE: CHEST PA AND LATERAL REASON FOR EXAM: Chest pain. TECHNIQUE: Frontal view of the chest. COMPARISON: 06/12/2021. FINDINGS: The cardiac contour is normal. Aortic calcifications. No acute consolidation, pleural effusion or pneumothorax. Status post right rotator cuff repair. The patient is status post median sternotomy. Surgical clips noted in the upper abdomen suggesting prior cholecystectomy. RAD/Chest PA and Lateral IMPRESSION: No acute consolidation, pleural effusion or pneumothorax. Reading Location: [id number]
[2024-04-05 15:15] LABS: Absolute Lymphocyte Count 1.96 X10^3/uL (0.83-4.51); Absolute Neutrophil Count 5.1 X10^3/uL (2.0-7.7); Basophil# 0.06 X10^3/uL; Basophil% 0.7 % (0-1); Eosinophil# 0.33 X10^3/uL; Hematocrit 44.9 % (37-47); Hemoglobin 14.9 g/dL (12.0-15.0); Lymphocyte # 1.96 X10^3/ul (0.83-4.51); Lymphocyte % 23.9 % (19-41); Mean Corp Hgb Conc 33.2 g/dL (32-36); Mean Corpuscular Hgb 29.3 pg (27.0-32.0); Mean Corpuscular Volume 88.2 fL (81-99); Mean Platelet Vol. 10.1 fl (6.2-12.0); Monocyte# 0.71 X10^3/uL; Monocyte% 8.7 % (0-10); NRBC Flagged by Analyzer 0 % (0-5); Neutrophil # 5.09 X10^3/uL (2.7-7.7); Neutrophil % 62.1 % (47-70); Platelet Count 248 K/mm3 (150-450); RBC Distribution Width CV 13.8 % (11.6-14.6); RBC Distribution Width SD 44.7 fl (35.1-43.9); Red Blood Count 5.09 M/mm3 (4.2-5.4); White Blood Count 8.2 K/mm3 (4.4-11.0)
[2024-04-05 15:21] LABS: International Normalized Ratio 0.9; Prothrombin Time (Protime)PT. 12.3 SECONDS (11.7-14.9)
[2024-04-05 15:48] LABS: Anion Gap 8 (5-15); BUN 23 mg/dL (7-18); BUN/Creat Ratio 19.5 RATIO (10-20); Calcium,Total 10.3 mg/dL (8.5-10.1); Chloride 105 mmol/L (98-107); Creatinine, Serum 1.18 mg/dL (0.55-1.02); EST Glomerular Filtration Rate 47 mL/min (>60); Est Glom Filt Rate - Afr Amer 57 mL/min (>60); Glucose 105 mg/dL (74-106); Potassium 3.8 mmol/L (3.5-5.1); Sodium Level 139 mmol/L (136-145)
== END | disposition home or self-care (01) ==
LOC: RAD 13:47
PROVIDERS: PCP Family Medicine; Referring Provider Physician Assistant Medical; Visit Provider Physician Assistant Medical
DX: R06.02 Shortness of breath (principal); R94.39 Abnormal result of other cardiovascular function study
CPT/HCPCS: 36415; 71046; 80048; 85025; 85610; 85730

== ENCOUNTER 2024-04-15 07:27 | Day surgery (SDC) | payer MEDICARE, SELFPAY ==
[2019-03-15 11:56] VITALS: BMI 37.0
[2024-04-14 08:43] VITALS: BMI 36.1
--- NOTE | 2024-04-15 11:09 | CL.D_ITS ---
Patient Name: JOSSE HORN Study Date: 04/15/2024 Performing: Levar Hutton MD Ht: 61 inches 154.94 cm : 1940 Wt: 191.01 lbs 86.64 kg Age: 83 Gender: female BSA: 1.85 PROCEDURE(S) PERFORMED [id number])LHC/COR/CABG CLINICAL PROFILE AND INDICATION Indications: Worsening Angina Heart Failure: None Angina Classification Anginal Classification w/in 2 Weeks: CCS II CAD Presentations: Stable angina. CONCLUSIONS [employer] Prox LAD; SVG to D1 patent, Prox D1 80% (small 1.5 mm vessel) 100% distal LLCX, 65-70% Prox OM1, 80% distal OM1 (distal OM small 1.5 mm vessel) [employer] RCA known from previous study; SVG to RPDA 60-70% Mid LVEDP 11 mm HG RECOMMENDATIONS Check CT angio to evaluate SANTANA to LAD Maximize medical management, if still symptomatic, staged PCI to SVG to RPDA+/- platinum OM1 DESCRIPTION OF PROCEDURE The patient arrived to the procedure lab. The risks and benefits of the procedure as well as a full description of our services here and current unavailability of surgical backup were fully explained to the patient and/or their significant other prior to the catheterization. The Timeout was completed, verifying the correct patient and procedure. The patient's procedural site was prepped and draped in the usual fashion. Local anesthetic was given subcutaneously to left radial region with Lidocaine 2%. Local anesthetic was given subcutaneously to right radial region with Lidocaine 2%. Using a modified Seldinger technique, arterial access was obtained via the left radial artery, a 6Fr sheath was inserted., arterial access was obtained via the right radial artery, a 6Fr sheath was inserted. Saphenous Vein graft to the DIAG 1 selective angiography was performed in multiple views using a 5 Fr. 4.0 [place] catheter. Saphenous Vein graft to the RPDA selective angiography was performed in multiple views using a 5 Fr. 4.0 [place] catheter. Left Coronary Artery selective angiography was performed in multiple views using a 5 Fr. JL 3.0.The arterial sheath was pulled and a TR Band was applied for hemostasis w/ 10ml. The arterial sheath was pulled and a TR Band was applied for hemostasis w/ 12ml air CORONARY ANGIOGRAPHY DOMINANCE: Right Dominant LEFT HEART ASSESSMENT LVEDP: 11 mmHg LEFT ANTERIOR DESCENDING ARTERY: LAD: Complex 100% Mid lesion in LAD DIAGONAL 1: Tubular 80% Proximal lesion in DIAG1 OM 1: Tubular 70% Ostial lesion in MARG1 Tubular 80% Mid lesion in MARG1 OM 2: Tubular 70% Ostial lesion in MARG1 Tubular 80% Mid lesion in MARG1 RAMUS: Tubular 90% Ostial lesion in Ramus RIGHT CORONARY ARTERY: RCA: Calcified 100% Mid lesion in RCA RT PDA: Diffuse 60% Proximal lesion in RT PDA GRAFTS: SVG Graft to RT PDA Eccentric 70% lesion in SVG Graft to RT PDA SVG Graft to DIAG1 COMPLICATIONS No Complications PROCEDURE MEDICATIONS Versed 1 mg IV Fentanyl 50 mcg IV Versed 1 mg IV Fentanyl 25 mcg IV Oxygen: 2 L/min via nasal cannula Heparin given IA 04/15/2024 09:40:55 Heparin 2000 unit(s) IV 04/15/2024 09:51:39 Verapamil 2.5mg, Ntg 200mcgs, 2000 units of Heparin given IA 04/15/2024 09:40:55 SUMMARY OF HEMODYNAMIC DATA Time AIR REST ECG 07:55:26 AO 146/46 (84) SA 09:44:39 LV 154/3, 10 09:44:56 LV 151/4, 11 09:45:05 LVp 157/1, 10 09:45:10 AOp 153/55 (87) 09:45:17 Signed By Levar Hutton MD On 04/15/2024 11:08:49 Levar Hutton MD
[2024-04-15 15:52] LABS: ACT Activated Clotting Time 164 sec (74-137)
== END 2024-04-15 12:30 | disposition home or self-care (01) ==
PROVIDERS: PCP Family Medicine; Visit Provider Internal Medicine Cardiovascular Disease
DX: I25.119 Atherosclerotic heart disease of native coronary artery with unspecified angina pectoris (principal); E11.9 Type 2 diabetes mellitus without complications; I25.2 Old myocardial infarction; Z95.1 Presence of aortocoronary bypass graft; I10 Essential (primary) hypertension; E78.00 Pure hypercholesterolemia, unspecified; Z79.82 Long term (current) use of aspirin; Z79.84 Long term (current) use of oral hypoglycemic drugs; Z79.02 Long term (current) use of antithrombotics/antiplatelets; Z79.899 Other long term (current) drug therapy
CPT/HCPCS: 85347; 93455; 99152; 99153; C1894; Q9967; C1769

== ENCOUNTER → 2024-05-17 | Outpatient (CLI) | payer MEDICARE, SELFPAY ==
[2019-03-15 11:56] VITALS: BMI 37.0
[2024-05-17 23:15] LABS: Microalbumin,Random Urine 46.3 mg/L (NO RANGE EST.)
[2024-05-17 23:35] LABS: Cholesterol 279 mg/dL (<=200); High Density Lipoprotein 56 mg/dL; Low Density Lipoprotein Calc. 153 mg/dL; Triglycerides 353 mg/dL; Very Low Density Lipoprotein 71 mg/dL (5-40); cholesterol:hdl ratio screen 5.01
[2024-08-12 07:58] LABS: Microalbumin:Creatinine Ratio 85.7 mg/g CRE
== END | disposition home or self-care (01) ==
LOC: MTLAB 14:37
PROVIDERS: PCP Family Medicine; Referring Provider Family Medicine; Visit Provider Family Medicine
DX: E11.9 Type 2 diabetes mellitus without complications (principal)
CPT/HCPCS: 36415; 80061; 82043; 82570

== ENCOUNTER → 2024-05-24 | Outpatient (CLI) | payer MEDICARE, SELFPAY ==
[2019-03-15 11:56] VITALS: BMI 37.0
--- NOTE | 2024-05-24 12:53 | CT_ITS ---
PROCEDURE: LIMITED CHEST CT CARDIAC ONLY REASON FOR EXAM: CAD TECHNIQUE: Supine chest CT following intravenous contrast, high resolution CT (HRCT) protocol. Isovue 370. 81 mL was injected. One or more dose reduction techniques were used (e.g., Automated exposure control, adjustment of the mA and/or kV according to patient size, use of iterative reconstruction technique). COMPARISON: None FINDINGS: Hardware: Prior CABG. Lymph nodes: No mediastinal hilar or axillary lymphadenopathy. Heart and Vasculature: Normal heart size. No pericardial effusion. Coronary Artery Calcifications: Present Lungs and Airways: The lungs are normally expanded and clear. No septal thickening nodules or abnormal pulmonary opacities. Pleura: Unremarkable Upper Abdomen: Fatty infiltration of the liver. Bones: Degenerative changes of the thoracic spine. CT/Limited Chest CT Cardiac Only IMPRESSION: Coronary artery calcification (CAC) is is present Reading Location: [place] [id number]
[2024-05-24 13:13] VITALS: BP 177/70; PULSE 43; RESP 18; TEMP 36.2; O2SAT 97; BMI 35.9
[2024-05-24 13:33] VITALS: PULSE 42
[2024-05-24] MEDS: Nitroglycerin SL (ED/IMG/CATH) 0.4 MG TABLET SL (13:33)
[2024-05-24 13:41] LABS: CREATININE FINGERSTICK < 1.0 mg/dL (0.55-1.02)
[2024-05-24 13:45] VITALS: BP 183/76; PULSE 45; RESP 16; O2SAT 96
--- NOTE | 2024-05-25 07:57 | CCTA.WCONT ---
CCTA w/Cont Coronary Arteries Date of Study:: 05/24/24 Looking for Thompson Coronary Calcium Scoring: High-resolution Computed Tomographic imaging of the chest was performed on [ ], with particular attention paid to the coronary arteries. Intravenous contrast agent was administered per protocol and images reconstructed and displayed. LEFT MAIN CORONARY ARTERY: Arises from the left coronary cusp and bifurcates to left anterior descending artery and left circumflex artery [] LEFT ANTERIOR DESCENDING CORONARY ARTERY: This appears to be occluded [] LEFT CIRCUMFLEX CORONARY ARTERY: This vessel is noted to have a patent stent and an obtuse marginal branch with a small runoff [] RIGHT CORONARY ARTERY: This vessel has an area of calcification noted in the proximal segment with probable high-grade stenosis and then reconstitutes distally [] THORACIC AORTA: There is a saphenous vein graft noted to the diagonal vessel There is a saphenous vein graft noted to the posterior descending artery No other grafts are noted Conclusion: Coronary artery disease demonstrating patent saphenous vein graft to the diagonal vessel and posterior descending artery.
== END | disposition home or self-care (01) ==
LOC: CT 12:52
PROVIDERS: PCP Family Medicine; Referring Provider Physician Assistant Medical; Visit Provider Physician Assistant Medical
DX: R94.39 Abnormal result of other cardiovascular function study (principal)
CPT/HCPCS: 75574; 76380; Q9967

== ENCOUNTER → 2024-06-30 | Outpatient (CLI) | payer MEDICARE, SELFPAY ==
[2019-03-15 11:56] VITALS: BMI 37.0
== END | disposition home or self-care (01) ==
LOC: LABSPEC 08:36
PROVIDERS: PCP Family Medicine; Visit Provider Physician Assistant
DX: R30.0 Dysuria (principal)
CPT/HCPCS: 87077; 87086; 87088; 87186

== ENCOUNTER → 2024-07-30 | Outpatient (CLI) | payer MEDICARE, SELFPAY ==
[2024-07-30 08:11] VITALS: BMI 37.0
== END | disposition home or self-care (01) ==
LOC: LABSPEC 10:56
PROVIDERS: PCP Family Medicine; Referring Provider Physician Assistant Surgical; Visit Provider Physician Assistant Surgical
DX: R82.90 Unspecified abnormal findings in urine (principal)
CPT/HCPCS: 87086

== ENCOUNTER → 2024-11-01 | Outpatient (CLI) | payer MEDICARE, SELFPAY ==
[2024-07-30 08:11] VITALS: BMI 37.0
== END | disposition home or self-care (01) ==
LOC: LABSPEC 12:36
PROVIDERS: PCP Family Medicine; Visit Provider Physician Assistant
DX: R30.0 Dysuria (principal)
CPT/HCPCS: 87077; 87086; 87088; 87186

== ENCOUNTER → 2024-11-17 | Outpatient (CLI) | payer MEDICARE, SELFPAY ==
[2024-07-30 08:11] VITALS: BMI 37.0
--- OUTSIDE RECORDS SUMMARY | 2024-11-17 17:07 | XMS RPT_ITS | CCD ---
Author Organization [facility] Care Team Providers Care Repair Service Dispatcher Name Role Phone Ro Botello Unavailable Unavailable Ro Botello Unavailable Unavailable Dr. Rodríguez Lema Primary Care Provider Dr. Rodríguez Lema Referring Provider Roof TOTER, TOTER-C David Villavicencio Attending Provider Roof TOTER, TOTER-C David Villavicencio Referring Provider Roof TOTER, TOTER-C David Villavicencio Other Provider [phone])[phone] Rodríguez Encarnacion Attending Provider Dr. Rodríguez Encarnacion Referring Provider Dr. Rodríguez Encarnacion Other Provider 1([facility])[phone] Rodríguez Lema Primary Care Provider Dr. Rodríguez Lema Primary Care Provider Dr. Rodríguez Lema Referring Provider Dr. Rodríguez Encarnacion Attending Provider JEWEL Valdez Attending Provider Dr. Rodríguez Lema Primary Care Provider Dr. Rodríguez Lema Referring Provider Dr. Rodríguez Encarnacion Attending Provider JEWEL Valdez Attending Provider Dr. Rodríguez Lema Primary Care Provider Dr. Rodríguez Lema Referring Provider Roof TOTER, TOTER-Selina Villavicencio Attending Provider Dr. Rodríguez Lema Primary Care Provider Dr. Rodríguez Lema Referring Provider Roof TOTER, TOTER-Selina Villavicencio Attending Provider Dr. Rodríguez Lema Primary Care Provider Dr. Rodríguez Lema Referring Provider Roof TOTER, TOTER-C David Villavicencio Attending Provider Pita, Dr. Arreguin Primary Care Provider Dr. Matt Dunne Emergency Provider Dr. Med Ramirez Admit Provider Unavailabl norman Ramirez, Dr. Jovel Other Provider Unavailabl Dr. Antonio Mays Other Provider [phone] Dr. Kurt Garcia Other Provider [phone] Dr. Manuel Montana Other Provider [phone] Juanpablo Cobb Other Provider Dr. Johnnie Arcos Other Provider Dr. Monster Cobb Other Provider JEWEL Schneider Other Provider JEWEL Frye Other Provider DENA Ogden Other Provider DENA Nicole Other Provider Dr. Ankur Fontanez Attending Provider Dr. Ankur Fontanez Other Provider Dr. Rodríguez Lema Primary Care Provider Dr. Matt Dunne Emergency Provider Dr. Med Ramirez Admit Provider Unavailabl Dr. Med Corona Other Provider Unavailabl Dr. Antonio Mays Other Provider [phone] Dr. Kurt Garcia Other Provider [phone] Dr. Manuel Montana Other Provider Dr. Juanpablo Cobb Other Provider Dr. Johnnie Arcos Other Provider Dr. Monster Cobb Other Provider Daisy HOLLOWAY PA Jen Other Provider JEWEL Frye Other Provider DENA Ogden Other Provider DENA Nicole Other Provider Dr. Ankur Fontanez Attending Provider Dr. Ankur Fontanez Other Provider Dr. Rodríguez Lema Referring Provider Dr. Rodríguez Lema Other Provider Dr. Tim Haney Attending Provider JEWEL Vaughan Attending Provider Dr. Rodríguez Lema MD Primary Care Provider Dr. Rodríguez Lema MD Referring Provider Marleni Vaughan Attending Provider Marleni Vaughan Referring Provider Brennen BRIGGS, Dr. Cristobal Attending Provider Dr. Rodríguez Lema MD Attending Provider Marleni Vaughan Other Provider Dr. Tim Haney MD Attending Provider Dr. Tim Haney MD Attending Provider Johnnie Valdez Attending Provider Jc Bentley Attending Provider Dr. Rodríguez Lema MD Primary Care Provider Dr. Rodríguez Lema MD Referring Provider Marleni Vaughan Referring Provider Marleni Vaughan Attending Provider [phone] Jc Bentley Referring Provider [phone] Pita BRIGGS, Dr. Arreguin Primary Care Provider Melva Alarcon Attending Provider Pita BRIGGS, Dr. Arreguin Primary Care Provider Pita BRIGGS, Dr. Arreguin Referring Provider Johnnie Valdez Attending Provider Lema, Rodríguez Referring Unavailable Lema, Rodríguez Primary Care Unavailable Melva Nunez NP Attending Unavailable Lema, Rodríguez Referring Unavailable Lema, Rodríguez Primary Care Unavailable Johnnie Valdez Attending Unavailable Marleni Vaughan Referring Unavail able Marleni Vaughan Attending Unavail able Lema, Rodríguez Primary Care Unavailable Marleni Vaughan Attending Unavail able Lema, Rodríguez Referring Unavailable Lema, Rodríguez Primary Care Unavailable Lema, Rodríguez Referring Unavailable Lema, Rodríguez Primary Care Unavailable Jc Bentley Attending Unavailable Johnnie Valdez Attending Unavailable Lema, Rodríguez Referring Unavailable Lema, Rodríguez Primary Care Unavailable BrennenLevar lima Attending Unavailable BrennenLevar lima Referring Unavailable Lema, Rodríguez Primary Care Unavailable Marleni Vaughan Referring Unavail able Tim Haney Attending Unavailable Lema, Rodríguez Primary Care Unavailable Marleni Vaughan Referring Unavail able Marleni Vaughan Consulting Unavail able Tim Haney Attending Unavailable Lema, Rodríguez Primary Care Unavailable Lema, Rodríguez Attending Unavailable Lema, Rodríguez Referring Unavailable Lema, Rodríguez Primary Care Unavailable Jc Bentley Referring Unavailable Lema, Rodríguez Primary Care Unavailable Jc Bentley Attending Unavailable Marleni Vaughan Referring Unavail able Marleni Vaughan Attending Unavail able Lema, Rodríguez Primary Care Unavailable Lema, Rodríguez Referring Unavailable Lema, Rodríguez Primary Care Unavailable Lema, Rodríguez Attending Unavailable Lema, Rodríguez Primary Care Unavailable Johnnie Valdez Attending Unavailable Lema, Rodríguez Primary Care Unavailable Jc Bentley Referring Unavailable Jc Bentley Attending Unavailable Johnnie Valdez Attending Unavailable Lema, Rodríguez Primary Care Unavailable Lema, Rodríguez Attending Unavailable Lema, Rodríguez Referring Unavailable Rodríguez Lema Primary Care Unavailable Rodríguez Lema Primary Care Unavailable Rodríguez Lema Referring Unavailable Jc Bentley Attending Unavailable Allergies Allergy Classification Reported Allergen(s) Allergy Type Date of Onset Reaction(s) Facility (2 sources) clopidogrel Drug Allergy 2 tongue blisters [facility] Work Phone: (2 sources) Hmg-Coa Reductase Inhibitors (Statins) drug allergy 1 Intolerance, Myalgias [facility] Work Phone: [phone] (2 sources) prasugrel Drug Allergy [address] [facility] Work Phone: [phone] (2 sources) Sulfonamides (Antibiotic) drug allergy 1 [facility] Work Phone: [phone] (20 sources) clopidogrel Drug Allergy [address] [facility] (20 sources) prasugrel Drug Allergy [address] [facility] (20 sources) Sulfonamides (Antibiotic); Translations: [Sulfa (Sulfonamide Antibiotics)] Allergy to substance 2 [facility] (20 sources) Izpglkn-Jws-Loy Reductase Inhibitor; Translations: [Zvooiar-Tzn-Vxb Reductase Inhibitor] Propensity to adverse reactions 2 Intolerance, mylagias [facility] (1 source) clopidogrel Drug Allergy [address] [facility] (1 source) prasugrel Drug Allergy [address] [facility] Medications Current Medications Medication Drug Class(es) Dates Sig (Normalized) Sig (Original) amLODIPine 10 mg oral tablet (20 sources) Dihydropyridine Calcium Channel Edda Start: 04-15-2024 take 1 tablet by mouth once daily Amlodipine 10 mg tablet Active 10 mg PO DAILY 90 April 15, 2024 1:07pm Start: 06-02-2023 End: 04-15-2024 take 1 tablet by mouth once daily Amlodipine (Norvasc) 5 mg tablet Discontinued 5 mg PO DAILY 90 3 June 02, 2023 12:00am April 15, 2024 1:08pm Start: 07-22-2018 End: 12-03-2022 take 1 tablet by mouth once daily Amlodipine 10 mg tablet Discontinued 10 mg PO DAILY 90 3 April 16, 2019 3:37pm December 03, 2022 2:26pm bp Start: 05-19-2015 End: 07-22-2018 take 1 tablet by mouth once daily Amlodipine 5 MG tablet Discontinued 5 mg PO DAILY September 02, 2016 12:00am July 09, 2017 2:10pm aspirin 81 mg delayed release oral tablet (20 sources) Nonsteroidal Anti-inflammatory Drug Start: 04-26-2021 take 1 tablet by mouth once daily Aspirin (Adult Aspirin Regimen) 81 mg tablet,delayed release (DR/EC) Active 81 mg PO daily 90 3 April 26, 2021 1:00am decrease plt Start: 04-25-2020 End: 04-26-2021 Aspirin 325 mg tablet Discon tinued 81 mg PO DAILY April 25, 2020 3:04pm April 26, 2021 4:02pm Start: 04-25-2020 End: 04-26-2021 take 81 mg by mouth once daily Aspirin Discontinued 81 MG PO DAILY April 25, 2020 3:04pm April 26, 2021 4:02pm Start: 07-15-2019 End: 04-25-2020 take 1 tablet by mouth once daily Aspirin 325 mg tablet Discontinued 325 mg PO DAILY July 15, 2019 12:00am April 25, 2020 3:04pm Start: 09-02-2016 End: 07-15-2019 take 1 tablet by mouth once daily Aspirin 81 MG tablet,chewable Discontinued 81 mg PO DAILY@0800 September 02, 2016 12:00am July 15, 2019 2:37pm heart health Start: 06-19-2010 take 1 tablet by toi th once daily ASPIRIN 81 MG TABS One tablet by mouth daily [place] [id number] [facility] [place] Start: 06-19-2010 take 1 tablet by toi th once daily ASPIRIN EC 81 MG TBEC One tablet by mouth daily ASPIRIN [id number] Marleni Dsouza RN ciprofloxacin 500 mg oral tablet (8 sources) Quinolone Antimicrobial Start: 11-01-2024 take 1 tablet by mouth twice daily Ciprofloxacin Hcl 500 mg tablet Active 500 mg PO TWICE A DAY November 01, 2024 12:00am Start: 06-30-2024 End: 07-30-2024 take 1 tablet by mouth twice daily Ciprofloxacin Hcl 500 mg tablet Discontinued 500 mg PO TWICE A DAY 10 June 30, 2024 12:00am July 30, 2024 8:20am famotidine 20 mg oral tablet (20 sources) Histamine-2 Receptor Antagonist Start: 11-07-2021 take 1 tablet by mouth twice daily as needed for gastroesophageal reflux disease Famotidine 20 mg tablet Active 20 mg PO TWICE A DAY as needed for gerd November 07, 2021 12:00am Start: 03-16-2019 End: 04-16-2019 take 1 tablet by mouth twice daily Famotidine 20 MG tablet Discontinued 20 mg PO TWICE A DAY 60 0 March 16, 2019 1:00am April 16, 2019 3:09pm 24 hr isosorbide mononitrate 60 mg extended release oral tablet (20 sources) Nitrate Vasodilator Start: 04-15-2024 take 1 tablet by mouth once daily, then take 1 tablet by mouth every twenty-four hours Isosorbide Mononitrate 60 mg tablet extended release 24 hr Active 60 mg PO DAILY 90 April 15, 2024 1:07pm Start: 04-14-2024 End: 04-15-2024 take 1 tablet by mouth once daily, then take 1 tablet by mouth every twenty-four hours Isosorbide Mononitrate 30 mg tablet extended release 24 hr Discontinued 30 mg PO DAILY April 14, 2024 1:00am April 15, 2024 1:08pm Start: 04-05-2024 End: 04-14-2024 take 1 tablet by mouth once daily, then take 1 tablet by mouth every twenty-four hours Isosorbide Mononitrate 60 mg tablet extended release 24 hr Discontinued 60 mg PO DAILY 90 April 05, 2024 2:30pm April 14, 2024 9:20am heart Start: 06-20-2021 End: 04-05-2024 take 1 tablet by mouth once daily, then take 1 tablet by mouth every twenty-four hours Isosorbide Mononitrate 30 mg tablet extended release 24 hr Discontinued 30 mg PO DAILY 30 September 03, 2023 4:24pm April 05, 2024 2:31pm heart lisinopril 40 mg oral tablet (20 sources) Angiotensin Converting Enzyme Inhibitor Start: 04-14-2024 take 1 tablet by mouth once daily Lisinopril 40 mg tablet Active 40 mg PO DAILY April 14, 2024 1:00am Start: 06-02-2023 End: 04-14-2024 take 1 tablet by mouth once daily Lisinopril 20 mg tablet Discontinued 20 mg PO DAILY June 02, 2023 11:23am April 14, 2024 9:21am bp Start: 12-03-2022 End: 12-03-2022 take 1 tablet by mouth once daily Lisinopril 20 mg tablet Discontinued 20 mg PO DAILY December 03, 2022 2:24pm December 03, 2022 2:51pm bp Start: 05-31-2022 End: 06-02-2023 take 2 tablets by mouth once daily Lisinopril 20 mg tablet Discontinued 40 mg PO DAILY December 03, 2022 2:50pm June 02, 2023 11:24am bp Start: 05-31-2022 End: 06-02-2023 take 40 mg by mouth once daily Lisinopril Discontinued 40 MG PO DAILY December 03, 2022 2:50pm June 02, 2023 11:24am Start: 11-07-2021 End: 05-31-2022 take 1 tablet by mouth once daily Lisinopril 20 mg tablet Discontinued 20 mg PO DAILY November 07, 2021 3:11pm May 31, 2022 10:32am bp Start: 04-27-2021 End: 11-07-2021 take 1 tablet by mouth twice daily Lisinopril 20 mg tablet Discontinued 20 mg PO TWICE A DAY April 27, 2021 5:10pm November 07, 2021 3:13pm bp Start: 09-09-2011 take 1 tablet by toi th twice daily LISINOPRIL 20 MG TABS One tablet by mouth twice daily LISINOPRIL [id number] Rodríguez Encarnacion MD Start: 06-19-2010 End: 04-27-2021 take 1 tablet by mouth once daily Lisinopril 20 mg tablet Discontinued 20 mg PO DAILY April 18, 2020 9:49am April 26, 2021 4:35pm bp 24 hr metFORMIN hydrochloride 500 mg extended release oral tablet (20 sources) Biguanide Start: 03-12-2019 take 1 tablet by mouth once daily Metformin 500 MG tablet extended release 24 hr Active 500 mg PO DAILY March 12, 2019 1:00am dm Start: 03-04-2011 take 1 tablet by toi th once daily METFORMIN HCL 500 MG TABS One tablet by mouth daily METFORMIN HCL [id number] Rodríguez Encarnacion MD 24 hr metoprolol succinate 25 mg extended release oral tablet (20 sources) beta-Adrenergic Edda Start: 08-17-2024 take 2 tablets by mouth once daily Metoprolol Succinate 25 mg tablet extended release 24 hr Active 12.5 mg PO DAILY August 17, 2024 11:24am Start: 05-22-2020 End: 08-17-2024 take 0.5 tablet by mouth once daily Metoprolol Succinate 25 mg tablet extended release 24 hr Discontinued 25 mg PO DAILY April 14, 2024 1:00am August 17, 2024 11:25am TAKE 1/2 (ONE-HALF) TABLET BY MOUTH ONCE DAILY FOR THE HEART Start: 07-22-2018 End: 04-14-2024 take 0.5 tablet by mouth once daily Metoprolol Succinate 25 mg tablet extended release 24 hr Discontinued 0 .ROUTE .COMPLEX 45 3 May 22, 2020 10:36am April 26, 2021 4:35pm TAKE 1/2 (ONE-HALF) TABLET BY MOUTH ONCE DAILY FOR THE HEART Start: 07-22-2018 End: 04-26-2021 take 0.5 tablet by mouth once daily Metoprolol Succinate Discontinued 0 .ROUTE .COMPLEX 45 May 22, 2020 10:36am April 26, 2021 4:35pm TAKE 1/2 (ONE-HALF) TABLET BY MOUTH ONCE DAILY FOR THE HEART Start: 09-02-2016 End: 07-09-2017 take 1 tablet by mouth once daily Metoprolol Succinate 25 MG tablet extended release 24 hr Discontinued 25 mg PO DAILY September 02, 2016 12:00am July 09, 2017 1:54pm Start: 08-16-2013 take 1 tablet by toi th twice daily METOPROLOL TARTRATE 25 MG TABS One half tablet by mouth twice daily METOPROLOL TARTRATE [id number] Rodríguez Encarnacion MD Start: 06-19-2010 End: 08-16-2013 TOPROL XL 25 MG [id number] 1/ 2 tablet daily METOPROLOL SUCCINATE [id number] ZOLTAN MckeeC phenazopyridine hydrochloride 200 mg oral tablet (19 sources) Start: 07-30-2024 take 1 tablet by mouth three times daily as needed for pain Phenazopyridine (Pyridium) 200 mg tablet Active 200 mg PO THREE TIMES A DAY as needed for pain 6 0 November 01, 2024 12:00am Start: 11-17-2022 End: 12-03-2022 take 1 tablet by mouth three times daily as needed for pain Phenazopyridine (Pyridium) 100 mg tablet Discontinued 100 mg PO THREE TIMES A DAY as needed for pain 7 0 November 17, 2022 12:00am December 03, 2022 2:25pm Completed/Discontinued Medications Medication Drug Class(es) Dates Sig (Normalized) Sig (Original) acetaminophen 325 mg / HYDROcodone bitartrate 5 mg oral tablet (20 sources) Opioid Agonist Start: 07-17-2021 End: 11-07-2021 Hydrocodone-Acetamino phen 5-325 mg tablet Discontinued 1 {tbl} PO EVERY 6 HOURS as needed for pain 12 3 July 17, 2021 November 07, 2021 3:13pm Hydronephrosis with urinary obstruction due to ureteral calculus Hydronephrosis with renal and ureteral calculous obstruction Start: 07-17-2021 End: 11-07-2021 take 1 tablet by mouth every six hours Hydrocodone-Acetaminophen Discontinued 1 TABLET PO EVERY 6 HOURS 12 July 17, 2021 November 07, 2021 3:13pm acetaminophen 325 mg / oxyCODONE hydrochloride 5 mg oral tablet (20 sources) Opioid Agonist Start: 09-02-2016 End: 07-22-2018 Oxycodone-Acetaminophen 1 TABLET tablet Discontinued 1 {tbl} PO EVERY 6 HOURS NEEDED as needed for Pain 20 0 September 02, 2016 12:00am July 22, 2018 3:31pm Start: 09-02-2016 End: 07-22-2018 take 1 tablet by mouth every six hours as needed Oxycodone-Acetaminophen Discontinued 1 TABLET PO EVERY 6 HOURS NEEDED September 02, 2016 12:00am July 22, 2018 3:31pm cephalexin 500 mg oral capsule (20 sources) Cephalosporin Antibacterial Start: 12-06-2021 End: 05-31-2022 take 1 capsule by mouth three times daily Cephalexin 500 mg capsule Discontinued 500 mg PO THREE TIMES A DAY December 06, 2021 12:00am May 31, 2022 10:09am chlorthalidone 25 mg oral tablet (4 sources) Thiazide-like Diuretic Start: 03-04-2011 End: 03-09-2012 take 1 tablet by mouth once daily as needed CHLORTHALIDONE 25 MG TABS One tablet by mouth daily as needed CHLORTHALIDONE [id number] Rodríguez Encarnacion MD clopidogrel 75 mg oral tablet (4 sources) P2Y12 Platelet Inhibitor Start: 06-19-2010 End: 03-04-2011 take 1 tablet by mouth once daily PLAVIX 75 MG TABS One tablet by mouth daily CLOPIDOGREL BISULFATE [id number] Rodríguez Encarnacion MD colestipol hydrochloride 1000 mg oral tablet (20 sources) Bile Acid Sequestrant Start: 10-23-2018 End: 12-17-2018 Colestipol (Colestid) 1 gram tablet Discontinued 1 g PO DAILY 30 October 23, 2018 4:40pm December 17, 2018 9:36am 1 ml evolocumab 140 mg/ml auto-injector (20 sources) PCSK9 Inhibitor Start: 06-05-2023 End: 04-05-2024 Evolocumab (Repatha Sureclick) 140 mg/mL pen injector Discontinued 140 mg SC every 2 weeks 2 June 05, 2023 12:00am April 05, 2024 2:03pm Start: 07-22-2018 End: 10-23-2018 Evolocumab (Repatha Sureclic k) 140 mg/mL pen injector Discontinued 140 mg SC every 2 weeks 2 July 22, 2018 12:00am October 23, 2018 4:39pm ezetimibe 10 mg oral tablet (20 sources) Dietary Cholesterol Absorption Inhibitor Start: 06-20-2021 End: 02-03-2024 take 1 tablet by mouth once daily Ezetimibe (Zetia) 10 mg tablet Discontinued 10 mg PO DAILY 90 December 16, 2022 3:42pm February 03, 2024 9:34am dm hydroCHLOROthiazide 25 mg oral tablet (4 sources) Thiazide Diuretic Start: 06-19-2010 End: 03-04-2011 take 1 tablet by mouth once daily HYDROCHLOROTHIAZIDE 25 MG TABS One tablet by mouth daily HYDROCHLOROTHIAZIDE [id number] Rodríguez Encarnacion MD Multivitamin With Folic Acid (19 sources) Start: 03-12-2019 End: 04-26-2021 take 1 tablet by mouth once daily Multivitamin With Folic Acid Discontinued 1 TABLET PO DAILY March 12, 2019 8:58pm April 26, 2021 4:03pm Start: 03-12-2019 End: 04-26-2021 take 1 tablet by mouth once daily Multivitamin With Folic Acid Discontinued 1 TABLET PO DAILY March 12, 2019 12:00am April 26, 2021 3:03pm Start: 03-12-2019 End: 04-26-2021 take 1 tablet by mouth once daily Multivitamin With Folic Acid Discontinued 1 TABLET PO DAILY March 12, 2019 1:00am April 26, 2021 4:03pm Multivitamin With Folic Acid 1 TABLET tablet (8 sources) Start: 03-12-2019 End: 04-26-2021 take 1 tablet by mouth once daily Multivitamin With Folic Acid 1 TABLET tablet Discontinued 1 {tbl} PO DAILY March 12, 2019 1:00am April 26, 2021 4:03pm supplement Start: 03-12-2019 End: 04-26-2021 take 1 tablet by mouth once daily Multivitamin With Folic Acid 1 TABLET tablet Discontinued 1 {tbl} PO DAILY March 12, 2019 1:00am April 26, 2021 4:03pm nitrofurantoin, macrocrystals 25 mg / nitrofurantoin, monohydrate 75 mg oral capsule (20 sources) Nitrofuran Antibacterial Start: 07-30-2024 End: 08-06-2024 take 1 capsule by mouth every twelve hours at mealtime Nitrofurantoin Monohyd/M-Cryst 100 mg capsule Discontinued 1 NMA PO Q12H 14 7 0 July 30, 2024 12:00am August 05, 2024 12:00am August 06, 2024 12:08am administer with a meal/food; swallow whole; do not open, crush, dissolve , or chew Start: 11-26-2023 End: 12-03-2023 take 1 capsule by mouth every twelve hours at mealtime Nitrofurantoin Monohyd/M-Cryst 100 mg capsule Discontinued 1 NMA PO Q12H 14 7 0 November 26, 2023 12:00am December 02, 2023 12:00am December 03, 2023 12:08am administer with a meal/food; swallow whole; do not open, crush, dissolve , or chew Start: 11-17-2022 End: 11-24-2022 take 1 capsule by mouth every twelve hours at mealtime Nitrofurantoin Monohyd/M-Cryst (Macrobid) 100 mg capsule Discontinued 100 mg PO Q12H 14 7 0 November 17, 2022 12:00am November 23, 2022 12:00am November 24, 2022 12:04am must administer with a meal/food nitroglycerin 0.4 mg sublingual tablet (20 sources) Nitrate Vasodilator Start: 07-02-2017 End: 04-05-2024 Nitroglycerin (Nitrostat) 0.4 mg tablet, sublingual Discontinued 0.4 mg SL Q5M as needed for chest pain 18 05June 20, 2021 9:52am April 05, 2024 2:31pm Start: 07-02-2017 End: 06-20-2021 Nitroglycerin (Nitrostat) 0. 4 mg tablet, sublingual Discontinued 0.4 MG SL Q5M July 22, 2018 3:33pm June 20, 2021 9:53am Start: 06-19-2010 NITROSTAT 0.4 MG SUBL 1 tablet under tongue every 5 min up to 3 X NITROGLYCERIN [id number] Rodríguez Encarnacion MD ondansetron 8 mg disintegrating oral tablet (20 sources) Serotonin-3 Receptor Antagonist Start: 09-02-2016 End: 07-22-2018 take 1 tablet by mouth every eight hours as needed Ondansetron 8 MG tablet,disintegrating Discontinued 8 mg PO EVERY 8 HOURS NEEDED as needed for n/v 5 September 02, 2016 12:00am July 22, 2018 3:31pm prasugrel 10 mg oral tablet (4 sources) P2Y12 Platelet Inhibitor Start: 03-04-2011 End: 09-09-2011 take 1 tablet by mouth once daily EFFIENT 10 MG TABS One tablet by mouth daily PRASUGREL HCL [id number] Rodríguez Encarnacion MD pravastatin sodium 40 mg oral tablet (20 sources) HMG-CoA Reductase Inhibitor Start: 03-16-2019 End: 09-29-2019 take 1 tablet by mouth at bedtime Pravastatin 40 mg tablet Discontinued 40 mg PO AT BEDTIME 90 April 16, 2019 3:38pm September 29, 2019 3:34pm Start: 01-08-2019 End: 03-16-2019 take 1 tablet by mouth every other day Pravastatin 20 MG tablet Discontinued 20 mg PO EVERY OTHER DAY March 12, 2019 9:01pm March 16, 2019 9:26am cholesterol Start: 07-03-2012 End: 10-23-2018 take 1 tablet by mouth at bedtime Pravastatin 80 MG tablet Discontinued 80 mg PO AT BEDTIME September 02, 2016 12:00am October 23, 2018 4:31pm Start: 07-03-2012 take 1 tablet by toi th at bedtime PRAVASTATIN SODIUM 40 MG TABS One tablet by mouth at bedtime. PRAVASTATIN SODIUM [id number] Julianna Merino RN Start: 07-03-2012 take 1 tablet by toi th every other day PRAVASTATIN SODIUM 80 MG TABS One tablet by mouth every other day PRAVASTATIN SODIUM [id number] Rodríguez Encarnacion MD Start: 03-04-2011 take 1 tablet by toi th at bedtime PRAVASTATIN SODIUM 10 MG TABS One tablet by mouth at bedtime. PRAVASTATIN SODIUM [id number] Rodríguez Encarnacion MD Start: 06-19-2010 take 1 tablet by toi th once daily PRAVACHOL 20 MG TABS One tablet by mouth daily PRAVASTATIN SODIUM [id number] Rodríguez Encarnacion MD predniSONE 10 mg oral tablet (20 sources) Start: 04-26-2021 End: 11-07-2021 take 1 tablet by mouth once daily as needed Prednisone 10 mg tablet Discontinued 10 mg PO DAILY as needed for Inflammation April 26, 2021 1:00am November 07, 2021 3:13pm ticagrelor 90 mg oral tablet (20 sources) Start: 04-15-2024 End: 05-12-2024 take 1 tablet by mouth twice daily Ticagrelor (Brilinta) 90 mg tablet Discontinued 90 mg PO TWICE A DAY 60 April 15, 2024 1:00am May 12, 2024 1:04pm Start: 03-16-2019 End: 07-15-2019 take 1 tablet by mouth twice daily Ticagrelor 90 mg tablet Discontinued 90 mg PO TWICE A DAY 180 April 16, 2019 3:38pm July 15, 2019 2:39pm traMADol hydrochloride 50 mg oral tablet (20 sources) Opioid Agonist Start: 09-02-2016 End: 07-22-2018 take 1 tablet by mouth every six hours as needed for pain Tramadol 50 MG tablet Discontinued 50 mg PO EVERY 6 HOURS NEEDED as needed for Pain September 02, 2016 12:00am July 22, 2018 3:31pm Start: 05-19-2015 End: 07-12-2016 take 1 tablet by mouth once daily as needed TRAMADOL HCL 50 MG TABS One tablet by mouth daily - as needed TRAMADOL HCL [id number] Marleni Magana PA-C ubidecarenone 100 mg oral tablet (20 sources) Start: 11-07-2021 End: 12-03-2022 take 10 tablets by mouth once daily Coenzyme Q10 100 mg tablet Discontinued 100 mg PO DAILY November 07, 2021 12:00am December 03, 2022 2:25pm Problems Active Problems Problem Classification Problem Date Documented Date Episodic/Chronic Abdominal pain (20 sources) Flank pain; Translations: [Unspecified abdominal pain] 04-25-2022 Episodic Acute myocardial infarction (20 sources) Myocardial infarction; Translations: [Non-ST elevation (NSTEMI) myocardial infarction] 05-20-2020 Chronic Calculus of urinary tract (18 sources) Kidney stone; Translations: [Calculus of kidney] 04-25-2022 Episodic Cardiac dysrhythmias (20 sources) Sinus bradycardia; Translations: [Cardiac arrhythmia] Onset: 06-19-2010 05-19-2015 Chronic Complication of device; implant or graft (2 sources) Atherosclerosis of coronary artery bypass graft(s) without angina pectoris; Translations: [Atherosclerosis of coronary artery bypass graft(s) without angina pectoris] Onset: 06-19-2010 12-29-2015 Chronic Conduction disorders (20 sources) Conduction disorder of the heart; Translations: [Atrioventricular block] Onset: 06-19-2010 06-19-2010 Chronic Coronary atherosclerosis and other heart disease (20 sources) Atherosclerotic heart disease of [place] coronary artery without angina pectoris; Translations: [Coronary arteriosclerosis] Onset: 06-19-2010 06-19-2010 Chronic Comment on above: 11/24/09 PTCA/stent o f First Obtuse Marginal branch of left Cx; PTCA/stent to SVG to PDA in both proximal & distal segments; Sep 1993, median javon rnotomy, OHS , constructionof left internal thoracic artery graft to LAD and a segment ov RSV bypass graft to PDCA, redo CABG SVG to PDA, SVG to Diag 1, SVG to OM2 01/02/12; PTCA/stent of First Obtuse Marginal branch of left Cx; PTCA/stent to SVG to PDA in both proximal & distal segments 11/24/09; PCI/PACO to mid OM1 03/15/19; Diabetes mellitus without complication (20 sources) Diabetes mellitus; Translations: [Type 2 diabetes mellitus without complications] Onset: 03-04-2011 03-04-2011 Chronic Disorders of lipid metabolism (20 sources) Hyperlipidemia; Translations: [Pure hypercholesterolemia] Onset: 06-19-2010 06-19-2010 Chronic E Codes: Fall (14 sources) Fall; Translations: [Unspecified fall, initial encounter] 02-21-2023 Episodic Esophageal disorders (20 sources) Gastroesophageal reflux disease; Translations: [Gastro-esophageal reflux disease without esophagitis] 05-21-2020 Chronic Essential hypertension (20 sources) Hypertensive disorder; Translations: [Essential hypertension] Onset: 08-29-2015 08-29-2015 Chronic Genitourinary symptoms and ill-defined conditions (20 sources) Blood in urine; Translations: [Hematuria, unspecified] Onset: 08-06-2024 04-25-2022 Episodic Heart valve disorders (20 sources) Heart murmur; Translations: [Cardiac murmur, unspecified] Onset: 06-19-2010 06-19-2010 Episodic Nausea and vomiting (20 sources) Nausea and vomiting; Translations: [Nausea with vomiting, unspecified] 07-25-2021 Episodic Osteoarthritis (11 sources) Osteoarthritis of left knee joint; Translations: [Unilateral primary osteoarthritis, left knee] 02-21-2023 Chronic Other aftercare (19 sources) Patient encounter status; Translations: [Other salvage determiner (current) drug therapy] 07-02-2017 Episodic Other aftercare (8 sources) Long-term current use of drug therapy; Translations: [Other shelter (current) drug therapy] 07-02-2017 Episodic Other and unspecified benign neoplasm (20 sources) Lipoma of back; Translations: [Benign lipomatous neoplasm of skin and subcutaneous tissue of trunk] 12-17-2018 Episodic Other connective tissue disease (3 sources) Synovial cyst of knee; Translations: [Synovial cyst of popliteal space [[place]], unspecified knee] 02-21-2023 Episodic Other connective tissue disease (11 sources) Pain in limb; Translations: [Pain in unspecified limb] 02-21-2023 Episodic Other connective tissue disease (11 sources) Synovial cyst of popliteal space [[place]], unspecified knee; Translations: [Synovial cyst of popliteal space] 02-13-2023 Episodic Other diseases of kidney and ureters (16 sources) Hydronephrosis; Translations: [Hydronephrosis with renal and ureteral calculous obstruction] 07-17-2021 Episodic Other diseases of kidney and ureters (20 sources) Hydronephrosis with renal and ureteral calculous obstruction; Translations: [Hydronephrosis with urinary obstruction due to ureteral calculus] 07-17-2021 Episodic Other lower respiratory disease (20 sources) Dyspnea on exertion; Translations: [Shortness of breath] 06-08-2021 Episodic Other nervous system disorders (11 sources) Unable to walk; Translations: [Difficulty in walking, not elsewhere classified] 02-21-2023 Chronic Other nervous system disorders (3 sources) Difficulty in walking, not elsewhere classified; Translations: [Difficulty in walking] 02-13-2023 Chronic Other non-traumatic joint disorders (14 sources) Pain in left knee; Translations: [Acute pain of left knee] 02-21-2023 Episodic Unclassified (8 sources) Body mass index (BMI) 36.0-36.9, adult; Translations: [Body mass index (BMI) 35.0-35.9, adult] Onset: 08-16-2013 Resolved: 10-10-2014 08-16-2013 Chronic Unclassified (20 sources) Abnormal result of cardiovascular function study, unspecified; Translations: [Electrocardiogram abnormal] Onset: 06-19-2010 06-19-2010 Episodic Unclassified (2 sources) Long-term drug therapy; Translations: [Other salvage determiner (current) drug therapy] Onset: 06-19-2010 06-19-2010 Past or Other Problems Problem Classification Problem Date Documented Da te Episodic/Chronic Cardiac dysrhythmias (20 sources) Sinus bradycardia; Translations: [Bradycardia, unspecified] Onset: 04-05-2024 07-09-2017 Episodic Coronary atherosclerosis and other heart disease (20 sources) Coronary angioplasty status; Translations: [Presence of aortocoronary bypass graft] Onset: 06-19-2010 06-19-2010 Episodic Comment on above: PTCA/stent of First Obtuse Marginal branch of left Cx; PTCA/stent to SVG to PDA in both proximal & distal segments 11/24/09; PCI/PACO to mid OM1 03/15/19, median javon rnotomy, OHS , constructionof left internal thoracic artery graft to LAD and a segment ov RSV bypass graft to PDCA, redo CABG SVG to PDA, SVG to Diag 1, SVG to OM2 01/02/12; Nonspecific chest pain (20 sources) Chest pain on exertion; Translations: [Chest pain] Onset: 05-19-2015 Resolved: 08-29-2015 08-29-2015 Episodic Other lower respiratory disease (1 source) Shortness of breath; Translations: [Shortness of breath] Onset: 04-05-2024 Episodic Residual codes; unclassified (20 sources) History of cardiac catheterization; Translations: [Other specified postprocedural states] Onset: 02-24-2019 06-20-2021 Episodic Unclassified (4 sources) Family history of ischemic heart disease and other diseases of the circulatory system; Translations: [FH: Hypertension] 08-16-2013 Episodic Urinary tract infections (20 sources) Urinary tract infectious disease; Translations: [Urinary tract infection, site not specified] Onset: 12-27-2023 Episodic Results Test Name Value Interpretation Reference Range Facility Urine Cultureon 11-03-2024 [facility] Klebsiella oxytoca [place] Count >100,000 Klebsiella oxytoca: REACTION Ampicillin Islt BABITA >=32 Ampicillin+Sulbac Islt BABITA 16 I Cefepime Islt BABITA <=0.12 S cefTRIAXone Islt BABITA <=0.25 S Ciprofloxacin Islt BABITA <=0.06 S B-Lactamase Extended Susc Islt NEG Gentamicin Islt BABITA <=1 S levoFLOXacin Islt BABITA <=0.12 S Meropenem Islt BABITA <=0.25 S Nitrofurantoin Islt BABITA 64 I Pip+Tazo Islt BABITA <=4 S TMP SMX Islt BABITA <=[address] [facility] Comment on above: Performed By: #### M [id number] ####[facility] [id number] [place], [place], [id number] Laboratory - Chemistry and C hemistry - challengeOrdered By: Johnnie Frost on 11-01-2024 Bilirubin Ql (U) Negative [facility] Glucose Ql (U) Negative [facility] Ketones Ql (U) Negative [facility] pH (U) 6.0 [pH] [facility] Specific gravity (U) [Rel density] 1.[address] [facility] Urobilinogen (U) [Mass/Vol] 0.2836079 mg/dL [facility] Laboratory - Hematology and Cell countsOrdered By: Johnnie Frost on 11-01-2024 Hemoglobin Ql (U) Moderate [facility] Laboratory - Specimen inform ationOrdered By: Johnnie Frost on 11-01-2024 Clarity (U) Cloudy [facility] Color (U) YELLOW [facility] Laboratory - UrinalysisOrder ed By: Johnnie Frost on 11-01-2024 Nitrite Ql (U) Negative [facility] Protein Ql (U) Negative [facility] No Panel InformationOrdered By: Johnnie Frost on 11-01-[address] Leuk[address] Positive [facility] Urine Non-Hemolyzed Blood Non-Hemolyzed [facility] Urgent Care Visit Reporton 0 11-01-2024 Urgent Care Visit Report [facility] [address], [address] [place] [address] OFFICE VISIT Date of Service: 11/01/24 MR#: [id number] Acct: [id number] Name: JOSSE LACEY Rep #: [id number] : 1940 Provider: JEWEL Klein Age/Sex: 84/F Location: [facility] [place] [place] Status: Signed Intake Vital Signs 08/17/24 07:23 Height 5 ft Weight: 190 lb BMI 37.0 BP 171/72 H Blood Pressure Location Lt brachial Position Sitting Respiration 18 Pulse 51 L Pulse Source Monitor Pulse Oximetry (%) 96 Intake Visit Reasons: CONCERN FOR UTI Chief Complaint: dysuria, urgency Accompanied by: Self Allergies clopidogrel (From Plavix) Allergy (Verified 11/01/24 12:27) Rash Sulfa (Sulfonamide Antibiotics) Allergy (Verified 11/01/24 12:27) Rash Lieslno-YWR-VpW Reductase Inhibitor (Netrquu-Qcm-Oxe Reductase Inhibitor) Adverse Reaction (Severe, Verified 11/01/24 12:27) Intolerance, mylagias prasugrel (From Effient) Adverse Reaction (Intermediate, Verified 11/01/24 12:27) Tongue blisters Medications ???Medication ???Instructions ???Recorded ???Confirmed ???Type metformin 500 mg tablet,extended 500 mg PO DAILY dm 03/12/19 History release 24 hr aspirin 81 mg tablet,delayed 81 mg PO QDAY decrease plt #90 tab s 04/26/21 11/01/24 Rx release (Adult Aspirin Regimen) famotidine 20 mg tablet 20 mg PO BID PRN gerd 11/07/2110/18 History ezetimibe 10 mg tablet 10 mg PO DAILY #90 TABLETS 4 11/01/24 Rx nitroglycerin 0.4 mg sublingual 0.4 mg sublingual Q5M PRN chest 11/01/24 Rx tablet (Nitrostat) pain #25 tabs lisinopril 40 mg tablet 40 mg PO DAILY 04/14/24 11/01/24 H istory amlodipine 10 mg tablet 10 mg PO DAILY #90 tabs 04/15/24 0 11/01/24 Rx isosorbide mononitrate 60 mg 60 mg PO DAILY #90 tabs 04/15/24 0 11/01/24 Rx tablet,extended release 24 hr phenazopyridine 200 mg tablet 200 mg PO TID PRN pain 6 doses #7 07/30/24 11/01/24 Rx (Pyridium) tabs metoprolol succinate 25 mg 12.5 mg PO DAILY 08/17/24 11/01/24 History tablet,extended release 24 hr ciprofloxacin HCl 500 mg tablet 500 mg PO BID #10 tabs 11/01/24 Rx phenazopyridine 200 mg tablet 200 mg PO TID PRN pain 6 doses #6 11/01/24 11/01/24 Rx (Pyridium) tabs Have you fallen in the past year?: Yes Nurse's Note: Patient has concerns for a UTI. Patient states she has burning and painful urination. Patient state this has been going on a couple days. [facility] Medical History HLD (hyperlipidemia) Osteoarthritis of left knee Paresthesia and pain of left extremity Urinary tract infection with hematuria History of left heart catheterization (LHC) ( 06/20/21) SOB (shortness of breath) on exertion Status post left heart catheterization (LHC) ( 03/15/19) Lipoma of back Presence of stent in coronary artery ( 03/15/19) Pure hypercholesterolemia Essential hypertension CAD (coronary artery disease) Atrioventricular block Sinus bradycardia Percutaneous transluminal coronary angioplasty (PTCA) within last 14 to 24 months Diabetes mellitus Hypertension Atherosclerotic heart disease of [place] coronary artery without angina pectoris Surgical History Presence of coronary angioplasty implant and graft ( 11/24/09) 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/02/12) Family History Father CAD (coronary artery disease) Myocardial infarction Brother Myocardial infarction CAD (coronary artery disease) Brother Myocardial infarction Sister CAD (coronary artery disease) Diabetes Myocardial infarction Mother Cancer Social History Smoking Status: Never smoker alcohol intake: never substance use type: does not use caffeine: Yes Type: coffee Number of servings: 1 what type of physical activity do you participate in: none HPI HPI Chief Complaint: dysuria, urgency Details: JOSSE LACEY, is a 84 F who presents to the office today for [facility] for approximately 2 day history of dysuria with suprapubic pressure. She also describes slight chill sensation, though no complaints of fever, sweats, lightheadedness/dizzine ss, nausea/vomiting, chest pain/shortness of breath/dyspnea on exertion, or midback pain. No changes in color/ character of urine or stool. No taek-rgi-cgpqkft products taken to assist. No other associated symptoms and no alleviating/aggravating factors. ROS Const Constitutional: No other (As above) Exam Const General: cooperative, healthy appearing and no acute distress Orientation: alert, awake and orient (more content not included)... Normal [facility] Urine cultureOrdered By: Javon Frost on 11-01-2024 Bacteria identified Cx Nom (U) Klebsiella oxytoca Abnormal [facility] Cardiology Visit Reporton Cardiology Visit Report [facility] [address] [place] [address] OFFICE VISIT Date of Service: 08/17/24 MR#: [id number] Acct: [id number] Name: JOSSE LACEY Rep #: [id number] : 1940 Provider: STANLEY tesfaye Age/Sex: 83/F Location: [facility] Status: Signed HPI HPI History of Present Illness Details: JOSSE LACEY, is a 83 year old white female who presents to the office today for cardiovascular follow-up visit. She has a history of coronary artery disease with an inferior myocardial infarction with bypass surgery in 2011( left internal thoracic artery graft to LAD and a segment ov RSV bypass graft to PDCA 1993, redo CABG SVG to PDA, SVG to Diag 1, SVG to OM2 01/02/12); , s/p PCI (PTCA/stent to SVG to PDA in both proximal distal segments 11/24/09; PCI/PACO to mid OM1 ), sinus bradycardia, hyperlipidemia, hypertension, and diabetes mellitus. Diagnostic heart cath in 2021 demonstrated [place] Multivessel CAD, OM1: stent: patent, [place] to LAD: patent, SVG to DX1: patent, Y graft to OM1: occluded: chronic, SVG to RPDA: patent, Mitral Valve Insufficiency Mild. Medical management was recommended. If symptoms persisted would then consider PCI of the LCX distal system. Last month at her primary care doctor's office she had mentioned that she was having chest discomfort. She underwent a stress test. Stress test demonstrated abnormal pharmacologic myocardial perfusion stress test with mild mid anterior mid inferior ischemia, preserved ejection fraction. Last May I had discussed with patient her abnormal stress test. Did discuss pursuing a diagnostic heart catheterization however she was dealing with her ill at that time and did not want to address it at that time. She underwent a cardiac catheterization in March 2024, medical therapy was recommended at that time. From a cardiac standpoint, the patient is doing well. She denies any palpitations, chest pain, pressure or heaviness. She does have occasional SOB with exertion-walking to the mailbox. This is nothing new or worsening. She denies Orthopnea, and PND. She does not have bleeding issues; no blood in urine, stool, or nosebleeds. She does have fatigue. She denies myalgias, or claudication. She does not have edema, or sudden weight gain. She does acknowledge lightheadedness in the morning/positional changes. She denies dizziness, syncopal or near syncopal episodes, and headaches. Intake Vital Signs 07/30/24 08:11 08/17/24 07:23 Height 5 ft 5 ft Weight: 190 lb BMI 37.0 BP 171/72 H Blood Pressure Location Lt brachial Position Sitting Respiration 18 Pulse 51 L Pulse Source Monitor Pulse Oximetry (%) 96 Intake Visit Reasons: 3 M FU Blood Donor Recruiter Required: No Is patient in pain?: No Allergies clopidogrel (From Plavix) Allergy (Verified 08/17/24 11:38) Rash Sulfa (Sulfonamide Antibiotics) Allergy (Verified 08/17/24 11:38) Rash Oeyxncr-JFL-TkE Reductase Inhibitor (Fkjhcqn-Qlf-Llj Reductase Inhibitor) Adverse Reaction (Severe, Verified 08/17/24 11:38) Intolerance, mylagias prasugrel (From Effient) Adverse Reaction (Intermediate, Verified 08/17/24 11:38) Tongue blisters Medications ???Medication ???Instructions ???Recorded ???Confirmed ???Type metformin 500 mg tablet,extended 500 mg PO DAILY dm 03/12/19 History release 24 hr aspirin 81 mg tablet,delayed 81 mg PO QDAY decrease plt #90 tab s 04/26/21 08/17/24 Rx release (Adult Aspirin Regimen) famotidine 20 mg tablet 20 mg PO BID PRN gerd 11/07/21 History ezetimibe 10 mg tablet 10 mg PO DAILY #90 TABLETS 4 08/17/24 Rx nitroglycerin 0.4 mg sublingual 0.4 mg sublingual Q5M PRN chest 08/17/24 Rx tablet (Nitrostat) pain #25 tabs lisinopril 40 mg tablet 40 mg PO DAILY 04/14/24 08/17/24 H istory amlodipine 10 mg tablet 10 mg PO DAILY #90 tabs 04/15/24 0 08/17/24 Rx isosorbide mononitrate 60 mg 60 mg PO DAILY #90 tabs 04/15/24 0 08/17/24 Rx tablet,extended release 24 hr phenazopyridine 200 mg tablet 200 mg PO TID PRN pain 6 doses #7 07/30/24 08/17/24 Rx (Pyridium) tabs metoprolol succinate 25 mg 12.5 mg PO DAILY 08/17/24 08/17/24 History tablet,extended release 24 hr Ejection fraction %: 60 Have you fallen in the past year?: Yes PFSH Medical History HLD (hyperlipidemia) Osteoarthritis of left knee Paresthesia and pain of left extremity Urinary tract infection with hematuria History of left heart catheterization (LHC) ( 06/20/21) SOB (shortness of breath) on exertion Status post left heart catheterization (LHC) ( 03/15/19) Lipoma of back Presence of stent in coronary artery ( 03/15/19) Pure hypercholesterolemia Essential hypertension CAD (coronary artery (more content not included)... Normal [facility] Microalb:Creat Ratio,Random URon 08-12-2024 MALB:CREAT 85.7 mg/g CRE Normal [facility] Comment on above: Result Comment: AMENDED REPORT 08/12/24 0758 MALB:CREAT previously reported as: 857.4 mg/g CRE Performed By: #### L 500.4100, L502.0250 ####[facility] [address] [place], [place], [id number] Urine Cultureon 07-31-2024 [facility] Culture exhibits no growth. Normal [facility] Comment on above: Performed By: #### M 100.2200 #### [facility] [address] [place], [place], [id number] Laboratory - Chemistry and C hemistry - challengeOrdered By: Jc Delvalle on 07-30-2024 Bilirubin Ql (U) Negative [facility] Glucose Ql (U) Negative [facility] Ketones Ql (U) Negative [facility] pH (U) 6.0 [pH] [facility] Specific gravity (U) [Rel density] 1.[address] [facility] Urobilinogen (U) [Mass/Vol] Negative [facility] Laboratory - Hematology and Cell countsOrdered By: Jc Delvalle on 07-30-2024 Hemoglobin Ql (U) Negative [facility] Laboratory - Specimen inform ationOrdered By: Jc Delvalle on 07-30-2024 Clarity (U) Clear [facility] Color (U) Colorless [facility] Laboratory - UrinalysisOrder ed By: Jc Delvalle on 07-30-2024 Nitrite Ql (U) Negative [facility] Protein Ql (U) Trace [facility] No Panel InformationOrdered By: Jc Delvalle on 07-30-2024 Urine Leukocytes Positive [facility] Urine Non-Hemolyzed Blood Moderate [facility] Urgent Care Visit Reporton 0 07-30-2024 Urgent Care Visit Report [facility] [address], [address] [place] [address] OFFICE VISIT Date of Service: 07/30/24 MR#: [id number] Acct: [id number] Name: JOSSE LACEY Rep #: [id number] : 1940 Provider: JEWEL Hooks Age/Sex: 83/F Location: [facility] [place] [place] Status: Signed Intake Vital Signs 05/24/24 13:13 07/30/24 08:11 07/30/24 08:19 Height 5 ft 5 ft BP 152/80 H Blood Pressure Location Lt brachial Position Sitting Respiration 16 Pulse 65 Pulse Source NIBP Temp 97.9 F Temp Source Oral Pulse Oximetry (%) 97 Oxygen Delivery Method room air Intake Visit Reasons: Urinary tract infection Chief Complaint: dysuria, urgency Blood Donor Recruiter Required: No Is patient in pain?: No Allergies clopidogrel (From Plavix) Allergy (Verified 07/30/24 08:20) Rash Sulfa (Sulfonamide Antibiotics) Allergy (Verified 07/30/24 08:20) Rash Ozvkutc-IKS-PkC Reductase Inhibitor (Jquhyer-Eue-Kqe Reductase Inhibitor) Adverse Reaction (Severe, Verified 07/30/24 08:20) Intolerance, mylagias prasugrel (From Effient) Adverse Reaction (Intermediate, Verified 07/30/24 08:20) Tongue blisters Medications ???Medication ???Instructions ???Recorded ???Confirmed ???Type metformin 500 mg tablet,extended 500 mg PO DAILY dm 03/12/19 History release 24 hr aspirin 81 mg tablet,delayed 81 mg PO QDAY decrease plt #90 tab s 04/26/21 05/24/24 Rx release (Adult Aspirin Regimen) famotidine 20 mg tablet 20 mg PO BID PRN gerd 11/07/21 History ezetimibe 10 mg tablet 10 mg PO DAILY #90 TABLETS 4 05/24/24 Rx nitroglycerin 0.4 mg sublingual 0.4 mg sublingual Q5M PRN chest 05/24/24 Rx tablet (Nitrostat) pain #25 tabs lisinopril 40 mg tablet 40 mg PO DAILY 04/14/24 05/24/24 H istory metoprolol succinate 25 mg 25 mg PO DAILY 04/14/24 05/24/24 H istory tablet,extended release 24 hr amlodipine 10 mg tablet 10 mg PO DAILY #90 tabs 04/15/24 0 05/24/24 Rx isosorbide mononitrate 60 mg 60 mg PO DAILY #90 tabs 04/15/24 0 05/24/24 Rx tablet,extended release 24 hr nitrofurantoin 1 cap PO Q12H 7 days #14 caps 08/1807/30/24 Rx monohydrate/macrocrysta ls 100 mg capsule phenazopyridine 200 mg tablet 200 mg PO TID PRN pain 6 doses #7 07/30/24 07/30/24 Rx (Pyridium) tabs Is last menstrual period known: No Post menopausal: Yes Patient : No Have you fallen in the past year?: No Nurse's Note: dysuria, urgency s 2-3 days. denies back pain, abd pain, fever. concern for UTI [facility] Medical History (Updated 07/30/24 @ 10:37 by Jc HOLLOWAY, [place]) HLD (hyperlipidemia) Osteoarthritis of left knee Paresthesia and pain of left extremity Urinary tract infection with hematuria History of left heart catheterization (LHC) ( 06/20/21) SOB (shortness of breath) on exertion Status post left heart catheterization (LHC) ( 03/15/19) Lipoma of back Presence of stent in coronary artery ( 03/15/19) Pure hypercholesterolemia Essential hypertension CAD (coronary artery disease) Atrioventricular block Sinus bradycardia Percutaneous transluminal coronary angioplasty (PTCA) within last 14 to 24 months Diabetes mellitus Hypertension Atherosclerotic heart disease of [place] coronary artery without angina pectoris Surgical History Presence of coronary angioplasty implant and graft ( 11/24/09) 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/02/12) Family History Father CAD (coronary artery disease) Myocardial infarction Brother Myocardial infarction CAD (coronary artery disease) Brother Myocardial infarction Sister CAD (coronary artery disease) Diabetes Myocardial infarction Mother Cancer Social History Smoking Status: Never smoker alcohol intake: never substance use type: does not use caffeine: Yes Type: coffee Number of servings: 1 what type of physical activity do you participate in: none HPI HPI Chief Complaint: dysuria, urgency Details: JOSSE LACEY, is a 83 F who presents to the office today for complaint of dysuria and increased urinary urgency and frequency for the past 2 days. Patient denies fever, chills or sweats. No na usea, vomiting, diarrhea. No pelvic or abdominal pain. No other associated symptoms or alleviating/aggravating factors. ROS Const Constitutional: No other (As above) Exam Const General: cooperative and healthy appearing Resp Effort Inspection: normal respiratory effort Auscultation: Bilateral: Clear to Auscultation Cardio Rate: regular rate Rhythm: regular rhythm GI Auscultation: normal bowel sounds General: No CVA tend (more content not included)... Normal [facility] Urine cultureOrdered By: Sukhwinder Delvalle on 07-30-2024 Bacteria identified Cx Nom (U) Culture exhibits no growth. [facility] Urine Cultureon 07-02-2024 [facility] Klebsiella oxytoca [place] Count 25,000-50,000 Klebsiella oxytoca: REACTION Ampicillin Islt BABITA Ampicillin+Sulbac Islt BABITA 4 S Cefepime Islt BABITA <=0.12 S cefTRIAXone Islt BABITA <=0.25 S Ciprofloxacin Islt BABITA <=0.06 S B-Lactamase Extended Susc Islt NEG Gentamicin Islt BABITA <=1 S levoFLOXacin Islt BABITA <=0.12 S Meropenem Islt BABITA <=0.25 S Nitrofurantoin Islt BABITA 32 S Pip+Tazo Islt BABITA <=4 S TMP SMX Islt BABITA <=[address] [facility] Comment on above: Performed By: #### M 100.2200 #### [facility] [address] [place], [place], [id number] Laboratory - Chemistry and C hemistry - challengeOrdered By: Johnnie Frost on 06-30-2024 Bilirubin Ql (U) Negative [facility] Glucose Ql (U) Negative [facility] Ketones Ql (U) Negative [facility] pH (U) 6.0 [pH] [facility] Specific gravity (U) [Rel density] 1.[address] [facility] Urobilinogen (U) [Mass/Vol] 0.4859251 mg/dL [facility] - Hematology and Cell countsOrdered By: Johnnie Frost on 06-30-2024 Hemoglobin Ql (U) Negative [facility] - Specimen inform ationOrdered By: Johnnie Frost on 06-30-2024 Clarity (U) Clear [facility] Color (U) Colorless [facility] - UrinalysisOrder ed By: Johnnie Frost on 06-30-2024 Nitrite Ql (U) Negative [facility] Protein Ql (U) Trace [facility] No Panel InformationOrdered By: Johnnie Frost on 06-30-2024 Urine Leukocytes Positive [facility] Urine Non-Hemolyzed Blood Negative [facility] Urgent Care Visit Reporton 0 06-30-2024 Urgent Care Visit Report [facility] [address], [address] [place], [place] [address] OFFICE VISIT Date of Service: 06/30/24 MR#: [id number] Acct: [id number] Name: JOSSE LACEY Rep #: [id number] : 1940 Provider: JEWEL Klein Age/Sex: 83/F Location: [facility] Status: Signed Intake Vital Signs 05/24/24 13:13 06/30/24 08:11 Height 5 ft BP 130/80 H Position Sitting Pulse 85 Temp 98.0 F Temp Source Oral Pulse Oximetry (%) 97 Oxygen Delivery Method room air Intake Visit Reasons: CONCERN FOR UTI Accompanied by: Self Allergies clopidogrel (From Plavix) Allergy (Verified 05/24/24 13:11) Rash Sulfa (Sulfonamide Antibiotics) Allergy (Verified 05/24/24 13:11) Rash Ztjzvvn-ZLP-NnR Reductase Inhibitor (Njdmkgv-Azb-Kxu Reductase Inhibitor) Adverse Reaction (Severe, Verified 05/24/24 13:11) Intolerance, mylagias prasugrel (From Effient) Adverse Reaction (Intermediate, Verified 05/24/24 13:11) Tongue blisters Have you fallen in the past year?: No Nurse's Note: Patient concerned for a UTI. Patient has frequency and burning and pressure and pain. [facility] Medical History HLD (hyperlipidemia) Osteoarthritis of left knee Paresthesia and pain of left extremity Urinary tract infection with hematuria History of left heart catheterization (LHC) ( 06/20/21) SOB (shortness of breath) on exertion Status post left heart catheterization (LHC) ( 03/15/19) Lipoma of back Presence of stent in coronary artery ( 03/15/19) Pure hypercholesterolemia Essential hypertension CAD (coronary artery disease) Atrioventricular block Sinus bradycardia Percutaneous transluminal coronary angioplasty (PTCA) within last 14 to 24 months Diabetes mellitus Hypertension Atherosclerotic heart disease of [place] coronary artery without angina pectoris Surgical History Presence of coronary angioplasty implant and graft ( 11/24/09) 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/02/12) Family History Father CAD (coronary artery disease) Myocardial infarction Brother Myocardial infarction CAD (coronary artery disease) Brother Myocardial infarction Sister CAD (coronary artery disease) Diabetes Myocardial infarction Mother Cancer Social History Smoking Status: Never smoker alcohol intake: never substance use type: does not use caffeine: Yes Type: coffee Number of servings: 1 what type of physical activity do you participate in: none HPI HPI Details: JOSSE LACEY, is a 83 F who presents to the office today for initial evaluation at the [facility] for approximately 3-4 day history of dysuria and urinary frequency with suprapubic pressure - with new onset chills and mild dizziness appreciated this morning upon awakening. No complaints of fever, sweats, nausea/vomiting, or chest pain/shortness of breath/dyspnea on exertion/back pain. No changes in color/ character of urine or stool. No jlkt-rvf-sdemwcg products taken to assist. No other associated symptoms and no alleviating/aggravating factors. ROS Const Constitutional: No other (As above) Exam Const General: cooperative, healthy appearing and no acute distress Orientation: alert, awake and oriented x3 Chest Chest palpation inspection: normal inspection of the chest Resp Effort Inspection: normal respiratory effort and able to speak in complete sentences Cardio Rate: regular rate Pulses: radial pulses present GI Inspection: normal to inspection Palpation: soft and tender suprapubic (Patient describes upon self-palpation) General: No CVA tenderness Skin General: no rashes or lesions noted Neuro General: patient alert, patient awake and patient oriented x3 Cognition: normal cognition Speech: speech normal Psych Appearance: grossly normal Mental Status: mental status grossly normal Mood: congruent mood Affect: normal affect Speech and Movement: speech and movement normal Attitude: cooperative Diagnoses Urinary tract infection N39.0 Assessment and Plan Assessment and Plan (1) Urinary tract infection: Status: Acute Plan: See POC results; urine sent to lab for C/S. Cipro as prescribed today. Supportive measures as instructed today. Follow-up with PCP in 3 to 5 days should symptoms not improve, ED sooner should symptoms only worsen or any other concerns develop. Patient states acknowledging understanding all the above. Results POC Urinalysis Dip (Clinic) Office Urine Color Colorless Last Edit by Lizett Herndon MA on 06/30/24 08:24 Office Urine Clarity Clear Last Edit by Lizett Herndon MA on 06/30/24 08:24 (more content not included)... Normal [facility] Urine cultureOrdered By: Javon Frost on 06-30-2024 Bacteria identified Cx Nom (U) Klebsiella oxytoca Abnormal [facility] Coronary Angiography CTon Coronary Angiography CT [facility] Imaging Services [address] [place] [address] 05/25/24 0757 MR#: [id number] Acct: [id number] Name: JOSSE LACEY Rep #: [id number] : 1940 83 From: Tim Haney MD PCP: Dr. Rodríguez Lema MD Status:REG CLI Y Location: CT CCTA w/Cont Coronary Arteries Date of Study:: 05/24/24 Looking for Thompson Coronary Calcium Scoring: High-resolution Computed Tomographic imaging of the chest was performed on [ ], with particular attention paid to the coronary arteries. Intravenous contrast agent was administered per protocol and images reconstructed and displayed. LEFT MAIN CORONARY ARTERY: Arises from the left coronary cusp and bifurcates to left anterior descending artery and left circumflex artery [] LEFT ANTERIOR DESCENDING CORONARY ARTERY: This appears to be occluded [] LEFT CIRCUMFLEX CORONARY ARTERY: This vessel is noted to have a patent stent and an obtuse marginal branch with a small runoff [] RIGHT CORONARY ARTERY: This vessel has an area of calcification noted in the proximal segment with probable high-grade stenosis and then reconstitutes distally [] THORACIC AORTA: There is a saphenous vein graft noted to the diagonal vessel There is a saphenous vein graft noted to the posterior descending artery No other grafts are noted Conclusion: Coronary artery disease demonstrating patent saphenous vein graft to the diagonal vessel and posterior descending artery. 05/25/24 0803 Date Tim Haney MD Cosigner Signature (if applicable): Date CC: Dr. Tim Haney MD; Dr. Rodríguez Lema MD; JEWEL Mckee Signed Normal [facility] CREATININE FINGERSTICKon CREATININE WB < 1.0 Normal 0.55-1.[address] [facility] Comment on above: Performed By: #### L 9100.0200 #### [facility] [address] [place], [place], [id number] GFR/1.73 sq M.predicted among non-blacks MDRD (S/P/Bld) [Vol rate/Area] 55.0000 mL/min/{1.73_m2} Low >[address] [facility] Comment on above: Performed By: #### L 9100.0200 #### [facility] [address] [place], [place], [id number] Creatinine measurement at be dsideOrdered By: Marleni Magana on 05-24-2024 Bedside Creatinine < 1.0 mg/dL 0.55-1.02 [facility] EGFROrdered By: Marleni couch on 05-24-2024 GFR/1.73 sq M.predicted among non-blacks MDRD (S/P/Bld) [Vol rate/Area] 55.0000 mL/min/{1.73_m2} Low >[address] [facility] Limited Chest CT Cardiac Onl yon 05-24-[address] Cardiac Only [facility] Imaging Services [address] [place], [place] [id number] Limited Chest CT Cardiac Only MR#: [id number] Acct: [id number] Name: JOSSE LACEY Rep #: [id number] : 1940 F 83 From: Andry kwok MD PCP: Dr. Rodríguez Lema MD Status: [facility] Study: Limited Chest CT Cardiac Only Date of Exam: Exam# [id number] Ordering Dr: Marleni Magana PROCEDURE: LIMITED CHEST CT CARDIAC ONLY REASON FOR EXAM: CAD TECHNIQUE: Supine chest CT following intravenous contrast, high resolution CT (HRCT) protocol. Isovue 370. 81 mL was injected. One or more dose reduction techniques were used (e.g., Automated exposure control, adjustment of the mA and/or kV according to patient size, use of iterative reconstruction technique). COMPARISON: None FINDINGS: Hardware: Prior CABG. Lymph nodes: No mediastinal hilar or axillary lymphadenopathy. Heart and Vasculature: Normal heart size. No pericardial effusion. Coronary Artery Calcifications: Present Lungs and Airways: The lungs are normally expanded and clear. No septal thickening nodules or abnormal pulmonary opacities. Pleura: Unremarkable Upper Abdomen: Fatty infiltration of the liver. Bones: Degenerative changes of the thoracic spine. CT/Limited Chest CT Cardiac Only IMPRESSION: Coronary artery calcification (CAC) is is present Reading Location: [place] [address] CC: Dr. Rodríguez Lema MD; JEWEL Mckee Braider Setter: Signed Normal [facility] Albumin DL <= 20 mg/L (U) [M ass/Vol]Ordered By: Rodríguez Lema on 05-17-2024 Urine Random Microalbumin 46.3 mg/L NO RANGE EST. [facility] Calculated very low density lipoprotein (VLDL) cholesterol measurementOrdered By: Rodríguez Lema on 05-17-2024 Calculated very low density lipoprotein (VLDL) cholesterol measurement 71 mg/dL High 5-[address] [facility] VLDL Cholesterol 71 mg/dL High 5-[address] [facility] Creatinine Unsp time (U) [Ma ss/Vol]Ordered By: Rodríguez Lema on 05-17-2024 Creatinine (U) [Mass/Vol] 54.00 mg/dL 28.00-217.[address] [facility] LDL calc ser/plasOrdered By: Rodríguez Lema on 05-17-2024 Cholesterol in LDL [Mass/Vol] 153 mg/dL [facility] Comment on above: Kzqeuoeuus=958-281 m g/dL & Higher Mwib=477 mg/dL or greater LDL Cholesterol, Calculated 153 mg/dL [facility] Comment on above: Seqbsyoqtm=336-932 m g/dL & Higher Sqpg=803 mg/dL or greater Lipid Profileon 05-17-2024 CHOL:HDL 5.[address] [facility] Comment on above: Performed By: #### L 500.4100, L502.0250 ####[facility] [address] [place], [address] Cholesterol [Mass/Vol] 279 mg/dL High <=200 [facility] Comment on above: Result Comment: Chol esterol level, Desirable <200 mg/dL Borderline high cholesterol 200-239 mg/dL High cholesterol >=240 mg/dL Recommendations of the NCEP Adult Treatment Panel for the following risk-cutoff thresholds for the [place] population. Performed By: #### L 500.4100, L502.0250 ####[facility] [address] [facility] [address] Cholesterol in HDL [Mass/Vol] 56 mg/dL Normal [facility] Comment on above: Result Comment: Mireya onal Cholesterol Education Program (NCEP) guidelines: <40 mg/dL: Low HDL-cholesterol (major risk factor for CHD) >= 60 mg/dL: High HDL-cholesterol (negative risk factor for CHD) HDL-cholesterol is affected by a number of factors, e.g. smoking, exercise, hormones, sex and age. Performed By: #### L 500.4100, L502.0250 ####[facility] [address] [place], [address] Cholesterol in LDL [Mass/Vol] 153 mg/dL Normal [facility] Comment on above: Result Comment: Bord ljzsqc=857-286 mg/dL Higher Vfon=758 mg/dL or greater Performed By: #### L 500.4100, L502.0250 ####[facility] [address] [place], [address] Cholesterol in VLDL [Mass/Vol] 71 mg/dL High 5-[address] [facility] Comment on above: Performed By: #### L 500.4100, L502.0250 ####[facility] [address] [place], [address] Triglyceride [Mass/Vol] 353 mg/dL High [facility] Comment on above: Result Comment: The drugs N-Acetylcysteine and Metamizole may falsely depress this assay. Normal range: <150 mg/dL Borderline High: 150-199 mg/dL High: 200-499 mg/dL Very High: >500 mg/dL Performed By: #### L 500.4100, L502.0250 ####[facility] [address] [place], [address] Microalbumin/creat ratio urO rdered By: Rodríguez Lema on 05-17-2024 Urine Microalbumin/Creatinine Ratio 857.4 mg/g CRE [facility] Random urine creatinine mane urement (mass/volume)Ordered By: Rodríguez Lema on 05-17-2024 Creatinine Unsp time (U) [Mass/Vol] 54.00 mg/dL 28.00-217.[address] [facility] Screening total cholesterol/ high density lipoprotein (HDL) cholesterol ratioOrdered By: Rodríguez Lema on 05-17-2024 Cholesterol.total/Vicki sterol in HDL [Mass ratio] 5.01 {ratio} [facility] Serum or plasma cholesterol in HDL measurement (mass/volume)Ordered By: Rodríguez Lema on 05-17-2024 Cholesterol in HDL [Mass/Vol] 56 mg/dL >[address] [facility] Comment on above: National Cholesterol Education Program (NCEP) guidelines:<40 mg/dL: Low HDL-cholesterol (major risk factor for CHD)>= 60 mg/dL: High HDL-cholesterol (negative risk factor for CHD)HDL-cholesterol is affected by a number of factors, e.g. smoking, exercise, hormones, sex and age. Serum or plasma cholesterol measurement (mass/volume)Ordered By: Rodríguez Lema on 05-17-2024 Cholesterol [Mass/Vol] 279 mg/dL High <201 [facility] Comment on above: Cholesterol level, D esirable <200 mg/dLBorderline high cholesterol 200-239 mg/dLHigh cholesterol >=240 mg/dLRecommendations of the NCEP Adult Treatment Panel for the following risk-cutoff thresholds for the [place] population. Triglycerides measurementOrd ered By: Rodríguez Lema on 05-17-2024 Triglyceride [Mass/Vol] 353 mg/dL High <199 [facility] Comment on above: The drugs N-Acetylcy steine and Metamizole may falsely depress this assay. Normal range: <150 mg/dLBorderline High: 150-199 mg/dLHigh: 200-499 mg/dLVery High: >500 mg/dL Urine albumin measurement wi detection limit of 20 mg/L or less (mass/volume)Ordered By: Rodríguez Lema on 05-17-2024 Albumin DL <= 20 mg/L (U) [Mass/Vol] 46.3 mg/L NO RANGE EST. [facility] ACT Activated Clotting Timeo n 04-15-2024 ACTk CLOT TIME 164 sec High 74-[address] [facility] Comment on above: Performed By: #### L 9100.0100 #### [facility] [address] [place], [address] Activated clotting timeOrder ed By: Levar Hutton on 04-15-2024 Activated Clotting Time 164 sec High 74-137 [facility] Cardiac Cath Diagnosticon Cardiac Cath Diagnostic [facility] Imaging Services [address] [place] [address] Cardiac Cath Diagnostic MR#: [id number] Acct: [id number] Name: JOSSE LACEY Rep #: [id number] : 1940 83 From: Levar Hutton MD PCP: Dr. Rodríguez Lema MD Status:REG [facility] Patient Name: JOSSE LACEY Study Date: 04/15/2024 Performing: Levar Hutton MD Ht: 61 inches 154.94 cm : 1940 Wt: 191.01 lbs 86.64 kg Age: 83 Gender: female BSA: 1.85 PROCEDURE(S) PERFORMED DC04-(44309)C/COR/CAB G CLINICAL PROFILE AND INDICATION Indications: Worsening Angina Heart Failure: None Angina Classification Anginal Classification w/in 2 Weeks: CCS II CAD Presentations: Stable angina. 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 The risks and benefits of the procedure as well as a full description of our services here and current unavailability of surgical backup were fully explained to the patient and/or their significant other prior to the catheterization. The Timeout was completed, verifying the correct patient and procedure. The patient's procedural site was prepped and draped in the usual fashion. Local anesthetic was given subcutaneously to left radial region with Lidocaine 2%. Local anesthetic was given subcutaneously to right radial region with Lidocaine 2%. Using a modified Seldinger technique, arterial access was obtained via the left radial artery, a 6Fr sheath was inserted., arterial access was obtained via the right radial artery, a 6Fr sheath was inserted. Saphenous Vein graft to the DIAG 1 selective angiography was performed in multiple views using a 5 Fr. 4.0 [place] catheter. Saphenous Vein graft to the RPDA selective angiography was performed in multiple views using a 5 Fr. 4.0 [place] catheter. Left Coronary Artery selective angiography was performed in multiple views using a 5 Fr. JL 3.0.The arterial sheath was pulled and a TR Band was applied for hemostasis w/ 10ml. The arterial sheath was pulled and a TR Band was applied for hemostasis w/ 12ml air CORONARY ANGIOGRAPHY DOMINANCE: Right Dominant LEFT HEART ASSESSMENT LVEDP: 11 mmHg LEFT ANTERIOR DESCENDING ARTERY: LAD: Complex 100% Mid lesion in LAD DIAGONAL 1: Tubular 80% Proximal lesion in DIAG1 OM 1: Tubular 70% Ostial lesion in MARG1 Tubular 80% Mid lesion in MARG1 OM 2: Tubular 70% Ostial lesion in MARG1 Tubular 80% Mid lesion in MARG1 RAMUS: Tubular 90% Ostial lesion in Ramus RIGHT CORONARY ARTERY: RCA: Calcified 100% Mid lesion in RCA RT PDA: Diffuse 60% Proximal lesion in RT PDA GRAFTS: SVG Graft to RT PDA Eccentric 70% lesion in SVG Graft to RT PDA SVG Graft to DIAG1 COMPLICATIONS No Complications PROCEDURE MEDICATIONS Versed 1 mg IV Fentanyl 50 mcg IV Versed 1 mg IV Fentanyl 25 mcg IV Oxygen: 2 L/min via nasal cannula Heparin given IA 04/15/2024 09:40:55 Heparin 2000 unit(s) IV 04/15/2024 09:51:39 Verapamil 2.5mg, Ntg 200mcgs, 2000 units of Heparin given IA 04/15/2024 09:40:55 SUMMARY OF HEMODYNAMIC DATA Time AIR REST ECG 07:55:26 AO 146/46 (84) SA 09:44:39 LV 154/3, 10 09:44:56 LV 151/4, 11 09:45:05 LVp 157/1, 10 09:45:10 AOp 153/55 (87) 09:45:17 Signed By Levar Hutton MD On 04/15/2024 11:08:49 Levar Hutton MD 04/15/24 1109 Date Levar Hutton MD Cosigner Signature: Date (if indicated) CC: Dr. Levar Hutton MD; Dr. Rodríguez Lema MD Date Dictated: 04/15/24910 Date Transcribed: 04/15/241107 Braider Setter: DEBO Signed Normal [facility] 12 Lead EKG performed by [facility] [place] [place] on 04-05-2024 12 Lead EKG performed by [address] [address] 12 Lead EKG performed by [facility] [place] [place] 04/05/24 1257 MR#: [id number] Acct: [id number] Name: JOSSE LACEY Rep #: [id number] : 1940 83 From: Marleni Cota Attending Dr: JEWEL Mckee Status: DEP AMB Ordering Dr: Marleni Magana Date: 03/27 Location: [facility] [place] Sex: F C Admitted: [facility] [place] [place]/12 Lead EKG performed by [facility] [place] [place] ECG Report Interpretation ---Sinus Bradycardia -Anterior infarct -age undetermined. -Nonspecific ST depression + Negative T-waves. ABNORMAL Electronically signed on 04/07/2024 at 09:38 by Tim Haney Software Version [id number] 04/07/24 0939 Date Marleni HOLLOWAY CC: Dr. Rodríguez Lema MD Date Dictated: 04/05/24 1257 Date Transcribed: 04/05/24 1257 Braider Setter: CARLOS ALBERTO Signed Normal [facility] Absolute lymphocyte countOrd ered By: Marleni Magana on 04-05-2024 Lymphocytes Auto (Unsp spec) [#/Vol] 1.96 10*3/uL 0.83-4.[address] [facility] Absolute neutrophil countOrd ered By: Marleni Magana on 04-05-2024 Neutrophils (Bld) [#/Vol] 5.1 10*3/uL 2.0-7.[address] [facility] Activated partial thrombopla stin time (aPTT) in platelet poor plasma by coagulation aOrdered By: Marleni Magana on 04-05-2024 aPTT Coag (PPP) [Time] 26.0 s 24.1-36.2 [facility] Automated lymphocyte count a s percentage of total leukocytesOrdered By: Marleni Magana on 04-05-2024 Lymphocytes/100 WBC Auto (Unsp spec) 23.9 % 19-[address] [facility] Basic Metabolic Profile (BMP )on 04-05-2024 BUN/CRE 19.5 RATIO Normal 10-[address] [facility] Comment on above: Performed By: #### L 300.4310, L500.2500, L300.3900, L100.0100 ####[facility] [address] [place], [address] CA,Total 10.3 mg/dL High 8.5-10.[address] [facility] Comment on above: Performed By: #### L 300.4310, L500.2500, L300.3900, L100.0100 ####[facility] [address] [place], [address] Chloride [Moles/Vol] 105 mmol/L Normal 98-107 [facility] Comment on above: Performed By: #### L 300.4310, L500.2500, L300.3900, L100.0100 ####[facility] [address] [place], [address] CO2 [Moles/Vol] 26.0 mmol/L Normal 21.0-32.[address] [facility] Comment on above: Performed By: #### L 300.4310, L500.2500, L300.3900, L100.0100 ####[facility] [address] [place], [address] Creatinine [Mass/Vol] 1.18 mg/dL High 0.55-1.02 [facility] Comment on above: Result Comment: The validity of the calculated GFR GFRAA in patients over 70 years has not been determined. Clinical correlation is essential. Performed By: #### L 300.4310, L500.2500, L300.3900, L100.0100 ####[facility] [address] [place], [address] EST GFR - AA 57 mL/min Low >[address] [facility] Comment on above: Result Comment: Afri can Israeli GFR Calc Performed By: #### L 300.4310, L500.2500, L300.3900, L100.0100 ####[facility] [address] [place], [address] GAP 8 Normal 5-[address] [facility] Comment on above: Performed By: #### L 300.4310, L500.2500, L300.3900, L100.0100 ####[facility] [address] [place], [address] GFR/1.73 sq M.predicted among non-blacks MDRD (S/P/Bld) [Vol rate/Area] 47 mL/min/{1.73_m2} Low >[address] [facility] Comment on above: Result Comment: Non- GFR Calc Performed By: #### L 300.4310, L500.2500, L300.3900, L100.0100 ####[facility] [address] [place], [address] Glucose [Mass/Vol] 105 mg/dL Normal 74-106 [facility] Comment on above: Result Comment: Fast ing Glucose result from 100 to 125 mg/dL suggests IMPAIRED HOMEOSTASIS per A.D.A. criteria. Performed By: #### L 300.4310, L500.2500, L300.3900, L100.0100 ####[facility] [address] [place], [address] Potassium [Moles/Vol] 3.8 mmol/L Normal 3.5-5.1 [facility] Comment on above: Performed By: #### L 300.4310, L500.2500, L300.3900, L100.0100 ####[facility] [address] [place], [address] Sodium [Moles/Vol] 139 mmol/L Normal 136-145 [facility] Comment on above: Performed By: #### L 300.4310, L500.2500, L300.3900, L100.0100 ####[facility] [address] [place], [address] Urea nitrogen [Mass/Vol] 23 mg/dL High 7-[address] [facility] Comment on above: Performed By: #### L 300.4310, L500.2500, L300.3900, L100.0100 ####[facility] [address] [place], [address] Basophil percentageOrdered B y: Marleni Magana on 04-05-2024 Basophils/100 WBC (Bld) 0.7 % 0-1 [facility] Blood urea nitrogen (BUN)/cr eatinine ratioOrdered By: Marleni Magana on 04-05-2024 Urea nitrogen/Creatinine [Mass ratio] 19.5 mg/mg 12-[address] [facility] CBC W/Diff, Automatedon 03-27 Absolute Lymph 1.96 X10 3/uL Normal 0.83-4.[address] [facility] Comment on above: Performed By: #### L 300.4310, L500.2500, L300.3900, L100.0100 ####[facility] [address] [place], [address] Absolute Neut 5.1 X10 3/uL Normal 2.0-7.[address] [facility] Comment on above: Performed By: #### L 300.4310, L500.2500, L300.3900, L100.0100 ####[facility] [address] [place], [address] Basophils/100 WBC (Bld) 0.7 % Normal 0-1 [facility] Comment on above: Performed By: #### L 300.4310, L500.2500, L300.3900, L100.0100 ####[facility] [address] [place], [address] Eosinophils/100 WBC (Bld) 4.0 % Normal 0-[address] [facility] Comment on above: Performed By: #### L 300.4310, L500.2500, L300.3900, L100.0100 ####[facility] [address] [place], [address] Erythrocyte distribution width (RBC) [Ratio] 13.8 % Normal 11.6-14.[address] [facility] Comment on above: Performed By: #### L 300.4310, L500.2500, L300.3900, L100.0100 ####[facility] [address] [place], [address] Hematocrit (Bld) [Volume fraction] 44.9 % Normal 37-[address] [facility] Comment on above: Performed By: #### L 300.4310, L500.2500, L300.3900, L100.0100 ####[facility] [address] [place], [address] Hemoglobin (Bld) [Mass/Vol] 14.9 g/dL Normal 12.0-15.[address] [facility] Comment on above: Performed By: #### L 300.4310, L500.2500, L300.3900, L100.0100 ####[facility] [address] [place], [address] IG% 0.600 Normal 0.0-0.[address] [facility] Comment on above: Result Comment: IG% - Immature Granulocytes (promyelocytes, myelocytes and metamyelocytes) > 1% indicates that a LEFT SHIFT is Present. Performed By: #### L 300.4310, L500.2500, L300.3900, L100.0100 ####[facility] [address] [place], [address] Lymphocytes/100 WBC (Bld) 23.9 % Normal 19-[address] [facility] Comment on above: Performed By: #### L 300.4310, L500.2500, L300.3900, L100.0100 ####[facility] [address] [place], [address] MCH (RBC) [Entitic mass] 29.3 pg Normal 27.0-32.[address] [facility] Comment on above: Performed By: #### L 300.4310, L500.2500, L300.3900, L100.0100 ####[facility] [address] [place], [address] MCHC (RBC) [Mass/Vol] 33.2 g/dL Normal 32-36 [facility] Comment on above: Performed By: #### L 300.4310, L500.2500, L300.3900, L100.0100 ####[facility] [address] [place], [address] MCV (RBC) [Entitic vol] 88.2 fL Normal 81-99 [facility] Comment on above: Performed By: #### L 300.4310, L500.2500, L300.3900, L100.0100 ####[facility] [address] [place], [address] Monocytes/100 WBC (Bld) 8.7 % Normal 0-10 [facility] Comment on above: Performed By: #### L 300.4310, L500.2500, L300.3900, L100.0100 ####[facility] [address] [place], [address] Neutrophils/100 WBC (Bld) 62.1 % Normal 47-[address] [facility] Comment on above: Performed By: #### L 300.4310, L500.2500, L300.3900, L100.0100 ####[facility] [address] [place], [address] Nucleated RBC (Bld) [#/Vol] 0 10*3/uL Normal 0-[address] [facility] Comment on above: Performed By: #### L 300.4310, L500.2500, L300.3900, L100.0100 ####[facility] [address] [place], [address] Platelet mean volume (Bld) [Entitic vol] 10.1 fL Normal 6.2-12.[address] [facility] Comment on above: Performed By: #### L 300.4310, L500.2500, L300.3900, L100.0100 ####[facility] [address] [place], [address] Platelets (Bld) [#/Vol] 248 10*3/uL Normal 150-[address] [facility] Comment on above: Performed By: #### L 300.4310, L500.2500, L300.3900, L100.0100 ####[facility] [address] [place], [address] RBC (Bld) [#/Vol] 5.09 10*6/uL Normal 4.2-5.4 [facility] Comment on above: Performed By: #### L 300.4310, L500.2500, L300.3900, L100.0100 ####[facility] [address] [place], [address] RDW SD 44.7 fl High 35.1-43.[address] [facility] Comment on above: Performed By: #### L 300.4310, L500.2500, L300.3900, L100.0100 ####[facility] [address] [place], [address] WBC (Bld) [#/Vol] 8.2 10*3/uL Normal 4.4-11.0 [facility] Comment on above: Performed By: #### L 300.4310, L500.2500, L300.3900, L100.0100 ####[facility] [address] [place], [address] Carbon dioxide measurementOr dered By: Marleni Magana on 04-05-2024 CO2 [Moles/Vol] 26.0 mmol/L 21.0-32.[address] [facility] Cardiology Visit Reporton Cardiology Visit Report [facility] [address] [place] [address] OFFICE VISIT Date of Service: 04/05/24 MR#: [id number] Acct: [id number] Name: JOSSE LACEY Rep #: [id number] : 1940 Provider: JEWEL Lin Age/Sex: 83/F Location: [facility] Status: Signed HPI HPI History of Present Illness Surgical H P: Yes Details: JOSSE LACEY, is a 83 year old white female with a history of coronary artery disease with an inferior myocardial infarction with bypass surgery in 2011( left internal thoracic artery graft to LAD and a segment ov RSV bypass graft to PDCA 1993, redo CABG SVG to PDA, SVG to Diag 1, SVG to OM2 01/02/12); , s/p PCI (PTCA/stent to SVG to PDA in both proximal distal segments 11/24/09; PCI/PACO to mid OM1 ), sinus bradycardia, hyperlipidemia, hypertension, and diabetes mellitus. Diagnostic heart cath in 2021 demonstrated [place] Multivessel CAD, OM1: stent: patent, THOM[place]ON to LAD: patent, SVG to DX1: patent, Y graft to OM1: occluded: chronic, SVG to RPDA: patent, Mitral Valve Insufficiency Mild. Medical management was recommended. If symptoms persisted would then consider PCI of the LCX distal system. Last month at her primary care doctor's office she had mentioned that she was having chest discomfort. She underwent a stress test. Stress test demonstrated abnormal pharmacologic myocardial perfusion stress test with mild mid anterior mid inferior ischemia, preserved ejection fraction. Last May I had discussed with patient her abnormal stress test. Did discuss pursuing a diagnostic heart catheterization however she was dealing with her ill at that time and did not want to address it at that time. She called our office earlier this month with concerns over increased chest discomfort and would like to reconsider a diagnostic heart catheterization as her has since . EKG today demonstrates SB with anterior infarct and NSST depression with negative T waves with a HR of 54. She does have chest pain a few times a day. It can last up to a few minutes at a time. It is worse at night. She has not used her NTG, she was not sure if it was still good. At night she has a heaviness and sometimes have a cough. She does get SOB walking to her mailbox and back. She does need to stop and rest. She does not have any irregular heart beats but has pulsations in her abdomen. She feels like this is similar to what she had prior to her cardiac issues but not as back. With her husbands passing away it is difficult for her to tell. BP has been not as high as it is today, it is around 140 at home. Intake Vital Signs 06/02/23 11:21 04/05/24 12:57 Height 5 ft 1 in 5 ft 1 in Weight: 191 lb BMI 36.1 BP 194/84 H Blood Pressure Location Lt brachial Position Sitting Respiration 18 Pulse 54 L Pulse Source Monitor Pulse Oximetry (%) 94 Intake Visit Reasons: CP/ABN STRESS PER MMM Blood Donor Recruiter Required: No Is patient in pain?: No Allergies clopidogrel (From Plavix) Allergy (Verified 04/05/24 12:57) Rash Sulfa (Sulfonamide Antibiotics) Allergy (Verified 04/05/24 12:57) Rash Isqglbg-AUX-MkN Reductase Inhibitor (Dairpeh-Raz-Hjs Reductase Inhibitor) Adverse Reaction (Severe, Verified 04/05/24 12:57) Intolerance, mylagias prasugrel (From Effient) Adverse Reaction (Intermediate, Verified 04/05/24 12:57) Tongue blisters Medications ???Medication ???Instructions ???Recorded ???Confirmed ???Type metformin 500 mg tablet,extended 500 mg PO DAILY dm 03/12/19 History release 24 hr aspirin 81 mg tablet,delayed 81 mg PO QDAY decrease plt #90 tab s 04/26/21 04/05/24 Rx release (Adult Aspirin Regimen) metoprolol succinate 25 mg See Rx Instructions .Route 2 04/05/24 Rx tablet,extended release 24 hr .COMPLEX #45 tabs famotidine 20 mg tablet 20 mg PO BID PRN gerd 11/07/2112/18 History amlodipine 5 mg tablet (Norvasc) 5 mg PO DAILY #90 tabs 06/02/23 Rx lisinopril 20 mg tablet 20 mg PO DAILY bp 06/02/23 5 History ezetimibe 10 mg tablet 10 mg PO DAILY #90 TABLETS 4 04/05/24 Rx isosorbide mononitrate 60 mg 60 mg PO DAILY heart #90 tabs 03/2704/05/24 Rx tablet,extended release 24 hr nitroglycerin 0.4 mg sublingual 0.4 mg sublingual Q5M PRN chest 04/05/24 Rx tablet (Nitrostat) pain #25 tabs Have you fallen in the past year?: No [facility] Medical History (Updated 04/05/24 @ 15:07 by Marleni HOLLOWAY, PA) HLD (hyperlipidemia) Osteoarthritis of left knee Paresthesia and pain of left extremity Urinary tract infection with hematuria History of left heart catheterization (LHC) ( 06/20/21) SOB (shortness of breath) on exertion Status post left heart catheterization (LHC) ( 03/15/19) Lipoma of back Presence of (more content not included)... Normal [facility] Chest PA and Lateralon 04-05 Chest PA and Lateral [facility] Imaging Services [address] [place], [place] [id number] Chest PA and Lateral MR#: [id number] Acct: [id number] Name: JOSSE LACEY Rep #: [id number] : 1940 F 83 From: Jaylin hernandez MD PCP: Dr. Rodríguez Lema MD Status: REG CLI Study: Chest PA and Lateral Date of Exam: 04/05/24 Exam# [id number] Ordering Dr: Marleni Magana PA PROCEDURE: CHEST PA AND LATERAL REASON FOR EXAM: Chest pain. TECHNIQUE: Frontal view of the chest. COMPARISON: 06/12/2021. FINDINGS: The cardiac contour is normal. Aortic calcifications. No acute consolidation, pleural effusion or pneumothorax. Status post right rotator cuff repair. The patient is status post median sternotomy. Surgical clips noted in the upper abdomen suggesting prior cholecystectomy. RAD/Chest PA and Lateral IMPRESSION: No acute consolidation, pleural effusion or pneumothorax. Reading Location: [id number] CC: Dr. Rodríguez Lema MD; JEWEL Mckee Braider Setter: Signed Normal [facility] Chloride measurementOrdered By: Marleni Magana on 04-05-2024 Chloride [Moles/Vol] 105 mmol/L 98-107 [facility] Eosinophil percentageOrdered By: Marleni Magana on 04-05-2024 Eosinophils/100 WBC (Bld) 4.0 % 0-[address] [facility] Erythrocyte distribution wid th ratioOrdered By: Marleni Magana on 04-05-2024 Erythrocyte distribution width (RBC) [Ratio] 13.8 % 11.6-14.[address] [facility] Erythrocyte distribution wid th standard deviationOrdered By: Marleni Magana on 04-05-2024 Erythrocyte distribution width (RBC) [Entitic vol] 44.7 fL High 35.1-43.[address] [facility] Erythrocyte distribution width (RBC) [Ratio] 44.7 fl High 35.1-43.[address] [facility] Estimated glomerular filtrat ion rate (GFR) AmericanOrdered By: Marleni Magana on 04-05-2024 Estimated GFR (MDRD) Amer 57 mL/min Low >[address] [facility] Comment on above: GFR Calc Glomerular filtration rate ( GFR) estimationOrdered By: Marleni Magana on 04-05-2024 Estimated GFR (MDRD) Non-Af Amer 47 mL/min Low >[address] [facility] Comment on above: Non- GFR Calc GFR/1.73 sq M.predicted among non-blacks MDRD (S/P/Bld) [Vol rate/Area] 47 mL/min/{1.73_m2} Low >[address] [facility] Comment on above: Non- GFR Calc Glucose measurementOrdered B y: Marleni Magana on 04-05-2024 Glucose [Mass/Vol] 105 mg/dL 74-106 [facility] Comment on above: Fasting Glucose resu lt from 100 to 125 mg/dL suggests IMPAIRED HOMEOSTASIS per A.D.A. criteria. Hematocrit Auto (Bld) [Volum e fraction]Ordered By: Marleni Magana on 04-05-2024 Hematocrit (Bld) [Volume fraction] 44.9 % 37-[address] [facility] Hemoglobin measurementOrdere d By: Marleni Magana on 04-05-2024 Hemoglobin (Bld) [Mass/Vol] 14.9 g/dL 12.0-15.[address] [facility] Immature granulocytes/100 WB C Auto (Bld)Ordered By: Marleni Magana on 04-05-2024 Immature granulocytes/100 WBC (Bld) 0.600 % 0.0-0.[address] [facility] Comment on above: IG% - Immature Granu locytes (promyelocytes, myelocytes and metamyelocytes) > 1% indicates that a LEFT SHIFT is Present. International normalized rat io (INR) calculationOrdered By: Marleni Magana on 04-05-2024 INR Coag (Bld) [Relative time] 0.9 {INR} [facility] Lymphocytes Auto (Unsp spec) [#/Vol]Ordered By: Marleni Magana on 04-05-2024 Lymphocytes (Bld) [#/Vol] 1.96 10*3/uL 0.83-4.[address] [facility] Lymphocytes/100 WBC Auto (Un sp spec)Ordered By: Marleni Magana on 04-05-2024 Lymphocytes/100 WBC (Bld) 23.9 % 19-[address] [facility] MCV (mean corpuscular volume ) determinationOrdered By: Marleni Magana on 04-05-2024 MCV (RBC) [Entitic vol] 88.2 fL 81-99 [facility] Mean corpuscular hemoglobin (MCH) determinationOrdered By: Marleni Magana on 04-05-2024 MCH (RBC) [Entitic mass] 29.3 pg 27.0-32.[address] [facility] Mean corpuscular hemoglobin concentration (MCHC) determinationOrdered By: Marleni Magana on 04-05-2024 MCHC (RBC) [Mass/Vol] 33.2 g/dL 32-36 [facility] Mean platelet volume determi nationOrdered By: Marleni Magana on 04-05-2024 Platelet mean volume (Bld) [Entitic vol] 10.1 fL 6.2-12.[address] [facility] Monocyte percentageOrdered B y: Marleni Magana on 04-05-2024 Monocytes/100 WBC (Bld) 8.7 % 0-10 [facility] Neutrophil percentageOrdered By: Marleni Magana on 04-05-2024 Neutrophils/100 WBC (Bld) 62.1 % 47-[address] [facility] Nucleated red blood cell per centageOrdered By: Marleni Magana on 02-10-2025 Nucleated RBC/100 WBC (Bld) [Ratio] 0 % 0-[address] [facility] Partial Thromboplast Timeon 04-05-2024 aPTT Coag (Bld) [Time] 26.0 s Normal 24.1-36.2 [facility] Comment on above: Performed By: #### L 300.4310, L500.2500, L300.3900, L100.0100 ####[facility] [address] [place], [address] Platelet countOrdered By: Amanda Magana on 04-05-2024 Platelets (Bld) [#/Vol] 248 10*3/uL 150-[address] [facility] Potassium measurementOrdered By: Marleni Magana on 04-05-2024 Potassium [Moles/Vol] 3.8 mmol/L 3.5-5.1 [facility] Prothrombin Time w/INRon INR Coag (PPP) [Relative time] 0.9 {INR} Normal [facility] Comment on above: Performed By: #### L 300.4310, L500.2500, L300.3900, L100.0100 ####[facility] [address] [place], [address] PT Coag (PPP) [Time] 12.3 s Normal 11.7-14.9 [facility] Comment on above: Performed By: #### L 300.4310, L500.2500, L300.3900, L100.0100 ####[facility] [address] [place], [address] Prothrombin timeOrdered By: Marleni Magana on 04-05-2024 PT Coag (PPP) [Time] 12.3 s 11.7-14.9 [facility] RBC Auto (Bld) [#/Vol]Ordere d By: Marleni Magana on 04-05-2024 RBC (Bld) [#/Vol] 5.09 10*6/uL 4.2-5.4 [facility] Serum anion gap measurementO rdered By: Marleni Magana on 04-05-2024 Anion gap [Moles/Vol] 8 mmol/L 5-15 [facility] Serum or plasma calcium mane urement (mass/volume)Ordered By: Marleni Magana on 04-05-2024 Calcium [Mass/Vol] 10.3 mg/dL High 8.5-10.1 [facility] Serum or plasma creatinine m easurement (mass/volume)Ordered By: Marleni Magana on 04-05-2024 Creatinine [Mass/Vol] 1.18 mg/dL High 0.55-1.02 [facility] Comment on above: The validity of the calculated GFR & GFRAA in patients over 70 years has not been determined. Clinical correlation is essential. Serum or plasma urea nitroge n measurement (mass/volume)Ordered By: Marleni Magana on 04-05-2024 Urea nitrogen [Mass/Vol] 23 mg/dL High 7-[address] [facility] Sodium levelOrdered By: Dave Magana on 04-05-2024 Sodium [Moles/Vol] 139 mmol/L 136-145 [facility] White blood cell (WBC) count Ordered By: Marleni Magana on 04-05-2024 WBC (Bld) [#/Vol] 8.2 10*3/uL 4.4-11.0 [facility] aPTT Coag (PPP) [Time]Ordere d By: Marleni Magana on 04-05-2024 aPTT Coag (Bld) [Time] 26.0 s 24.1-36.2 [facility] SCRN MAMM (CAD)W/TARIK BILATo n 01-12-2024 SCRN MAMM (CAD)W/TARIK BILAT [facility] Imaging Services [address] [place] [address] SCRN MAMM (CAD)W/TARIK BILAT MR#: [id number] Acct: [id number] Name: JOSSE LACEY Rep #: [id number] : 1940 F 83 From: Andry kwok MD PCP: Dr. Rodríguez Lema MD Status: REG CLI Study: SCRN MAMM (CAD)W/TARIK BILAT Date of Exam: 12/25 10/17 Exam# [id number] Ordering Dr: [place]rí[place] [id number] MAMMOGRAPHY - BILATERAL SCREENING REASON FOR EXAM: Female, 83 years old. Routine annual screening examination. PERTINENT HISTORY: Non-contributory. History of prior bilateral stereotactic biopsies. TECHNIQUE: Digital bilateral breast tarik (3D mammographic acquisition) in the CC and MLO projections. 2-D mediolateral oblique (MLO) and craniocaudad (CC) views of both breasts were obtained. CAD: Full Field Digital Mammography with Computer Added Detection was performed. COMPARISON: Comparison is made with prior study of January 10, 2023 and December 24, 2021. FINDINGS: Breast Composition: There are scattered areas of fibroglandular density. There are no dominant masses or suspicious calcifications. Stable bilateral densely calcified nodules more prominent in the retroareolar region of the left breast. No other significant abnormalities are identified. There has been no significant change since the prior study. BI/SCRN MAMM (CAD)W/TARIK BILAT IMPRESSION: Stable bilateral screening mammogram. Yearly follow-up mammogram recommended. (A) ASSESSMENT CATEGORY: BIRADS Category 2: Benign. A letter regarding these results will be sent to the patient by the facility within 30 days. Approximately 10% of breast cancers are not detected by mammography. A normal mammogram should not delay biopsy of a clinically suspicious abnormality. [id number] Electronically Signed: Andry Matos MD at 14:13 EST , CC: Dr. Rodríguez Lema MD Braider Setter: Signed Normal [facility] Urine Cultureon 11-27-2023 [facility] Culture exhibits no growth. Normal [facility] Comment on above: Performed By: #### M 100.2201 #### [facility] [address] [place], [address] Urgent Care Visit Reporton 1 Urgent Care Visit Report [facility] [address], [address] [place] [address] OFFICE VISIT Date of Service: 11/26/23 MR#: [id number] Acct: [id number] Name: JOSSE LACEY Rep #: [id number] : 1940 Provider: JEWEL Hooks Age/Sex: 83/F Location: [facility] [place] [place] Status: Signed Intake Vital Signs 06/02/23 11:21 11/26/23 12:55 Height 5 ft 1 in Weight: 191 lb BMI 36.1 BP 158/70 H 144/70 H Blood Pressure Location Lt brachial Lt brachial Position Sitting Sitting Respiration 18 15 Pulse 56 L 68 Pulse Source Monitor NIBP Temp 98.4 F Temp Source Temporal Pulse Oximetry (%) 97 95 Oxygen Delivery Method room air Intake Visit Reasons: Urinary tract infection Chief Complaint: dysuria Blood Donor Recruiter Required: No Is patient in pain?: No Allergies clopidogrel (From Plavix) Allergy (Verified 11/26/23 12:55) Rash Sulfa (Sulfonamide Antibiotics) Allergy (Verified 11/26/23 12:55) Rash Fxxbjal-XVX-GtK Reductase Inhibitor (Ysyropj-Yoe-Rkq Reductase Inhibitor) Adverse Reaction (Severe, Verified 11/26/23 12:55) Intolerance, mylagias prasugrel (From Effient) Adverse Reaction (Intermediate, Verified 11/26/23 12:55) Tongue blisters Is last menstrual period known: No Post menopausal: Yes Patient : No Have you fallen in the past year?: No Nurse's Note: dysuria and urgency since this morning. denies abd pain/back pain/fevers. concern for UTI. [facility] Medical History Atherosclerotic heart disease of [place] coronary artery without angina pectoris Atrioventricular block CAD (coronary artery disease) Diabetes mellitus Essential hypertension History of left heart catheterization (LHC) ( 06/20/21) HLD (hyperlipidemia) Hypertension Lipoma of back Percutaneous transluminal coronary angioplasty (PTCA) within last 14 to 24 months Presence of stent in coronary artery ( 03/15/19) Pure hypercholesterolemia Sinus bradycardia SOB (shortness of breath) on exertion Status post left heart catheterization (LHC) ( 03/15/19) Urinary tract infection with hematuria Surgical History 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/02/12) Presence of coronary angioplasty implant and graft ( 11/24/09) Family History Father CAD (coronary artery disease) Myocardial infarction Brother Myocardial infarction CAD (coronary artery disease) Brother Myocardial infarction Sister CAD (coronary artery disease) Diabetes Myocardial infarction Mother Cancer Social History Smoking Status: Never smoker alcohol intake: never substance use type: does not use caffeine: Yes Type: coffee Number of servings: 1 what type of physical activity do you participate in: none HPI HPI Chief Complaint: dysuria Details: JOSSE LACEY, is a 83 F who presents to the office today for complaint of dysuria and urgency starting this morning. Patient states she has had UTIs in the past with similar symptoms. Patient denies hematuria or loss of bladder control. No pelvic or abdominal pain. No fever, chills, sweats. No nausea, vomiting or diarrhea. No other associated symptoms or alleviating/aggravating factors. ROS Const Constitutional: No other (As above) Exam Const General: cooperative and healthy appearing Resp Effort Inspection: normal respiratory effort Auscultation: Bilateral: Clear to Auscultation Cardio Rate: regular rate Rhythm: regular rhythm GI Auscultation: normal bowel sounds General: No CVA tenderness Psych Appearance: grossly normal Mental Status: mental status grossly normal Results POC Urinalysis Dip (Clinic) Office Urine Color Yellow Last Edit by Tracy Bagley on 11/26/23 13:06 Office Urine Clarity Cloudy Last Edit by Tracy Bagley on 11/26/23 13:06 Office Urine Glucose Negative Last Edit by Tracy Bagley on 11/26/23 13:06 Office Urine Ketones Negative Last Edit by Tracy Bagley on 11/26/23 13:06 Off Ur Spec [place] 1.005 Last Edit by Tracy Bagley on 11/26/23 13:06 Office Urine pH 6.0 Last Edit by Tracy Bagley on 11/26/23 13:06 Office Urine Bilirubin Negative Last Edit by Tracy Bagley on 11/26/23 13:06 Office Urine Urobilinogen Negative Last Edit by Tracy Bagley on 11/26/23 13:06 Office Urine Blood Large Last Edit by Tracy Bagley on 11/26/23 13:06 Office Urine Blood Hemolyzed NA Last Edit by Tracy Bagley on 11/26/23 13:06 Office Urine Protein Trace Last Edit by Tracy Bagley on 11/26/23 13:06 Office Urine Nitrate Negative Last Edit by Tracy Bagley on 11/26/23 13:06 Off Ur Leukocytes Positive Last Edit by Tracy Cota (more content not included)... Normal [facility] Basic Metabolic Profile (BMP )on 11-20-2023 BUN/CRE 15.4 RATIO Normal 12-[address] [facility] Comment on above: Performed By: #### L 502.0500, L500.4100, L500.2500 #### [facility] [address] [place], [address] CA,Total 10.3 mg/dL High 8.5-10.[address] [facility] Comment on above: Performed By: #### L 502.0500, L500.4100, L500.2500 #### [facility] [address] [place], [address] Chloride [Moles/Vol] 106 mmol/L Normal 98-107 [facility] Comment on above: Performed By: #### L 502.0500, L500.4100, L500.2500 #### [facility] [address] [place], [address] CO2 [Moles/Vol] 28.0 mmol/L Normal 21.0-32.[address] [facility] Comment on above: Performed By: #### L 502.0500, L500.4100, L500.2500 #### [facility] [address] [place], [address] Creatinine [Mass/Vol] 1.23 mg/dL High 0.55-1.02 [facility] Comment on above: Result Comment: The validity of the calculated GFR GFRAA in patients over 70 years has not been determined. Clinical correlation is essential. Performed By: #### L 502.0500, L500.4100, L500.2500 #### [facility] [address] [place], [address] EST GFR - AA 54 mL/min Low >[address] [facility] Comment on above: Result Comment: Afri can Israeli GFR Calc Performed By: #### L 502.0500, L500.4100, L500.2500 #### [facility] [address] [place], [address] GAP 6 Normal 5-[address] [facility] Comment on above: Performed By: #### L 502.0500, L500.4100, L500.2500 #### [facility] [address] [place], [address] GFR/1.73 sq M.predicted among non-blacks MDRD (S/P/Bld) [Vol rate/Area] 45 mL/min/{1.73_m2} Low >[address] [facility] Comment on above: Result Comment: Non- GFR Calc Performed By: #### L 502.0500, L500.4100, L500.2500 #### [facility] [address] [place], [address] Glucose [Mass/Vol] 139 mg/dL High 74-106 [facility] Comment on above: Result Comment: Fast ing Glucose result greater than or equal to 126 mg/dL suggests DIABETES MELLITUS per A.D.A. criteria. Performed By: #### L 502.0500, L500.4100, L500.2500 #### [facility] [address] [place], [address] Potassium [Moles/Vol] 3.9 mmol/L Normal 3.5-5.1 [facility] Comment on above: Performed By: #### L 502.0500, L500.4100, L500.2500 #### [facility] [address] [place], [address] Sodium [Moles/Vol] 139 mmol/L Normal 136-145 [facility] Comment on above: Performed By: #### L 502.0500, L500.4100, L500.2500 #### [facility] [address] [place], [address] Urea nitrogen [Mass/Vol] 19 mg/dL High 7-[address] [facility] Comment on above: Performed By: #### L 502.0500, L500.4100, L500.2500 #### [facility] [address] [place], [address] Lipid Profileon 11-20-2023 Cholesterol [Mass/Vol] 250 mg/dL High 200 [facility] Comment on above: Result Comment: <200 mg/dL Desirable 200-240 mg/dL Borderline >240 mg/dL High Risk Performed By: #### L 502.0500, L500.4100, L500.2500 ####[facility] [address] [place], [address] Cholesterol in HDL [Mass/Vol] 55 mg/dL Normal [facility] Comment on above: Result Comment: The drugs N-Acetylcysteine and Metamizole may falsely depress this assay. Reference Range HDL <40 mg/dL Low HDL Cholesterol HDL >or= 60 mg/dL High HDL Cholesterol Performed By: #### L 502.0500, L500.4100, L500.2500 ####[facility] [address] [place], [address] Cholesterol in LDL [Mass/Vol] 151 mg/dL High 0-[address] [facility] Comment on above: Performed By: #### L 502.0500, L500.4100, L500.2500 ####[facility] [address] [place], [address] Cholesterol in VLDL [Mass/Vol] 44 mg/dL High 5-[address] [facility] Comment on above: Performed By: #### L 502.0500, L500.4100, L500.2500 ####[facility] [address] [place], [address] Triglyceride [Mass/Vol] 222 mg/dL High [facility] Comment on above: Result Comment: The drugs N-Acetylcysteine and Metamizole may falsely depress this assay. Serum Triglycerides Reference Interval Normal <150 mg/dL Borderline high 150 - 199 mg/dL High 200 - 499 mg/dL Very High > or = 500 mg/dL Performed By: #### L 502.0500, L500.4100, L500.2500 ####[facility] [address] [place], [address] Microalbumin,Random Urineon 11-20-2023 MICROALBUMIN,UR 50.9 mg/L Normal NO RANGE EST. [facility] Comment on above: Performed By: #### L 502.0500, L500.4100, L500.2500 #### [facility] [address] [place], [address] Basophil percentageOrdered B y: Rodríguez Lema on 04-30-2023 Chloride [Moles/Vol] 107 mmol/L 98-107 [facility] Cholesterol [Mass/Vol] 291 mg/dL <200 [facility] Comment on above: <200 mg/dL Desirable 200-240 mg/dL Borderline >240 mg/dL High Risk Glucose [Mass/Vol] 107 mg/dL 74-106 [facility] Comment on above: Fasting Glucose resu lt from 100 to 125 mg/dL suggests IMPAIRED HOMEOSTASIS per A.D.A. criteria. Potassium [Moles/Vol] 3.8 mmol/L 3.5-5.1 [facility] Sodium [Moles/Vol] 138 mmol/L 136-145 [facility] Triglyceride [Mass/Vol] 247 mg/dL <199 [facility] Comment on above: The drugs N-Acetylcy steine and Metamizole may falsely depress this assay.Serum Triglycerides Reference Interval Normal <150 mg/dL Borderline high 150 - 199 mg/dL High 200 - 499 mg/dL Very High > or = 500 mg/dL Laboratory - Chemistry and C hemistry - challengeOrdered By: Rodríguez Lema on 04-30-2023 Cholesterol in HDL [Mass/Vol] 64 mg/dL >[address] [facility] Comment on above: The drugs N-Acetylcy steine and Metamizole may falsely depress this assay. Reference Range HDL <40 mg/dL Low HDL Cholesterol HDL >or= 60 mg/dL High HDL Cholesterol Cholesterol in LDL [Mass/Vol] 178 mg/dL 0-[address] [facility] CO2 [Moles/Vol] 25.0 mmol/L 21.0-32.[address] [facility] Urea nitrogen/Creatinine [Mass ratio] 17.4 mg/mg 10-[address] [facility] No Panel InformationOrdered By: Rodríguez Lema on 04-30-2023 Estimated GFR (MDRD) Amer 50 mL/min >[address] [facility] Comment on above: GFR Calc Estimated GFR (MDRD) Non-Af Amer 41 mL/min >[address] [facility] Comment on above: Non- GFR Calc VLDL Cholesterol 49 mg/dL 5-[address] [facility] Serum or plasma calcium mane urement (mass/volume)Ordered By: Rodríguez Lema on 04-30-2023 Calcium [Mass/Vol] 10.0 mg/dL 8.5-10.1 [facility] Serum or plasma creatinine m easurement (mass/volume)Ordered By: Rodríguez Lema on 04-30-2023 Creatinine [Mass/Vol] 1.32 mg/dL 0.55-1.02 [facility] Comment on above: The validity of the calculated GFR & GFRAA in patients over 70 years has not been determined. Clinical correlation is essential. Serum or plasma urea nitroge n measurement (mass/volume)Ordered By: Rodríguez Lema on 04-30-2023 Urea nitrogen [Mass/Vol] 23 mg/dL 7-[address] [facility] Thin prep Papanicolaou smear with manual screeningOrdered By: Rodríguez Lema on 04-30-2023 Thin prep Papanicolaou smear with manual screening 6 5-[address] [facility] Whole blood hemoglobin A1c/t otal hemoglobin ratio (mass fraction)Ordered By: Rodríguez Lema on 04-30-2023 HbA1c (Bld) [Mass fraction] 6.5 % 3.8-5.[address] [facility] Comment on above: Normal < 5.7 % Predi abetic 5.7 - 6.4 % Diabetic >or= 6.5 % Please note range changes. Absolute lymphocyte countOrd ered By: Med Gallegos on 02-13-2023 Lymphocytes Auto (Unsp spec) [#/Vol] 0.62 10*3/uL 0.83-4.[address] [facility] Basophil percentageOrdered B y: Med Gallegos on 02-13-2023 Basophils/100 WBC (Bld) 0.2 % 0-1 [facility] Bilirubin [Mass/Vol] 0.40 mg/dL 0.20-1.00 [facility] Comment on above: For patients on eltr ombopag therapy, use of Dimension [employer] TBIL is not recommended. Chloride [Moles/Vol] 105 mmol/L 98-107 [facility] Eosinophils/100 WBC (Bld) 0.0 % 0-[address] [facility] Glucose [Mass/Vol] 187 mg/dL 74-106 [facility] Comment on above: Fasting Glucose resu lt greater than or equal to 126 mg/dL suggests DIABETES MELLITUS per A.D.A. criteria. Neutrophils (Bld) [#/Vol] 5.7 10*3/uL 2.0-7.[address] [facility] Neutrophils/100 WBC (Bld) 88.8 % 47-[address] [facility] Potassium [Moles/Vol] 3.9 mmol/L 3.5-5.1 [facility] Protein [Mass/Vol] 7.1 g/dL 6.4-8.2 [facility] Sodium [Moles/Vol] 138 mmol/L 136-145 [facility] WBC (Bld) [#/Vol] 6.4 10*3/uL 4.4-11.0 [facility] Blood erythrocytes count (nu mber/volume)Ordered By: Med Gallegos on 02-13-2023 RBC (Bld) [#/Vol] 4.92 10*6/uL 4.2-5.4 [facility] Blood hemoglobin measurement (mass/volume)Ordered By: Med Gallegos on 02-13-2023 Hemoglobin (Bld) [Mass/Vol] 14.4 g/dL 12.0-15.[address] [facility] Blood lymphocytes/100 leukoc ytesOrdered By: Med Gallegos on 02-13-2023 Lymphocytes/100 WBC (Bld) 9.7 % 19-[address] [facility] Blood monocytes/100 leukocyt esOrdered By: Med Gallegos on 02-13-2023 Monocytes/100 WBC (Bld) 0.8 % 0-10 [facility] Blood platelet mean volumeOr dered By: Med Gallegos on 02-13-2023 Platelet mean volume (Bld) [Entitic vol] 10.1 fL 6.2-12.[address] [facility] Determination of erythrocyte mean corpuscular volume (MCV)Ordered By: Med Gallegos on 02-13-2023 MCV (RBC) [Entitic vol] 90.0 fL 81-99 [facility] Glucose Glucometer (BldC) [M ass/Vol]Ordered By: Ankur Fontanez on 02-13-2023 Glucose [Mass/Vol] 169 mg/dL 74-106 [facility] Comment on above: MANAGEMENT OF PATIEN T CARE PER NURSING PROTOCOL Hematocrit Auto (Bld) [Volum e fraction]Ordered By: Med Gallegos on 02-13-2023 Hematocrit (Bld) [Volume fraction] 44.3 % 37-[address] [facility] - Chemistry and C hemistry - challengeOrdered By: Med Gallegos on 02-13-2023 ALP [Catalytic activity/Vol] 101 U/L 45-[address] [facility] ALT [Catalytic activity/Vol] 65 U/L 13-[address] [facility] CO2 [Moles/Vol] 24.0 mmol/L 21.0-32.[address] [facility] Globulin (S) [Mass/Vol] 3.8 g/dL 2.2-4.2 [facility] Urea nitrogen/Creatinine [Mass ratio] 14.8 mg/mg 10-[address] [facility] - Hematology and Cell countsOrdered By: Med Gallegos on 02-13-2023 Erythrocyte distribution width (RBC) [Entitic vol] 44.3 fL 35.1-43.[address] [facility] Erythrocyte distribution width (RBC) [Ratio] 13.4 % 11.6-14.[address] [facility] Immature granulocytes/100 WBC (Bld) 0.500 % 0.0-0.[address] [facility] Comment on above: IG% - Immature Granu locytes (promyelocytes, myelocytes and metamyelocytes) > 1% indicates that a LEFT SHIFT is Present. MCH (RBC) [Entitic mass] 29.3 pg 27.0-32.[address] [facility] Nucleated RBC/100 WBC (Bld) [Ratio] 0 % 0-[address] [facility] MCHC Auto (RBC) [Mass/Vol]Or dered By: Med Gallegos on 02-13-2023 MCHC (RBC) [Mass/Vol] 32.5 g/dL 32-36 [facility] No Panel InformationOrdered By: Med Gallegos on 02-13-2023 Estimated Creatinine Clearance Calc 31.35 ml/min [facility] Estimated GFR (MDRD) Amer 63 mL/min >[address] [facility] Comment on above: GFR Calc Estimated GFR (MDRD) Non-Af Amer 52 mL/min >[address] [facility] Comment on above: Non- GFR Calc Thyroid Stimulating Hormone (TSH) 0.74 uIU/mL 0.358-3.[address] [facility] Platelets bldOrdered By: Ghulam Gallegos on 02-13-2023 Platelets (Bld) [#/Vol] 244 10*3/uL 150-[address] [facility] Serum or plasma albumin mane urement (mass/volume)Ordered By: Med Gallegos on 02-13-2023 Albumin [Mass/Vol] 3.3 g/dL 3.2-5.0 [facility] Serum or plasma albumin/glob ulin mass ratioOrdered By: Med Gallegos on 02-13-2023 Albumin/Globulin [Mass ratio] 0.9 {ratio} 0.9-2.[address] [facility] Serum or plasma calcium mane urement (mass/volume)Ordered By: Med Gallegos on 02-13-2023 Calcium [Mass/Vol] 9.5 mg/dL 8.5-10.1 [facility] Serum or plasma creatinine m easurement (mass/volume)Ordered By: Med Gallegos on 02-13-2023 Creatinine [Mass/Vol] 1.08 mg/dL 0.55-1.02 [facility] Comment on above: The validity of the calculated GFR & GFRAA in patients over 70 years has not been determined. Clinical correlation is essential. Serum or plasma urea nitroge n measurement (mass/volume)Ordered By: Med Gallegos on 02-13-2023 Urea nitrogen [Mass/Vol] 16 mg/dL 7-[address] [facility] Thin prep Papanicolaou smear with manual screeningOrdered By: Med Gallegos on 02-13-2023 Thin prep Papanicolaou smear with manual screening 66 U/L 15-[address] [facility] Thin prep Papanicolaou smear with manual screening 9 5-[address] [facility] Basophil percentageOrdered B y: David Vargas on 12-25-2022 Chloride [Moles/Vol] 104 mmol/L 98-107 [facility] Glucose [Mass/Vol] 135 mg/dL 74-106 [facility] Comment on above: Fasting Glucose resu lt greater than or equal to 126 mg/dL suggests DIABETES MELLITUS per A.D.A. criteria. Potassium [Moles/Vol] 3.9 mmol/L 3.5-5.1 [facility] Sodium [Moles/Vol] 140 mmol/L 136-145 [facility] - Chemistry and C hemistry - challengeOrdered By: David Vargas on 12-25-2022 CO2 [Moles/Vol] 31.0 mmol/L 21.0-32.[address] [facility] Urea nitrogen/Creatinine [Mass ratio] 16.1 mg/mg 10-[address] [facility] No Panel InformationOrdered By: David Vargas on 12-25-2022 Estimated GFR (MDRD) Amer 57 mL/min >[address] [facility] Comment on above: GFR Calc Estimated GFR (MDRD) Non-Af Amer 47 mL/min >[address] [facility] Comment on above: Non- GFR Calc Serum or plasma calcium mane urement (mass/volume)Ordered By: David Vargas on 12-25-2022 Calcium [Mass/Vol] 10.1 mg/dL 8.5-10.1 [facility] Serum or plasma creatinine m easurement (mass/volume)Ordered By: David Vargas on 12-25-2022 Creatinine [Mass/Vol] 1.18 mg/dL 0.55-1.02 [facility] Comment on above: The validity of the calculated GFR & GFRAA in patients over 70 years has not been determined. Clinical correlation is essential. Serum or plasma urea nitroge n measurement (mass/volume)Ordered By: David Vargas on 12-25-2022 Urea nitrogen [Mass/Vol] 19 mg/dL 7-[address] [facility] Thin prep Papanicolaou smear with manual screeningOrdered By: David Vargas on 12-25-2022 Thin prep Papanicolaou smear with manual screening 5 5-[address] [facility] Amorphous sediment detection in urine sediment by light microscopyOrdered By: David Vargas on 11-17-2022 Amorphous sediment LM Ql (Urine sed) 1+ URATE [facility] Basophil percentageOrdered B y: David Vargas on 11-17-2022 Basophil percentage >100 SEEN /hpf 0-5 [facility] Bilirubin Test strip Ql (U)O rdered By: David Vargas on 11-17-2022 Bilirubin Ql (U) Negative Negative [facility] Culture, urineOrdered By: Rain Vargas on 11-17-2022 Bacteria identified Cx Nom (U) Citrobacter freundii [facility] Bacteria identified Cx Nom (U) Citrobacter freundii [facility] Ketones Test strip Ql (U)Ord ered By: David Vargas on 11-17-2022 Ketones Ql (U) Negative Negative [facility] - Chemistry and C hemistry - challengeon 11-17-2022 Bilirubin Ql (U) Negative [facility] Glucose Ql (U) Negative [facility] Ketones Ql (U) Negative [facility] pH (U) 5.0 [pH] [facility] Specific gravity (U) [Rel density] 1.[address] [facility] Urobilinogen (U) [Mass/Vol] Negative [facility] - Hematology and Cell countson 11-17-2022 Hemoglobin Ql (U) Large [facility] - Specimen inform ationon 11-17-2022 Clarity (U) Cloudy [facility] Color (U) YELLOW [facility] - Urinalysison Nitrite Ql (U) Negative [facility] Protein Ql (U) 3+ [facility] Mucus LM Ql (Urine sed)Order ed By: David Vargas on 11-17-2022 Mucus Ql (Urine sed) 0 SEEN /hpf [facility] Nitrite Test strip Ql (U)Ord ered By: David Vargas on 11-17-2022 Nitrite Ql (U) Negative Negative [facility] No Panel Informationon 11-17 Urine Leukocytes Positive [facility] Urine Non-Hemolyzed Blood [facility] Protein Test strip Ql (U)Ord ered By: David Vargas on 11-17-2022 Protein Ql (U) 30 mg/dl Negative [facility] Squamous epithelial cells de tection in urine sediment by light microscopyOrdered By: David Vargas on 11-17-2022 Epithelial cells.squamous LM Ql (Urine sed) 0-5 SEEN /hpf 5-[address] [facility] Urine blood detectionOrdered By: David Vargas on 11-17-2022 RBC Ql (U) 150 /ul Negative [facility] RBC Ql (U) 25-50 SEEN /hpf 0-[address] [facility] Urine clarityOrdered By: Salazar Vargas on 11-17-2022 Clarity (U) Cloudy Clear [facility] Urine color determinationOrd ered By: David Vargas on 11-17-2022 Color (U) Yellow Yellow [facility] Urine glucose detectionOrder ed By: David Vargas on 11-17-2022 Glucose Ql (U) Normal mg/dl Normal [facility] Urine leukocyte esterase det ection by dipstickOrdered By: David Vargas on 11-17-2022 Leukocyte esterase Test strip Ql (U) 500 /ul Negative [facility] Urine pHOrdered By: David lee on 11-17-2022 pH (U) 6.0 [pH] 5.0 - 8.[address] [facility] Urine sediment bacteria coun t by microscopy (number/high power field)Ordered By: David Vargas on 11-17-2022 Bacteria LM.HPF (Urine sed) [#/Area] RARE /hpf None Seen [facility] Urine specific gravity measu rementOrdered By: David Vargas on 11-17-2022 Specific gravity (U) [Rel density] 1.010 1.002-1.[address] [facility] Urobilinogen Auto test strip Ql (U)Ordered By: David Vargas on 11-17-2022 Urobilinogen Ql (U) Normal mg/dl Normal [facility] Basophil percentageOrdered B y: Rodríguez Lema on 10-25-2022 Chloride [Moles/Vol] 102 mmol/L 98-107 [facility] Cholesterol [Mass/Vol] 316 mg/dL <200 [facility] Comment on above: <200 mg/dL Desirable 200-240 mg/dL Borderline >240 mg/dL High Risk Glucose [Mass/Vol] 102 mg/dL 74-106 [facility] Comment on above: Fasting Glucose resu lt from 100 to 125 mg/dL suggests IMPAIRED HOMEOSTASIS per A.D.A. criteria. Potassium [Moles/Vol] 4.3 mmol/L 3.5-5.1 [facility] Sodium [Moles/Vol] 138 mmol/L 136-145 [facility] Triglyceride [Mass/Vol] 249 mg/dL <199 [facility] Comment on above: The drugs N-Acetylcy steine and Metamizole may falsely depress this assay.Serum Triglycerides Reference Interval Normal <150 mg/dL Borderline high 150 - 199 mg/dL High 200 - 499 mg/dL Very High > or = 500 mg/dL Laboratory - Chemistry and C hemistry - challengeOrdered By: Rodríguez Lema on 10-25-2022 CO2 [Moles/Vol] 28.0 mmol/L 21.0-32.[address] [facility] Urea nitrogen/Creatinine [Mass ratio] 19.7 mg/mg 10-[address] [facility] No Panel InformationOrdered By: Rodríguez Lema on 10-25-2022 Estimated GFR (MDRD) Amer 57 mL/min >[address] [facility] Comment on above: GFR Calc Estimated GFR (MDRD) Non-Af Amer 47 mL/min >[address] [facility] Comment on above: Non- GFR Calc Serum or plasma calcium mane urement (mass/volume)Ordered By: Rodríguez Lema on 10-25-2022 Calcium [Mass/Vol] 10.3 mg/dL 8.5-10.1 [facility] Serum or plasma cholesterol in HDL measurement (mass/volume)Ordered By: Rodríguez Lema on 10-25-2022 Cholesterol in HDL [Mass/Vol] 62 mg/dL >[address] [facility] Comment on above: The drugs N-Acetylcy steine and Metamizole may falsely depress this assay. Reference Range HDL <40 mg/dL Low HDL Cholesterol HDL >or= 60 mg/dL High HDL Cholesterol Serum or plasma cholesterol in VLDL measurement (mass/volume)Ordered By: Rodríguez Lema on 10-25-2022 Cholesterol in VLDL [Mass/Vol] 50 mg/dL 5-[address] [facility] Serum or plasma creatinine m easurement (mass/volume)Ordered By: Rodríguez Lema on 10-25-2022 Creatinine [Mass/Vol] 1.17 mg/dL 0.55-1.02 [facility] Comment on above: The validity of the calculated GFR & GFRAA in patients over 70 years has not been determined. Clinical correlation is essential. Serum or plasma low density lipoprotein (LDL) cholesterol measurement (mass/volume)Ordered By: Rodríguez Lema on 10-25-2022 Cholesterol in LDL [Mass/Vol] 204 mg/dL 0-[address] [facility] Serum or plasma urea nitroge n measurement (mass/volume)Ordered By: Rodríguez Lema on 10-25-2022 Urea nitrogen [Mass/Vol] 23 mg/dL 7-[address] [facility] Thin prep Papanicolaou smear with manual screeningOrdered By: Rodríguez Lema on 10-25-2022 Thin prep Papanicolaou smear with manual screening 8 5-[address] [facility] Basophil percentageOrdered B y: David Vargas on 06-24-2022 Chloride [Moles/Vol] 105 mmol/L 98-107 [facility] Glucose [Mass/Vol] 131 mg/dL 74-106 [facility] Comment on above: Fasting Glucose resu lt greater than or equal to 126 mg/dL suggests DIABETES MELLITUS per A.D.A. criteria. Potassium [Moles/Vol] 4.4 mmol/L 3.5-5.1 [facility] Sodium [Moles/Vol] 140 mmol/L 136-145 [facility] - Chemistry and C hemistry - challengeOrdered By: David Vargas on 06-24-2022 CO2 [Moles/Vol] 28.0 mmol/L 21.0-32.[address] [facility] Urea nitrogen/Creatinine [Mass ratio] 14.8 mg/mg 10-[address] [facility] No Panel InformationOrdered By: David Vargas on 06-24-2022 Estimated GFR (MDRD) Amer 58 mL/min >[address] [facility] Comment on above: GFR Calc Estimated GFR (MDRD) Non-Af Amer 48 mL/min >[address] [facility] Comment on above: Non- GFR Calc Serum or plasma calcium mane urement (mass/volume)Ordered By: David Vargas on 06-24-2022 Calcium [Mass/Vol] 10.0 mg/dL 8.5-10.1 [facility] Serum or plasma creatinine m easurement (mass/volume)Ordered By: David Vargas on 06-24-2022 Creatinine [Mass/Vol] 1.15 mg/dL 0.55-1.02 [facility] Comment on above: The validity of the calculated GFR & GFRAA in patients over 70 years has not been determined. Clinical correlation is essential. Serum or plasma urea nitroge n measurement (mass/volume)Ordered By: David Vargas on 06-24-2022 Urea nitrogen [Mass/Vol] 17 mg/dL 7-[address] [facility] Thin prep Papanicolaou smear with manual screeningOrdered By: David Vargas on 06-24-2022 Thin prep Papanicolaou smear with manual screening 7 5-[address] [facility] Basophil percentageOrdered B y: Dr. Lema on 04-29-2022 Chloride [Moles/Vol] 102 mmol/L 98-107 [facility] Cholesterol [Mass/Vol] 293 mg/dL <200 [facility] Comment on above: <200 mg/dL Desirable 200-240 mg/dL Borderline >240 mg/dL High Risk Glucose [Mass/Vol] 150 mg/dL 74-106 [facility] Comment on above: Fasting Glucose resu lt greater than or equal to 126 mg/dL suggests DIABETES MELLITUS per A.D.A. criteria. Potassium [Moles/Vol] 4.2 mmol/L 3.5-5.1 [facility] Sodium [Moles/Vol] 136 mmol/L 136-145 [facility] Triglyceride [Mass/Vol] 221 mg/dL <199 [facility] Comment on above: The drugs N-Acetylcy steine and Metamizole may falsely depress this assay.Serum Triglycerides Reference Interval Normal <150 mg/dL Borderline high 150 - 199 mg/dL High 200 - 499 mg/dL Very High > or = 500 mg/dL Laboratory - Chemistry and C hemistry - challengeOrdered By: Dr. Lema on 04-29-2022 CO2 [Moles/Vol] 26.0 mmol/L 21.0-32.[address] [facility] Urea nitrogen/Creatinine [Mass ratio] 16.4 mg/mg 10-[address] [facility] No Panel InformationOrdered By: Dr. Lema on 04-29-2022 Estimated GFR (MDRD) Amer 55 mL/min >[address] [facility] Comment on above: GFR Calc Estimated GFR (MDRD) Non-Af Amer 45 mL/min >[address] [facility] Comment on above: Non- GFR Calc Serum or plasma calcium mane urement (mass/volume)Ordered By: Dr. Lema on 04-29-2022 Calcium [Mass/Vol] 10.0 mg/dL 8.5-10.1 [facility] Serum or plasma cholesterol in HDL measurement (mass/volume)Ordered By: Dr. Lema on 04-29-2022 Cholesterol in HDL [Mass/Vol] 61 mg/dL >[address] [facility] Comment on above: The drugs N-Acetylcy steine and Metamizole may falsely depress this assay. Reference Range HDL <40 mg/dL Low HDL Cholesterol HDL >or= 60 mg/dL High HDL Cholesterol Serum or plasma cholesterol in VLDL measurement (mass/volume)Ordered By: Dr. Lema on 04-29-2022 Cholesterol in VLDL [Mass/Vol] 44 mg/dL 5-[address] [facility] Serum or plasma creatinine m easurement (mass/volume)Ordered By: Dr. Lema on 04-29-2022 Creatinine [Mass/Vol] 1.22 mg/dL 0.55-1.02 [facility] Comment on above: The validity of the calculated GFR & GFRAA in patients over 70 years has not been determined. Clinical correlation is essential. Serum or plasma low density lipoprotein (LDL) cholesterol measurement (mass/volume)Ordered By: Dr. Lema on 04-29-2022 Cholesterol in LDL [Mass/Vol] 188 mg/dL 0-[address] [facility] Serum or plasma urea nitroge n measurement (mass/volume)Ordered By: Dr. Lema on 04-29-2022 Urea nitrogen [Mass/Vol] 20 mg/dL 7-[address] [facility] Thin prep Papanicolaou smear with manual screeningOrdered By: Dr. Lema on 04-29-2022 Thin prep Papanicolaou smear with manual screening 8 5-[address] [facility] Absolute lymphocyte countOrd ered By: Rodríguez Thompson on 04-25-2022 Lymphocytes Auto (Unsp spec) [#/Vol] 1.17 10*3/uL 0.83-4.[address] [facility] Basophil percentageOrdered B y: Rodríguez Thompson on 04-25-2022 Basophils/100 WBC (Bld) 0.4 % 0-1 [facility] Chloride [Moles/Vol] 103 mmol/L 98-107 [facility] Eosinophils/100 WBC (Bld) 0.9 % 0-[address] [facility] Glucose [Mass/Vol] 157 mg/dL 74-106 [facility] Comment on above: Fasting Glucose resu lt greater than or equal to 126 mg/dL suggests DIABETES MELLITUS per A.D.A. criteria. Neutrophils (Bld) [#/Vol] 6.6 10*3/uL 2.0-7.[address] [facility] Neutrophils/100 WBC (Bld) 79.7 % 47-[address] [facility] Potassium [Moles/Vol] 4.0 mmol/L 3.5-5.1 [facility] Sodium [Moles/Vol] 137 mmol/L 136-145 [facility] WBC (Bld) [#/Vol] 8.2 10*3/uL 4.4-11.0 [facility] Basophil percentageOrdered B y: ED PROVIDER on 04-25-2022 Basophil percentage 0 SEEN /hpf 0-5 [facility] Bilirubin Test strip Ql (U)O rdered By: ED PROVIDER on 04-25-2022 Bilirubin Ql (U) Negative Negative [facility] Blood erythrocytes count (nu mber/volume)Ordered By: Rodríguez Thompson on 04-25-2022 RBC (Bld) [#/Vol] 5.53 10*6/uL 4.2-5.4 [facility] Blood hemoglobin measurement (mass/volume)Ordered By: Rodríguez Thompson on 04-25-2022 Hemoglobin (Bld) [Mass/Vol] 16.4 g/dL 12.0-15.[address] [facility] Blood lymphocytes/100 leukoc ytesOrdered By: Rodríguez Thompson on 04-25-2022 Lymphocytes/100 WBC (Bld) 14.2 % 19-[address] [facility] Blood monocytes/100 leukocyt esOrdered By: Rodríguez Thompson on 04-25-2022 Monocytes/100 WBC (Bld) 4.4 % 0-10 [facility] Blood platelet mean volumeOr dered By: Rodríguez Thompson on 04-25-2022 Platelet mean volume (Bld) [Entitic vol] 10.1 fL 6.2-12.[address] [facility] Determination of erythrocyte mean corpuscular volume (MCV)Ordered By: Rodríguez Thompson on 04-25-2022 MCV (RBC) [Entitic vol] 88.4 fL 81-99 [facility] Hematocrit Auto (Bld) [Volum e fraction]Ordered By: Rodríguez Thompson on 04-25-2022 Hematocrit (Bld) [Volume fraction] 48.9 % 37-[address] [facility] Ketones Test strip Ql (U)Ord ered By: ED PROVIDER on 04-25-2022 Ketones Ql (U) 5 mg/dl Negative [facility] Laboratory - Chemistry and C hemistry - challengeOrdered By: Rodríguez Thompson on 04-25-2022 CO2 [Moles/Vol] 26.0 mmol/L 21.0-32.[address] [facility] Urea nitrogen/Creatinine [Mass ratio] 19.6 mg/mg 10-[address] [facility] Laboratory - Hematology and Cell countsOrdered By: Rodríguez Thompson on 04-25-2022 Erythrocyte distribution width (RBC) [Entitic vol] 43.8 fL 35.1-43.[address] [facility] Erythrocyte distribution width (RBC) [Ratio] 13.5 % 11.6-14.[address] [facility] Immature granulocytes/100 WBC (Bld) 0.400 % 0.0-0.[address] [facility] Comment on above: IG% - Immature Granu locytes (promyelocytes, myelocytes and metamyelocytes) > 1% indicates that a LEFT SHIFT is Present. MCH (RBC) [Entitic mass] 29.7 pg 27.0-32.[address] [facility] Nucleated RBC/100 WBC (Bld) [Ratio] 0 % 0-[address] [facility] MCHC Auto (RBC) [Mass/Vol]Or dered By: Rodríguez Thompson on 04-25-2022 MCHC (RBC) [Mass/Vol] 33.5 g/dL 32-36 [facility] Mucus LM Ql (Urine sed)Order ed By: ED PROVIDER on 04-25-2022 Mucus Ql (Urine sed) 0 SEEN /hpf [facility] Nitrite Test strip Ql (U)Ord ered By: ED PROVIDER on 04-25-2022 Nitrite Ql (U) Negative Negative [facility] No Panel InformationOrdered By: Rodríguez Thompson on 04-25-2022 Estimated Creatinine Clearance Calc 32.21 ml/min [facility] Estimated GFR (MDRD) Amer 60 mL/min >[address] [facility] Comment on above: GFR Calc Estimated GFR (MDRD) Non-Af Amer 50 mL/min >[address] [facility] Comment on above: Non- GFR Calc Platelets bldOrdered By: Khushboo Thompson on 04-25-2022 Platelets (Bld) [#/Vol] 232 10*3/uL 150-[address] [facility] Protein Test strip Ql (U)Ord ered By: ED PROVIDER on 04-25-2022 Protein Ql (U) 100 mg/dl Negative [facility] Serum or plasma calcium mane urement (mass/volume)Ordered By: Rodríguez Thompson on 04-25-2022 Calcium [Mass/Vol] 10.4 mg/dL 8.5-10.1 [facility] Serum or plasma creatinine m easurement (mass/volume)Ordered By: Rodríguez Tohmpson on 04-25-2022 Creatinine [Mass/Vol] 1.12 mg/dL 0.55-1.02 [facility] Comment on above: The validity of the calculated GFR & GFRAA in patients over 70 years has not been determined. Clinical correlation is essential. Serum or plasma urea nitroge n measurement (mass/volume)Ordered By: Rodríguez Thompson on 04-25-2022 Urea nitrogen [Mass/Vol] 22 mg/dL 7-[address] [facility] Squamous epithelial cells de tection in urine sediment by light microscopyOrdered By: ED PROVIDER on 04-25-2022 Epithelial cells.squamous LM Ql (Urine sed) 0-5 SEEN /hpf 5-[address] [facility] Thin prep Papanicolaou smear with manual screeningOrdered By: Rodríguez Thompson on 04-25-2022 Thin prep Papanicolaou smear with manual screening 8 5-[address] [facility] Urine blood detectionOrdered By: ED PROVIDER on 04-25-2022 RBC Ql (U) 250 /ul Negative [facility] RBC Ql (U) 25-50 SEEN /hpf 0-[address] [facility] Urine clarityOrdered By: ED PROVIDER on 04-25-2022 Clarity (U) Clear Clear [facility] Urine color determinationOrd ered By: ED PROVIDER on 04-25-2022 Color (U) Yellow Yellow [facility] Urine glucose detectionOrder ed By: ED PROVIDER on 04-25-2022 Glucose Ql (U) Normal mg/dl Normal [facility] Urine leukocyte esterase det ection by dipstickOrdered By: ED PROVIDER on 04-25-2022 Leukocyte esterase Test strip Ql (U) 25 /ul Negative [facility] Urine pHOrdered By: ED PROVI ANGÉLICA on 04-25-2022 pH (U) 6.5 [pH] 5.0 - 8.[address] [facility] Urine sediment bacteria coun t by microscopy (number/high power field)Ordered By: ED PROVIDER on 04-25-2022 Bacteria LM.HPF (Urine sed) [#/Area] 0 /[HPF] None Seen [facility] Urine specific gravity measu rementOrdered By: ED PROVIDER on 04-25-2022 Specific gravity (U) [Rel density] 1.015 1.002-1.[address] [facility] Urobilinogen Auto test strip Ql (U)Ordered By: ED PROVIDER on 04-25-2022 Urobilinogen Ql (U) Normal mg/dl Normal [facility] Basophil percentageon 2021 Bilirubin [Mass/Vol] 0.50 mg/dL 0.20-1.00 [facility] Work Phone: Comment on above: For patients on eltr ombopag therapy, use of Dimension [employer] TBIL is not recommended. Chloride [Moles/Vol] 105 mmol/L 98-107 [facility] Work Phone: Cholesterol [Mass/Vol] 309 mg/dL <200 [facility] Work Phone: Comment on above: <200 mg/dL Desirable 200-240 mg/dL Borderline >240 mg/dL High Risk Glucose [Mass/Vol] 145 mg/dL 74-106 [facility] Work Phone: Comment on above: Fasting Glucose resu lt greater than or equal to 126 mg/dL suggests DIABETES MELLITUS per A.D.A. criteria. Potassium [Moles/Vol] 4.0 mmol/L 3.5-5.1 [facility] Work Phone: Protein [Mass/Vol] 7.9 g/dL 6.4-8.2 [facility] Work Phone: Sodium [Moles/Vol] 139 mmol/L 136-145 [facility] Work Phone: Triglyceride [Mass/Vol] 175 mg/dL <199 [facility] Work Phone: Comment on above: The drugs N-Acetylcy steine and Metamizole may falsely depress this assay.Serum Triglycerides Reference Interval Normal <150 mg/dL Borderline high 150 - 199 mg/dL High 200 - 499 mg/dL Very High > or = 500 mg/dL Direct bilirubinon 2 Bilirubin.direct [Mass/Vol] 0.13 mg/dL 0.00-0.[address] [facility] Work Phone: Laboratory - Chemistry and C hemistry - challengeon 12-07-2021 ALP [Catalytic activity/Vol] 95 U/L 45-[address] [facility] Work Phone: ALT [Catalytic activity/Vol] 23 U/L 13-[address] [facility] Work Phone: CO2 [Moles/Vol] 28.0 mmol/L 21.0-32.[address] [facility] Work Phone: Globulin (S) [Mass/Vol] 4.3 g/dL 2.2-4.2 [facility] Work Phone: Urea nitrogen/Creatinine [Mass ratio] 16.4 mg/mg 10-[address] [facility] Work Phone: No Panel Informationon 12-07 Estimated GFR (MDRD) Amer 58 mL/min >[address] [facility] Work Phone: Comment on above: GFR Calc Estimated GFR (MDRD) Non-Af Amer 48 mL/min >[address] [facility] Work Phone: Comment on above: Non- GFR Calc Serum or plasma albumin mane urement (mass/volume)on 12-07-2021 Albumin [Mass/Vol] 3.6 g/dL 3.2-5.0 [facility] Work Phone: Serum or plasma calcium mane urement (mass/volume)on 12-07-2021 Calcium [Mass/Vol] 9.9 mg/dL 8.5-10.1 [facility] Work Phone: Serum or plasma cholesterol in HDL measurement (mass/volume)on 12-07-2021 Cholesterol in HDL [Mass/Vol] 56 mg/dL >[address] [facility] Work Phone: Comment on above: The drugs N-Acetylcy steine and Metamizole may falsely depress this assay. Reference Range HDL <40 mg/dL Low HDL Cholesterol HDL >or= 60 mg/dL High HDL Cholesterol Serum or plasma cholesterol in VLDL measurement (mass/volume)on 12-07-2021 Cholesterol in VLDL [Mass/Vol] 35 mg/dL 5-[address] [facility] Work Phone: Serum or plasma creatinine m easurement (mass/volume)on 12-07-2021 Creatinine [Mass/Vol] 1.16 mg/dL 0.55-1.02 [facility] Work Phone: Comment on above: The validity of the calculated GFR & GFRAA in patients over 70 years has not been determined. Clinical correlation is essential. Serum or plasma low density lipoprotein (LDL) cholesterol measurement (mass/volume)on 12-07-2021 Cholesterol in LDL [Mass/Vol] 218 mg/dL 0-[address] [facility] Work Phone: Serum or plasma urea nitroge n measurement (mass/volume)on 12-07-2021 Urea nitrogen [Mass/Vol] 19 mg/dL 7-[address] [facility] Work Phone: Thin prep Papanicolaou smear with manual screeningon 12-07-2021 Thin prep Papanicolaou smear with manual screening 17 U/L 15-[address] [facility] Work Phone: Thin prep Papanicolaou smear with manual screening 6 5-[address] [facility] Work Phone: Whole blood hemoglobin A1c/t otal hemoglobin ratio (mass fraction)on 12-07-2021 HbA1c (Bld) [Mass fraction] 6.6 % 3.8-5.[address] [facility] Work Phone: Comment on above: Normal < 5.7 % Predi abetic 5.7 - 6.4 % Diabetic >or= 6.5 % Please note range changes. Basophil percentageon 2021 Basophil percentage 25-50 SEEN /hpf 0-[address] [facility] Work Phone: Bilirubin Test strip Ql (U)o n 12-06-2021 Bilirubin Ql (U) Negative Negative [facility] Work Phone: Ketones Test strip Ql (U)on 12-06-2021 Ketones Ql (U) Negative Negative [facility] Work Phone: Laboratory - Chemistry and C hemistry - challengeon 12-06-2021 Bilirubin Ql (U) Negative [facility] Work Phone: Glucose Ql (U) Negative [facility] Work Phone: Ketones Ql (U) Trace (5) [facility] Work Phone: pH (U) 6.5 [pH] [facility] Work Phone: Specific gravity (U) [Rel density] 1.[address] [facility] Work Phone: Urobilinogen (U) [Mass/Vol] Negative [facility] Work Phone: Laboratory - Hematology and Cell countson 12-06-2021 Hemoglobin Ql (U) Hemolyzed [facility] Work Phone: Laboratory - Specimen inform ationon 12-06-2021 Clarity (U) Cloudy [facility] Work Phone: Color (U) STRAW [facility] Work Phone: Laboratory - Urinalysison Nitrite Ql (U) Negative [facility] Work Phone: Protein Ql (U) Negative [facility] Work Phone: Mucus LM Ql (Urine sed)on Mucus Ql (Urine sed) 0 SEEN /hpf [facility] Work Phone: Nitrite Test strip Ql (U)on 12-06-2021 Nitrite Ql (U) Negative Negative [facility] Work Phone: No Panel Informationon 12-06 Urine Leukocytes Positive [facility] Work Phone: Urine Non-Hemolyzed Blood Moderate [facility] Work Phone: Protein Test strip Ql (U)on 12-06-2021 Protein Ql (U) 15 mg/dl Negative [facility] Work Phone: Squamous epithelial cells de tection in urine sediment by light microscopyon 12-06-2021 Epithelial cells.squamous LM Ql (Urine sed) 0 SEEN /hpf 5-[address] [facility] Work Phone: Urine blood detectionon 11-24 RBC Ql (U) 25 /ul Negative [facility] Work Phone: RBC Ql (U) 0-5 SEEN /hpf 0-[address] [facility] Work Phone: Urine clarityon 12-06-2021 Clarity (U) Clear Clear [facility] Work Phone: Urine color determinationon 12-06-2021 Color (U) Straw Yellow [facility] Work Phone: Urine glucose detectionon Glucose Ql (U) Normal mg/dl Normal [facility] Work Phone: Urine leukocyte esterase det ection by dipstickon 12-06-2021 Leukocyte esterase Test strip Ql (U) 500 /ul Negative [facility] Work Phone: Urine pHon 12-06-2021 pH (U) 7.0 [pH] 5.0 - 8.[address] [facility] Work Phone: Urine sediment bacteria coun t by microscopy (number/high power field)on 12-06-2021 Bacteria LM.HPF (Urine sed) [#/Area] 1 /[HPF] None Seen [facility] Work Phone: Urine specific gravity measu rementon 12-06-2021 Specific gravity (U) [Rel density] 1.005 1.002-1.[address] [facility] Work Phone: Urobilinogen Auto test strip Ql (U)on 12-06-2021 Urobilinogen Ql (U) Normal mg/dl Normal [facility] Work Phone: Basophil percentageon 2021 Chloride [Moles/Vol] 103 mmol/L 98-107 [facility] Work Phone: Cholesterol [Mass/Vol] 261 mg/dL <200 [facility] Work Phone: Comment on above: <200 mg/dL Desirable 200-240 mg/dL Borderline >240 mg/dL High Risk Glucose [Mass/Vol] 144 mg/dL 74-106 [facility] Work Phone: Comment on above: Fasting Glucose resu lt greater than or equal to 126 mg/dL suggests DIABETES MELLITUS per A.D.A. criteria. Potassium [Moles/Vol] 4.1 mmol/L 3.5-5.1 [facility] Work Phone: Sodium [Moles/Vol] 138 mmol/L 136-145 [facility] Work Phone: Triglyceride [Mass/Vol] 199 mg/dL <199 [facility] Work Phone: Comment on above: The drugs N-Acetylcy steine and Metamizole may falsely depress this assay.Serum Triglycerides Reference Interval Normal <150 mg/dL Borderline high 150 - 199 mg/dL High 200 - 499 mg/dL Very High > or = 500 mg/dL Laboratory - Chemistry and C hemistry - challengeon 09-17-2021 CO2 [Moles/Vol] 27.0 mmol/L 21.0-32.[address] [facility] Work Phone: Urea nitrogen/Creatinine [Mass ratio] 16.5 mg/mg 10-[address] [facility] Work Phone: No Panel Informationon 09-17 Estimated GFR (MDRD) Amer 59 mL/min >[address] [facility] Work Phone: Comment on above: GFR Calc Estimated GFR (MDRD) Non-Af Amer 48 mL/min >[address] [facility] Work Phone: Comment on above: Non- GFR Calc Serum or plasma calcium mane urement (mass/volume)on 09-17-2021 Calcium [Mass/Vol] 9.9 mg/dL 8.5-10.1 [facility] Work Phone: Serum or plasma cholesterol in HDL measurement (mass/volume)on 09-17-2021 Cholesterol in HDL [Mass/Vol] 54 mg/dL >[address] [facility] Work Phone: Comment on above: The drugs N-Acetylcy steine and Metamizole may falsely depress this assay. Reference Range HDL <40 mg/dL Low HDL Cholesterol HDL >or= 60 mg/dL High HDL Cholesterol Serum or plasma cholesterol in VLDL measurement (mass/volume)on 09-17-2021 Cholesterol in VLDL [Mass/Vol] 40 mg/dL 5-[address] [facility] Work Phone: Serum or plasma creatinine m easurement (mass/volume)on 09-17-2021 Creatinine [Mass/Vol] 1.15 mg/dL 0.55-1.02 [facility] Work Phone: Comment on above: The validity of the calculated GFR & GFRAA in patients over 70 years has not been determined. Clinical correlation is essential. Serum or plasma low density lipoprotein (LDL) cholesterol measurement (mass/volume)on 09-17-2021 Cholesterol in LDL [Mass/Vol] 167 mg/dL 0-[address] [facility] Work Phone: Serum or plasma urea nitroge n measurement (mass/volume)on 09-17-2021 Urea nitrogen [Mass/Vol] 19 mg/dL 7-[address] [facility] Work Phone: Thin prep Papanicolaou smear with manual screeningon 09-17-2021 Thin prep Papanicolaou smear with manual screening 8 5-[address] [facility] Work Phone: Absolute lymphocyte counton 07-17-2021 Lymphocytes Auto (Unsp spec) [#/Vol] 1.97 10*3/uL 0.83-4.[address] [facility] Work Phone: Basophil percentageon 2021 Basophils/100 WBC (Bld) 0.4 % 0-1 [facility] Work Phone: Bilirubin [Mass/Vol] 0.60 mg/dL 0.20-1.00 [facility] Work Phone: Comment on above: For patients on eltr ombopag therapy, use of [employer] TBIL is not recommended. Chloride [Moles/Vol] 102 mmol/L 98-107 [facility] Work Phone: Eosinophils/100 WBC (Bld) 1.4 % 0-[address] [facility] Work Phone: [phone] Glucose [Mass/Vol] 165 mg/dL 74-106 [facility] Work Phone: Comment on above: Fasting Glucose resu lt greater than or equal to 126 mg/dL suggests DIABETES MELLITUS per A.D.A. criteria. Neutrophils (Bld) [#/Vol] 7.5 10*3/uL 2.0-7.[address] [facility] Work Phone: Neutrophils/100 WBC (Bld) 73.3 % 47-[address] [facility] Work Phone: Potassium [Moles/Vol] 4.7 mmol/L 3.5-5.1 [facility] Work Phone: Comment on above: Moderate Hemolysis, Result may be falsely increased. Protein [Mass/Vol] 9.0 g/dL 6.4-8.2 [facility] Work Phone: Sodium [Moles/Vol] 133 mmol/L 136-145 [facility] Work Phone: WBC (Bld) [#/Vol] 10.3 10*3/uL 4.4-11.0 [facility] Work Phone: Basophil percentage 0-5 SEEN /hpf 0-5 [facility] Work Phone: Bilirubin Test strip Ql (U)o n 07-17-2021 Bilirubin Ql (U) Negative Negative [facility] Work Phone: Blood erythrocytes count (nu mber/volume)on 07-17-2021 RBC (Bld) [#/Vol] 5.81 10*6/uL 4.2-5.4 [facility] Work Phone: [phone] Blood hemoglobin measurement (mass/volume)on 07-17-2021 Hemoglobin (Bld) [Mass/Vol] 17.0 g/dL 12.0-15.[address] [facility] Work Phone: [phone] Blood lymphocytes/100 leukoc yteson 07-17-2021 Lymphocytes/100 WBC (Bld) 19.2 % 19-[address] [facility] Work Phone: Blood monocytes/100 leukocyt eson 07-17-2021 Monocytes/100 WBC (Bld) 4.8 % 0-10 [facility] Work Phone: Blood platelet mean volumeon 07-17-2021 Platelet mean volume (Bld) [Entitic vol] 10.2 fL 6.2-12.[address] [facility] Work Phone: Determination of erythrocyte mean corpuscular volume (MCV)on 07-17-2021 MCV (RBC) [Entitic vol] 88.6 fL 81-99 [facility] Work Phone: Hematocrit Auto (Bld) [Volum e fraction]on 07-17-2021 Hematocrit (Bld) [Volume fraction] 51.5 % 37-[address] [facility] Work Phone: Ketones Test strip Ql (U)on 07-17-2021 Ketones Ql (U) 5 mg/dl Negative [facility] Work Phone: Laboratory - Chemistry and C hemistry - challengeon 07-17-2021 ALP [Catalytic activity/Vol] 108 U/L 45-[address] [facility] Work Phone: ALT [Catalytic activity/Vol] 28 U/L 13-[address] [facility] Work Phone: CO2 [Moles/Vol] 24.0 mmol/L 21.0-32.[address] [facility] Work Phone: Globulin (S) [Mass/Vol] 4.8 g/dL 2.2-4.2 [facility] Work Phone: Urea nitrogen/Creatinine [Mass ratio] 17.5 mg/mg 10-[address] [facility] Work Phone: Laboratory - Hematology and Cell countson 07-17-2021 Erythrocyte distribution width (RBC) [Entitic vol] 43.3 fL 35.1-43.[address] [facility] Work Phone: Erythrocyte distribution width (RBC) [Ratio] 13.5 % 11.6-14.[address] [facility] Work Phone: Immature granulocytes/100 WBC (Bld) 0.900 % 0.0-0.[address] [facility] Work Phone: Comment on above: IG% - Immature Granu locytes (promyelocytes, myelocytes and metamyelocytes) > 1% indicates that a LEFT SHIFT is Present. MCH (RBC) [Entitic mass] 29.3 pg 27.0-32.[address] [facility] Work Phone: Nucleated RBC/100 WBC (Bld) [Ratio] 0 % 0-[address] [facility] Work Phone: MCHC Auto (RBC) [Mass/Vol]on 07-17-2021 MCHC (RBC) [Mass/Vol] 33.0 g/dL 32-36 [facility] Work Phone: Mucus LM Ql (Urine sed)on Mucus Ql (Urine sed) 0 SEEN /hpf [facility] Work Phone: Nitrite Test strip Ql (U)on 07-17-2021 Nitrite Ql (U) Negative Negative [facility] Work Phone: No Panel Informationon 07-17 Estimated Creatinine Clearance Calc 30.69 ml/min [facility] Work Phone: Estimated GFR (MDRD) Amer 59 mL/min >[address] [facility] Work Phone: Comment on above: GFR Calc Estimated GFR (MDRD) Non-Af Amer 49 mL/min >[address] [facility] Work Phone: Comment on above: Non- GFR Calc Platelets bldon 07-17-2021 Platelets (Bld) [#/Vol] 249 10*3/uL 150-[address] [facility] Work Phone: Protein Test strip Ql (U)on 07-17-2021 Protein Ql (U) 100 mg/dl Negative [facility] Work Phone: Serum or plasma albumin mane urement (mass/volume)on 07-17-2021 Albumin [Mass/Vol] 4.2 g/dL 3.2-5.0 [facility] Work Phone: Serum or plasma albumin/glob ulin mass ratioon 07-17-2021 Albumin/Globulin [Mass ratio] 0.9 {ratio} 0.9-2.[address] [facility] Work Phone: Serum or plasma calcium mane urement (mass/volume)on 07-17-2021 Calcium [Mass/Vol] 9.8 mg/dL 8.5-10.1 [facility] Work Phone: Serum or plasma creatinine m easurement (mass/volume)on 07-17-2021 Creatinine [Mass/Vol] 1.14 mg/dL 0.55-1.02 [facility] Work Phone: Comment on above: The validity of the calculated GFR & GFRAA in patients over 70 years has not been determined. Clinical correlation is essential. Serum or plasma urea nitroge n measurement (mass/volume)on 07-17-2021 Urea nitrogen [Mass/Vol] 20 mg/dL 7-[address] [facility] Work Phone: Squamous epithelial cells de tection in urine sediment by light microscopyon 07-17-2021 Epithelial cells.squamous LM Ql (Urine sed) 0-5 SEEN /hpf 5-[address] [facility] Work Phone: Thin prep Papanicolaou smear with manual screeningon 07-17-2021 Thin prep Papanicolaou smear with manual screening 38 U/L 15-[address] [facility] Work Phone: Comment on above: Moderate Hemolysis, Result may be falsely increased. Thin prep Papanicolaou smear with manual screening 7 5-[address] [facility] Work Phone: Urine blood detectionon 06-25 RBC Ql (U) 250 /ul Negative [facility] Work Phone: RBC Ql (U) 10-25 SEEN /hpf 0-[address] [facility] Work Phone: Urine clarityon 07-17-2021 Clarity (U) Clear Clear [facility] Work Phone: Urine color determinationon 07-17-2021 Color (U) Yellow Yellow [facility] Work Phone: Urine glucose detectionon Glucose Ql (U) Normal mg/dl Normal [facility] Work Phone: Urine leukocyte esterase det ection by dipstickon 07-17-2021 Leukocyte esterase Test strip Ql (U) 25 /ul Negative [facility] Work Phone: Urine pHon 07-17-2021 pH (U) 7.0 [pH] 5.0 - 8.[address] [facility] Work Phone: Urine sediment bacteria coun t by microscopy (number/high power field)on 07-17-2021 Bacteria LM.HPF (Urine sed) [#/Area] 0 /[HPF] None Seen [facility] Work Phone: Urine specific gravity measu rementon 07-17-2021 Specific gravity (U) [Rel density] 1.015 1.002-1.[address] [facility] Work Phone: Urobilinogen Auto test strip Ql (U)on 07-17-2021 Urobilinogen Ql (U) Normal mg/dl Normal [facility] Work Phone: Basophil percentageon 2021 Chloride [Moles/Vol] 103 mmol/L 98-107 [facility] Work Phone: Glucose [Mass/Vol] 121 mg/dL 74-106 [facility] Work Phone: Comment on above: Fasting Glucose resu lt from 100 to 125 mg/dL suggests IMPAIRED HOMEOSTASIS per A.D.A. criteria. Potassium [Moles/Vol] 3.9 mmol/L 3.5-5.1 [facility] Work Phone: Sodium [Moles/Vol] 137 mmol/L 136-145 [facility] Work Phone: Laboratory - Chemistry and C hemistry - challengeon 06-22-2021 CO2 [Moles/Vol] 30.0 mmol/L 21.0-32.[address] [facility] Work Phone: Urea nitrogen/Creatinine [Mass ratio] 15.0 mg/mg 10-[address] [facility] Work Phone: No Panel Informationon 06-22 Estimated GFR (MDRD) Amer 56 mL/min >[address] [facility] Work Phone: Comment on above: GFR Calc Estimated GFR (MDRD) Non-Af Amer 46 mL/min >[address] [facility] Work Phone: Comment on above: Non- GFR Calc Serum or plasma calcium mane urement (mass/volume)on 06-22-2021 Calcium [Mass/Vol] 9.3 mg/dL 8.5-10.1 [facility] Work Phone: Serum or plasma creatinine m easurement (mass/volume)on 06-22-2021 Creatinine [Mass/Vol] 1.20 mg/dL 0.55-1.02 [facility] Work Phone: Comment on above: The validity of the calculated GFR & GFRAA in patients over 70 years has not been determined. Clinical correlation is essential. Serum or plasma urea nitroge n measurement (mass/volume)on 06-22-2021 Urea nitrogen [Mass/Vol] 18 mg/dL 7-[address] [facility] Work Phone: Thin prep Papanicolaou smear with manual screeningon 06-22-2021 Thin prep Papanicolaou smear with manual screening 4 5-[address] [facility] Work Phone: Basophil percentageon 2021 Chloride [Moles/Vol] 105 mmol/L 98-107 [facility] Work Phone: Glucose [Mass/Vol] 113 mg/dL 74-106 [facility] Work Phone: Comment on above: Fasting Glucose resu lt from 100 to 125 mg/dL suggests IMPAIRED HOMEOSTASIS per A.D.A. criteria. Potassium [Moles/Vol] 3.9 mmol/L 3.5-5.1 [facility] Work Phone: Sodium [Moles/Vol] 138 mmol/L 136-145 [facility] Work Phone: WBC (Bld) [#/Vol] 8.0 10*3/uL 4.4-11.0 [facility] Work Phone: Blood erythrocytes count (nu mber/volume)on 06-12-2021 RBC (Bld) [#/Vol] 5.23 10*6/uL 4.2-5.4 [facility]: Blood hemoglobin measurement (mass/volume)on 06-12-2021 Hemoglobin (Bld) [Mass/Vol] 15.2 g/dL 12.0-15.[address] [facility] Work Phone: Blood platelet mean volumeon 06-12-2021 Platelet mean volume (Bld) [Entitic vol] 10.9 fL 6.2-12.[address] [facility] Work Phone: Determination of erythrocyte mean corpuscular volume (MCV)on 06-12-2021 MCV (RBC) [Entitic vol] 87.2 fL 81-99 [facility] Work Phone: Hematocrit Auto (Bld) [Volum e fraction]on 06-12-2021 Hematocrit (Bld) [Volume fraction] 45.6 % 37-[address] [facility] Work Phone: INR in Blood by Coagulation assayon 06-12-2021 INR Coag (Bld) [Relative time] 0.9 {INR} [facility] Work Phone: Laboratory - Chemistry and C hemistry - challengeon 06-12-2021 CO2 [Moles/Vol] 24.0 mmol/L 21.0-32.[address] [facility] Work Phone: Urea nitrogen/Creatinine [Mass ratio] 17.5 mg/mg 10-[address] [facility] Work Phone: Laboratory - Coagulationon 0 06-12-2021 aPTT Coag (Bld) [Time] 28.0 s 24.1-36.2 [facility] Work Phone: PT Coag (PPP) [Time] 12.1 s 11.7-14.9 [facility] Work Phone: Laboratory - Hematology and Cell countson 06-12-2021 Erythrocyte distribution width (RBC) [Entitic vol] 44.4 fL 35.1-43.[address] [facility] Work Phone: Erythrocyte distribution width (RBC) [Ratio] 13.9 % 11.6-14.[address] [facility] Work Phone: MCH (RBC) [Entitic mass] 29.1 pg 27.0-32.[address] [facility] Work Phone: MCHC Auto (RBC) [Mass/Vol]on 06-12-2021 MCHC (RBC) [Mass/Vol] 33.3 g/dL 32-36 [facility] Work Phone: No Panel Informationon 06-12 Estimated GFR (MDRD) Amer 59 mL/min >[address] [facility] Work Phone: Comment on above: GFR Calc Estimated GFR (MDRD) Non-Af Amer 49 mL/min >[address] [facility] Work Phone: Comment on above: Non- GFR Calc Platelets bldon 06-12-2021 Platelets (Bld) [#/Vol] 242 10*3/uL 150-[address] [facility] Work Phone: Serum or plasma calcium mane urement (mass/volume)on 06-12-2021 Calcium [Mass/Vol] 9.7 mg/dL 8.5-10.1 [facility] Work Phone: Serum or plasma creatinine m easurement (mass/volume)on 06-12-2021 Creatinine [Mass/Vol] 1.14 mg/dL 0.55-1.02 [facility] Work Phone: Comment on above: The validity of the calculated GFR & GFRAA in patients over 70 years has not been determined. Clinical correlation is essential. Serum or plasma urea nitroge n measurement (mass/volume)on 06-12-2021 Urea nitrogen [Mass/Vol] 20 mg/dL 7-[address] [facility] Work Phone: Thin prep Papanicolaou smear with manual screeningon 06-12-2021 Thin prep Papanicolaou smear with manual screening 9 5-[address] [facility] Work Phone: Basophil percentageon 2021 Bilirubin [Mass/Vol] 0.50 mg/dL 0.20-1.00 [facility] Work Phone: Comment on above: For patients on eltr ombopag therapy, use of [employer] TBIL is not recommended. Cholesterol [Mass/Vol] 324 mg/dL <200 [facility] Work Phone: Comment on above: <200 mg/dL Desirable 200-240 mg/dL Borderline >240 mg/dL High Risk Protein [Mass/Vol] 7.6 g/dL 6.4-8.2 [facility] Work Phone: Triglyceride [Mass/Vol] 198 mg/dL <199 [facility] Work Phone: Comment on above: The drugs N-Acetylcy steine and Metamizole may falsely depress this assay.Serum Triglycerides Reference Interval Normal <150 mg/dL Borderline high 150 - 199 mg/dL High 200 - 499 mg/dL Very High > or = 500 mg/dL Direct bilirubinon 2 Bilirubin.direct [Mass/Vol] 0.12 mg/dL 0.00-0.[address] [facility] Work Phone: Laboratory - Chemistry and C hemistry - challengeon 05-24-2021 ALP [Catalytic activity/Vol] 92 U/L 45-[address] [facility] Work Phone: ALT [Catalytic activity/Vol] 21 U/L 13-[address] [facility] Work Phone: Globulin (S) [Mass/Vol] 3.9 g/dL 2.2-4.2 [facility] Work Phone: Serum or plasma albumin mane urement (mass/volume)on 05-24-2021 Albumin [Mass/Vol] 3.7 g/dL 3.2-5.0 [facility] Work Phone: Serum or plasma cholesterol in HDL measurement (mass/volume)on 05-24-2021 Cholesterol in HDL [Mass/Vol] 55 mg/dL >[address] [facility] Work Phone: Comment on above: The drugs N-Acetylcy steine and Metamizole may falsely depress this assay. Reference Range HDL <40 mg/dL Low HDL Cholesterol HDL >or= 60 mg/dL High HDL Cholesterol Serum or plasma cholesterol in VLDL measurement (mass/volume)on 05-24-2021 Cholesterol in VLDL [Mass/Vol] 40 mg/dL 5-[address] [facility] Work Phone: Serum or plasma low density lipoprotein (LDL) cholesterol measurement (mass/volume)on 05-24-2021 Cholesterol in LDL [Mass/Vol] 229 mg/dL 0-[address] [facility] Work Phone: Thin prep Papanicolaou smear with manual screeningon 05-24-2021 Thin prep Papanicolaou smear with manual screening 18 U/L 15-[address] [facility] Work Phone: Absolute lymphocyte counton 02-07-2021 Lymphocytes Auto (Unsp spec) [#/Vol] 1.52 10*3/uL 0.83-4.[address] [facility] Work Phone: Basophil percentageon 2020 Bilirubin [Mass/Vol] 0.40 mg/dL 0.20-1.00 [facility] Work Phone: Comment on above: For patients on eltr ombopag therapy, use of [employer] TBIL is not recommended. Chloride [Moles/Vol] 105 mmol/L 98-107 [facility] Work Phone: Eosinophils/100 WBC (Bld) 2.6 % 0-[address] [facility] Work Phone: Glucose [Mass/Vol] 113 mg/dL 74-106 [facility] Work Phone: Comment on above: Fasting Glucose resu lt from 100 to 125 mg/dL suggests IMPAIRED HOMEOSTASIS per A.D.A. criteria.Please note revised GLUCOSE reference range effective 2017. Neutrophils (Bld) [#/Vol] 5.3 10*3/uL 2.0-7.[address] [facility] Work Phone: Potassium [Moles/Vol] 4.0 mmol/L 3.5-5.1 [facility] Work Phone: Protein [Mass/Vol] 8.0 g/dL 6.4-8.2 [facility] Work Phone: Sodium [Moles/Vol] 138 mmol/L 136-145 [facility] Work Phone: [phone] WBC (Bld) [#/Vol] 7.6 10*3/uL 4.4-11.0 [facility] Work Phone: Blood erythrocytes count (nu mber/volume)on 02-07-2021 RBC (Bld) [#/Vol] 4.80 10*6/uL 4.2-5.4 [facility] Work Phone: Blood hemoglobin measurement (mass/volume)on 02-07-2021 Hemoglobin (Bld) [Mass/Vol] 14.9 g/dL 12.0-15.[address] [facility] Work Phone: Blood lymphocytes/100 leukoc yteson 02-07-2021 Lymphocytes/100 WBC (Bld) 19.9 % 19-[address] [facility] Work Phone: [phone] Blood monocytes/100 leukocyt eson 02-07-2021 Monocytes/100 WBC (Bld) 7.1 % 0-10 [facility] Work Phone: Blood platelet mean volumeon 02-07-2021 Platelet mean volume (Bld) [Entitic vol] 10.4 fL 6.2-12.[address] [facility] Work Phone: Determination of erythrocyte mean corpuscular volume (MCV)on 02-07-2021 MCV (RBC) [Entitic vol] 93.3 fL 81-99 [facility] Work Phone: Hematocrit Auto (Bld) [Volum e fraction]on 02-07-2021 Hematocrit (Bld) [Volume fraction] 44.8 % 37-[address] [facility] Work Phone: Laboratory - Chemistry and C hemistry - challengeon 02-07-2021 ALP [Catalytic activity/Vol] 85 U/L 45-[address] [facility] Work Phone: ALT [Catalytic activity/Vol] 20 U/L 13-[address] [facility] Work Phone: CO2 [Moles/Vol] 27.0 mmol/L 21.0-32.[address] [facility] Work Phone: Globulin (S) [Mass/Vol] 4.5 g/dL 2.2-4.2 [facility] Work Phone: Urea nitrogen/Creatinine [Mass ratio] 21.4 mg/mg 10-[address] [facility] Work Phone: Laboratory - Hematology and Cell countson 02-07-2021 Basophils/100 WBC (Unsp spec) 0.8 % 0-[address] [facility] Work Phone: Erythrocyte distribution width (RBC) [Entitic vol] 44.8 fL 35.1-43.[address] [facility] Work Phone: Erythrocyte distribution width (RBC) [Ratio] 13.1 % 11.6-14.[address] [facility] Work Phone: Immature granulocytes/100 WBC (Bld) 0.300 % 0.0-0.[address] [facility] Work Phone: Comment on above: IG% - Immature Granu locytes (promyelocytes, myelocytes and metamyelocytes) > 1% indicates that a LEFT SHIFT is Present. MCH (RBC) [Entitic mass] 31.0 pg 27.0-32.[address] [facility] Work Phone: Neutrophils/100 WBC (Bld) 69.3 % 47-[address] [facility] Work Phone: Nucleated RBC/100 WBC (Bld) [Ratio] 0 % 0-[address] [facility] Work Phone: MCHC Auto (RBC) [Mass/Vol]on 02-07-2021 MCHC (RBC) [Mass/Vol] 33.3 g/dL 32-36 [facility] Work Phone: No Panel Informationon 02-07 Estimated GFR (MDRD) Amer 67 mL/min >[address] [facility] Work Phone: Comment on above: GFR Calc Estimated GFR (MDRD) Non-Af Amer 55 mL/min >[address] [facility] Work Phone: Comment on above: Non- GFR Calc Platelets bldon 02-07-2021 Platelets (Bld) [#/Vol] 253 10*3/uL 150-[address] [facility] Work Phone: Serum or plasma albumin mane urement (mass/volume)on 02-07-2021 Albumin [Mass/Vol] 3.5 g/dL 3.2-5.0 [facility] Work Phone: Serum or plasma albumin/glob ulin mass ratioon 02-07-2021 Albumin/Globulin [Mass ratio] 0.8 {ratio} 0.9-2.[address] [facility] Work Phone: Serum or plasma calcium mane urement (mass/volume)on 02-07-2021 Calcium [Mass/Vol] 10.0 mg/dL 8.5-10.1 [facility] Work Phone: Serum or plasma creatinine m easurement (mass/volume)on 02-07-2021 Creatinine [Mass/Vol] 1.03 mg/dL 0.55-1.02 [facility] Work Phone: Comment on above: The validity of the calculated GFR & GFRAA in patients over 70 years has not been determined. Clinical correlation is essential. Serum or plasma urea nitroge n measurement (mass/volume)on 02-07-2021 Urea nitrogen [Mass/Vol] 22 mg/dL 7-[address] [facility] Work Phone: Thin prep Papanicolaou smear with manual screeningon 02-07-2021 Thin prep Papanicolaou smear with manual screening 18 U/L 15-[address] [facility] Work Phone: Thin prep Papanicolaou smear with manual screening 6 5-[address] [facility] Work Phone: Office Visiton 01-08-2017 Dietary management education, guidance, and counseling (procedure) yes Invalid Interpretation Code [employer] Work Phone: [phone] Documentation of current medications (procedure) Done Invalid Interpretation Code [employer] Work Phone: [phone] Fall risk assessment No Invalid Interpretation Code [employer] Work Phone: [phone] Tobacco use CPHS Former smoker Invalid Interpretation Code [employer] Work Phone: [phone] Clinical Lists Update: Pre blueprint trimmer 12-29-2015 Left ventricular Ejection fraction 60 % Invalid Interpretation Code [employer] Work Phone: [phone] Clinical Lists Update: [facility] blueprint trimmer 11-24-2015 Alanine aminotransferase (ALT) 28 U/L Invalid Interpretation Code [employer] Work Phone: [phone] Alkaline phosphatase (ALP) 99 U/L Invalid Interpretation Code [employer] Work Phone: [phone] Aspartate aminotransferase (AST) 22 U/L Invalid Interpretation Code [employer] Work Phone: [phone] Bilirubin (total) 0.50 mg/dL Invalid Interpretation Code [employer] Work Phone: [phone] Cholesterol 223 mg/dL Invalid Interpretation Code [employer] Work Phone: [phone] HDL Cholesterol 50 mg/dL Invalid Interpretation Code [employer] Work Phone: [phone] LDL Cholesterol 133 mg/dL Invalid Interpretation Code [employer] Work Phone: [phone] Protein 7.8 g/dL Invalid Interpretation Code [employer] Work Phone: [phone] Triglyceride 202 mg/dL Invalid Interpretation Code [employer] Work Phone: [phone] Replaced Document: Terence ESPAÑA Observationson 05-19-2015 EKG QRS axis -31 deg Invalid Interpretation Code [facility] [employer] Work Phone: [phone] Interpretation Marked sinus Bradycardia BORDERLINE RHYTHM Invalid Interpretation Code [facility] [employer] Work Phone: [phone] P Juda 43 deg Invalid Interpretation Code [facility] [employer] Work Phone: [phone] VA Interval 142 ms Invalid Interpretation Code [facility] [employer] Work Phone: [phone] Pulse (Heart Rate) 46 /min Invalid Interpretation Code [facility] [employer] Work Phone: [phone] QRS Duration 104 ms Invalid Interpretation Code [facility] [employer] Work Phone: [phone] QT Interval new path ms Invalid Interpretation Code [facility] [employer] Work Phone: [phone] QTc Bar 482 ms Invalid Interpretation Code [facility] [employer] Work Phone: [phone] T Juda -20 deg Invalid Interpretation Code [facility] Work Phone: [phone] Lab Report: Lipid Profileon 09-30-2014 very low density lipoproteins 38 mg/dL Invalid Interpretation Code 5-40 [employer] Work Phone: [phone] Lab Report: Liver Profileon 09-30-2014 Albumin 3.8 g/dL Invalid Interpretation Code 3.4-5.0 [employer] Work Phone: [phone] Bilirubin (direct) 0.10 mg/dL Invalid Interpretation Code 0.00-0.30 [employer] Work Phone: [phone] Globulin 3.7 g/dL High 2.3-3.5 [employer] Work Phone: [phone] Office Visit: [facility] 02-10-20 14 cardiac risk group C Invalid Interpretation Code [facility] [employer] Work Phone: [phone] General cardiovascular disease 10Y risk [#] [place]ost[place] N/A Invalid Interpretation Code [facility] [employer] Work Phone: [phone] Tobacco smoking status NHIS Never Invalid Interpretation Code [facility] [employer] Work Phone: [phone] Lab Report: BMPon 12-04-2013 Anion gap 6 mmol/L Normal 5-15 [facility] [employer] Work Phone: [phone] BUN/Creatinine Ratio 13.0 RATIO Normal 10-[address] [facility] Work Phone: [phone] Calcium 9.6 mg/dL Normal 8.5-10.[address] [facility] Work Phone: [phone] Chloride 104 mmol/L Normal 98-[address] [facility] [employer] Work Phone: [phone] CO2 28.0 mmol/L Normal 21.0-32.[address] [facility] [employer] Work Phone: [phone] Creatinine 1.0 mg/dL Normal 0.6-1.[address] [facility] [employer] Work Phone: [phone] Glucose mass conc 129 mg/dL High 70-110 [facility] [employer] Work Phone: [phone] Potassium molar conc 3.9 mmol/L Normal 3.5-5.1 [facility] [employer] Work Phone: [phone] Sodium 138 mmol/L Normal 136-[address] [facility] [employer] Work Phone: [phone] Urea nitrogen 13 mg/dL Normal 7-[address] [facility] [employer] Work Phone: [phone] Lab Report: CBCDon 10--201 4 ANC 4.5 X10 3/UL Normal 2.0-7.[address] [facility] [employer] Work Phone: [phone] Basophils/100 WBC Auto (Bld) 0.3 % Normal 0-[address] [facility] [employer] Work Phone: [phone] Eosinophils/100 leukocytes 1.6 % Normal 0-5 [facility] Work Phone: [phone] Erythrocytes (RBC) 5.42 10*6/uL High 4.2-5.4 [facility] [employer] Work Phone: [phone] Hematocrit (HCT) 48.8 % High 37-[address] [facility] [employer] Work Phone: [phone] Hemoglobin mass conc (Bld) 16.3 g/dL High 12.0-15.[address] [facility] [employer] Work Phone: [phone] Lymphocytes/100 leukocytes 20.4 % Normal 19-41 [facility] Work Phone: [phone] MCH 30.1 pg Normal 27.0-32.[address] [facility] [employer] Work Phone: [phone] MCHC mass conc (RBC) 33.4 G/GL Normal 32-36 [facility] Work Phone: [phone] MCV 90.0 fL Normal 81-99 [facility] Work Phone: [phone] Monocytes/100 leukocytes 5.5 % Normal 0-10 [facility] Work Phone: [phone] Neutrophils/100 WBC Auto (Bld) 72.0 % High 47-70 [facility] Work Phone: [phone] Platelets 189 10*3/mm3 Normal 150-450 [facility] Work Phone: [phone] PMV by [place] 10.5 fL Normal 6.2-12.0 [facility] Work Phone: [phone] WBC (Leukocytes) 6.2 10*3/uL Normal 4.4-11.0 [facility] Work Phone: [phone] Lab Report: UAon 12-03-2013 specific gravity, urine 1.020 Normal 1.002-1.030 [facility] Work Phone: [phone] External Other: [employer] of Contacton 08-27-2013 methcontact secmsg Invalid Interpretation Code [facility] Work Phone: [phone] Lab Report: RENALon 10-17-19 13 PHOS 3.0 mg/dL Normal 2.5-4.9 [facility] Work Phone: [phone] Lab Report: MIACREon 013 Urine, creatinine 147.4 mg/dL Normal NO RANGE EST. [facility] Work Phone: [phone] Replaced Document: Terence ESPAÑA Observationson 03-09-2012 Pulse (Heart Rate) 416 ms Invalid Interpretation Code [facility] Work Phone: [phone] Culture, urine Bacteria identified Cx Nom (U) Escherichia coli [facility] Work Phone: [phone] Vital Signs Date Time Vital Sign Value Performing Clinician Carlene cooper 08-17-2024 07:23-0400 Body height 152.[address] Rodríguez Lema MD Work Phone: [facility] 08-17-2024 07:23-0400 Body mass index (BMI) [Ratio] 37 kg/m2 Dr. Rodríguez Lema MD Work Phone: 0(397)471-961343 [place] [address] 08-17-2024 07:23-0400 Body weight 86.[address] Rodríguez Lema MD Work Phone: 3(543)891-651872 [place] [address] 08-17-2024 07:23-0400 Diastolic blood pressure 72 mm[Hg] Dr. Rodríguez Lema MD Work Phone: 4(320)985-093572 [place] [address] 08-17-2024 07:23-0400 Heart rate 51 /min Dr. Rodríguez Lema MD Work Phone: 4(960)414-291472 [place] [address] 08-17-2024 07:23-0400 Respiratory rate 18 /min Dr. Rodríguez Lema MD Work Phone: [phone])041-561272 [place] [address] 08-17-2024 07:23-0400 SaO2% (BldA) [Mass fraction] 96 % Dr. Rodríguez Lema MD Work Phone: 6(433)215-742272 [place] [address] 08-17-2024 07:23-0400 Systolic blood pressure 171 mm[Hg] Dr. Rodríguez Lema MD Work Phone: 4(987)806-124572 [place] [address] 07-30-2024 08:19-0400 Body temperature 97.9 [degF] Dr. Rodríguez Lema MD Work Phone: 0(632)[phone] [place] [address] 07-30-2024 08:19-0400 Diastolic blood pressure 80 mm[Hg] Dr. Rodríguez Lema MD Work Phone: 6(029)783-867872 [place] [address] 07-30-2024 08:19-0400 Heart rate 65 /min Dr. Rodríguez Lema MD Work Phone: 6(144)962-477672 [place] [address] 07-30-2024 08:19-0400 Respiratory rate 16 /min Dr. Rodríguez Lema MD Work Phone: 4(952)318-698272 [place] [address] 07-30-2024 08:19-0400 SaO2% (BldA) [Mass fraction] 97 % Dr. Rodríguez Lema MD Work Phone: 1(103)763-444072 [place] [address] 07-30-2024 08:19-0400 Systolic blood pressure 152 mm[Hg] Dr. Rodríguez Lema MD Work Phone: [facility] 07-30-2024 08:11-0400 Body height 152.[address] Rodríguez Lema MD Work Phone: [facility] 06-30-2024 08:11-0400 Body temperature 98 [degF] Dr. Rodríguez Lema MD Work Phone: [facility] 06-30-2024 08:11-0400 Diastolic blood pressure 80 mm[Hg] Dr. Rodríguez Lema MD Work Phone: [facility] 06-30-2024 08:11-0400 Heart rate 85 /min Dr. Rodríguez Lema MD Work Phone: 9([phone])084-682768 [address] 06-30-2024 08:11-0400 SaO2% (BldA) [Mass fraction] 97 % Dr. Rodríguez Lema MD Work Phone: 2(265)232-528643 [place] [address] 06-30-2024 08:11-0400 Systolic blood pressure 130 mm[Hg] Dr. Rodríguez Lema MD Work Phone: [facility] 05-24-2024 13:45-0400 Diastolic blood pressure 76 mm[Hg] Dr. Rodríguez Lema MD Work Phone: 6(743)278-946468 [address] 05-24-2024 13:45-0400 Heart rate 45 /min Dr. Rodríguez Lema MD Work Phone: 7(787)301-808243 [place] [address] 05-24-2024 13:45-0400 Respiratory rate 16 /min Dr. Rodríguez Lema MD Work Phone: [facility] 05-24-2024 13:45-0400 SaO2% (BldA) [Mass fraction] 96 % Dr. Rodríguez Lema MD Work Phone: [facility] 05-24-2024 13:45-0400 Systolic blood pressure 183 mm[Hg] Dr. Rodríguez Lema MD Work Phone: [facility] 05-24-2024 13:13-0400 Body height 152.[address] Rodríguez Lema MD Work Phone: 7(578)623-922468 [address] 05-24-2024 13:13-0400 Body mass index (BMI) [Ratio] 35.9 kg/m2 Dr. Rodríguez Lema MD Work Phone: 0(247)688-767772 [place] [address] 05-24-2024 13:13-0400 Body temperature 97.2 [degF] Dr. Rodríguez Lema MD Work Phone: 5(033)970-991372 [place] [address] 05-24-2024 13:13-0400 Body weight 83.[address] Rodríguez Lema MD Work Phone: 7(443)834-767972 [place] [address] 04-15-2024 07:52-0500 Body height 154.[address] Rodríguez Lema MD Work Phone: 7(264)287-431872 [place] [address] 04-15-2024 07:52-0500 Body weight 86.[address] Rodríguez Lema MD Work Phone: 5(022)156-362172 [place] [address] 04-14-2024 08:43-0500 Body mass index (BMI) [Ratio] 36.1 kg/m2 Dr. Rodríguez Lema MD Work Phone: 0(866)666-631072 [place] [address] 04-05-2024 12:57-0500 Body mass index (BMI) [Ratio] 36.1 kg/m2 Dr. Rodríguez Lema MD Work Phone: 0(970)836-692972 [place] [address] 04-05-2024 12:57-0500 Body weight 86.[address] Rodríguez Lema MD Work Phone: 4(569)267-201472 [place] [address] 04-05-2024 12:57-0500 Diastolic blood pressure 84 mm[Hg] Dr. Rodríguez Lema MD Work Phone: 2(656)638-023172 [place] [address] 04-05-2024 12:57-0500 Heart rate 54 /min Dr. Rodríguez Lema MD Work Phone: 5(218)806-699972 [place] [address] 04-05-2024 12:57-0500 Respiratory rate 18 /min Dr. Rodríguez Lema MD Work Phone: 0(330)615-158372 [place] [address] 04-05-2024 12:57-0500 SaO2% (BldA) [Mass fraction] 94 % Dr. Rodríguez Lema MD Work Phone: [facility] 04-05-2024 12:57-0500 Systolic blood pressure 194 mm[Hg] Dr. Rodríguez Lema MD Work Phone: [facility] 06-02-2023 11:21-0400 Body height 154.[address] Rodríguez Lema Work Phone: [facility] 06-02-2023 11:21-0400 Body mass index (BMI) [Ratio] 36.1 kg/m2 Dr. Rodríguez Lema Work Phone: [facility] 06-02-2023 11:21-0400 Body weight 86.[address] Rodríguez Lema Work Phone: [facility] 06-02-2023 11:21-0400 Diastolic blood pressure 70 mm[Hg] Dr. Rodríguez Lema Work Phone: [facility] 06-02-2023 11:21-0400 Heart rate 56 /min Dr. Rodríguez Lema Work Phone: [facility] 06-02-2023 11:21-0400 Respiratory rate 18 /min Dr. Rodríguez Lema Work Phone: [facility] 06-02-2023 11:21-0400 SaO2% (BldA) [Mass fraction] 97 % Dr. Rodríguez Lema Work Phone: [facility] 06-02-2023 11:21-0400 Systolic blood pressure 158 mm[Hg] Dr. Rodríguez Lema Work Phone: [facility] 02-13-2023 16:09-0500 Diastolic blood pressure 58 mm[Hg] Dr. Rodríguez Lema Work Phone: [facility] 02-13-2023 16:09-0500 Systolic blood pressure 163 mm[Hg] Dr. Rodríguez Lema Work Phone: [facility] 02-13-2023 15:57-0500 Body temperature 97.7 [degF] Dr. Rodríguez Lema Work Phone: [facility] 02-13-2023 15:57-0500 Heart rate 64 /min Dr. Rodríguez Lema Work Phone: [facility] 02-13-2023 15:57-0500 Respiratory rate 16 /min Dr. Rodríguez Lema Work Phone: [facility] 02-13-2023 15:57-0500 SaO2% (BldA) [Mass fraction] 94 % Dr. Rodríguez Lema Work Phone: [facility] 02-13-2023 05:14-0500 Body mass index (BMI) [Ratio] 35.6 kg/m2 Dr. Rodríguez Lema Work Phone: [facility] 02-13-2023 05:14-0500 Body weight 85.[address] Rodríguez Lema Work Phone: [facility] 02-12-2023 22:07-0500 Body height 154.[address] Rodríguez Lema Work Phone: [facility] 12-03-2022 14:10-0400 Body height 157.[address] Rodríguez Lema Work Phone: [facility] 12-03-2022 14:10-0400 Body mass index (BMI) [Ratio] 35.1 kg/m2 Dr. Rodríguez Lema Work Phone: [facility] 12-03-2022 14:10-0400 Body weight 87.[address] Rodríguez Lema Work Phone: [facility] 12-03-2022 14:10-0400 Diastolic blood pressure 76 mm[Hg] Dr. Rodríguez Lema Work Phone: [facility] 12-03-2022 14:10-0400 Heart rate 60 /min Dr. Rodríguez Lema Work Phone: [facility] 12-03-2022 14:10-0400 Respiratory rate 18 /min Dr. Rodríguez Lema Work Phone: [facility] 12-03-2022 14:10-0400 Systolic blood pressure 179 mm[Hg] Dr. Rodríguez Lema Work Phone: [facility] 11-17-2022 09:46-0400 Body mass index (BMI) [Ratio] 34.6 kg/m2 Dr. Rodríguez Lema Work Phone: [facility] 11-17-2022 09:46-0400 Body temperature 98.2 [degF] Dr. Rodríguez Lema Work Phone: [facility] 11-17-2022 09:46-0400 Body weight 85.[address] Rodríguez Lema Work Phone: [facility] 11-17-2022 09:46-0400 Diastolic blood pressure 84 mm[Hg] Dr. Rodríguez Lema Work Phone: [facility] 11-17-2022 09:46-0400 Heart rate 68 /min Dr. Rodríguez Lema Work Phone: [facility] 11-17-2022 09:46-0400 Respiratory rate 16 /min Dr. Rodríguez Lema Work Phone: [facility] 11-17-2022 09:46-0400 SaO2% (BldA) [Mass fraction] 97 % Dr. Rodríguez Lema Work Phone: [facility] 11-17-2022 09:46-0400 Systolic blood pressure 138 mm[Hg] Dr. Rodríguez Lema Work Phone: [facility] 05-31-2022 10:04-0400 Body height 157.[address] Rodríguez Lema Work Phone: [facility] 05-31-2022 10:04-0400 Body mass index (BMI) [Ratio] 34.7 kg/m2 Dr. Rodríguez Lema Work Phone: [facility] 05-31-2022 10:04-0400 Body weight 86.[address] Rodríguez Lema Work Phone: [facility] 05-31-2022 10:04-0400 Diastolic blood pressure 66 mm[Hg] Dr. Rodríguez Lema Work Phone: [facility] 05-31-2022 10:04-0400 Heart rate 58 /min Dr. Rodríguez Lema Work Phone: [facility] 05-31-2022 10:04-0400 Respiratory rate 18 /min Dr. Rodríguez Lema Work Phone: [facility] 05-31-2022 10:04-0400 SaO2% (BldA) [Mass fraction] 97 % Dr. Rodríguez Lema Work Phone: [facility] 05-31-2022 10:04-0400 Systolic blood pressure 141 mm[Hg] Dr. Rodríguez Lema Work Phone: [facility] 04-25-2022 18:33-0500 Body temperature 98 [degF] [facility] 04-25-2022 18:33-0500 Diastolic blood pressure 61 mm[Hg] [facility] 04-25-2022 18:33-0500 Heart rate 55 /min [facility] 04-25-2022 18:33-0500 Respiratory rate 18 /min [facility] 04-25-2022 18:33-0500 SaO2% (BldA) [Mass fraction] 95 % [facility] 04-25-2022 18:33-0500 Systolic blood pressure 181 mm[Hg] [facility] 04-25-2022 16:17-0500 Body height 157.48 cm [facility] 04-25-2022 16:17-0500 Body mass index (BMI) [Ratio] 35.6 kg/m2 [facility] 04-25-2022 16:17-0500 Body weight 88.45 kg [facility] 12-06-2021 11:22-0400 Body temperature 98 [degF] Dr. Rodríguez Lema Work Phone: [facility] Work Phone: 12-06-2021 11:22-0400 Diastolic blood pressure 80 mm[Hg] Dr. Rodríguez Lema Work Phone: [facility] Work Phone: 12-06-2021 11:22-0400 Heart rate 52 /min Dr. Rodríguez Lema Work Phone: [facility] Work Phone: 12-06-2021 11:22-0400 Respiratory rate 14 /min Dr. Rodríguez Lema Work Phone: [facility] Work Phone: 12-06-2021 11:22-0400 SaO2% (BldA) [Mass fraction] 98 % Dr. Rodríguez Lema Work Phone: [facility] Work Phone: 12-06-2021 11:22-0400 Systolic blood pressure 168 mm[Hg] Dr. Rodríguez Lema Work Phone: [facility] Work Phone: 11-07-2021 15:11-0400 Body height 154.[address] Rodríguez Lema Work Phone: [facility] Work Phone: 11-07-2021 15:11-0400 Body mass index (BMI) [Ratio] 36.8 kg/m2 Dr. Rodríguez Lema Work Phone: [facility] Work Phone: 11-07-2021 15:11-0400 Body weight 88.[address] Rodríguez Lema Work Phone: [facility] Work Phone: 11-07-2021 15:11-0400 Diastolic blood pressure 70 mm[Hg] Dr. Rodríguez Lema Work Phone: [facility] Work Phone: 11-07-2021 15:11-0400 Heart rate 60 /min Dr. Rodírguez Lema Work Phone: [facility] Work Phone: 11-07-2021 15:11-0400 Respiratory rate 18 /min Dr. Rodríguez Lema Work Phone: [facility] Work Phone: 11-07-2021 15:11-0400 Systolic blood pressure 142 mm[Hg] Dr. Rodríguez Lema Work Phone: [facility] Work Phone: 07-17-2021 12:08-0400 Diastolic blood pressure 68 mm[Hg] Dr. Rodríguez Lema Work Phone: [facility] Work Phone: 07-17-2021 12:08-0400 Heart rate 48 /min Dr. Rodríguez Lmea Work Phone: [facility] Work Phone: 07-17-2021 12:08-0400 Respiratory rate 16 /min Dr. Rodríguez Lema Work Phone: [facility] Work Phone: 07-17-2021 12:08-0400 SaO2% (BldA) [Mass fraction] 96 % Dr. Rodríguez Lema Work Phone: [facility] Work Phone: 07-17-2021 12:08-0400 Systolic blood pressure 198 mm[Hg] Dr. Rodríguez Lema Work Phone: [facility] Work Phone: 07-17-2021 10:42-0400 Body height 154.[address] Rodríguez Lema Work Phone: [facility] Work Phone: 07-17-2021 10:42-0400 Body mass index (BMI) [Ratio] 36.8 kg/m2 Dr. Rodríguez Lema Work Phone: [facility] Work Phone: 07-17-2021 10:42-0400 Body temperature 95.7 [degF] Dr. Rodríguez Lema Work Phone: [facility] Work Phone: 07-17-2021 10:42-0400 Body weight 88.[address] Rodríguez Lema Work Phone: [facility] Work Phone: 06-20-2021 07:06-0400 Body height 157.[address] Rodríguez Lema Work Phone: [facility] Work Phone: 06-20-2021 07:06-0400 Body weight 89.[address] Rodríguez Lema Work Phone: [facility] Work Phone: 06-19-2021 08:04-0400 Body mass index (BMI) [Ratio] 36 kg/m2 Dr. Rodríguez Lema Work Phone: [facility] Work Phone: 04-26-2021 14:56-0500 Body mass index (BMI) [Ratio] 36 kg/m2 Dr. Rodríguez Lema Work Phone: [facility] Work Phone: 04-26-2021 14:56-0500 Body weight 89.[address] Rodríguez Lema Work Phone: [facility] Work Phone: 04-26-2021 14:56-0500 Diastolic blood pressure 69 mm[Hg] Dr. Rodríguez Lema Work Phone: [facility] Work Phone: 04-26-2021 14:56-0500 Heart rate 51 /min Dr. Rodríguez Lema Work Phone: [facility] Work Phone: 04-26-2021 14:56-0500 Respiratory rate 18 /min Dr. Rodríguez Lema Work Phone: [facility] Work Phone: 04-26-2021 14:56-0500 Systolic blood pressure 161 mm[Hg] Dr. Rodríguez Lema Work Phone: [facility] Work Phone: 04-26-2021 13:56-0500 Body height 157.[address] Rodríguez Lema Work Phone: [facility] Work Phone: 04-26-2021 13:56-0500 Body mass index (BMI) [Ratio] 36 kg/m2 Dr. Rodríguez Lema Work Phone: [facility] Work Phone: 04-26-2021 13:56-0500 Body weight 89.[address] Rodríguez Lema Work Phone: [facility] Work Phone: 04-26-2021 13:56-0500 Diastolic blood pressure 69 mm[Hg] Dr. Rodríguez Lema Work Phone: [facility] Work Phone: 04-26-2021 13:56-0500 Heart rate 51 /min Dr. Rodríguez Lema Work Phone: [facility] Work Phone: 04-26-2021 13:56-0500 Respiratory rate 18 /min Dr. Rodríguez Lema Work Phone: [facility] Work Phone: 04-26-2021 13:56-0500 Systolic blood pressure 161 mm[Hg] Dr. Rodríguez Lema Work Phone: [facility] Work Phone: 01-08-2017 14:25-0500 BMI (Body Mass Index) 34.37 [...] 01-08-2017 14:25-0500 Respiratory Rate 18 /min Ro Botello [facility] Work Phone: 01-08-2017 14:25-0500 Weight 86.64 kg Ro Botello [facility] Work Phone: 01-05-2016 14:0500 BSA (Body Surface Area) 1.92 m2 Ro Botello [facility] Work Phone: Encounters Encounter Date Encounter Type Care Provider Facility Start: 11-01-2024 End: 11-01-2024 Patient encounter procedure Johnnie Frost [facility] Work Phone: Start: 11-01-2024 End: 11-01-[address] Rodríguez Lema MD Work Phone: [facility] Start: 11-01-2024 End: 11-01-2024 ambulatory Johnnie HOLLOWAY Facility:[facility] Start: 08-17-2024 End: 08-17-2024 Patient encounter procedure Melva Nunez NP-C -[facility] Work Phone: Start: 08-17-2024 End: 08-17-[address] Rodríguez Lema MD Work Phone: [facility] Work Phone: Start: 07-30-2024 End: 07-30-[address] Rodríguez Lema MD Work Phone: [facility] Work Phone: Start: 07-30-2024 End: 07-30-2024 Patient encounter procedure Jc Delvalle PA -[facility] Work Phone: Start: 07-30-2024 End: 07-30-2024 Patient encounter procedure Jc Delvalle [facility] -[facility] Work Phone: Start: 07-30-2024 End: 07-30-[address] Rodríguez Lema MD Work Phone: [facility] Work Phone: Start: 07-30-2024 End: 07-30-2024 ambulatory Rodríguez Lema Facility:[facility] Start: 06-30-2024 End: 06-30-2024 Patient encounter procedure Johnnie Frost PA -[facility] Work Phone: Start: 06-30-2024 End: 06-30-[address] Rodríguez Lema MD Work Phone: [facility] Work Phone: Start: 06-30-2024 End: 06-30-2024 ambulatory Rodríguez Lema Facility:[facility] Start: 05-25-2024 ambulatory Marleni HOLLOWAY Facility:[facility] [place] [place] Start: 05-25-2024 Non-patient / Non-visit Dr. Dumont Of isaac [facility]IG[facility] Start: 05-24-2024 End: 05-24-[address] Rodríguez Lema MD Work Phone: [facility] Work Phone: Start: 05-24-2024 End: 05-24-2024 [facility] Start: 05-24-2024 End: 05-24-2024 ambulatory Marleni HOLLOWAY Facility:[facility] Start: 05-24-2024 Non-patient / Non-visit Dr. Dumont Of isaac BRIG[facility] -[facility] Start: 05-17-2024 End: 05-17-[address] Rodríguez Lema MD Work Phone: [facility] Work Phone: Start: 05-17-2024 End: 05-17-[address] Rodríguez Lema MD -Laboratory, [place] Work Phone: Start: 05-17-2024 End: 05-17-2024 ambulatory Rodríguez Lema Facility:[facility] Start: 04-15-2024 End: 04-15-2024 Admission to same day surgery center Dr. Levar Hutton MD -[employer]/Special Procedures Work Phone: Start: 04-15-2024 End: 04-15-2024 ambulatory Levar Hutton Facility:[facility] Start: 04-05-2024 End: 04-05-2024 Patient encounter procedure Marleni HOLLOWAY -[facility] Work Phone: Start: 04-05-2024 End: 04-05-2024 ambulatory Marleni HOLLOWAY Facility:[facility] [place] [place] Start: 04-05-2024 End: 04-05-2024 ambulatory Marleni HOLLOWAY Facility:[facility] Start: 01-12-2024 End: 01-12-2024 ambulatory Rodríguez Lema Facility:[facility] Start: 11-26-2023 End: 11-26-2023 ambulatory Rodríguez Lema Facility:[facility] [place] [place] Start: 11-26-2023 End: 11-26-2023 ambulatory Jc HOLLOWAY Facility:[facility] Start: 11-20-2023 End: 11-20-2023 ambulatory Rodríguez Lema Facility:[facility] Start: 06-02-2023 End: 06-02-[address] Rodríguez Lema Work Phone: [facility] Work Phone: Start: 05-29-2023 Non-patient / Non-visit Dr. Jewel Lema [facility] Phone[facility] Start: 05-29-2023 End: 05-29-[address] Rodríguez Lema Work Phone: [facility] Work Phone: Start: 05-29-2023 End: 05-29-[address] Rodríguez Lema Work Phone: [facility]-Cardiovascular Services Work Phone: Start: 04-30-2023 End: 04-30-[address] Rodríguez Lema Work Phone: [facility] Work Phone: Start: 04-30-2023 End: 04-30-[address] Rodríguez Lema Work Phone: [facility] Work Phone: Start: 04-28-2023 End: 04-28-[address] Rodríguez Lema Work Phone: [facility] Work Phone: Start: 04-28-2023 End: 04-28-[address] Rodríguez Lema Work Phone: [facility] Start: 02-13-2023 Non-patient / Non-visit Dr. Jewel Lema Work Phone: [facility] Work Phone: Start: 02-12-2023 End: 02-13-2023 Evaluation and management of inpatient Dr. Rodríguez Lema Work Phone[facility] Work Phone: Start: 01-10-2023 End: 01-10-[address] Rodríguez Lema Work Phone: [facility] Work Phone: Start: 01-10-2023 End: 01-10-[address] Rodríguez Lema Work Phone: [facility]-Outpatient Breast Imaging Work Phone: Start: 12-25-2022 End: 12-25-[address] Rodríguez Lema Work Phone: [facility] Work Phone: Start: 12-25-2022 End: 12-25-[address] Rodríguez Lema Work Phone: [facility] Work Phone: Start: 12-03-2022 End: 12-03-[address] Rodríguez Lema Work Phone: [facility] Work Phone: Start: 11-17-2022 End: 11-17-[address] Rodríguez Lema [facility] Work Phone: Start: 11-17-2022 End: 11-17-[address] Rodríguez Lema Work Phone: [facility] Work Phone: Start: 10-25-2022 End: 10-25-[address] [facility] Work Phone: Start: 10-25-2022 End: 10-25-2022 Patient encounter procedure [facility] Start: 06-24-2022 End: 06-24-[address] Rodríguez Lema Work Phone: [facility] Work Phone: Start: 06-24-2022 End: 06-24-[address] Rodríguez Lema Work Phone: [facility] Start: 05-31-2022 End: 05-31-[address] Rodríguez Lema Work Phone: [facility] Start: 05-01-2022 End: 05-01-[address] [facility] Work Phone: Start: 05-01-2022 End: 05-01-2022 Patient encounter procedure [facility] Start: 04-29-2022 End: 04-29-[address] [facility] Work Phone: Start: 04-29-2022 End: 04-29-2022 Patient encounter procedure [facility] Start: 04-25-2022 End: 04-25-2022 Emergency department patient visit [facility]Emergency Department Start: 12-24-2021 End: 12-24-[address] Rodríguez Lema Work Phone: [facility] Work Phone: Start: 12-24-2021 End: 12-24-[address] Rodríguez Lema Work Phone: [facility]-Outpatient Breast Imaging Start: 12-07-2021 End: 12-07-[address] Rodríguez Lema Work Phone: [facility] Work Phone: Start: 12-07-2021 End: 12-07-[address] Rodríguez Lema Work Phone: [facility] Start: 12-06-2021 End: 12-06-[address] Rodríguez Lema [facility] Start: 12-06-2021 End: 12-06-[address] Rodríguez Lema Work Phone: [facility] Start: 11-07-2021 End: 11-07-[address] Rodríguez Lema Work Phone: [facility] Start: 09-17-2021 End: 09-17-[address] Rodríguez Lema Work Phone: [facility] Start: 08-16-2021 End: 08-16-[address] Rodríguez Lema [facility] Start: 07-17-2021 End: 07-17-2021 Emergency department patient visit Dr. Rodríguez Lema Work Phone: [facility]Emergency Department Start: 06-22-2021 End: 06-22-[address] Rodríguez Lema Work Phone: [facility] Start: 06-20-2021 End: 06-20-2021 Admission to same day surgery center Dr. Rodríguez Lema Work Phone: [facility]/Special Procedures Start: 06-15-2021 Non-patient / Non-visit Dr. Jewel Lema Work Phone: [facility] Start: 06-12-2021 End: 06-12-[address] Rodríguez Lema Work Phone: [facility] Start: 06-07-2021 Non-patient / Non-visit Dr. Jewel Lema Work Phone: [facility] Start: 06-07-2021 End: 06-07-[address] Rodríguez Lema [facility] Start: 05-24-2021 End: 05-24-[address] Rodríguez Lema Work Phone: [facility] Start: 04-26-2021 End: 04-26-[address] Rodríguez Lema Work Phone: [facility] Start: 02-07-[address] Rodríguez Lema Work Phone: [facility] Procedures Date Procedure Procedure Detail Performing Clinician Start: 11-01-[address] Rodríguez Lema MD Work Phone: Start: 07-30-[address] Rodríguez Lema MD Work Phone: Start: 06-30-[address] Rodríguez Lema MD Work Phone: Start: 05-24-[address] Jewel Lema MD Work Phone: Start: 05-24-2024 CT angiography of co ronary arteries Dr. Rodríguez Lema MD Work Phone: Start: 05-17-2024 Urine microalbumin/creatinine ratio measurement Dr. Rodríguez Lema MD Work Phone: Comment on above: Previous reported re sult: 857.4 mg/g CREEdited by: ADE on 08/12/24:0758 AMENDED REPORT 08/12/24 [id number] MALB:CREAT previously reported as: 857.4 mg/g CRE Start: 04-15-2024 Coagulation time, activated Dr. Rodríguez Lema MD Work Phone: Start: 04-05-2024 Measurement of renal function Dr. Rodríguez Lema MD Work Phone: Comment on above: GFR Calc Start: 04-05-2024 X-ray of chest, PA a nd lateral views Dr. Rodríguez Lema MD Work Phone: Start: 04-05-2024 Evaluation of diagno stic study results Dr. Rodríguez Lema MD Work Phone: Start: 05-29-2023 Cardiovascular stres s test using pharmacologic stress agent Dr. Rodríguez Lema Work Phone: Start: 02-13-2023 MRI of lumbar spine Dr. Rodríguez Lema Work Phone: Start: 02-12-2023 Radiologic examinati on of knee Dr. Rodríguez Lema Work Phone: Start: 01-10-2023 Screening mammography Ramses Lema Work Phone: Start: 11-17-[address] Rodríguez Lema Work Phone: Start: 05-01-2022 Plain X-ray of shoulder Start: 04-25-2022 CT of abdomen and pe lvis without contrast Start: 12-24-2021 Screening mammography Ramses Lema Work Phone: Start: 07-17-2021 CT of abdomen and pe lvis without contrast Dr. Rodríguez Lema Work Phone: Start: 06-12-2021 Plain chest X-ray Dr. Lenore Lema Work Phone: Start: 06-07-2021 Cardiovascular stres s test using pharmacologic stress agent Dr. Rodríguez Lema Work Phone: Start: 01-08-2017 End: 01-08-2017 Follow Up Appt 6 months Rodríguez Encarnacion MD Start: 01-08-2017 End: 01-08-2017 MMM Rodríguez Encarnacion MD Start: 07-12-2016 End: 07-12-2016 Follow Up Appt 6 months Marleni garcia PA-C Work Phone: Start: 07-12-2016 End: 07-12-2016 PF Marleni Magana PA-C Work Phone: Start: 01-05-2016 End: 01-05-2016 MMM Rodríguez Encarnacion MD Start: 08-29-2015 End: 08-29-2015 Follow Up Appt 6 months Marleni garcia PA-C Work Phone: Start: 08-29-2015 End: 08-29-2015 [facility] Marleni Magana PA-C Work Phone: Start: 05-19-2015 [...] Start: 05-19-2015 End: 08-11-2015 Nuclear stress test -Lexiscan Marleni Magana PA-C Work Phone: Start: 05-19-2015 End: 05-19-2015 [facility] Marleni Magana PA-C Work Phone: Start: 10-10-2014 End: 10-11-2014 Documentation of current medications Rodríguez Encarnacion MD Start: 10-10-2014 End: 10-10-2014 Follow Up Appt 6 months Rodríguez Encarnacion MD Start: 10-10-2014 End: 10-10-2014 MMM Rodríguez Encarnacion MD Start: 06-06-2014 End: 09-30-2014 *Hepatic [...] PA-C Work Phone: Start: 08-06-2012 End: 01-26-2013 PF Marleni Magana PA-C Work Phone: Start: 07-25-2012 [...] Up Appt 6 months Rodríguez Encarnacion MD History of percutane ous transluminal coronary angioplasty Dr. Rodríguez Lema Work Phone: Comment on above: 11/24/09 PTCA/stent o f First Obtuse Marginal branch of left Cx; PTCA/stent to SVG to PDA in both proximal & distal segments; Urine culture Dr. Rodríguez Burns en Work Phone: Plan of Treatment Date Care Activity Detail Author Start: 11-01-2024 Bacteria identified in Urine by Culture Urine Culture [facility] Start: 11-01-[address] [facility] Start: 04-15-[address] [facility] Start: 02-13-[address] [facility] Start: 02-13-2023 Referral to service [facility] Start: 02-12-2023 Application of intermittent pneumatic compression device [facility] Start: 02-12-2023 Following clinical pathway protocol [facility] Start: 02-12-2023 Assessment of risk of venous thromboembolism [facility] Start: 02-12-2023 Care regimes management [facility] Start: 02-12-[address] [facility] Start: 02-12-2023 Insertion of catheter into peripheral vein [facility] Start: 02-12-[address] and output [facility] Start: 02-12-2023 Notification of physician [facility] Start: 02-12-[address] [facility] Start: 02-12-2023 Providing care according to standard [facility] Start: 02-12-2023 Provision of activity privileges [facility] Start: 02-12-2023 Referral to occupational therapist [facility] Start: 02-12-2023 Referral to service [facility] Start: 02-12-[address] [facility] Start: 02-12-[address] [facility] Start: 02-12-2023 End: 02-12-[address] [facility] Start: 02-12-2023 Arthrocentesis aspir&/inj major jt/bursa w/o us DRAIN/INJ JOINT/BURSA W/O US [facility] Start: 06-20-[address] [facility] Work Phone: Start: 06-20-2021 Notification of physician [facility] Work Phone: Start: 06-20-[address] [facility] Work Phone: Start: 06-20-2021 Provision of activity privileges [facility] Work Phone: Start: 06-20-[address] [facility] Work Phone: Start: 06-20-2021 Taking patient vital signs [facility] Work Phone: Start: 06-20-2021 Vascular disease risk assessment [facility] Work Phone: Start: 06-20-2021 Vital signs measurements [facility] Work Phone: Start: 06-20-[address] [facility] Work Phone: Start: 07-09-2017 End: 07-09-2017 Appointment Appointment [facility] Work Phone: Start: 01-08-2017 End: 01-08-2017 Appointment Appointment [facility] Work Phone: Start: 01-08-2017 End: 01-08-2017 Follow Up Appt 6 months Follow Up Appt 6 months [facility] Work Phone: Start: 01-08-2017 End: 01-08-2017 Follow Up Appt Other Follow Up Appt Other [facility] Work Phone: Start: 01-08-2017 End: 01-08-2017 MMM MMM [facility] Work Phone: Start: 07-12-2016 End: 07-12-2016 Follow Up Appt 6 months Follow Up Appt 6 months [facility] Work Phone: Start: 07-12-2016 End: 07-12-2016 PFM PFM [facility] Work Phone: Start: 01-05-2016 End: 01-05-2016 MMM MMM [facility] Work Phone: Start: 08-29-2015 End: 08-29-2015 Follow Up Appt 6 months Follow Up Appt 6 months [facility] Work Phone: Start: 08-29-2015 End: 08-29-2015 PFM PFM [facility] Work Phone: Start: 05-19-2015 End: 05-19-2015 Ecg routine ecg w/least 12 lds w/i&r EKG (In office) [facility] Work Phone: Start: 05-19-2015 End: 05-19-2015 Follow Up Appt 3 months Follow Up Appt 3 months [employer] Work Phone: Start: 05-19-2015 End: 05-19-2015 Follow Up Appt 6 months Follow Up Appt 6 months [employer] Work Phone: Start: 05-19-2015 End: 05-19-2015 MMM MMM [employer] Work Phone: Start: 05-19-2015 End: 05-19-2015 Nuclear stress test -Lexiscan Nuclear stress test -Lexiscan [employer] Work Phone: Start: 05-19-2015 End: 05-19-2015 PFM PFM [employer] Work Phone: Start: 10-10-2014 End: 10-10-2014 Follow Up Appt 6 months Follow Up Appt 6 months [employer] Phone: Start: 10-10-2014 End: 10-10-2014 MMM MMM [employer] Work Phone: Start: 06-06-2014 End: 09-30-2014 *Hepatic Function Panel *Hepatic Function Panel [employer] Phone: Start: 06-06-2014 End: 09-30-2014 Lipid panel [AGGREGATE] *Lipid Profile CC PCP [employer] Work Phone: Start: 02-09-2014 End: 02-09-2014 Ecg routine ecg w/least 12 lds w/i&r EKG (In office) [employer] Work Phone: Start: 02-09-2014 End: 02-09-2014 Follow Up Appt 6 months Follow Up Appt 6 months [employer] Phone: Start: 02-09-2014 End: 02-09-2014 PFM PFM [employer] Work Phone: Start: 11-24-2013 End: 12-06-2013 *Hepatic Function Panel *Hepatic Function Panel [employer] Phone: Start: 11-24-2013 End: 12-06-2013 Lipid panel [AGGREGATE] *Lipid Profile CC PCP [facility] Work Phone: Start: 08-24-2013 End: 08-26-2013 *Hepatic Function Panel *Hepatic Function Panel [facility] Work Phone: Start: 08-24-2013 End: 08-26-2013 Lipid panel [AGGREGATE] *Lipid Profile CC PCP [facility] Work Phone: Start: 08-16-2013 End: 08-16-2013 Follow Up Appt 6 months Follow Up Appt 6 months [facility] Work Phone: Start: 08-16-2013 End: 08-16-2013 MMM MMM [facility] Work Phone: Start: 02-24-2013 End: 03-17-2013 *Hepatic Function Panel *Hepatic Function Panel [facility] Work Phone: Start: 02-24-2013 End: 03-17-2013 Lipid panel [AGGREGATE] *Lipid Profile CC PCP [facility] Work Phone: Start: 02-02-2013 End: 02-02-2013 Follow Up Appt 6 months Follow Up Appt 6 months [facility] Work Phone: Start: 02-02-2013 End: 02-02-2013 PFM PFM [facility] Work Phone: Start: 11-30-2012 End: 12-09-2012 *Hepatic Function Panel *Hepatic Function Panel [facility] Work Phone: Start: 11-30-2012 End: 12-09-2012 Lipid panel [AGGREGATE] *Lipid Profile CC PCP [facility] Work Phone: Start: 10-24-2012 End: 12-02-2012 *Hepatic Function Panel *Hepatic Function Panel [facility] Work Phone: Start: 10-24-2012 End: 12-02-2012 Lipid panel [AGGREGATE] *Lipid Profile CC PCP [facility] Work Phone: Start: 08-06-2012 End: 01-26-2013 Follow Up Appt 6 months Follow Up Appt 6 months [facility] Work Phone: Start: 08-06-2012 End: 01-26-2013 PFM PFM [facility] Work Phone: Start: 07-25-2012 End: 07-30-2012 *Hepatic Function Panel *Hepatic Function Panel [facility] Work Phone: Start: 07-25-2012 End: 07-30-2012 Lipid panel [AGGREGATE] *Lipid Profile [facility] [facility] Work Phone: Start: 03-09-2012 End: 07-30-2012 *Hepatic Function Panel *Hepatic Function Panel [facility] Work Phone: Start: 03-09-2012 End: 07-30-2012 Cardiac Rehab Cardiac Rehab [facility] [employer] Work Phone: Start: 03-09-2012 End: 03-09-2012 Cardiovascular stress test using treadmill Treadmill stress test (no imaging) [facility] [email or web address] Phone: Start: 03-09-2012 End: 03-09-2012 Ecg routine ecg w/least 12 lds w/i&r EKG (In office) [facility] [email or web address] Phone: Start: 03-09-2012 End: 07-30-2012 Follow Up Appt 3 months Follow Up Appt 3 months [facility] [email or web address] Phone: Start: 03-09-2012 End: 07-30-2012 Lipid panel [AGGREGATE] *Lipid Profile [facility] [employer] [facility] Work Phone: Start: 09-09-2011 End: 10-15-2011 *Hepatic Function Panel *Hepatic Function Panel [facility] [employer] Work Phone: Start: 09-09-2011 End: 09-09-2011 Follow Up Appt 6 months Follow Up Appt 6 months [facility] [email or web address] Phone: Start: 09-09-2011 End: 10-15-2011 Lipid panel [AGGREGATE] *Lipid Profile [facility] [employer] [facility] Work Phone: Start: 03-04-2011 End: 03-04-2011 Ecg routine ecg w/least 12 lds w/i&r EKG (In office) [facility] Work Phone: Start: 03-04-2011 End: 03-04-2011 Follow Up Appt 6 months Follow Up Appt 6 months [facility] Work Phone: Catheterization of l eft heart [facility] Patient Education [facility] Work Phone: Patient referral [facility] Work Phone: Urine culture [facility] Immun[place] Immunization Date Immunization Notes Care Provider Fa cility 12-25-2022 influenza, injectabl e, quadrivalent, preservative free Dr. Rodríguez Lema Work Phone: [facility] 12-25-2022 Pneumococcal Vaccine PCV20 (Prevnar 20) Dr. Rodríguez Lema Work Phone: [facility] 12-21-2021 influenza, injectabl e, quadrivalent, preservative free Dr. Rodríguez Lema Work Phone: [facility] 09-05-2016 tetanus toxoid, redu skyla diphtheria toxoid, and acellular pertussis vaccine, adsorbed Dr. Rodríguez Lema Work Phone: [facility] Payers Date Payer Category Payer Private Health Insurance [id number] 2023 Self-pay [id number] 2014 Unknown [id number] Unknown [id number] 2.16.8 [id number] Unknown [id number] 2.16.8 [id number] Unknown [id number] 2.16.8 [id number] Unknown [id number] 2.16.8 [id number] Unknown [id number] 2.16.8 [id number] Unknown [id number] 2.16.8 [id number] Unknown [id number] 2.16.8 [id number] Unknown [id number] 2.16.8 [id number] Unknown [id number] 2.16.8 [id number] Unknown [id number] 2.16.8 [id number] Unknown [id number] 2.16.8 [id number] Unknown [id number] 2.16.8 [id number] Unknown [id number] 2.16.8 [id number] Unknown [id number] 2.16.8 [id number] Unknown [id number] 2.16.8 [id number] Unknown [id number] 2.16.8 [id number] Unknown [id number] 2.16.8 [id number] Unknown [id number] 2.16.8 [id number] Unknown [id number] 2.16.8 [id number] Social History Date Type Detail Facility Start: 04-26-2021 End: 06-02-2023 Tobacco smoking status NHIS Unknown if ever smoked [facility] Start: 05-20-2020 None [facility] Start: 03-12-2019 Spouse/ Signif icant Other [facility] Start: 03-12-2019 Non-smoker [facility] Start: 1940 Sex Assigned At Female [facility] Start: 04-15-2024 End: 07-30-2024 Tobacco smoking status NHIS Never smoked tobacco (finding) [facility] Start: 05-22-2024 End: 05-27-2024 Sex Female (finding) [facility] NEGATED: Highlighted row [facility] Goals Date Patient Goal Desired Activity /State Functional Status Date Assessment Result Facility 02-13-2023 Functional status Ambulates [facility] Work Phone: Mental Status Date Assessment Result Facility 05-24-2024 Cognitive function Awake;Alert;Appropriat e [facility] Work Phone: 02-13-2023 Cognitive function Appropriate;Cooperativ e [facility] Work Phone: Clinical Notes 12-26-2011 to 07-30-2024 Note Date & Type Note Facility 07-30-2024 Evaluation note Diagnosis Onset Date Resolution Dysuria acute July 30, 2024 8:12am [facility] Work Phone: 1(407) 376-863606-06-2025 Evaluation note* Diagnosis Onset Date Resolution Status Admit Date Dysuria acute July 30, 2024 8:12am Abnormal stress test acute August 17, 2024 11:20am Angina pectoris acute July 11:20am HLD (hyperlipidemia) acute August 17, 2024 11:20am Atherosclerotic heart diseas e of [place] coronary artery without angina pectoris chronic July 11:20am Essential hypertension chronic Ju ne 2024 11:20am 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, chronic August 17, 2024 11:20am [facility] [employer] Work Phone: 1(418) 486-371606-06-2025 Evaluation note* Diagnosis Onset Date Resolution Status Admit Date Dysuria acute July 30, 2024 8:12am HLD (hyperlipidemia) acute August 17, 2024 11:20am Atherosclerotic heart diseas e of [place] coronary artery without angina pectoris chronic August 17, 2024 11:20am Essential hypertension chronic Ju ne 2024 11:20am [facility] Work Phone: [phone]) [phone] Radiology Diagnostic study note [facility] Imaging Services [address] [place] [address] Limited Chest CT Cardiac Only MR#: [id number] Acct: [id number] Name: JOSSE LACEY Rep #: [id number] : 1940 F 83 From: Calos Matos MD PCP: Dr. Rodríguez Lema MD Status: REG Selina GUSMAN Study:Limited Chest CT Cardiac Only Date of E xam: 05/24/24 Exam# [id number] Ordering Dr: Marleni Reno PA PROCEDURE: LIMITED CHEST CT CARDIAC ONLY REASON FOR EXAM: CAD TECHNIQUE: Supine chest CT following intravenous contrast, high resolution CT (HRCT) protocol. Isovue 370. 81 mL was injected. One or more dose reduction techniques were used (e.g., Automated exposure control, adjustment of the mA and/or kV according to patient size, use of iterative reconstruction technique). COMPARISON: None FINDINGS: Hardware: Prior CABG. Lymph nodes: No mediastinal hilar or axillary lymphadenopathy. Heart and Vasculature: Normal heart size. No pericardial effusion. Coronary Artery Calcifications: Present Lungs and Airways: The lungs are normally expanded and clear. No septal thickening nodules or abnormal pulmonary opacities. Pleura: Unremarkable Upper Abdomen: Fatty infiltration of the liver. Bones: Degenerative changes of the thoracic spine. CT/Limited Chest CT Cardiac Only IMPRESSION: Coronary artery calcification (CAC) is is present Reading Location: [facility]- CC: Dr. Rodríguez Lema MD; JEWEL Mckee ~ Braider Setter: Signed [facility]04-01-2025 Radiology Diagnostic study note [facility] Imaging Services [address] [place] [address] 05/25/24 0757 MR#: [id number] Acct: [id number] Name: JOSSE LACEY Rep #:[id number] : 1940 83 From: Tim Haney MD PCP: Dr. Rodríguez Lema MD Status:REG Selina Mullins Location: CT CCTA w/Cont Coronary Arteries Date of Study:: 05/24/24 Looking for Thompson Coronary Calcium Scoring: High-resolution Computed Tomographic imaging of the chest was performed on [ ], with particular attention paid to the coronary arteries. Intravenous contrast agent was administered per protocol and images reconstructed and displayed. LEFT MAIN CORONARY ARTERY: Arises from the left coronary cusp and bifurcates to left anterior descending artery and left circumflex artery [] LEFT ANTERIOR DESCENDING CORONARY ARTERY: This appears to be occluded [] LEFT CIRCUMFLEX CORONARY ARTERY: This vessel is noted to have a patent stent and an obtuse marginalbranch with a small runoff [] RIGHT CORONARY ARTERY: This vessel has an area of calcification noted in the proximal segment with probable high-grade stenosis and then reconstitutes distally [] THORACIC AORTA: There is a saphenous vein graft noted to the diagonal vessel There is a saphenous vein graft noted to the posterior descending artery No other grafts are noted Conclusion: Coronary artery disease demonstrating patent saphenous vein graft to the diagonal vessel and posterior descending artery. 05/25/24 0803 Date _ Tim Haney MD Cosigner Signature (if applicable): Date CC: Dr. Tim Haney MD; Dr. 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, chronic April 05 12:53pm [facility] Work Phone: 1(117) 914-968902-10-2025 Evaluation note* Diagnosis Onset Date Resolution Status Admit Date Abnormal stress test acute Febr 2024 12:53pm Angina pectoris acute April 05, 2024 12:53pm HLD (hyperlipidemia) acute 2024 12:53pm Atherosclerotic heart diseas e of [place] coronary artery without angina pectoris chronic April 05, 2024 12:53pm Essential hypertension chronic Fe 2024 12:53pm 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, chronic April 05 12:53pm Urinary tract infection with hematuria acute July 30, 2024 8 :12am [facility] Work Phone: 1(439) 657-153811-01-2012 Evaluation note* Diagnosis Onset Date Resolution Status Atherosclerotic heart diseas e of [place] coronary artery without angina pectoris chronic Essential hypertension chron ic 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, chronic Presence of stent in coronary artery February, chronic Pure hypercholesterolemia [facility] Work Phone: 1(391) 459-463011-01-2012 Evaluation note* Diagnosis Onset Date Resolution Status Atherosclerotic heart diseas e of [place] coronary artery without angina pectoris chronic Essential hypertension chron ic 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, chronic Presence of stent in coronary artery February, chronic Pure hypercholesterolemia [facility] Urinary tract infection with hematuria acute [facility] Work Phone: evaluation noteNo assessment information available [facility] Work Phone: evaluation note* Diagnosis Onset Date Resolution Status Atherosclerotic heart diseas e of [place] coronary artery without angina pectoris chronic Essential hypertension chron ic Pure hypercholesterolemia [facility] Work Phone: Evaluation note* Diagnosis Onset Date Resolution Status Urinary tract infection with hematuria acute Atherosclerotic heart diseas e of [place] coronary artery without angina pectoris chronic Essential hypertension chron ic Pure hypercholesterolemia [facility] Work Phone: Evaluation note* Diagnosis Onset Date Resolution Status Acute pain of left knee acut e Williamson's cyst, unruptured acu te Fall acute Inability to ambulate due to left knee acute [facility] Work Phone: Evaluation note* Diagnosis Onset Date Resolution Status Acute pain of left knee acut e Williamson's cyst, unruptured acu te Fall acute Inability to ambulate due to left knee acute Atherosclerotic heart diseas e of [place] coronary artery without angina pectoris chronic Essential hypertension chron ic Pure hypercholesterolemia ch shannan [facility] Work Phone: Reason for referral (narrative)No reason for [facility]: Chief Complaint and Reason for Visit Chief Complaint ARTHRITIS/PAIN- COPY PCP 10 M FU EORDER Reason for Visit Atherosclerotic hear t disease of [place] coronary artery without angina pectoris Essential hypertension Presence of aortocoronary bypass graft Presence of stent in coronary artery Pure hypercholesterolemia Chief Complaint 10 M FU EORDER CHEST PAIN MOODISPAW CHEST PAIN MOODISPAW LABS AND XRAY - EORDER Reason for Visit Atherosclerotic hear t disease of [place] coronary artery without angina pectoris Essential hypertension Presence of aortocoronary bypass graft Presence of stent in coronary artery Pure hypercholesterolemia Chief Complaint 10 M FU EORDER CHEST PAIN MOODISPAW CHEST PAIN MOODISPAW LABS AND XRAY - EORDER ABN STRESS ARTERY DISEASE CHEST PAIN SOB ABN STRESS ARTERY DISEASE CHEST PAIN SOB EORDER Reason for Visit Atherosclerotic hear t disease of [place] coronary artery without angina pectoris Essential hypertension Presence of aortocoronary bypass graft Presence of stent in coronary artery Pure hypercholesterolemia Chief Complaint 10 M FU EORDER CHEST PAIN MOODISPAW CHEST PAIN MOODISPAW LABS AND XRAY - EORDER ABN STRESS ARTERY DISEASE CHEST PAIN SOB ABN STRESS ARTERY DISEASE CHEST PAIN SOB Reason for Visit Atherosclerotic hear t disease of [place] coronary artery without angina pectoris Essential hypertension Presence of aortocoronary bypass graft Presence of stent in coronary artery Pure hypercholesterolemia Chief Complaint 10 M FU EORDER CHEST PAIN MOODISPAW CHEST PAIN MOODISPAW LABS AND XRAY - EORDER ABN STRESS ARTERY DISEASE CHEST PAIN SOB ABN STRESS ARTERY DISEASE CHEST PAIN SOB EORDER abd pain EDEMA Reason for Visit Atherosclerotic hear t disease of [place] coronary artery without angina pectoris Essential hypertension Presence of aortocoronary bypass graft Presence of stent in coronary artery Pure hypercholesterolemia Chief Complaint EORDER CHEST PAIN MOODISPAW CHEST PAIN MOODISPAW LABS AND XRAY - EORDER ABN STRESS ARTERY DISEASE CHEST PAIN SOB ABN STRESS ARTERY DISEASE CHEST PAIN SOB EORDER abd pain EDEMA Chief Complaint EDEMA 6 M FU Urinary tract infection 2 DRS/ 2 ORDERS- EORDER MOODISPAW Reason for Visit Atherosclerotic hear t disease of [place] coronary artery without angina pectoris Essential hypertension Presence of aortocoronary bypass graft Presence of stent in coronary artery Pure hypercholesterolemia Urinary tract infection with hematuria Chief Complaint 6 M FU Urinary tract infection 2 DRS/ 2 ORDERS- EORDER MOODISPAW SCREENING Reason for Visit Atherosclerotic hear t disease of [place] coronary artery without angina pectoris Essential hypertension Presence of aortocoronary bypass graft Presence of stent in coronary artery Pure hypercholesterolemia Urinary tract infection with hematuria Chief Complaint gu complaint Chief Complaint gu complaint 6 M FU EORDER Reason for Visit Atherosclerotic hear t disease of [place] coronary artery without angina pectoris Essential hypertension Pure hypercholesterolemia Chief Complaint Urinary tract infect ion 6 M FU EORDER Reason for Visit Urinary tract infect ion with hematuria Atherosclerotic heart disease of [place] coronary artery without angina pectoris Essential hypertension Pure hypercholesterolemia Chief Complaint Urinary tract infect ion 6 M FU EORDER SCREEN Reason for Visit Urinary tract infect ion with hematuria Atherosclerotic heart disease of [place] coronary artery without angina pectoris Essential hypertension Pure hypercholesterolemia Chief Complaint SCREEN FALL WITH INABILITY TO AMBULATE WITH LARGE WILLIAMSON'S FALL WITH INABILITY TO AMBULATE WITH LARGE WILLIASMON'S Reason for Visit Acute pain of left k nee Williamson's cyst, unruptured Fall Inability to ambulate due to left knee Chief Complaint FALL WITH INABILITY TO AMBULATE WITH LARGE WILLIAMSON'S FALL WITH INABILITY TO AMBULATE WITH LARGE WILLIAMSON'S SOB ON EXERTION SOB ON EXERTION 6 M FU Reason for Visit Acute pain of left k nee Williamson's cyst, unruptured Fall Inability to ambulate due to left knee Atherosclerotic heart disease of [place] coronary artery without angina pectoris Essential hypertension Pure hypercholesterolemia Chief Complaint Admit Date CP/ABN STRESS PER MMM April 05 12:53pm E-ORDER April 05, 2024 1:46pm ABN STRESS TEST, CP April 15, 2024 7:27am NOT FASTING May 17, 2024 2:3 5pm Reason for Visit Admit Date Abnormal stress test April 05, 2024 12:53pm Angina pectoris April 05, 2024 12:53pm HLD (hyperlipidemia) April 05, 2024 12:53pm Atherosclerotic heart diseas e of [place] coronary artery without angina pectoris April 05, 2024 12:53pm Essential hypertension April 05 12:53pm Presence of aortocoronary bypass graft F ebruary 2024 12:53pm Chief Complaint Admit Date CP/ABN STRESS PER MMM April 05 12:53pm E-ORDER April 05, 2024 1:46pm ABN STRESS TEST, CP April 15, 2024 7:27am NOT FASTING May 17, 2024 2:3 5pm R94.39 Abnormal result of other cardiova scular fun May 24, 2024 12:51pm R94.39 Abnormal result of other cardiova scular fun May 25, 2024 7:57am Chief Complaint Admit Date CP/ABN STRESS PER MMM April 05 12:53pm E-ORDER April 05, 2024 1:46pm ABN STRESS TEST, CP April 15, 2024 7:27am NOT FASTING May 17, 2024 2:3 5pm R94.39 Abnormal result of other cardiova scular fun May 24, 2024 12:00am R94.39 Abnormal result of other cardiova scular fun May 24, 2024 12:51pm R94.39 Abnormal result of other cardiova scular fun May 25, 2024 7:57am CONCERN FOR UTI June 30, 2024 8:09am Chief Complaint Admit Date CP/ABN STRESS PER MMM April 05 12:53pm E-ORDER April 05, 2024 1:46pm ABN STRESS TEST, CP April 15, 2024 7:27am NOT FASTING May 17, 2024 2:3 5pm R94.39 Abnormal result of other cardiova scular fun May 24, 2024 12:00am R94.39 Abnormal result of other cardiova scular fun May 24, 2024 12:51pm R94.39 Abnormal result of other cardiova scular fun May 25, 2024 7:57am CONCERN FOR UTI June 30, 2024 8:09am Urinary tract infection July 30, 2024 8 :12am Reason for Visit Admit Date Abnormal stress test April 05, 2024 12:53pm Angina pectoris April 05, 2024 12:53pm HLD (hyperlipidemia) April 05, 2024 12:53pm Atherosclerotic heart diseas e of [place] coronary artery without angina pectoris April 05, 2024 12:53pm Essential hypertension April 05 12:53pm Presence of aortocoronary bypass graft F ebruary 2024 12:53pm Urinary tract infection with hematuria J [facility] 2024 8:12am Chief Complaint Admit Date ABN STRESS TEST, CP April 15, 2024 7:27am NOT FASTING May 17, 2024 2:3 5pm R94.39 Abnormal result of other cardiova scular fun May 24, 2024 12:00am R94.39 Abnormal result of other cardiova scular fun May 24, 2024 12:51pm R94.39 Abnormal result of other cardiova scular fun May 25, 2024 7:57am CONCERN FOR UTI June 30, 2024 8:09am Urinary tract infection July 30, 2024 8 :12am Reason for Visit Admit Date Dysuria July 30, 2024 8:12a m Chief Complaint Admit Date NOT FASTING May 17, 2024 2:3 5pm R94.39 Abnormal result of other cardiova scular fun May 24, 2024 12:00am R94.39 Abnormal result of other cardiova scular fun May 24, 2024 12:51pm R94.39 Abnormal result of other cardiova scular fun May 25, 2024 7:57am CONCERN FOR UTI June 30, 2024 8:09am Urinary tract infection July 30, 2024 8 :12am 3 M FU August 17, 2024 11:2 0am Reason for Visit Admit Date Dysuria July 30, 2024 8:12a m Abnormal stress test August 17, 2024 11: 20am Angina pectoris August 17, 2024 11:2 0am HLD (hyperlipidemia) August 17, 2024 11: 20am Atherosclerotic heart diseas e of [place] coronary artery without angina pectoris August 17, 2024 11:20am Essential hypertension August 17, 2024 1 1:20am Presence of aortocoronary bypass graft J [facility] 2024 11:20am Chief Complaint Admit Date Urinary tract infection July 30, 2024 8 :12am 3 M FU August 17, 2024 11:2 0am CONCERN FOR UTI November 01, 2024 12:06pm Reason for Visit Admit Date Dysuria July 30, 2024 8:12a m HLD (hyperlipidemia) August 17, 2024 11: 20am Atherosclerotic heart diseas e of [place] coronary artery without angina pectoris August 17, 2024 11:20am Essential hypertension August 17, 2024 1 1:20am Family History No Family History Records Found Relationship Condition Age at Onset Recorded Date/T darío father Coronary artery disease Unknown Myocardial infarction Unknown brother Myocardial infarction Unknown Coronary artery disease Unknown sister Coronary artery disease Unknown Diabetes mellitus Unknown mother Malignant neoplasm Unknown Advance Directives No Advanced Directives Records Found Advance Directive Response Recorded Date/ Time Living Will Yes May 20, 2020 8:49am Power of Freight Service Inspector Yes May 20 8:49am Advance Directive Response Recorded Date/ Time Advance Directives Yes June 20 7:06am Living Will Yes June 20, 2021 7:06am Power of Freight Service Inspector Yes June 20 7:06am Advance Directive Response Recorded Date/ Time Advance Directives on File No June 20, 2021 7:06am Name of Medical Power of Freight Service Inspector Missy Quintanillajett jorgensen June 20, 2021 7:06am Advance Directives Yes June 20 7:06am Living Will No July 17, 2021 1 0:48am Power of Freight Service Inspector No July 17, 2021 10:48am Advance Directive Response Recorded Date/ Time Advance Directives Yes June 20 7:06am Living Will No July 17, 2021 1 0:48am Power of Freight Service Inspector No July 17, 2021 10:48am Advance Directive Response Recorded Date/ Time Advance Directives Yes June 20 6:06am Living Will No July 17, 2021 9 :48am Power of Freight Service Inspector No July 17, 2021 9:48am Advance Directive Response Recorded Date/ Time Advance Directives Yes June 20 6:06am Living Will Yes April 25, 2022 6:33pm Power of Freight Service Inspector Yes April 25 6:33pm Name of Medical Power of Freight Service Inspector or trace anthonyter April 25, 2022 6:33pm Advance Directive Response Recorded Date/ Time Advance Directives Yes June 20 7:06am Living Will Yes April 25, 2022 7:33pm Power of Freight Service Inspector Yes April 25 7:33pm Name of Medical Power of Freight Service Inspector or trace hale April 25, 2022 7:33pm Advance Directive Response Recorded Date/ Time Name of Medical Power of Freight Service Inspector or trace ghter April 25, 2022 7:33pm Advance Directives Yes June 20, 022 7:06am Living Will Yes April 25, 2022 7:33pm Power of Freight Service Inspector Yes April 25 7:33pm Advance Directive Response Recorded Date/ Time Advance Directives Yes June 20, 7:06am Living Will Yes April 25, 2022 7:33pm Power of Freight Service Inspector Yes April 25 7:33pm Advance Directive Response Recorded Date/ Time Advance Directives Yes June 20, 6:06am Living Will Yes April 25, 2022 6:33pm Power of Freight Service Inspector Yes April 25 6:33pm Advance Directive Response Recorded Date/ Time Name of Medical Power of Freight Service Inspector ronnie lacey/ missy scruggs February 12, 2023 10:10pm Advance Directives Yes June 20, 022 6:06am Living Will Yes February 12, 10:10pm Power of Freight Service Inspector Yes February 12, 2023 10:10pm Advance Directive Response Recorded Date/ Time Name of Medical Power of Freight Service Inspector ronnie lacey/ missy scruggs February 12, 2023 11:10pm Advance Directives Yes June 20, 7:06am Living Will Yes February 12, 11:10pm Power of Freight Service Inspector Yes February 12, 2023 11:10pm Advance Directive Response Recorded Date/ Time Advance Directives on File Yes 2024 8:52am Living Will Yes April 15 8:52am Do you have a Healthcare Pow er of Freight Service Inspector? Yes April 15, 2024 8:52am Name of Medical Power of Freight Service Inspector Missy Ruff r-daughter April 15, 2024 8:52am Advance Directives Yes March 8:52am Advance Directive Response Recorded Date/ Time Advance Directives Yes July 30 8:11am Advance Directives on File Yes 2024 8:52am Living Will Yes April 15 8:52am Do you have a Healthcare Pow er of Freight Service Inspector? Yes April 15, 2024 8:52am Name of Medical Power of Freight Service Inspector Missy Ruff r-daughter April 15, 2024 8:52am Advance Directive Response Recorded Date/ Time Advance Directives Yes July 30 8:11am Summary Purpose Additional Source Comments Goals (unrecognized section and content) Goals may be documented in a n alternate sectionGoals may be documented in an alternate sectionGoals may be documented in an alternate sectionGoals may be documented in an alternate sectionGoals may be documented in an alternate sectionGoals may be documented in an alternate sectionGoals may be documented in an alternate sectionGoals may be documented in an alternate sectionGoals may be documented in an alternate sectionGoals may be documented in an alternate sectionGoals may be documented in an alternate sectionGoals may be documented in an alternate sectionGoals may be documented in an alternate sectionGoals may be documented in an alternate sectionGoals may be documented in an alternate sectionGoals may be documented in an alternate sectionGoals may be documented in an alternate sectionGoals may be documented in an alternate sectionGoals may be documented in an alternate sectionGoals may be documented in an alternate sectionGoals may be documented in an alternate sectionGoals may be documented in an alternate sectionGoals may be documented in an alternate sectionGoals may be documented in an alternate section Care Teams (unrecognized sec tion and content) Team Status: Active Member Role Status Dates Dr. Rodríguez Lema MD Family Provider Active Dr. Rodríguez Lema MD Primary Care Provider Active Team Status: Inactive Member Role Status Dates Dr. Rodríguez Lema MD Primary Care Provider Active Dr. Darion Reyes DO Emergency Provider Active Team Status: Inactive Member Role Status Dates Dr. Rodríguez Lema MD Primary Care Provider Active Dr. Darion Reyes DO Attending Provider, Emergency Provider Active Team Status: Inactive Member Role Status Dates Dr. Rodríguez Lema MD Primary Care Provi angélica, Attending Provider, Referring Provider Active Team Status: Active Member Role Status Dates Dr. Rodríguez Lema MD Primary Care Provi angélica, Attending Provider, Referring Provider Active Team Status: Inactive Member Role Status Dates Dr. Rodríguez Lema MD Primary Care Provider, Referring Provider Active David Vargas TOTER, TOTER-C Attending Provider Active Team Status: Inactive Member Role Status Dates Dr. Rodríguez Lema MD Primary Care Provider Active David Vargas TOTER, TOTER-C Attending Provider, Referring Pro vider Active Team Status: Inactive Member Role Status Dates Dr. Rodríguez Lema MD Primary Care Provider, Attending Provider Active Team Status: Inactive Member Role Status Dates Dr. Rodríguez Lema MD Primary Care Provider Active David Vargas TOTER, TOTER-C Attending Provider Active Team Status: Active Member Role Status Dates Dr. Rodríguez Lema MD Primary Care Provider Active Dr. Matt Dunne , DO Emergency Provider Active Dr. Med Ramirez , DO Admit Provider, Other Provid er Active Dr. Antonio Pike , DO Other Provider Active Dr. Kurt Garcia , DO Other Provider Active Dr. Manuel Montana , DO Other Provider Active Dr. Juanpablo Cobb MD Other Provider Active Dr. Johnnie Arcos MD Other Provider Active Dr. Monster Cobb DPM Other Provider Active Jen Villa PA, PA Other Provider Active JEWEL Montelongo Other Provider Active Ray Espatsy PA, PA-C Other Provider Active Edd Waggoner PA, PA-C Other Provider Active Dr. Ankur Fontanez MD Attending Provider, Other Provi angélica Active Team Status: Inactive Member Role Status Dates Dr. Rodríguez Lema MD Primary Care Provider Active Dr. Matt Dunne , DO Emergency Provider Active Dr. Med Ramirez , DO Admit Provider, Other Provid er Active Dr. Antonio Pike , DO Other Provider Active Dr. Kurt Garcia , DO Other Provider Active Dr. Manuel Montana , DO Other Provider Active Dr. Juanpablo Cobb MD Other Provider Active Dr. Johnnie Arcos MD Other Provider Active Dr. Monster Cbob , DPJovana Other Provider Active Jen Villa PA, PA Other Provider Active JEWEL Montelongo Other Provider Active Ray Eshenalexsanderr PA, PA-C Other Provider Active Edd Waggoner PA, PA-C Other Provider Active Dr. Ankur Fontanez MD Attending Provider Active Team Status: Active Member Role Status Dates Dr. Rodríguez Lema MD Primary Care Provider, Attending Provider Active Team Status: Inactive Member Role Status Dates Dr. Rodríguez Lema MD Primary Care Provider, Referring Provider Active Marlnei Magana PA, PA Attending Provider Active Team Status: Active Member Role Status Dates Dr. Rodríguez Lema MD Primary Care Provi angélica, Referring Provider, Other Provider Active Dr. Tim Haney MD Attending Provider Active Team Status: Active Member Role Status Dates Dr. Rodríguez Lema MD Primary Care Provider Active Team Status: Inactive Member Role Status Dates Dr. Rodríguez Lema MD Primary Care Provider Active Start: April 05, 2024 End: April 05, 2024 Dr. Rodríguez Lema MD Referring Provider Active Start: April 05, 2024 End: April 05, 2024 Marleni Magana PA, PA Attending Provider Active Start: April 05, 2024 End: April 05, 2024 Team Status: Inactive Member Role Status Dates Dr. Rodríguez Lmea MD Primary Care Provider Active Start: April 05, 2024 End: April 05, 2024 Marleni Magana PA, PA Attending Provider Active Start: April 05, 2024 End: April 05, 2024 Marleni Magana PA, PA Referring Provider Active Start: April 05, 2024 End: April 05, 2024 Team Status: Inactive Member Role Status Dates Dr. Rodríguez Lema MD Primary Care Provider Active Start: April 15, 2024 End: April 15, 2024 Dr. Levar Hutton MD Attending Provider Active Start: April 15, 2024 End: April 15, 2024 Dr. Levar Hutton MD Referring Provider Active Start: April 15, 2024 End: April 15, 2024 Team Status: Inactive Member Role Status Dates Dr. Rodríguez Lema MD Primary Care Provider Active Start: May 17, 2024 End: May 17, 2024 Dr. Rodríguez Lema MD Attending Provider Active Start: May 17, 2024 End: May 17, 2024 Dr. Rodríguez Lema MD Referring Provider Active Start: May 17, 2024 End: May 17, 2024 Team Status: Inactive Member Role Status Dates Dr. Rodríguez Lema MD Primary Care Provider Active Start: May 24, 2024 End: May 24, 2024 Marleni Magana PA, PA Attending Provider Active Start: May 24, 2024 End: May 24, 2024 Marleni Magana PA, PA Referring Provider Active Start: May 24, 2024 End: May 24, 2024 Team Status: Active Member Role Status Dates Dr. Rodríguez Lema MD Primary Care Provider Active Start: May 25, 2024 Marleni Magana PA, PA Referring Provider Active Start: May 25, 2024 Marleni Magana PA, PA Other Provider Active Start: May 25, 2024 Dr. Tim Haney MD Attending Provider Active S tart: May 25, 2024 Team Status: Active Member Role Status Dates Dr. Rodríguez Lema MD Primary Care Provider Active Start: May 24, 2024 Dr. Tim Haney MD Attending Provider Active S tart: May 24, 2024 Marleni HOLLOWAY, PA Referring Provider Active Start: May 24, 2024 Team Status: Inactive Member Role Status Dates Dr. Rodríguez Lema MD Primary Care Provider Active Start: June 30, 2024 End: June 30, 2024 Dr. Rodríguez Lema MD Referring Provider Active Start: June 30, 2024 End: June 30, 2024 Johnnie HOLLOWAY PA Attending Provider Active Start: June 30, 2024 End: June 30, 2024 Team Status: Inactive Member Role Status Dates Dr. Rodríguez Lema MD Primary Care Provider Active Start: June 30, 2024 End: June 30, 2024 Johnnie HOLLOWAY PA Attending Provider Active Start: June 30, 2024 End: June 30, 2024 Team Status: Inactive Member Role Status Dates Dr. Rodríguez Lema MD Primary Care Provider Active Start: July 30, 2024 End: July 30, 2024 Dr. Rodríguez Lema MD Referring Provider Active Start: July 30, 2024 End: July 30, 2024 Jc HOLLOWAY PA Attending Provider Active Sta rt: July 30, 2024 End: July 30, 2024 Team Status: Inactive Member Role Status Dates Dr. Rodríguez Lema MD Primary Care Provider Active Start: July 30, 2024 End: July 30, 2024 Jc HOLLOWAY PA Attending Provider Active Sta rt: July 30, 2024 End: July 30, 2024 Jc HOLLOWAY PA Referring Provider Active Sta rt: July 30, 2024 End: July 30, 2024 Team Status: Inactive Member Role Status Dates Dr. Rodríguez Lema MD Primary Care Provider Active Start: August 17, 2024 End: August 17, 2024 Dr. Rodríguez Lema MD Referring Provider Active Start: August 17, 2024 End: August 17, 2024 Melva Nunez NP, TOTER-C Attending Provider Active Start: August 17, 2024 End: August 17, 2024 Team Status: Active Member Role/Relationship Status Dates Dr. Rodríguez Lema MD Primary Care Provider Active Team Status: Inactive Member Role/Relationship Status Dates Dr. Rodríguez Lema MD Primary Care Provider Active Start: July 30, 2024 End: July 30, 2024 Dr. Rodríguez Lema MD Referring Provider Active Start: July 30, 2024 End: July 30, 2024 JEWEL Grajeda Attending Provider Active Sta rt: July 30, 2024 End: July 30, 2024 Team Status: Inactive Member Role/Relationship Status Dates Dr. Rodríguez Lema MD Primary Care Provider Active Start: July 30, 2024 End: July 30, 2024 JEWEL Grajeda Attending Provider Active Sta rt: July 30, 2024 End: July 30, 2024 JEWEL Grajeda Referring Provider Active Sta rt: July 30, 2024 End: July 30, 2024 Team Status: Inactive Member Role/Relationship Status Dates Dr. Rodríguez Lema MD Primary Care Provider Active Start: August 17, 2024 End: August 17, 2024 Dr. Rodríguez Lema MD Referring Provider Active Start: August 17, 2024 End: August 17, 2024 Melva Nunez TOTER, TOTER-C Attending Provider Active Start: August 17, 2024 End: August 17, 2024 Team Status: Inactive Member Role/Relationship Status Dates Dr. Rodríguez Lema MD Primary Care Provider Active Start: November 01, 2024 End: November 01, 2024 Dr. Rodríguez Lema MD Referring Provider Active Start: November 01, 2024 End: November 01, 2024 JEWEL Hamm Attending Provider Active Start: November 01, 2024 End: November 01, 2024 Team Status: Active Member Role/Relationship Status Dates Dr. Rodríguez Lema MD Primary Care Provider Active Start: November 01, 2024 JEWEL Hamm Attending Provider Active Start: November 01, 2024 Team Status: Inactive Member Role/Relationship Status Dates Dr. Rodríguez Lema MD Primary Care Provider Active Start: November 01, 2024 End: November 01, 2024 JEWEL Hamm Attending Provider Active Start: November 01, 2024 End: November 01, 2024 INFORMATION SOURCE (unrecogn ized section and content) DATE CREATED AUTHOR 11/11/2024 [facility] FOR RECORDS PERTAINING TO PATIENTS WHO ARE [...] BE BASED ON THE PRIMARY CLINICAL RECORDS. [facility]. provides no warranty or guarantee of the accuracy or completeness of information in this document.
[2024-11-17 18:45] LABS: Anion Gap 15 (5-15); BUN 23 mg/dL (4-19); BUN/Creat Ratio 19.1 RATIO (10-20); Calcium,Total 10.2 mg/dL (7.6-11.0); Carbon Dioxide 20.3 mmol/L (21.0-32.0); Chloride 102 mmol/L (98-108); Cholesterol 254 mg/dL (<=200); Glucose 146 mg/dL (70-99); Low Density Lipoprotein Calc. 144 mg/dL; Potassium 3.9 mmol/L (3.3-5.1); Triglycerides 265 mg/dL; Very Low Density Lipoprotein 53 mg/dL (5-40); cholesterol:hdl ratio screen 4.47
== END | disposition home or self-care (01) ==
LOC: MFPLAB 13:52
PROVIDERS: PCP Family Medicine; Visit Provider Family Medicine
DX: E11.9 Type 2 diabetes mellitus without complications (principal)
CPT/HCPCS: 36415; 80048; 80061

== ENCOUNTER → 2025-01-31 | Outpatient (CLI) | payer MEDICARE, SELFPAY ==
[2024-07-30 08:11] VITALS: BMI 37.0
--- NOTE | 2025-01-31 07:35 | BI_ITS ---
EXAM: SCRN MAMM (CAD)W/TARIK BILAT DATE: 01/31/2025 CLINICAL HISTORY: F, Age 84 y/o , SCREENING TECHNIQUE: Procedure Code: [id number] Modality: MG Procedure: SCRN MAMM (CAD)W/TARIK BILAT COMPARISON: Prior exam(s) dated 01/12/2024, 01/10/2023, and 12/24/2021. FINDINGS: TISSUE DENSITY: The breasts are almost entirely fatty. Bilateral Breast Mammographic Findings: Benign-appearing macrocalcifications, round microcalcifications and punctate calcifications are seen in both breasts. Benign-appearing secretory type calcifications are seen in both breasts. No suspicious masses, suspicious clustered microcalcifications, architectural distortion or secondary signs of malignancy is identified in either breast. BI/SCRN MAMM (CAD)W/TARIK BILAT IMPRESSION: Benign screening mammogram OVERALL FINAL ASSESSMENT BI-RADS 2: BENIGN RECOMMENDATION: Routine annual follow-up in 1 Year Additional Recommendation none A letter with findings and recommendations will be mailed to the patient. Reading Location: [id number]
== END | disposition home or self-care (01) ==
PROVIDERS: PCP Family Medicine; Referring Provider Family Medicine; Visit Provider Family Medicine
DX: Z12.31 Encounter for screening mammogram for malignant neoplasm of breast (principal)
CPT/HCPCS: 77063; 77067